=== PATIENT | male | born 1955 | race Caucasian/White ===

== ENCOUNTER 2017-11-17 10:39 | Outpatient (CLI) | payer MEDICAID, SELFPAY ==
[2017-11-17 13:00] LABS: CREATININE 0.79 mg/dL (0.70-1.30); Potassium 5.2 mmol/L (3.5-5.1)
[2017-11-17 13:06] LABS: Hemoglobin A1C 6.6 % (4.5-6.2)
[2017-11-18 09:34] LABS: Hepatitis C Ab w Rflx HCV PCR Negative (NEGAT)
== END 2017-11-17 10:59 ==
PROVIDERS: PCP Family Medicine; Visit Provider Family Medicine
DX: I10 Essential (primary) hypertension (principal); Z11.59 Encounter for screening for other viral diseases; E11.65 Type 2 diabetes mellitus with hyperglycemia
CPT/HCPCS: 36415; 86803; 82565; 83036; 84132

== ENCOUNTER 2018-03-03 11:27 | Outpatient (REF) | payer MEDICAID, SELFPAY | END 2018-03-03 11:47 | LOC: LBN 11:27 | PROVIDERS: PCP Family Medicine; Visit Provider Family Medicine | DX: J06.9 Acute upper respiratory infection, unspecified (principal); R06.02 Shortness of breath | CPT/HCPCS: 87449 ==

== ENCOUNTER 2018-06-05 02:11 | Outpatient (CLI) | payer MEDICAID, SELFPAY ==
[2018-06-05 09:23] LABS: Hemoglobin A1C 6.3 % (4.5-6.2)
[2018-06-05 09:52] LABS: Cholesterol 197 mg/dL (50-200); HDL Cholesterol 52 mg/dL (40-60); LDL CHOLESTEROL 111 mg/dL (<100); Potassium 4.9 mmol/L (3.5-5.1); Triglyceride 148 mg/dL (30-150)
== END 2018-06-05 02:31 ==
PROVIDERS: PCP Family Medicine; Visit Provider Family Medicine
DX: E11.9 Type 2 diabetes mellitus without complications (principal)
CPT/HCPCS: 36415; 80061; 83721; 82565; 83036; 84132

== ENCOUNTER 2018-08-08 15:30 | Outpatient (CLI) | payer MEDICAID, SELFPAY ==
--- NOTE | 2018-08-08 11:15 | DI.RAD_ITS ---
SYMPTOM/DIAGNOSIS: RT ANT RIB PAIN, NO TRAUMA, R07.81, PLEURODYNIA RIGHT RIBS AND PA AND LATERAL CHEST: The heart size is normal. The lungs appear clear. No pneumothorax is seen. A marker was placed over the lower right ribs in the area of the patient's pain. No rib fracture, lytic or blastic lesion is seen. The thoracic spine is unremarkable. IMPRESSION: Negative chest and right ribs.
== END 2018-08-08 15:50 ==
PROVIDERS: PCP Family Medicine; Visit Provider Family Medicine
DX: R07.81 Pleurodynia (principal)
CPT/HCPCS: 71046; 71100

== ENCOUNTER 2018-12-01 10:04 | Outpatient (CLI) | payer MEDICAID, SELFPAY ==
[2018-12-01 13:10] LABS: Hemoglobin A1C 6.3 % (4.5-6.2)
== END 2018-12-01 10:24 ==
PROVIDERS: PCP Family Medicine; Visit Provider Family Medicine
DX: E11.9 Type 2 diabetes mellitus without complications (principal)
CPT/HCPCS: 36415; 83036

== ENCOUNTER → 2019-11-30 08:59 | Outpatient (BNVA) | payer MEDICARE, MEDICAID, SELFPAY | PROVIDERS: PCP Family Medicine; Visit Provider Urology | DX: R31.29 Other microscopic hematuria (principal); E11.65 Type 2 diabetes mellitus with hyperglycemia; E78.5 Hyperlipidemia, unspecified | CPT/HCPCS: 36415; 80061; 81003; 99213; 82565; 84132 ==

== ENCOUNTER 2019-12-11 07:49 | Day surgery (SDC) | payer MEDICARE, MEDICAID, SELFPAY ==
[2019-12-11 08:01] VITALS: BP 184/91; PULSE 60; RESP 22; TEMP 36; O2SAT 96
[2019-12-11] MEDS: Lactated Ringers 1,000 ML 80 ML IV (08:32)
--- NOTE | 2019-12-11 10:25 | W.PM.HP.N ---
Date of service: 12/11/19 Time of Service: 10:26 Assessment and Plan Assessment and plan (1) Screening for colon cancer: Status: Acute Assessment and plan: I offered colonoscopy. The procedure was described including the risks of perforation with need for surgery or bleeding. Patient agrees to proceed. History of Present Illness Narrative: 64 y/o male with history of HTN, Type 2 DM and splenectomy presents for his first colonoscopy screening. He denies a family history of colon cancer. He reports changes in his bowel habits since starting the Janumet, stating that he frequently has diarrhea after taking it in the morning. He denies bloody or black tarry stools, abdominal pain or constipation. He denies constitutional symptoms. Denies use of marijuana or any other recreational or illegal drugs. Review of Systems All systems reviewed & are unremarkable except as noted in HPI and below PFSH Medical History Diabetes mellitus Hypertension Surgical History (Updated 12/11/19 @ 10:27 by Cassandra Wright MD) History of splenectomy Splenomegaly 2010 Family History Mother No problems noted. Father Diabetes Heart disease Neoplasm Stroke Sister Personal history of malignant neoplasm Brother No problems noted. Grandfather Heart disease Grandfather No problems noted. Grandmother No problems noted. Grandmother Diabetes Sister No problems noted. Sister No problems noted. Brother No problems noted. Brother No problems noted. Brother No problems noted. Son Substance abuse Social History (Updated 11/08/19 @ 09:11 by DARCI Florez) Smoking/Tobacco Use Status: Former Tobacco Use Tobacco: How many years used: 12 Smoking risk assessment performed?: Yes Alcohol Intake: current Alcohol Intake frequency: a few times a week Drug use: Never Substance use type: does not use Current gender identity: male Do you feel safe at home: Yes Do you feel safe in your relationship?: Yes Meds Home Medications and Allergies Home Medications Medication Instructions Recorded Confirmed Type aspirin [Aspirin Low-Strength] 81 mg PO DAILY tab-cap 03/22/14 12/11/19 History Fish Oil 1,000 cap PO BID 04/14/16 12/11/19 History blood-glucose meter #1 each 02/13/18 11/30/19 Rx lancets 28 gauge #100 each 02/13/18 11/30/19 Rx albuterol sulfate 90 mcg/actuation 2 puff IH QID PRN #8 gm 03/03/18 12/11/19 Rx aerosol inhaler blood sugar diagnostic #100 strip 04/18/18 11/30/19 Rx atorvastatin 10 mg tablet 10 mg PO .twice/week #30 tab 06/01/19 12/11/19 Rx losartan 100 1 tab PO DAILY #90 tab 06/01/19 12/11/19 Rx mg-hydrochlorothiazide 12.5 mg tablet metoprolol succinate 100 mg 100 mg PO DAILY #90 tab 06/01/19 12/11/19 Rx tablet,extended release 24 hr sitagliptin 50 mg-metformin 1,000 1 tab PO DAILY AM #90 tab 09/24/19 12/11/19 Rx mg tablet amlodipine 5 mg tablet 5 mg PO DAILY #90 tab 11/30/19 12/11/19 Rx Allergies Allergy/AdvReac Type Severity Reaction Status Date / Time No Known Allergies Allergy Verified 12/11/19 08:05 Exam Narrative Exam Narrative: Alert Lungs CTA Heart RRR Abdomen soft, nontender. Results Last Vital Signs Temp 96.8 F L 12/11/19 08:01 Pulse 60 12/11/19 08:01 Resp 22 12/11/19 08:01 BP 184/91 H 12/11/19 08:01 Pulse Ox 96 12/11/19 08:01 COVID-19 Screening Have you,or household,traveled outside [place] in last 14 days?: Yes Had IN PERSON contact w/suspected or confirmed C-19 person: No
--- NOTE | 2019-12-11 11:58 | W.PM.DSUDISC ---
Discharge Plan Disposition Patient Disposition: HOME Condition: Good Discharge Details Reason For Visit: Screening colonoscopy Attending Provider: Cassandra Wright Primary Care Provider: Aston Alicea Home Meds and New Rx's Prescriptions: Continued losartan-hydrochlorothiazide 100-12.5 mg tablet 1 tab PO DAILY Qty: 90 RF: 3 metoprolol succinate 100 mg tablet extended release 24 hr 100 mg PO DAILY Qty: 90 RF: 3 atorvastatin 10 mg tablet 10 mg PO .twice/week Qty: 30 RF: 3 albuterol sulfate [Ventolin HFA] 90 mcg/actuation HFA aerosol inhaler 2 puff IH QID PRN (Reason: shortness of breath or wheezing) Qty: 8 RF: 0 amlodipine 5 mg tablet 5 mg PO DAILY Qty: 90 RF: 3 aspirin [Aspirin Low-Strength] 81 MG tablet,chewable 81 mg PO DAILY RF: 0 fish oil 1,000 cap PO BID RF: 0 (DME) lancets 28 gauge misc 1 ea Miscellaneous DAILY Qty: 100 RF: 3 (DME) blood-glucose meter misc 1 ea Miscellaneous DAILY Qty: 1 RF: 0 (DME) Blood Glucose Test strip 1 ea Miscellaneous DAILY Qty: 100 RF: 3 Janumet 50-1,000 mg tablet 1 tab PO DAILY AM Qty: 90 RF: 3 Discharge Instructions Additional Instructions: Findings: Your colonoscopy was normal. Follow up: Plan for routine screening colonoscopy in 10 years or sooner if symptoms arise. Please call if you develop: fevers >101.5 Nausea or Vomiting Abdominal pain that is not transient DAY SURGERY UNIT POST COLONOSCOPY INSTRUCTIONS 1. Because there will be medication in your system for the next 24 hours, you may feel a little sleepy. Your coordination will be affected. Therefore: a. Do not drive or operate dangerous equipment for 24 hours. b. Do not drink alcohol beverages for 24 hours (not even beer). c. Plan to go home and rest for the day. 2. Generally there are no restrictions on your activity after a day or so has gone by, but you may feel a bit fatigued for a few days. 3 After you arrive home you may have a light meal and return to a normal diet as you can tolerate it without feeling sick to your stomach. 4. After surgery, you may feel pain or discomfort. This should be only transient, but if it persists please contact your doctor. 5. If there are any questions regarding the findings of your procedure, please feel free to contact your doctor. 6. If you are unable to contact your doctor with a problem, contact the hospital at [phone]. 7. Continue all your regular medications unless directed otherwise. I understand the above instructions and have no questions. Signature of Patient or Responsible Adult Escort Date/Time Name of Responsible Adult Escort Signature of Nurse Date/Time Stand Alone Forms: Janey Walden (ANDREIAU) Activity:: Activity as Tolerated Diet:: As Tolerated Discharge Orders Discharge Orders: Discharge Order (Routine); Ordered 12/11/19 Ordered By: Cassandra Wright DS: Diagnosis Discharge Diagnosis (1) Screening for colon cancer: Status: Acute
[2019-12-11 12:00] VITALS: BP 202/86; PULSE 69; RESP 22; TEMP 36.5; O2SAT 97
--- NOTE | 2019-12-12 05:40 | W.COLOREPORT ---
Colonoscopy Report Date of procedure: 12/11/19 Pre-op diagnosis general: Screening Post-op diagnosis procedure note: other (Normal colon) Procedure: Colonoscopy Surgeon: Cassandra Wright Anesthesia proc note operative: MAC Indications: This 64 year old man presents for his first screening colonoscopy. No symptoms or FH colon cancer. Procedure Description: The patient was placed in the left Davison position. Propofol was titrated to sedation. Digital rectal examination revealed no abnormalities. The scope was advanced to the cecum without difficulty. The ileocecal valve and appendiceal orifice were clearly identified. The prep was good. The scope was slowly withdrawn over the course of greater than 6 minutes with no abnormalities seen in the ascending, transverse, descending, sigmoid colon or rectum including on retroflexed view. The patient tolerated the procedure well and was stable to recovery. Plan for routine screening colonoscopy in 10 years or sooner if symptoms indicate.
== END 2019-12-11 12:15 | disposition home or self-care (01) ==
PROVIDERS: PCP Family Medicine; Visit Provider Surgery
PROC: 0DJD8ZZ Inspection of Lower Intestinal Tract, Via Natural or Artificial Opening Endoscopic (ICD-10-PCS; CPT 45378; principal; 2019-12-11 10:15)
DX: Z12.11 Encounter for screening for malignant neoplasm of colon (principal); E11.9 Type 2 diabetes mellitus without complications; I10 Essential (primary) hypertension
CPT/HCPCS: 45378; NC; J2001

== ENCOUNTER 2020-07-08 18:06 | Outpatient (REF) | payer MEDICARE, MEDICAID, SELFPAY ==
[2020-07-08 19:48] LABS: Anion Gap 7.2 mmol/L (3-11); BUN 16 mg/dL (7-18); CO2 23.8 mmol/L (21.0-32.0); CREATININE 1.1 mg/dL (0.70-1.30); Calcium 8.6 mg/dL (8.5-10.1); Chloride 93 mmol/L (98-107); Glucose 105 mg/dL (74-106); Potassium 5.7 mmol/L (3.5-5.1)
[2020-07-08 19:58] LABS: Sodium 124 mmol/L (136-145)
== END 2020-07-08 18:07 | disposition home or self-care (01) ==
LOC: LBN 18:06
PROVIDERS: PCP Family Medicine; Visit Provider Family Medicine
DX: E87.1 Hypo-osmolality and hyponatremia (principal)
CPT/HCPCS: 80048

== ENCOUNTER 2020-07-11 02:17 | Outpatient (CLI) | payer MEDICARE, MEDICAID, SELFPAY ==
[2020-07-11 11:19] LABS: Anion Gap 4.6 mmol/L (3-11); CO2 23.4 mmol/L (21.0-32.0); Chloride 93 mmol/L (98-107)
[2020-07-11 11:24] LABS: Sodium 121 mmol/L (136-145)
== END 2020-07-11 02:18 | disposition home or self-care (01) ==
LOC: LBO 02:18
PROVIDERS: PCP Family Medicine; Visit Provider Family Medicine
DX: E87.1 Hypo-osmolality and hyponatremia (principal)
CPT/HCPCS: 36415; 80051

== ENCOUNTER 2020-07-18 09:04 | Outpatient (CLI) | payer MEDICARE, MEDICAID, SELFPAY ==
[2020-07-18 12:01] LABS: Anion Gap 6.9 mmol/L (3-11); BUN 12 mg/dL (7-18); CO2 23.1 mmol/L (21.0-32.0); CREATININE 0.9 mg/dL (0.70-1.30); Calcium 8.2 mg/dL (8.5-10.1); Chloride 97 mmol/L (98-107); Glucose 133 mg/dL (74-106); Potassium 4.6 mmol/L (3.5-5.1); Sodium 127 mmol/L (136-145)
[2020-07-18 12:11] LABS: Sodium, Urine 24 mmol/L
== END 2020-07-18 09:05 | disposition home or self-care (01) ==
LOC: LBO 09:15
PROVIDERS: PCP Family Medicine; Visit Provider Family Medicine
DX: E87.1 Hypo-osmolality and hyponatremia (principal); R03.0 Elevated blood-pressure reading, without diagnosis of hypertension
CPT/HCPCS: 36415; 80048; 82533; 82436; 84300

== ENCOUNTER 2020-08-06 03:43 | Outpatient (CLI) | payer MEDICARE, MEDICAID, SELFPAY ==
[2020-08-06 12:08] LABS: Anion Gap 8.4 mmol/L (3-11); BUN 13 mg/dL (7-18); CO2 21.6 mmol/L (21.0-32.0); Calcium 8.4 mg/dL (8.5-10.1); Chloride 101 mmol/L (98-107); Glucose 96 mg/dL (74-106); Potassium 5.3 mmol/L (3.5-5.1); Sodium 131 mmol/L (136-145)
== END 2020-08-06 03:44 | disposition home or self-care (01) ==
LOC: LBO 03:46
PROVIDERS: PCP Family Medicine; Visit Provider Family Medicine
DX: E87.1 Hypo-osmolality and hyponatremia (principal)
CPT/HCPCS: 36415; 80048

== ENCOUNTER → 2020-12-02 09:41 | Outpatient (BNVA) | payer MEDICARE, MEDICAID, SELFPAY | PROVIDERS: PCP Family Medicine; Referring Provider Family Medicine; Visit Provider Urology | DX: R31.29 Other microscopic hematuria (principal) | CPT/HCPCS: 81003; 99213 ==

== ENCOUNTER 2020-12-02 21:09 | Outpatient (REF) | payer MEDICARE, MEDICAID, SELFPAY ==
[2020-12-02 20:53] LABS: Anion Gap 9.6 mmol/L (3-11); CO2 22.4 mmol/L (21.0-32.0); CREATININE 0.9 mg/dL (0.70-1.30); Chloride 104 mmol/L (98-107); Potassium 5.1 mmol/L (3.5-5.1); Sodium 136 mmol/L (136-145)
[2020-12-03 17:44] LABS: PSA, Screening 0.4 ng/mL (0.0-4.5)
== END 2020-12-02 21:10 | disposition home or self-care (01) ==
LOC: LBN 21:09
PROVIDERS: PCP Family Medicine; Visit Provider Family Medicine
DX: I10 Essential (primary) hypertension (principal); E87.1 Hypo-osmolality and hyponatremia; R73.9 Hyperglycemia, unspecified; R31.29 Other microscopic hematuria; Z12.5 Encounter for screening for malignant neoplasm of prostate
CPT/HCPCS: 80051; 84153; 82565; 83036

== ENCOUNTER 2021-02-01 09:58 | Emergency (ER) | payer MEDICARE, MEDICAID, SELFPAY ==
[2021-02-01 10:03] VITALS: BP 167/91; PULSE 98; RESP 16; TEMP 36.6; O2SAT 96
--- NOTE | 2021-02-01 10:23 | ED.GENADUL_ITS ---
Discharge Plan Disposition Patient Disposition: HOME Condition: Stable Discharge Details Clinical Impression: Cellulitis Primary Care Provider: Aston Alicea ED Provider: Ezequiel Mckeon Home Meds and New Rx's Prescriptions: New cephalexin 500 mg tablet 500 mg PO QID 7 Days Qty: 28 RF: 0 Continued atorvastatin 10 mg tablet 10 mg PO .twice/week Qty: 30 RF: 3 metoprolol succinate 200 mg tablet extended release 24 hr 200 mg PO DAILY Qty: 90 RF: 3 Janumet 50-1,000 mg tablet 1 tab PO DAILY AM Qty: 90 RF: 3 doxazosin [Cardura] 8 mg tablet 8 mg PO DAILY Qty: 90 RF: 3 aspirin [Aspirin Low-Strength] 81 MG tablet,chewable 81 mg PO DAILY RF: 0 (DME) lancets 28 gauge misc 1 ea Miscellaneous DAILY Qty: 100 RF: 3 (DME) blood-glucose meter misc 1 ea Miscellaneous DAILY Qty: 1 RF: 0 (DME) Blood Glucose Test strip 1 ea Miscellaneous DAILY Qty: 100 RF: 3 losartan 100 mg tablet 50 mg PO DAILY Qty: 90 RF: 3 fish oil 1,000 cap PO .once daily RF: 0 Discharge Instructions Instructions: Cellulitis (ED) Additional Instructions: Please take medication as prescribed and discussed. If you notice any significant worsening of symptoms, persistent or high fevers, abdominal pain, or vomiting please return immediately to the emergency department for reevaluation. Otherwise return tomorrow preferably between 2 and 4:00PM for recheck of your infection. Medical Decision Making Patient presenting to emergency department for abdominal redness and discomfort with surrounding erythema. Patient states he has had an area of dry skin that he has been scratching it for weeks but over the last couple days has noted redness that is increasing along with discomfort. Subjective low-grade fever and chills and malaise otherwise denies all other symptoms. Physical exam consistent with cellulitis of the abdomen with area of excoriation just distal and central to the umbilicus. Plan to check labs including blood cultures and lactate and treat with antibiotics. At presentation patient does not state that he wants to be admitted and would prefer outpatient therapy if possible. Patient is otherwise stable in appearance, no crepitus, and patient significant other does state that in the last 24 hours symptoms may have slightly improved or stayed the same but definitely not worsened. The reason they are presenting to the emergency department is due to contacting the on-call primary care provider who recommended emergency evaluation. Review of labs does show a leukocytosis, elevated lactate, elevated ESR and CRP. No emergent worrisome findings on CMP. I feel that all of his labs are consistent with cellulitis. Did discuss with patient potential admission versus outpatient therapy with close follow-up. Patient continues to state that he does not want to be admitted and would prefer outpatient therapy at this time. Given that patient is otherwise stable, no signs of sepsis, and is blood sugar not severely elevated I am agreeable to this plan of care but patient will return tomorrow afternoon for follow-up with me in the emergency department to reevaluate condition. HPI General Mode of arrival: ambulatory . Date/Time Provider Initiated Documentation: 02/01/21 09:58 . Limitations to Documentation: no limitations . Information obtained by: patient and family . History of Present Illness 65 year old M presents to the emergency department with the chief complaint of Skin(abd) reddness, described as moderate, with intensity rated at 8. Quality is described as aching, and is localized to the abdomen. Patient started experiencing this week(s) (2) and it has been constant. No relieving factors improve symptom(s), No exacerbating factors reported . Patient notes fever/chills; denies nausea/vomiting. Patient did receive the following treatments prior to arrival, none Related Data Home Medications Medication Instructions Recorded Confirmed aspirin [Aspirin Low-Strength] 81 mg PO DAILY tab-cap 03/22/14 02/01/21 blood-glucose meter #1 each 02/13/18 02/01/21 lancets 28 gauge #100 each 02/13/18 02/01/21 blood sugar diagnostic #100 strip 04/18/18 02/01/21 atorvastatin 10 mg tablet 10 mg PO .twice/week #30 tab 06/03/20 02/01/21 sitagliptin 50 mg-metformin 1,000 1 tab PO DAILY AM #90 tab 07/08/20 02/01/21 mg tablet losartan 100 mg tablet 50 mg PO DAILY #90 tab 08/06/20 02/01/21 doxazosin 8 mg tablet 8 mg PO DAILY #90 tab 08/22/20 02/01/21 fish oil 1,000 cap PO .once daily 12/02/20 02/01/21 metoprolol succinate 200 mg 200 mg PO DAILY #90 tab 12/02/20 02/01/21 tablet,extended release 24 hr cephalexin 500 mg PO QID 7 Days #28 tab 02/01/21 Previous Rx's Medication Instructions Recorded blood-glucose meter #1 each 02/13/18 lancets 28 gauge #100 each 02/13/18 blood sugar diagnostic #100 strip 04/18/18 atorvastatin 10 mg tablet 10 mg PO .twice/week #30 tab 06/03/20 sitagliptin 50 mg-metformin 1,000 1 tab PO DAILY AM #90 tab 07/08/20 mg tablet losartan 100 mg tablet 50 mg PO DAILY #90 tab 08/06/20 doxazosin 8 mg tablet 8 mg PO DAILY #90 tab 08/22/20 metoprolol succinate 200 mg 200 mg PO DAILY #90 tab 12/02/20 tablet,extended release 24 hr cephalexin 500 mg PO QID 7 Days #28 tab 02/01/21 Allergies Allergy/AdvReac Type Severity Reaction Status Date / Time No Known Allergies Allergy Verified 02/01/21 10:09 General Stated Complaint: Cellulitis BRANDYN: 2 Review of Systems Constitutional Constitutional: Reports chills, Reports fever(s), Reports malaise and Denies weakness Cardiovascular Cardiovascular: Denies chest pain and Denies dyspnea Respiratory Respiratory: Denies dyspnea Gastrointestinal Gastrointestinal: Reports abdominal pain (skin), Reports bloating, Denies diarrhea, Denies nausea and Denies vomiting Genitourinary Genitourinary: Denies difficulty urinating Integumentary/Breasts Skin/Breast: Reports as per HPI, Reports erythema, Denies rash, Reports skin pain and Denies skin swelling Neurologic Neurologic: Denies confusion and Denies weakness Psychiatric Psychiatric: Denies confusion PFSH All Active Problems (Updated 02/01/21 @ 11:22 by Ezequiel Mckeon NP) Cellulitis (Acute) Hyperkalemia (Acute) Hyponatremia (Acute) Weight gain (Acute) Edema (Acute) History of splenectomy (Acute) Type II diabetes mellitus with complication, uncontrolled (Acute) 01/10/13 A1C 7.3 12/26/13 A1C 11.7 Essential hypertension (Acute) not well controlled will bump up los/hctz Alcoholism (Acute) Calculus of gallbladder without cholecystitis without obstruction (Acute 04/22/16) Former smoker (Acute) 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 muscle tear will check xray Screening for colon cancer (Acute) Well adult (Acute) Medical History Diabetes mellitus Hypertension Family History Mother No problems noted. Father Diabetes Heart disease Neoplasm Stroke Sister Personal history of malignant neoplasm Brother No problems noted. Grandfather Heart disease Grandfather No problems noted. Grandmother No problems noted. Grandmother Diabetes Sister No problems noted. Sister No problems noted. Brother No problems noted. Brother No problems noted. Brother No problems noted. Son Substance abuse Social History Smoking/Tobacco Use Status: Former Tobacco Use Tobacco: How many years used: 12 Smoking risk assessment performed?: Yes Alcohol Intake: current Alcohol Intake frequency: a few times a week Drug use: Never Substance use type: does not use Current gender identity: male Do you feel safe at home: Yes Do you feel safe in your relationship?: Yes Exam Const General: cooperative, no acute distress and not ill appearing Orientation: alert, awake and oriented x3 Resp Effort & Inspection: normal respiratory effort, able to speak in complete sentences and no respiratory distress Auscultation: clear to auscultation bilaterally Cardio Rate: regular rate Rhythm: regular rhythm Heart Sounds: S1 normal and S2 normal GI Inspection: obesity, no visible herniation and other (Lower central abrasion with erythema) Palpation: not rigid and nontender Auscultation: normal bowel sounds Skin General skin exam: dry skin, erythema (lower central to mid central abd) and excoriation Neuro General: patient alert, patient awake, patient oriented x3, moves all extremities and no focal motor deficits Sensory Exam: no sensory deficits noted Course Vital Signs Vital signs: Vital Signs Temperature 36.6 C 02/01/21 10:03 Pulse 98 H 02/01/21 10:03 Respiratory Rate 16 02/01/21 10:03 Blood Pressure 167/91 H 02/01/21 10:03 Pulse Oximetry 96 02/01/21 10:03 Temperature 36.6 C 02/01/21 10:03 Temperature Source Oral 02/01/21 10:03 Pulse 98 H 02/01/21 10:03 Respiratory Rate 16 02/01/21 10:03 Respiratory Effort Non-Labored 02/01/21 10:07 Blood Pressure 167/91 H 02/01/21 10:03 Blood Pressure Position Sitting 02/01/21 10:03 Pulse Oximetry 96 02/01/21 10:03 Oxygen Delivery Method Room Air 02/01/21 10:03 Oxygen Flow Rate 0 02/01/21 10:03 Pain Level 8 02/01/21 10:03 PAWSS Have you Been Recently Intoxicated or Drunk Within the Last 30 days?: No Have you Ever Experienced Previous Episodes of Alcohol Withdrawal?: No Have you ever Experienced Withdrawal Seizures?: No Have you ever Experienced Delirium Tremens(DT)s?: No Have you ever undergone Alcohol Rehabilitation Treatment (i.e, inpt ot outpatient treatment programs)?: No Have you ever Experienced Blackouts?: No Have you ever Combined Alcohol with other Downers within the last 90 days?: No Have you ever Combined Alcohol with any other Substance of Abuse during the last 90 days?: No Positive Blood Alcohol level on Presentation? [PCS.BAL]: No Evidence of Increased Autonomic Activity (i.e. HR>120, tremor, sweating, agitation, nausea)?: No Result: 0
[2021-02-01 10:37] LABS: Lactate 1.5 mmol/L (0.6-1.4)
[2021-02-01 10:40] LABS: HCT 41.9 % (40.0-50.0); HGB 13.9 g/dL (13.5-17.5); MCH 30.7 pg (27.0-33.0); MCHC 33.2 % (32.0-36.0); MCV 92.5 fL (80-95); Nucleated RBC 0 %; Platelet Count 230 10^3/uL (130-400); RBC 4.53 10^6/uL (4.36-5.78); RDW 13.7 % (11.8-14.1); RDW-SD 46.7 fL; WBC 15.17 10^3/uL (4.4-10.8)
[2021-02-01 10:46] LABS: ESR 57 mm/hr (0-20)
[2021-02-01 10:54] LABS: ALT 22 U/L (16-63); AST 33 U/L (15-37); Albumin 2.3 g/dL (3.4-5.0); Alkaline Phosphatase 80 U/L (46-116); Anion Gap 7.6 mmol/L (3-11); BUN 13 mg/dL (7-18); Bilirubin, Total 1.5 mg/dL (0.2-1.0); C-Reactive Protein 4.02 mg/dL (0.0-0.3); CO2 24.4 mmol/L (21.0-32.0); CREATININE 1.3 mg/dL (0.70-1.30); Chloride 99 mmol/L (98-107); Estimated GFR 55.23 (mL/min/1.73m2); Glucose 131 mg/dL (74-106); Potassium 3.9 mmol/L (3.5-5.1); Sodium 131 mmol/L (136-145); Total Protein 7.1 g/dL (6.4-8.2)
[2021-02-01 10:58] LABS: Absolute Lymphocyte Count 3.64 10^3/uL (1.2-3.4); Atypical Lymphocytes % 1
[2021-02-01 10:59] LABS: Absolute Basophil Count 0.76 10^3/uL (0.0-0.2); Absolute Monocyte Count 1.67 10^3/uL (0.1-0.8); Diff Comment Manual Differential
[2021-02-01 11:00] LABS: Howell-Jolly Bodies Present
[2021-02-01 11:01] LABS: Poikilocytes 1+
[2021-02-01] MEDS: Normal Saline Flush 10 ML SYR IVP (11:25)
[2021-02-01 11:39] VITALS: BP 161/93; RESP 18; TEMP 36.9; O2SAT 95
[2021-02-01] MEDS: Cephalexin 500 MG CAP PO (11:40)
--- NOTE | 2021-02-01 11:47 | NUR.NOTE ---
area of cellulitis outlined in pen on abdomen. Nursing Note:
== END 2021-02-01 11:41 | disposition home or self-care (01) ==
PROVIDERS: Emergency Provider Nurse Practitioner Family; PCP Family Medicine
DX: L03.311 Cellulitis of abdominal wall (principal); M89.9 Disorder of bone, unspecified; D72.829 Elevated white blood cell count, unspecified
CPT/HCPCS: 36415; 80053; 85652; 87040; 99283; 83605; 85025; 86140

== ENCOUNTER 2021-02-02 14:38 | Emergency (ER) | payer MEDICARE, MEDICAID, SELFPAY ==
[2021-02-02 14:48] VITALS: BP 183/93; PULSE 82; RESP 18; TEMP 36.8; O2SAT 97
--- NOTE | 2021-02-02 14:50 | ED.GENADUL_ITS ---
Discharge Plan Disposition Patient Disposition: HOME Condition: Improving Discharge Details Clinical Impression: Encounter for wound re-check, Cellulitis Primary Care Provider: Aston Alicea ED Provider: Ezequiel Mckeon Home Meds and New Rx's Prescriptions: Continued atorvastatin 10 mg tablet 10 mg PO .twice/week Qty: 30 RF: 3 metoprolol succinate 200 mg tablet extended release 24 hr 200 mg PO DAILY Qty: 90 RF: 3 Janumet 50-1,000 mg tablet 1 tab PO DAILY AM Qty: 90 RF: 3 doxazosin [Cardura] 8 mg tablet 8 mg PO DAILY Qty: 90 RF: 3 aspirin [Aspirin Low-Strength] 81 MG tablet,chewable 81 mg PO DAILY RF: 0 (DME) lancets 28 gauge misc 1 ea Miscellaneous DAILY Qty: 100 RF: 3 (DME) blood-glucose meter misc 1 ea Miscellaneous DAILY Qty: 1 RF: 0 (DME) Blood Glucose Test strip 1 ea Miscellaneous DAILY Qty: 100 RF: 3 losartan 100 mg tablet 50 mg PO DAILY Qty: 90 RF: 3 fish oil 1,000 cap PO .once daily RF: 0 cephalexin 500 mg tablet 500 mg PO QID 7 Days Qty: 28 RF: 0 Discharge Instructions Additional Instructions: Continue to take antibiotics as prescribed and as long as you are continuing to state improvement of symptoms no need to return to the emergency department. If you do not continue to notice improvement over the next couple days please follow-up with your primary care provider. If you notice any significant worsening of symptoms fever chills nausea vomiting or feeling ill return immediately to the emergency department for reevaluation. Discharge Data Discharge Date/Time-TO BE ENTERED AT DEPARTURE: 02/02/21 14:56 Medical Decision Making Patient presenting to the emergency department for recheck of abdominal wall cellulitis. Patient has significant improvement of symptoms patient denies any systemic symptoms and states overall improvement. Erythema has significantly reduced and is well within skin markings. I feel that patient is able to safely continue outpatient therapy and follow-up with primary care provider if not improving. After discussion of diagnosis and plan of care patient has no further needs, questions, or concerns and states clear understanding to return to the emergency department for any worsening symptoms. HPI General Mode of arrival: ambulatory . Date/Time Provider Initiated Documentation: 02/02/21 14:50 . Limitations to Documentation: no limitations . Information obtained by: patient . History of Present Illness 65 year old M presents to the emergency department with the chief complaint of Recheck of abdominal cellulitis, described as mild, with intensity rated at 4. Quality is described as aching, and is localized to the abdomen. Patient reports no radiation. Patient started experiencing this week(s) Medication improves symptom(s), No exacerbating factors reported . Patient notes no other symptoms.. Patient did receive the following treatments prior to arrival, other (abx) Related Data Home Medications Medication Instructions Recorded Confirmed aspirin [Aspirin Low-Strength] 81 mg PO DAILY tab-cap 03/22/14 02/01/21 blood-glucose meter #1 each 02/13/18 02/01/21 lancets 28 gauge #100 each 02/13/18 02/01/21 blood sugar diagnostic #100 strip 04/18/18 02/01/21 atorvastatin 10 mg tablet 10 mg PO .twice/week #30 tab 06/03/20 02/01/21 sitagliptin 50 mg-metformin 1,000 1 tab PO DAILY AM #90 tab 07/08/20 02/01/21 mg tablet losartan 100 mg tablet 50 mg PO DAILY #90 tab 08/06/20 02/01/21 doxazosin 8 mg tablet 8 mg PO DAILY #90 tab 08/22/20 02/01/21 fish oil 1,000 cap PO .once daily 12/02/20 02/01/21 metoprolol succinate 200 mg 200 mg PO DAILY #90 tab 12/02/20 02/01/21 tablet,extended release 24 hr cephalexin 500 mg PO QID 7 Days #28 tab 02/01/21 Previous Rx's Medication Instructions Recorded blood-glucose meter #1 each 02/13/18 lancets 28 gauge #100 each 02/13/18 blood sugar diagnostic #100 strip 04/18/18 atorvastatin 10 mg tablet 10 mg PO .twice/week #30 tab 06/03/20 sitagliptin 50 mg-metformin 1,000 1 tab PO DAILY AM #90 tab 07/08/20 mg tablet losartan 100 mg tablet 50 mg PO DAILY #90 tab 08/06/20 doxazosin 8 mg tablet 8 mg PO DAILY #90 tab 08/22/20 metoprolol succinate 200 mg 200 mg PO DAILY #90 tab 12/02/20 tablet,extended release 24 hr cephalexin 500 mg PO QID 7 Days #28 tab 02/01/21 Allergies Allergy/AdvReac Type Severity Reaction Status Date / Time No Known Allergies Allergy Verified 02/02/21 14:51 General Stated Complaint: Recheck BRANDYN: 2 Review of Systems All systems reviewed & are unremarkable except as noted in HPI and below Constitutional Constitutional: Denies chills and Denies fever(s) Gastrointestinal Gastrointestinal: Denies abdominal pain, Denies nausea and Denies vomiting Integumentary/Breasts Skin/Breast: Reports as per HPI PFSH All Active Problems (Updated 02/02/21 @ 14:51 by Ezequiel Mckeon NP) Cellulitis (Acute) Encounter for wound re-check (Acute) Hyperkalemia (Acute) Hyponatremia (Acute) Weight gain (Acute) Edema (Acute) History of splenectomy (Acute) Type II diabetes mellitus with complication, uncontrolled (Acute) 01/10/13 A1C 7.3 12/26/13 A1C 11.7 Essential hypertension (Acute) not well controlled will bump up los/hctz Alcoholism (Acute) Calculus of gallbladder without cholecystitis without obstruction (Acute 04/22/16) Former smoker (Acute) 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 muscle tear will check xray Screening for colon cancer (Acute) Well adult (Acute) Medical History Diabetes mellitus Hypertension Family History Mother No problems noted. Father Diabetes Heart disease Neoplasm Stroke Sister Personal history of malignant neoplasm Brother No problems noted. Grandfather Heart disease Grandfather No problems noted. Grandmother No problems noted. Grandmother Diabetes Sister No problems noted. Sister No problems noted. Brother No problems noted. Brother No problems noted. Brother No problems noted. Son Substance abuse Social History Smoking/Tobacco Use Status: Former Tobacco Use Tobacco: How many years used: 12 Smoking risk assessment performed?: Yes Alcohol Intake: current Alcohol Intake frequency: a few times a week Drug use: Never Substance use type: does not use Current gender identity: male Do you feel safe at home: Yes Do you feel safe in your relationship?: Yes Exam Const General: cooperative, no acute distress and not ill appearing Orientation: alert, awake and oriented x3 Resp Effort & Inspection: normal respiratory effort, able to speak in complete sentences and no respiratory distress Skin General skin exam: erythema (Around central abdomen but significantly improved and reducing ) Neuro General: patient alert, patient awake and patient oriented x3
== END 2021-02-02 14:56 | disposition home or self-care (01) ==
PROVIDERS: Emergency Provider Nurse Practitioner Family; PCP Family Medicine
DX: L03.311 Cellulitis of abdominal wall (principal)

== ENCOUNTER 2021-06-09 10:14 | Emergency (ER) | payer OTHER, MEDICARE, MEDICAID, SELFPAY ==
[2021-06-09 10:22] VITALS: BP 192/71; PULSE 57; RESP 17; TEMP 36.7; O2SAT 97
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
--- NOTE | 2021-06-09 11:00 | DI.RAD_ITS ---
Exam(s) XR KNEE RT 3V AP,LAT,LAITH EXAM: XR KNEE RT 3V AP,LAT,LAITH CLINICAL HISTORY: right knee pain. TECHNIQUE: 2D digital imaging was performed. COMPARISON: No exams were available for comparison FINDINGS: 3 views There is some mild swelling anterior to the patella but no fractures. No evidence of obvious joint e ffusion. Minimal if any significant degenerative changes. Bone density normal. No osseous lesions. IMPRESSION: No fractures. Anterior soft tissue swelling-prepatellar. DATA REPOSITORY: RADIATION DOSE DELIVERED:
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
[2021-06-09 11:51] VITALS: BP 197/72; PULSE 56; RESP 14; TEMP 35.7; O2SAT 96
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
== END 2021-06-09 12:29 | disposition home or self-care (01) ==
PROVIDERS: Emergency Provider Physician Assistant; PCP Family Medicine
DX: S09.8XXA Other specified injuries of head, initial encounter (principal); S80.01XA Contusion of right knee, initial encounter; R07.89 Other chest pain; M25.561 Pain in right knee; V43.62XA Car passenger injured in collision with other type car in traffic accident, initial encounter
CPT/HCPCS: 73562; 99284; 70450; 71046; 71100; 72125

== ENCOUNTER 2021-07-21 02:38 | Outpatient (CLI) | payer MEDICARE, MEDICAID, SELFPAY ==
[2021-07-21 13:13] LABS: BUN 15 mg/dL (7-18); CREATININE 1.1 mg/dL (0.70-1.30); Calcium 8.1 mg/dL (8.5-10.1); Calculated LDL 66 mg/dL (<100); Chloride 96 mmol/L (98-107); Cholesterol 137 mg/dL (<200); Glucose 114 mg/dL (74-106); HDL Cholesterol 55 mg/dL (40-60); Potassium 4.7 mmol/L (3.5-5.1); Sodium 127 mmol/L (136-145); Triglyceride 81 mg/dL (<150)
[2021-07-21 13:14] LABS: COMMENT (LAB VIEW ONLY) 60.28 mg/dL
[2021-07-21 13:21] LABS: Microalb ug/mg Crea 1369.3 ug/mg Cr
== END 2021-07-21 02:39 | disposition home or self-care (01) ==
LOC: LOS 02:38
PROVIDERS: PCP Family Medicine; Visit Provider Family Medicine
DX: E11.9 Type 2 diabetes mellitus without complications (principal); E78.5 Hyperlipidemia, unspecified; E87.1 Hypo-osmolality and hyponatremia
CPT/HCPCS: 36415; 80048; 80061; 82043; 82570

== ENCOUNTER 2021-08-31 09:18 | Outpatient (CLI) | payer MEDICARE, MEDICAID, SELFPAY ==
[2021-08-31 12:33] LABS: Anion Gap 6.9 mmol/L (3-11); CO2 23.1 mmol/L (21.0-32.0); Chloride 95 mmol/L (98-107); Potassium 4.7 mmol/L (3.5-5.1)
[2021-08-31 12:34] LABS: Sodium 125 mmol/L (136-145)
== END 2021-08-31 09:19 | disposition home or self-care (01) ==
LOC: LOS 09:18
PROVIDERS: PCP Family Medicine; Referring Provider Family Medicine; Visit Provider Family Medicine
DX: E87.1 Hypo-osmolality and hyponatremia (principal)
CPT/HCPCS: 36415; 80051

== ENCOUNTER 2021-09-01 14:41 | Inpatient (IN) | payer MEDICARE, MEDICAID, SELFPAY ==
[2021-09-01] VITALS (48 sets, daily range): BP systolic 113–175; BP diastolic 44–95; PULSE 74–97; RESP 17–31; TEMP 36.6–38.3; O2SAT 88–97
--- NOTE | 2021-09-01 15:00 | RT.EKG_ITS ---
APPROVED REPORT Exam: Resting ECG Reason for Exam: syncope Patient Location: E HR:88 bpm ECG Measurements Heart Rate 88 AXIS ID 162 P 69 QRSd 80 QRS 76 QT 365 T 69 QTc 441 Conclusion Sinus rhythm...normal P axis, V-rate 60- 99
[2021-09-01 15:02] LABS: Absolute Eosinophil Count 0.07 10^3/uL (0.0-0.7); BE (Venous) -3 mmol/L (-2-3); Eosinophils % 0.4; HCO3 (Venous) 22 mmol/L (23-28); HCT 39.3 % (40.0-50.0); O2 Sat (Venous) 60 %; TCO2 (Venous) 20 mmol/L (24-29); pCO2 (Venous) 37 mmHg (41-51); pH (Venous) 7.39 (7.31-7.41); pO2 (Venous) 30 mmHg
[2021-09-01] MEDS: Normal Saline 1,000 ML 1000 ML IV (15:02)
[2021-09-01 15:12] LABS: Lactate 2.6 mmol/L (0.6-1.4)
--- NOTE | 2021-09-01 15:15 | DI.US_ITS ---
Exam(s) US LOWER EXTREMITY VENOUS RT EXAM: US LOWER EXTREMITY VENOUS RT CLINICAL HISTORY: red and swollen leg TECHNIQUE: Right lower extremity venous ultrasound performed using grayscale, color-flow, and spectr al Doppler analysis. COMPARISON: No exams were available for comparison FINDINGS: The right common femoral, femoral and popliteal veins demonstrate normal compressibility, augmentatio n, and color Doppler. The posterior tibial veins are patent. The saphenofemoral junction is unremark able. There is no evidence of a Fletcher cyst. Mild edema in the soft tissues medial to the knee. IMPRESSION: 1. No evidence of a right lower extremity DVT. 2. Results of this exam have been verbally communicated with provider. DATA REPOSITORY:
--- NOTE | 2021-09-01 15:15 | DI.CT_ITS ---
Exam(s) CT CHEST PE ABD PELVIS W EXAM: CT CHEST PE ABD PELVIS W CLINICAL HISTORY: hypoxia, fever, abdominal pain and diarrhea. TECHNIQUE: Imaging Protocol: Axial CT angiography was performed with multi-slice acquisition and mu lti-planar and/or 3D reconstructions. CONTRAST MATERIAL: Intravenous: Omnipaque 350contrast volume:100 mL COMPARISON: CT ABD PELVIS WO CONTRAST from 04/22/2016 FINDINGS: The examination is limited due to patient motion artifact. CHEST: Tracheobronchial tree: Patent where visualized. Pulmonary parenchyma: No consolidation or dominant measurable mass. Emphysematous changes are present . There is a 6 mm nodule in the right lower lobe. Pulmonary Arteries: No evidence of filling defect to suggest pulmonary emboli. Mediastinum and Monalisa: No dominant adenopathy or fluid collection. The esophagus is unremarkable. Visualized thyroid gland: Unremarkable. Pleura: No effusion or pneumothorax. Heart: The heart is not dilated. Coronary artery calcifications are present. No pericardial effusion . Aorta: Thoracic aorta non-dilated. Atherosclerosis is present. Bones: Within normal limits for the patient's age. Old T1 compression deformity. No acute displaced rib fractures. Soft tissues: Bilateral gynecomastia. ABDOMEN: Liver: Normal density. The liver has a nodular contour consistent with hepatic cirrhosis. Portal, Superior Mesenteric, and Splenic Veins: Unremarkable. Gallbladder and Biliary Tract: Cholelithiasis. No biliary ductal dilatation. Pancreas: Normal density, no abnormal calcifications or inflammatory process. Spleen: Spleen is absent. Adrenals: No masses seen. Kidneys: Normal size, contour and axis. No radiodense stones or obstructive uropathy. No masses seen. Abdominal Aorta: Abdominal portion non-dilated. Atherosclerosis. Bowel: No obstruction or bowel wall thickening. No evidence of appendicitis. Peritoneal Cavity: There is a small amount of perihepatic and pelvic ascites. No free air. Lymph Nodes: Within normal limits. Bones: Within normal limits for the patient's age. There is a stable L3 compression deformity. Soft Tissues: Unremarkable. PELVIS: Bladder: The urinary bladder is not well distended but grossly unremarkable. Reproductive Organs: Unremarkable as visualized. Lymph Nodes: Within normal limits. Bones: Within normal limits. IMPRESSION: 1. No evidence pulmonary embolism, thoracic aortic dissection or aneurysm. 2. No acute pulmonary process. 3. No acute abdominal or pelvic process. 4. Findings of hepatic cirrhosis and abdominal ascites. 5. Cholelithiasis. No biliary ductal dilatation. 6. Results of this exam have been verbally communicated with provider.. RADIATION DOSE DELIVERED: 1,781.71mGy.cm Total DLP DATA REPOSITORY: All CT scans at this facility are submitted to the National Radiology Data Registry (NRDR) Dose Index Registry (DIR) with the [employer] (ACR). RADIATION OPTIMIZATION: All CT scans at this facility use at least one of these dose optimization te chniques: automated exposure control; mA and/or kV adjustment per patient size (includes targeted exa ms where dose is matched to clinical indication); or iterative reconstruction.
[2021-09-01 15:30] LABS: Abs Immature Grans 0.13 10^3/uL (0.0-0.06); Absolute Basophil Count 0.07 10^3/uL (0.0-0.2); Basophils % 0.4; HGB 14.1 g/dL (13.5-17.5); Immature Grans % 0.8; Lymphocytes % 2.6; MCHC 35.9 % (32.0-36.0); MCV 89 fL (80-95); MPV 11.9 fL (8.0-11.0); Monocytes % 5.2; Neutrophils % 90.6; Platelet Count 250 10^3/uL (130-400); RDW-SD 42.7 fL; WBC 16.99 10^3/uL (4.4-10.8)
[2021-09-01 15:31] LABS: Absolute Lymphocyte Count 0.44 10^3/uL (1.2-3.4); Absolute Monocyte Count 0.88 10^3/uL (0.1-0.8); Absolute Neutrophil Count 15.39 10^3/uL (1.2-6.7)
[2021-09-01 15:31] LABS: Source Nasal/Nares
[2021-09-01 15:35] LABS: ALT 26 U/L (16-63); AST 41 U/L (15-37); Albumin 2.3 g/dL (3.4-5.0); Alkaline Phosphatase 104 U/L (46-116); BUN 17 mg/dL (7-18); Bilirubin, Direct 0.5 mg/dL (0.0-0.2); Bilirubin, Total 1.7 mg/dL (0.2-1.0); CREATININE 1.6 mg/dL (0.70-1.30); Calcium 8.4 mg/dL (8.5-10.1); Chloride 95 mmol/L (98-107); Estimated GFR 43.33 (mL/min/1.73m2); Glucose 141 mg/dL (74-106); Potassium 4.4 mmol/L (3.5-5.1); Sodium 126 mmol/L (136-145); TSH (W/Ref FT4) 1.48 uIU/mL (0.36-3.74); Total Protein 6.9 g/dL (6.4-8.2); Troponin I < 50 ng/L (<or=60)
[2021-09-01 15:37] LABS: ETHANOL BLOOD < 3.0 mg/dL (<10)
--- NOTE | 2021-09-01 15:45 | DI.CT_ITS ---
Exam(s) CT HEAD CERV SPINE FACIAL WO EXAM: CT HEAD CERV SPINE FACIAL WO CLINICAL HISTORY: fall, epistaxis, pain. TECHNIQUE: Imaging Protocol: Axial computed tomography images with coronal and sagittal reformatted images were created and reviewed COMPARISON: CT CT HEAD CERVICAL SPINE WO from 06/09/2021 FINDINGS: CT Head: Ventricles and Extra axial spaces: Normal in size and morphology for the patient's age. Hemorrhage: None. Cerebral parenchyma: No acute territorial infarct. Midline shift: None. Brainstem/Cerebellum: Normal. Calvarium: Normal. Visualized Paranasal sinuses/Mastoids: There is opacification of the left sphenoid sinus in several e thmoid air cells bilaterally. There is mild mucosal thickening in the maxillary sinuses bilaterally. The frontal sinuses are clear. The mastoid air cells are clear. Soft Tissues: Unremarkable. CT Face: Facial Bones: No definite fracture is noted in facial bones. There is unchanged leftward deviation o f the nasal septum. Bilateral turbinates emeterio bullosa is seen. Sinuses and Mastoids: Unremarkable. Globes, extraocular muscles, optic nerves and retrobulbar fat: Normal. Upper aerodigestive tract: Normal. Mandible and bilateral temporomandibular joints: Normal. Soft tissues: Normal. CT Cervical Spine: Bones: No acute fracture or subluxation. There is a lucency seen in the anterior and right aspect of the base of the C3 vertebra. It is unchanged compared to the prior examination on 06/09/2021 and may r epresent a nonunited fracture. There is an old compression deformity of the superior endplate of T1. Soft Tissues: Unremarkable. Lung Apices: Clear. IMPRESSION: 1. No acute intracranial process. 2. No skull fracture. 3. No acute fracture or subluxation in the cervical spine. 4. Old compression deformity of the superior endplate of T1. 5. No change in the lucency in the inferior endplate of C3. 6. No acute facial fracture. 7. Results of this exam have been verbally communicated with provider. RADIATION DOSE DELIVERED: 2,304.77mGy.cm Total DLP DATA REPOSITORY: All CT scans at this facility are submitted to the National Radiology Data Registry (NRDR) Dose Index Registry (DIR) with the [employer] ([employer]). RADIATION OPTIMIZATION: All CT scans at this facility use at least one of these dose optimization te chniques: automated exposure control; mA and/or kV adjustment per patient size (includes targeted exa ms where dose is matched to clinical indication); or iterative reconstruction.
--- NOTE | 2021-09-01 15:46 | W.ED.GENAD ---
Discharge Plan Disposition Patient Disposition: [facility] INPATIENT Condition: Stable Discharge Details Chief Complaint: Dizzy/Sync Clinical Impression: Sepsis, Cellulitis of leg, right, LLQ abdominal tenderness, Hypoxia, Facial trauma Primary Care Provider: [facility] ED Provider: Hu Brown Home Meds and New Rx's Prescriptions: No Action chlorthalidone 25 mg tablet 25 mg PO DAILY Qty: 30 2RF atorvastatin 10 mg tablet 10 mg PO .twice/week Qty: 30 3RF Rx Instructions: take 2 days/week Janumet 50-1,000 mg tablet 1 tab PO DAILY AM Qty: 90 3RF losartan 100 mg tablet 50 mg PO DAILY Qty: 90 3RF Rx Instructions: dose Reduced 08/06/20 metoprolol succinate 200 mg tablet extended release 24 hr 200 mg PO DAILY Qty: 90 3RF doxazosin [Cardura] 8 mg tablet 8 mg PO DAILY Qty: 90 3RF aspirin [Aspirin Low-Strength] 81 MG tablet,chewable 81 mg PO DAILY Label Comments: 04/19/17 stopped Sat. si (DME) lancets 28 gauge misc 1 ea Miscellaneous DAILY Qty: 100 3RF Rx Instructions: test once/day (DME) blood-glucose meter misc 1 ea Miscellaneous DAILY Qty: 1 0RF Rx Instructions: METER TYPE ONE TOUCH ULTRA MINI DIAGNOSIS CODE E11.8 (DME) Blood Glucose Test strip 1 ea Miscellaneous DAILY Qty: 100 3RF Rx Instructions: test once daily fish oil 1,000 cap PO .once daily Label Comments: 04/19/17 stopped Sat then restarted last noc. si Medical Decision Making 66 yo male with hx of t2dm, htn, alcoholism, heapatic cirrhosis per chart review, comes in with ems after he had a syncopal episode. He apparently was outside then suddenly started to have diarrhea so went inside and passed out per his history. [facility] was called and they obtained a temperature of 101.5 and brought him here. He does relay that he has had diarrhea today multiple times, denies any vomit, no recent travel and denies recent antibiotic use. He arrives with stable vital signs though his room air saturation is 92%. He is caox4 though his history on recent events today he is not able to clearly state. his speech is clear, no focal motor or sensation deficits. He is noted to have dried blood at the nares likely from the fall. NING EOMI. He does have llq tenderness on exam otherwise no tenderness. He is also noted to have a red and mildly swollen right leg compared to the right and is warm to touch. The redness on the leg is on the anterior leg from just proximal to the ankle to the knee, the knee itself is not diffusely swollen and has full rom of the knee. Unclear etiology for his symptoms of syncope, diarrhea, and somewhat altered mental status with regards to events from earlier. Concern for cellulitis of the leg, will also obtain u/s dvt. Given the fall and syncope, will also obtain ct head, face and c spine, and also cta chest to evaluate for PE and given his llq tenderness and diarrhea will obtain ct abdomen and pelvis to evaluate for diverticulitis vs colitis imaging shows no dvt, negative head/c spine and facial ct and negative ct chest/abd/pelvis. Labs show sodium of 126, wbc of 16, mag of 1.0. He is feeling better, temp is 38.2. No crepitus of the leg so doubt nec fasc. Given the leukoctosis, hyponatremia and lactate of 2.6 with fever will admit to the hospitalist for IV antibiotics and continued monitoring Differential Diagnosis Differential Diagnosis: c diff, colitis, tbi, facial fracture, PE, pneumonia Medical Records Medical records reviewed: Yes I reviewed the patient's medical records. Imaging Data Radiologic Study: Attestation: I personally reviewed and interpreted this imaging study as follows: Imaging: Ultrasound Radiologist's impression: The right common femoral, femoral and popliteal veins demonstrate normal compressibility, augmentation, and color Doppler. The posterior tibial veins are patent.? The saphenofemoral junction is unremarkable.? There is no evidence of a Fletcher cyst.? Mild edema in the soft tissues medial to the knee.? IMPRESSION: 1. No evidence of a right lower extremity DVT. 2. Results of this exam have been verbally communicated with provider. Radiologic Study #2: Attestation: I personally reviewed and interpreted this imaging study as follows: Imaging: CT Scan Radiologist's impression: IMPRESSION: 1. No acute intracranial process. 2. No skull fracture. 3. No acute fracture or subluxation in the cervical spine. 4. Old compression deformity of the superior endplate of T1. 5. No change in the lucency in the inferior endplate of C3. 6. No acute facial fracture. 7. Results of this exam have been verbally communicated with provider. Radiologic Study #3: Attestation: I personally reviewed and interpreted this imaging study as follows: Imaging: CT Scan Radiologist's impression: IMPRESSION: 1. No evidence pulmonary embolism, thoracic aortic dissection or aneurysm. 2. No acute pulmonary process. 3. No acute abdominal or pelvic process. 4. Findings of hepatic cirrhosis and abdominal ascites. 5. Cholelithiasis.? No biliary ductal dilatation. 6. Results of this exam have been verbally communicated with provider.. Lab Data Lab results reviewed: Yes I reviewed the patient's lab results. ECG Data Attestation: I personally reviewed and interpreted this ECG (s) as follows: Prior ECG tracings: available for review Interpretation: sinus rhythm, rate of 88, no stemi HPI General Mode of arrival: EMS. Date/Time Provider Initiated Documentation: 09/01/21 14:44. Limitations to Documentation: no limitations. Information obtained by: patient. History of Present Illness 66 year old M presents to the emergency department with the chief complaint of syncope, described as moderate, and it has been constant. No relieving factors improve symptom(s), No exacerbating factors reported . Patient notes syncope; denies chest pain. Patient did receive the following treatments prior to arrival, none Related Data Home Medications Medication Instructions Recorded Confirmed aspirin 81 mg chewable tablet 81 mg PO DAILY 03/22/14 09/01/21 (Aspirin Low-Strength) blood-glucose meter #1 ea 02/13/18 06/10/21 lancets 28 gauge #100 ea 02/13/18 06/10/21 blood sugar diagnostic (Blood #100 strips 04/18/18 06/10/21 Glucose Test strips) doxazosin 8 mg tablet (Cardura) 8 mg PO DAILY #90 tabs 08/22/20 09/01/21 fish oil 1,000 cap PO .once daily 12/02/20 09/01/21 metoprolol succinate 200 mg 200 mg PO DAILY #90 tabs 12/02/20 09/01/21 tablet,extended release 24 hr atorvastatin 10 mg tablet 10 mg PO .twice/week #30 tabs 06/05/21 09/01/21 chlorthalidone 25 mg tablet 25 mg PO DAILY #30 tabs 06/05/21 09/01/21 losartan 100 mg tablet 50 mg PO DAILY #90 tabs 06/05/21 09/01/21 sitagliptin 50 mg-metformin 1,000 1 tab PO DAILY AM #90 tabs 06/05/21 09/01/21 mg tablet (Febumet) Previous Rx's Medication Instructions Recorded blood-glucose meter #1 ea 02/13/18 lancets 28 gauge #100 ea 02/13/18 blood sugar diagnostic (Blood #100 strips 04/18/18 Glucose Test strips) doxazosin 8 mg tablet (Cardura) 8 mg PO DAILY #90 tabs 08/22/20 metoprolol succinate 200 mg 200 mg PO DAILY #90 tabs 12/02/20 tablet,extended release 24 hr atorvastatin 10 mg tablet 10 mg PO .twice/week #30 tabs 06/05/21 chlorthalidone 25 mg tablet 25 mg PO DAILY #30 tabs 06/05/21 losartan 100 mg tablet 50 mg PO DAILY #90 tabs 06/05/21 sitagliptin 50 mg-metformin 1,000 1 tab PO DAILY AM #90 tabs 06/05/21 mg tablet (Febumet) Allergies Allergy/AdvReac Type Severity Reaction Status Date / Time No Known Allergies Allergy Verified 09/01/21 15:35 General Stated Complaint: Dizzy/Sync BRANDYN: 2 Review of Systems All systems reviewed & are unremarkable except as noted in HPI and below Constitutional Constitutional: Denies chills and Denies fever(s) Eyes Eyes: Denies loss of vision Cardiovascular Cardiovascular: Denies chest pain Respiratory Respiratory: Denies cough Gastrointestinal Gastrointestinal: Denies vomiting Musculoskeletal Musculoskeletal: Denies joint swelling Integumentary/Breasts Skin/Breast: Denies rash Neurologic Neurologic: Denies loss of vision PFSH All Active Problems (Updated 09/01/21 @ 19:03 by Saleem Alva MD) Weakness (Acute) COVID-19 (Acute ~06/13/21) Hyperkalemia (Acute) Hyponatremia (Acute) Weight gain (Acute) Edema (Acute) History of splenectomy (Acute) Type II diabetes mellitus with complication, uncontrolled (Acute) 01/10/13 A1C 7.3 12/26/13 A1C 11.7 Essential hypertension (Acute) not well controlled will bump up los/hctz Alcoholism (Acute) Calculus of gallbladder without cholecystitis without obstruction (Acute 04/22/16) Former smoker (Acute) emphysema on CT 3/17 Hepatic cirrhosis (Acute 04/22/16) per CT 04/2016 Hypertriglyceridemia (Acute) Microscopic hematuria (Acute 08/06/16) Overweight (Acute 05/13/15) Sensorineural hearing loss, bilateral (Acute 03/30/16) 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 muscle tear will check xray Screening for colon cancer (Acute) Well adult (Acute) Medical History Diabetes mellitus Hypertension Family History Mother No problems noted. Father Diabetes Heart disease Neoplasm Stroke Sister Personal history of malignant neoplasm Brother No problems noted. Grandfather Heart disease Grandfather No problems noted. Grandmother No problems noted. Grandmother Diabetes Sister No problems noted. Sister No problems noted. Brother No problems noted. Brother No problems noted. Brother No problems noted. Son Substance abuse Social History Smoking/Tobacco Use Status: Former Tobacco Use tobacco type: cigarettes Quit Date: 02/07/06 Tobacco: How many years used: 12 Smoking risk assessment performed?: Yes Alcohol Intake: current Alcohol Intake frequency: 3 or more drinks per day Alcohol type: beer Drug use: Never Substance use type: does not use Details: drinks 3-4 beers daily, last beer earlier this morning. Current gender identity: male Do you feel safe at home: Yes Do you feel safe in your relationship?: Yes Exam Const General: no acute distress Orientation: alert HENMT Head: normal to inspection Ears: external ears normal General nose exam: external nose normal Mouth: moist mucous membranes Eyes General: appearance normal, both eyes and all related structures Neck Neck: normal visual inspection Resp Effort & Inspection: normal respiratory effort and able to speak in complete sentences Cardio Rate: regular rate GI Palpation: soft and tender Skin General skin exam: elasticity normal Neuro General: patient alert and patient oriented x3 Extrem General: full ROM and capillary refill normal Psych Mental Status: mental status grossly normal Course Vital Signs Vital signs: Vital Signs Temperature 36.6 C 09/01/21 14:41 Pulse 88 09/01/21 14:41 Respiratory Rate 19 09/01/21 14:41 Blood Pressure 130/53 L 09/01/21 14:41 Pulse Oximetry 93 09/01/21 14:41 Temperature 36.6 C 09/01/21 14:41 Temperature Source Skin 09/01/21 14:41 Pulse 88 09/01/21 14:41 Respiratory Rate 19 09/01/21 14:41 Respiratory Effort Non-Labored 09/01/21 14:44 Blood Pressure 130/53 L 09/01/21 14:41 Blood Pressure Position Supine 09/01/21 14:41 Pulse Oximetry 93 09/01/21 14:41 Oxygen Delivery Method Room Air 09/01/21 14:41 Oxygen Flow Rate 0 09/01/21 14:41 Lab/Test Results Lab/Test Results: 09/01/21 15:15 Blood Blood Culture - Pending 09/01/21 14:50 Blood Blood Culture - Pending Laboratory Tests Range/Units 09/01/21 09/01/21 09/01/21 14:45 14:45 14:50 WBC (4.4-10.8) 10^3/uL RBC (4.36-5.78) 10^6/uL Hgb (13.5-17.5) g/dL Hct (40.0-50.0) % MCV (80-95) fL MCH (27.0-33.0) pg MCHC (32.0-36.0) % RDW (11.8-14.1) % Plt Count (130-400) 10^3/uL MPV (8.0-11.0) fL Immature Gran % Neutrophils % Lymphocytes % Monocytes % Eosinophils % Basophils % Nucleated RBC % (0.0-0.3) % Absolute Neutrophils (1.2-6.7) 10^3/uL Absolute Lymphocytes (1.2-3.4) 10^3/uL Absolute Monocytes (0.1-0.8) 10^3/uL Absolute Eosinophils (0.0-0.7) 10^3/uL Absolute Basophils (0.0-0.2) 10^3/uL VBG pH (7.31-7.41) VBG pCO2 (41-51) mmHg VBG pO2 mmHg VBG HCO3 (23-28) mmol/L VBG Total CO2 (24-29) mmol/L VBG O2 Saturation % VBG Base Excess (-2-3) mmol/L VBG Lactate (0.6-1.4) mmol/L Sodium (136-145) mmol/L 126 L Potassium (3.5-5.1) mmol/L 4.4 Chloride (98-107) mmol/L 95 L Carbon Dioxide (21.0-32.0) mmol/L 22.0 Anion Gap (3-11) mmol/L 9.0 BUN (7-18) mg/dL 17 Creatinine (0.70-1.30) mg/dL 1.6 H Estimated GFR/1.73 m2 (mL/min/1.73m2) 43.33 Glucose (74-106) mg/dL 141 H Calcium (8.5-10.1) mg/dL 8.4 L Magnesium (1.8-2.4) mg/dL 1.0 L Total Bilirubin (0.2-1.0) mg/dL 1.7 H Conjugated Bilirubin (0.0-0.2) mg/dL 0.5 H AST (15-37) U/L 41 H ALT (16-63) U/L 26 Alkaline Phosphatase (46-116) U/L 104 Troponin I (<or=60) ng/L < 50 Total Protein (6.4-8.2) g/dL 6.9 Albumin (3.4-5.0) g/dL 2.3 L TSH (0.36-3.74) uIU/mL 1.48 Ethyl Alcohol (<10) mg/dL < 3.0 COVID-19 Source Cancelled Nasal/Nares SARS-CoV-2 (PCR) Cancelled Influenza Type A (PCR) Cancelled Influenza Type B (PCR) Cancelled RSV (PCR) Cancelled Range/Units 09/01/21 09/01/21 09/01/21 14:50 14:50 14:50 WBC (4.4-10.8) 10^3/uL 16.99 H RBC (4.36-5.78) 10^6/uL 4.40 Hgb (13.5-17.5) g/dL 14.1 Hct (40.0-50.0) % 39.3 L MCV (80-95) fL 89 MCH (27.0-33.0) pg 32.0 MCHC (32.0-36.0) % 35.9 RDW (11.8-14.1) % 13.0 Plt Count (130-400) 10^3/uL 250 MPV (8.0-11.0) fL 11.9 H Immature Gran % 0.8 Neutrophils % 90.6 Lymphocytes % 2.6 Monocytes % 5.2 Eosinophils % 0.4 Basophils % 0.4 Nucleated RBC % (0.0-0.3) % 0.0 Absolute Neutrophils (1.2-6.7) 10^3/uL 15.39 H Absolute Lymphocytes (1.2-3.4) 10^3/uL 0.44 L Absolute Monocytes (0.1-0.8) 10^3/uL 0.88 H Absolute Eosinophils (0.0-0.7) 10^3/uL 0.07 Absolute Basophils (0.0-0.2) 10^3/uL 0.07 VBG pH (7.31-7.41) 7.39 VBG pCO2 (41-51) mmHg 37 L VBG pO2 mmHg 30 VBG HCO3 (23-28) mmol/L 22 L VBG Total CO2 (24-29) mmol/L 20 L VBG O2 Saturation % 60 VBG Base Excess (-2-3) mmol/L -3 L VBG Lactate (0.6-1.4) mmol/L 2.6 H* Sodium (136-145) mmol/L Potassium (3.5-5.1) mmol/L Chloride (98-107) mmol/L Carbon Dioxide (21.0-32.0) mmol/L Anion Gap (3-11) mmol/L BUN (7-18) mg/dL Creatinine (0.70-1.30) mg/dL Estimated GFR/1.73 m2 (mL/min/1.73m2) Glucose (74-106) mg/dL Calcium (8.5-10.1) mg/dL Magnesium (1.8-2.4) mg/dL Total Bilirubin (0.2-1.0) mg/dL Conjugated Bilirubin (0.0-0.2) mg/dL AST (15-37) U/L ALT (16-63) U/L Alkaline Phosphatase (46-116) U/L Troponin I (<or=60) ng/L Total Protein (6.4-8.2) g/dL Albumin (3.4-5.0) g/dL TSH (0.36-3.74) uIU/mL Ethyl Alcohol (<10) mg/dL COVID-19 Source SARS-CoV-2 (PCR) Influenza Type A (PCR) Influenza Type B (PCR) RSV (PCR) PAWSS Have you Been Recently Intoxicated or Drunk Within the Last 30 days?: No Have you Ever Experienced Previous Episodes of Alcohol Withdrawal?: No Have you ever Experienced Withdrawal Seizures?: No Have you ever Experienced Delirium Tremens(DT)s?: No Have you ever undergone Alcohol Rehabilitation Treatment (i.e, inpt ot outpatient treatment programs)?: Yes Have you ever Experienced Blackouts?: No Have you ever Combined Alcohol with other Downers within the last 90 days?: No Have you ever Combined Alcohol with any other Substance of Abuse during the last 90 days?: No Positive Blood Alcohol level on Presentation? [PCS.BAL]: No Evidence of Increased Autonomic Activity (i.e. HR>120, tremor, sweating, agitation, nausea)?: No Result: 1
[2021-09-01 16:25] LABS: COVID-19 PCR Negative (Negative)
[2021-09-01] MEDS: Omnipaque 350 MG/ML 100 ML BTL IJ (16:25)
[2021-09-01] MEDS: VANCOMYCIN/WATER (PEG) 1 GM/200 ML BAG IVPB (16:41)
[2021-09-01] MEDS: MAGNESIUM SULFATE 2 GM/50 ML BAG IVPB (16:43)
[2021-09-01 17:14] LABS: Ammonia 28 umol/L (11-32)
[2021-09-01 18:11] LABS: Troponin I < 50 ng/L (<or=60)
--- NOTE | 2021-09-01 18:52 | W.PM.HP.N ---
Date of service: 09/01/21 Time of Service: 18:52 Assessment and Plan Assessment and plan (1) Weakness: Status: Acute Assessment and plan: Spell sounds like either pre-syncope, or perhaps mechanical fall, perhaps both. Does not sound like seizure or lisseth syncope. Most prominent findings here with leukocytosis and erythema RLE suggests we are likely seeing cellulitis, perhaps presenting more non-specifically due to underlying cirrhosis. At any rate no findings to suggest anything else, and no signs arrythmia specifically. Will continue Vanco pending cultures; correct Mg (done); NS for chronic hyponatremia, and trend electrolytes and white count. Will place on [facility], along with [facility]. Reviewed ADs, requests Full Code. History of Present Illness History of Present Illness Chief Complaint: weakness Narrative: 66 male with h/o alcoholism, cirrhosis -- here with vague story of spell this morning. While hurrying to bathroom to move bowels felt wobbly in some uncharacterized way and went to the ground. Recalls falling but cannot describe events thereafter. Girlfriend witnessed fall, states there was no LOC or seizure activity. In ER findings of note for erythema right leg c/w cellulitis; white count 16.9; Na 126 (baseline), Mg 1.0 (has received 2 gm MgSo4), bili 1.7 and Alb 2.3 (both baseline); EKG NSR with Q V1-2 c/w old septal, no priors and no acute STTW changes; neg trop x2; negative imaging head chest, spine and abdomen, and neg US for DVT. Cultures obtained and patient given dose of Vanco. I was asked to evaluate for admission. Patient states he feels basically fine at present, is unable to give a lot of detail, States he drinks 3-4 beers/day, has not had issues with withdrawal. Review of Systems Narrative: per HPI PFSH All Active Problems (Updated 09/01/21 @ 19:03 by Saleem Alva MD) Weakness (Acute) COVID-19 (Acute ~06/13/21) Hyperkalemia (Acute) Hyponatremia (Acute) Weight gain (Acute) Edema (Acute) History of splenectomy (Acute) Type II diabetes mellitus with complication, uncontrolled (Acute) 01/10/13 A1C 7.3 12/26/13 A1C 11.7 Essential hypertension (Acute) not well controlled will bump up los/hctz Alcoholism (Acute) Calculus of gallbladder without cholecystitis without obstruction (Acute 04/22/16) Former smoker (Acute) 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 muscle tear will check xray Screening for colon cancer (Acute) Well adult (Acute) Medical History Diabetes mellitus Hypertension Family History Mother No problems noted. Father Diabetes Heart disease Neoplasm Stroke Sister Personal history of malignant neoplasm Brother No problems noted. Grandfather Heart disease Grandfather No problems noted. Grandmother No problems noted. Grandmother Diabetes Sister No problems noted. Sister No problems noted. Brother No problems noted. Brother No problems noted. Brother No problems noted. Son Substance abuse Social History Smoking/Tobacco Use Status: Former Tobacco Use tobacco type: cigarettes Quit Date: 02/07/06 Tobacco: How many years used: 12 Smoking risk assessment performed?: Yes Alcohol Intake: current Alcohol Intake frequency: 3 or more drinks per day Alcohol type: beer Drug use: Never Substance use type: does not use Details: drinks 3-4 beers daily, last beer earlier this morning. Current gender identity: male Do you feel safe at home: Yes Do you feel safe in your relationship?: Yes Meds Allergies and Home Medications Allergies Allergy/AdvReac Type Severity Reaction Status Date / Time No Known Allergies Allergy Verified 09/01/21 15:35 Home Medications Medication Instructions Recorded Confirmed Type aspirin 81 mg chewable tablet 81 mg PO DAILY 03/22/14 09/01/21 History (Aspirin Low-Strength) blood-glucose meter #1 ea 02/13/18 06/10/21 Rx lancets 28 gauge #100 ea 02/13/18 06/10/21 Rx blood sugar diagnostic (Blood #100 strips 04/18/18 06/10/21 Rx Glucose Test strips) doxazosin 8 mg tablet (Cardura) 8 mg PO DAILY #90 tabs 08/22/20 09/01/21 Rx fish oil 1,000 cap PO .once daily 12/02/20 09/01/21 History metoprolol succinate 200 mg 200 mg PO DAILY #90 tabs 12/02/20 09/01/21 Rx tablet,extended release 24 hr atorvastatin 10 mg tablet 10 mg PO .twice/week #30 tabs 06/05/21 09/01/21 Rx chlorthalidone 25 mg tablet 25 mg PO DAILY #30 tabs 06/05/21 09/01/21 Rx losartan 100 mg tablet 50 mg PO DAILY #90 tabs 06/05/21 09/01/21 Rx sitagliptin 50 mg-metformin 1,000 1 tab PO DAILY AM #90 tabs 06/05/21 09/01/21 Rx mg tablet (Janumet) Exam Narrative Exam Narrative: 134/47, 80, 36.6, 17, 92-94% RA. HEENT atraumatic; neck supple; lungs dimished but clear; heart RRR; abdomen soft and NT; extremities pretibial erythema and tenderness RLE, without crepitus, and somewhat more blotchy erythema towards knee, no lisseth lymphangitis and no inguinal adenopathy Results Labs Result diagrams: 09/01/21 14:50 09/01/21 14:50 Labs: Laboratory Results - last 24 hr 09/01/21 09/01/21 09/01/21 14:45 14:45 14:50 WBC RBC Hgb Hct MCV MCH MCHC RDW Plt Count MPV Immature Gran % Neutrophils % Lymphocytes % Monocytes % Eosinophils % Basophils % Nucleated RBC % Absolute Neutrophils Absolute Lymphocytes Absolute Monocytes Absolute Eosinophils Absolute Basophils VBG pH VBG pCO2 VBG pO2 VBG HCO3 VBG Total CO2 VBG O2 Saturation VBG Base Excess VBG Lactate Sodium 126 L Potassium 4.4 Chloride 95 L Carbon Dioxide 22.0 Anion Gap 9.0 BUN 17 Creatinine 1.6 H Estimated GFR/1.73 m2 43.33 Glucose 141 H Calcium 8.4 L Magnesium 1.0 L Total Bilirubin 1.7 H Conjugated Bilirubin 0.5 H AST 41 H ALT 26 Alkaline Phosphatase 104 Ammonia Troponin I < 50 Total Protein 6.9 Albumin 2.3 L TSH 1.48 Ethyl Alcohol < 3.0 COVID-19 Source Cancelled Nasal/Nares SARS-CoV-2 (PCR) Cancelled Negative Influenza Type A (PCR) Cancelled Influenza Type B (PCR) Cancelled RSV (PCR) Cancelled 09/01/21 09/01/21 09/01/21 14:50 14:50 14:50 WBC 16.99 H RBC 4.40 Hgb 14.1 Hct 39.3 L MCV 89 MCH 32.0 MCHC 35.9 RDW 13.0 Plt Count 250 MPV 11.9 H Immature Gran % 0.8 Neutrophils % 90.6 Lymphocytes % 2.6 Monocytes % 5.2 Eosinophils % 0.4 Basophils % 0.4 Nucleated RBC % 0.0 Absolute Neutrophils 15.39 H Absolute Lymphocytes 0.44 L Absolute Monocytes 0.88 H Absolute Eosinophils 0.07 Absolute Basophils 0.07 VBG pH 7.39 VBG pCO2 37 L VBG pO2 30 VBG HCO3 22 L VBG Total CO2 20 L VBG O2 Saturation 60 VBG Base Excess -3 L VBG Lactate 2.6 H* Sodium Potassium Chloride Carbon Dioxide Anion Gap BUN Creatinine Estimated GFR/1.73 m2 Glucose Calcium Magnesium Total Bilirubin Conjugated Bilirubin AST ALT Alkaline Phosphatase Ammonia Troponin I Total Protein Albumin TSH Ethyl Alcohol COVID-19 Source SARS-CoV-2 (PCR) Influenza Type A (PCR) Influenza Type B (PCR) RSV (PCR) 09/01/21 09/01/21 16:35 17:47 WBC RBC Hgb Hct MCV MCH MCHC RDW Plt Count MPV Immature Gran % Neutrophils % Lymphocytes % Monocytes % Eosinophils % Basophils % Nucleated RBC % Absolute Neutrophils Absolute Lymphocytes Absolute Monocytes Absolute Eosinophils Absolute Basophils VBG pH VBG pCO2 VBG pO2 VBG HCO3 VBG Total CO2 VBG O2 Saturation VBG Base Excess VBG Lactate Sodium Potassium Chloride Carbon Dioxide Anion Gap BUN Creatinine Estimated GFR/1.73 m2 Glucose Calcium Magnesium Total Bilirubin Conjugated Bilirubin AST ALT Alkaline Phosphatase Ammonia 28 Troponin I < 50 Total Protein Albumin TSH Ethyl Alcohol COVID-19 Source SARS-CoV-2 (PCR) Influenza Type A (PCR) Influenza Type B (PCR) RSV (PCR) Last Vital Signs Temp 36.6 C 09/01/21 14:41 Pulse 80 09/01/21 15:31 Resp 17 07/26/22 17:25 BP 134/47 L 09/01/21 15:31 Pulse Ox 92 09/01/21 15:31 PAWSS Have you Been Recently Intoxicated or Drunk Within the Last 30 days?: No Have you Ever Experienced Previous Episodes of Alcohol Withdrawal?: No Have you ever Experienced Withdrawal Seizures?: No Have you ever Experienced Delirium Tremens(DT)s?: No Have you ever undergone Alcohol Rehabilitation Treatment (i.e, inpt ot outpatient treatment programs)?: Yes Have you ever Experienced Blackouts?: No Have you ever Combined Alcohol with other Downers within the last 90 days?: No Have you ever Combined Alcohol with any other Substance of Abuse during the last 90 days?: No Positive Blood Alcohol level on Presentation? [PCS.BAL]: No Evidence of Increased Autonomic Activity (i.e. HR>120, tremor, sweating, agitation, nausea)?: No Result: 1
--- NOTE | 2021-09-01 21:43 | NUR.NOTE ---
Nursing Note: This RN admitted pt from ED. discussed alcohol intake with patient and completed ciwa assessment. pt scoring 0 at this time. pt scheduled to receive librium, pt and this RN had a discussion about medication. this RN answered all questions and provided thorough education regarding alcohol withdrawal. pt does not believe he has a problem with drinking and stated i go to work all day and have a couple beers when i get home thats all. after being provided with extensive education and all questions being answered pt decided to decline librium. informed patient he can discuss medication with tomorrow if he desires. pt had no further questions at this time.
[2021-09-02] VITALS (11 sets, daily range): BP systolic 119–179; BP diastolic 66–80; PULSE 72–94; RESP 16–24; TEMP 36.6–38; O2SAT 89–97
[2021-09-02 00:24] LABS: Bilirubin Negative (Negative); Blood Moderate (Negative); Clarity Sl Cloudy (Clear); Glucose Negative (Negative); Ketones Negative (Negative); Leukocyte Esterase Negative (Negative); Nitrite Negative (Negative); Urobilinogen 0.2 EU/dL (Up TO 0.2); pH 5.5 (5-8)
[2021-09-02 00:33] LABS: Bacteria Few HPF (Negative); C & S Indicated? No; Crystals Negative HPF (Negative); Epithelial Cells Few HPF (Negative); Mucus Negative (Negative); WBC 0-2 HPF (0-5)
[2021-09-02] MEDS: Acetaminophen 325 MG TAB 650 MG PO ×2 (00:50→12:48)
[2021-09-02] MEDS: Lactated Ringers 1,000 ML 80 ML IV (01:42)
[2021-09-02] MEDS: Normal Saline Flush 10 ML SYR IVP ×2 (01:42→10:20)
[2021-09-02 06:54] LABS: HCT 33.3 % (40.0-50.0); HGB 11.9 g/dL (13.5-17.5); MCHC 35.7 % (32.0-36.0); MCV 90 fL (80-95); MPV 11.5 fL (8.0-11.0); Platelet Count 188 10^3/uL (130-400); RBC 3.72 10^6/uL (4.36-5.78); RDW 13.1 % (11.8-14.1)
[2021-09-02 07:07] LABS: Anion Gap 10.1 mmol/L (3-11); BUN 25 mg/dL (7-18); CO2 19.9 mmol/L (21.0-32.0); CREATININE 2.6 mg/dL (0.70-1.30); Calcium 8.1 mg/dL (8.5-10.1); Chloride 94 mmol/L (98-107); Estimated GFR 24.74 (mL/min/1.73m2); Glucose 123 mg/dL (74-106); Potassium 4.7 mmol/L (3.5-5.1)
[2021-09-02 07:13] LABS: Sodium 124 mmol/L (136-145); WBC 33.21 10^3/uL (4.4-10.8)
[2021-09-02] MEDS: Metoprolol CR 100 MG TABCR 200 MG PO (08:34)
[2021-09-02] MEDS: Doxazosin 2 MG TAB 8 MG PO (08:35)
[2021-09-02] MEDS: Aspirin 81 MG CHEW PO (08:35)
[2021-09-02] MEDS: amLODIPine 5 MG TAB PO (08:35)
[2021-09-02] MEDS: CEFEPIME 2 GM in Normal Saline 100 ML IVPB ×2 (10:19→17:21)
--- NOTE | 2021-09-02 10:23 | INITIAL_ITS ---
- If Service Date Differs Date of service: 09/02/21 Time of Service: 10:23 Care Management Initial Assess REASON FOR HOSPITALIZATION:: cellulitis PAST MEDICAL HISTORY/PAST SURGICAL HISTORY:: All Active Problems (Updated 09/01/21 @ 19:03 by Saleem Alva MD). Weakness (Acute). COVID-19 (Acute ~06/13/21). Hyperkalemia (Acute). Hyponatremia (Acute). Weight gain (Acute). Edema (Acute). History of splenectomy (Acute). Type II diabetes mellitus with complication, uncontrolled (Acute). 01/10/13 A1C 7.3. 12/26/13 A1C 11.7. Essential hypertension (Acute). not well controlled. will bump up los/hctz. Alcoholism (Acute). Calculus of gallbladder without cholecystitis without obstruction (Acute 04/22/16). Former smoker (Acute). emphysema on CT 04/23. Hepatic cirrhosis (Acute 04/22/16). per CT 04/2016. Hypertriglyceridemia (Acute). Microscopic hematuria (Acute 08/06/16). Overweight (Acute 05/13/15). Sensorineural hearing loss, bilateral (Acute 03/30/16). Spondylosis of lumbar region without myelopathy or radiculopathy (Acute 04/22/16). w/ spinal stenosis L2/3 and L3/4. Influenza-like illness (Acute). Encounter for annual physical exam (Chronic). Rib pain on right side (Acute). ? muscle tear. will check xray. Screening for colon cancer (Acute). Well adult (Acute). Medical History . Diabetes mellitus. Hypertension PREVIOUS FUNCTIONAL STATUS/SOCIAL/FAMILY SUPPORTS:: Jasvir lives in a single family home in [place], [place] with his partner of 10 years, Tonya, and her youngest daughter. Jasvir had one son who is . He has 3 sisters and 2 brothers but is only in contact with one sister, Natali, who lives in [place]. 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 He is independent at baseline and does not receive any community services. CURRENT FUNCTIONAL STATUS:: Jasvir was sitting up in bed when CM met with him. He was polite but a little guarded in his responses, particularly at the beginning of the conversation. He talked about his family, mainly his siblings, and shared that he doesn't have anyhting to do with most of them. No further explanation was given. He also talked about his son who of an overdose 7 or 8 years ago. His son had 2 daughters, but Jasvir does not see them either. Jasvir did state that he expects to be discharged soon, perhaps tomorrow. ADVANCE DIRECTIVES:: none on file Has patient been provided with info about the portal/API?: Yes Did the patient sign up for the portal?: No CODE STATUS:: Full Code INSURANCE COVERAGE / FINANCIAL ISSUES:: Medicare. Medicaid CURRENT HOME/COMMUNITY SERVICES/EQUIPMENT:: none PRIMARY CARE PHYSICIAN:: Aston Alicea POTENTIAL DISCHARGE NEEDS:: Follow up with PCP and plan of care PATIENT/FAMILY EDUCATION NEEDS:: Review of discharge instructions, medications, limitations, follow up plan, Ask Me Three TRANSPORTATION:: via private vehicle with family PLAN:: Jasvir will likely be discharged home with no new services. He will follow up with his community providers and plan of care and transport with family/friends. CM willl support Jasvir and assess for discharge concerns.
[2021-09-02] MEDS: VANCOMYCIN/WATER (PEG) 1 GM/200 ML BAG IVPB (12:45)
--- NOTE | 2021-09-02 14:18 | W.PM.PROGNOT ---
Date of Service Date of service: 09/02/21 Time of Service: 14:18 Assessment and Plan Assessment and plan (1) Weakness: Status: Acute Assessment and plan: Episode he experienced is likely either pre-syncope, or perhaps mechanical fall, or both. Does not sound like seizure or lisseth syncope. Most prominent findings here with leukocytosis and erythema RLE suggests we are likely seeing cellulitis, perhaps presenting more non-specifically due to underlying cirrhosis. At any rate no findings to suggest anything else, and no signs arrythmia specifically. Telemetry. (2) Essential hypertension: Status: Acute Assessment and plan: On Losartan. Holding d/t GURPREET Monitor. (3) Alcoholism: Status: Acute Assessment and plan: He denies any previous withdrawal but is not clear about how long he has gone w/o drinking. CIWA monitoring. Would implement benzodiazapine dosing if requires. (4) Hepatic cirrhosis: Status: Acute Assessment and plan: Total bilirubin 1.7 Conjugated bili elevated at 0.5 AST 41, ALT 26. No evidence clinically of SBP. Monitor. (5) Diabetes mellitus: Assessment and plan: A1c 5.6 on 06/05/21. On no medications. (6) Cellulitis of right leg: Status: Acute Assessment and plan: WBC increased to 33.21 from 16.99. Cont Vancomycin pharmacy dosing. Cefepime 2 g IV Q8H initiated. Monitor for clinical improvement as well as improvement in WBC count. (7) Hyponatremia: Status: Acute Assessment and plan: 126 on admission Now 124. Change from LR to NS Monitor. (8) Hypomagnesemia: Status: Acute Assessment and plan: Mg level of 1.0 on admission. Give 2g IV bolus. Give another 2g IV and oral 400mg BID. Monitor. (9) GURPREET (acute kidney injury): Status: Acute Assessment and plan: Creatinine elevated at time of admission; 1.6. Baseline of 1.0. Creatinine increased despite IV hydration, to 2.6. No obstructive findings on abd/pelvic CT. Increased IV fluid rate. Encourage oral intake. Monitor. Subjective Subjective Patient reports: fever; denies diarrhea, nausea, vomiting or shortness of breath Interval history since last seen: Denies abd pain. Denies pain at sight of LE cellulitis. Exam Narrative Exam Narrative: HEENT atraumatic; sclera clear. Neck supple. Lungs: diminished. Clear. Heart RRR Abdomen softly distended. NT Extremities pretibial erythema and tenderness RLE, without crepitus, and somewhat more blotchy erythema towards knee, no lisseth lymphangitis and no inguinal adenopathy. No calf tenderness. Objective Last Vital Signs Temp 37.5 C 09/02/21 14:07 Pulse 86 09/02/21 12:35 Resp 22 09/02/21 12:35 BP 165/79 H 09/02/21 12:35 Pulse Ox 96 09/02/21 12:35 Laboratory Results - last 24 hr 09/01/21 09/01/21 09/01/21 14:45 14:45 14:50 WBC RBC Hgb Hct MCV MCH MCHC RDW Plt Count MPV Immature Gran % Neutrophils % Lymphocytes % Monocytes % Eosinophils % Basophils % Nucleated RBC % Absolute Neutrophils Absolute Lymphocytes Absolute Monocytes Absolute Eosinophils Absolute Basophils VBG pH VBG pCO2 VBG pO2 VBG HCO3 VBG Total CO2 VBG O2 Saturation VBG Base Excess VBG Lactate Sodium 126 L Potassium 4.4 Chloride 95 L Carbon Dioxide 22.0 Anion Gap 9.0 BUN 17 Creatinine 1.6 H Estimated GFR/1.73 m2 43.33 Glucose 141 H Calcium 8.4 L Magnesium 1.0 L Total Bilirubin 1.7 H Conjugated Bilirubin 0.5 H AST 41 H ALT 26 Alkaline Phosphatase 104 Ammonia Troponin I < 50 Total Protein 6.9 Albumin 2.3 L TSH 1.48 Urine Color Urine Clarity Urine pH Ur Specific [place] Urine Protein Urine Ketones Urine Blood Urine Nitrite Urine Bilirubin Urine Urobilinogen Ur Leukocyte Esterase Urine RBC Urine WBC Ur Epithelial Cells Urine Crystals Urine Bacteria Urine Mucus Ur Culture Indicated? Urine Glucose Ethyl Alcohol < 3.0 COVID-19 Source Cancelled Nasal/Nares SARS-CoV-2 (PCR) Cancelled Negative Influenza Type A (PCR) Cancelled Influenza Type B (PCR) Cancelled RSV (PCR) Cancelled 09/01/21 09/01/21 09/01/21 14:50 14:50 14:50 WBC 16.99 H RBC 4.40 Hgb 14.1 Hct 39.3 L MCV 89 MCH 32.0 MCHC 35.9 RDW 13.0 Plt Count 250 MPV 11.9 H Immature Gran % 0.8 Neutrophils % 90.6 Lymphocytes % 2.6 Monocytes % 5.2 Eosinophils % 0.4 Basophils % 0.4 Nucleated RBC % 0.0 Absolute Neutrophils 15.39 H Absolute Lymphocytes 0.44 L Absolute Monocytes 0.88 H Absolute Eosinophils 0.07 Absolute Basophils 0.07 VBG pH 7.39 VBG pCO2 37 L VBG pO2 30 VBG HCO3 22 L VBG Total CO2 20 L VBG O2 Saturation 60 VBG Base Excess -3 L VBG Lactate 2.6 H* Sodium Potassium Chloride Carbon Dioxide Anion Gap BUN Creatinine Estimated GFR/1.73 m2 Glucose Calcium Magnesium Total Bilirubin Conjugated Bilirubin AST ALT Alkaline Phosphatase Ammonia Troponin I Total Protein Albumin TSH Urine Color Urine Clarity Urine pH Ur Specific [place] Urine Protein Urine Ketones Urine Blood Urine Nitrite Urine Bilirubin Urine Urobilinogen Ur Leukocyte Esterase Urine RBC Urine WBC Ur Epithelial Cells Urine Crystals Urine Bacteria Urine Mucus Ur Culture Indicated? Urine Glucose Ethyl Alcohol COVID-19 Source SARS-CoV-2 (PCR) Influenza Type A (PCR) Influenza Type B (PCR) RSV (PCR) 09/01/21 09/01/21 09/02/21 16:35 17:47 00:16 WBC RBC Hgb Hct MCV MCH MCHC RDW Plt Count MPV Immature Gran % Neutrophils % Lymphocytes % Monocytes % Eosinophils % Basophils % Nucleated RBC % Absolute Neutrophils Absolute Lymphocytes Absolute Monocytes Absolute Eosinophils Absolute Basophils VBG pH VBG pCO2 VBG pO2 VBG HCO3 VBG Total CO2 VBG O2 Saturation VBG Base Excess VBG Lactate Sodium Potassium Chloride Carbon Dioxide Anion Gap BUN Creatinine Estimated GFR/1.73 m2 Glucose Calcium Magnesium Total Bilirubin Conjugated Bilirubin AST ALT Alkaline Phosphatase Ammonia 28 Troponin I < 50 Total Protein Albumin TSH Urine Color Yellow Urine Clarity Sl Cloudy Urine pH 5.5 Ur Specific [place] 1.010 Urine Protein 100 H Urine Ketones Negative Urine Blood Moderate H Urine Nitrite Negative Urine Bilirubin Negative Urine Urobilinogen 0.2 Ur Leukocyte Esterase Negative Urine RBC 3-5 H Urine WBC 0-2 Ur Epithelial Cells Few Urine Crystals Negative Urine Bacteria Few Urine Mucus Negative Ur Culture Indicated? No Urine Glucose Negative Ethyl Alcohol COVID-19 Source SARS-CoV-2 (PCR) Influenza Type A (PCR) Influenza Type B (PCR) RSV (PCR) 09/02/21 09/02/21 06:22 06:22 WBC 33.21 H* RBC 3.72 L Hgb 11.9 L D Hct 33.3 L MCV 90 MCH 32.0 MCHC 35.7 RDW 13.1 Plt Count 188 MPV 11.5 H Immature Gran % Neutrophils % Lymphocytes % Monocytes % Eosinophils % Basophils % Nucleated RBC % Absolute Neutrophils Absolute Lymphocytes Absolute Monocytes Absolute Eosinophils Absolute Basophils VBG pH VBG pCO2 VBG pO2 VBG HCO3 VBG Total CO2 VBG O2 Saturation VBG Base Excess VBG Lactate Sodium 124 L Potassium 4.7 Chloride 94 L Carbon Dioxide 19.9 L Anion Gap 10.1 BUN 25 H Creatinine 2.6 H D Estimated GFR/1.73 m2 24.74 Glucose 123 H Calcium 8.1 L Magnesium Total Bilirubin Conjugated Bilirubin AST ALT Alkaline Phosphatase Ammonia Troponin I Total Protein Albumin TSH Urine Color Urine Clarity Urine pH Ur Specific [place] Urine Protein Urine Ketones Urine Blood Urine Nitrite Urine Bilirubin Urine Urobilinogen Ur Leukocyte Esterase Urine RBC Urine WBC Ur Epithelial Cells Urine Crystals Urine Bacteria Urine Mucus Ur Culture Indicated? Urine Glucose Ethyl Alcohol COVID-19 Source SARS-CoV-2 (PCR) Influenza Type A (PCR) Influenza Type B (PCR) RSV (PCR) PAWSS Have you Been Recently Intoxicated or Drunk Within the Last 30 days?: No Have you Ever Experienced Previous Episodes of Alcohol Withdrawal?: No Have you ever Experienced Withdrawal Seizures?: No Have you ever Experienced Delirium Tremens(DT)s?: No Have you ever undergone Alcohol Rehabilitation Treatment (i.e, inpt ot outpatient treatment programs)?: Yes Have you ever Experienced Blackouts?: No Have you ever Combined Alcohol with other Downers within the last 90 days?: No Have you ever Combined Alcohol with any other Substance of Abuse during the last 90 days?: No Positive Blood Alcohol level on Presentation? [PCS.BAL]: No Evidence of Increased Autonomic Activity (i.e. HR>120, tremor, sweating, agitation, nausea)?: No Result: 1
[2021-09-02] MEDS: Normal Saline 1,000 ML 125 ML IV (15:18)
[2021-09-02] MEDS: MAGNESIUM SULFATE 2 GM/50 ML BAG IVPB (15:19)
[2021-09-02] MEDS: Magnesium Oxide 400 MG TAB PO (20:17)
[2021-09-03] VITALS (13 sets, daily range): BP systolic 128–181; BP diastolic 73–86; PULSE 80–142; RESP 4–32; TEMP 37–37.8; O2SAT 91–95
--- NOTE | 2021-09-03 | DI.US_ITS ---
Exam(s) US RENAL EXAM: US RENAL CLINICAL HISTORY: GURPREET. TECHNIQUE: Gutierrez scale, color and spectral Doppler were used. COMPARISON: No exams were available for comparison FINDINGS: Renal size in cm: Right: 13.5. Left: 15.2. Echogenicity: Normal. Hydronephrosis: No. Cyst or mass: No. Nephrolithiasis: No. Other findings: None. Bladder:Normal. Ureteral jets: Right: Not visualized on this examination. Left: Not visualized on this examination. Prevoid vol:165 cc Postvoid vol:0 cc Renal color flow: Symmetric and within normal limits. IMPRESSION: Unremarkable renal ultrasound. DATA REPOSITORY:
[2021-09-03] MEDS: LORazepam 1 MG TAB PO/SL (00:18)
[2021-09-03 01:24] LABS: C Diff PCR Negative (Negative)
[2021-09-03] MEDS: Normal Saline 1,000 ML 125 ML IV ×2 (01:28→10:34)
[2021-09-03] MEDS: CEFEPIME 2 GM in Normal Saline 100 ML IVPB ×3 (01:28→17:38)
[2021-09-03 06:51] LABS: HCT 33.7 % (40.0-50.0); HGB 12.2 g/dL (13.5-17.5); MCH 32.4 pg (27.0-33.0); MCHC 36.2 % (32.0-36.0); MCV 89 fL (80-95); MPV 12.4 fL (8.0-11.0); Platelet Count 190 10^3/uL (130-400); RBC 3.77 10^6/uL (4.36-5.78); RDW 13.5 % (11.8-14.1); RDW-SD 44.5 fL
[2021-09-03 07:01] LABS: WBC 29.16 10^3/uL (4.4-10.8)
[2021-09-03 07:06] LABS: ALT 23 U/L (16-63); AST 43 U/L (15-37); Albumin 1.8 g/dL (3.4-5.0); Alkaline Phosphatase 59 U/L (46-116); BUN 39 mg/dL (7-18); Bilirubin, Total 1.1 mg/dL (0.2-1.0); CREATININE 3.2 mg/dL (0.70-1.30); Calcium 7.9 mg/dL (8.5-10.1); Estimated GFR 19.47 (mL/min/1.73m2); Glucose 124 mg/dL (74-106); Magnesium 1.8 mg/dL (1.8-2.4); Total Protein 6.1 g/dL (6.4-8.2)
[2021-09-03 07:13] LABS: Anion Gap 10.6 mmol/L (3-11); CO2 17.4 mmol/L (21.0-32.0); Chloride 97 mmol/L (98-107); Potassium 4.7 mmol/L (3.5-5.1)
[2021-09-03 07:18] LABS: Sodium 125 mmol/L (136-145)
[2021-09-03 07:21] LABS: Absolute Lymphocyte Count 0.29 10^3/uL (1.2-3.4); Absolute Monocyte Count 0.87 10^3/uL (0.1-0.8); Absolute Neutrophil Count 27.99 10^3/uL (1.2-6.7); Bands % 3; Diff Comment Manual Differential; RBC Morphology Normal
[2021-09-03] MEDS: amLODIPine 5 MG TAB PO (08:15)
[2021-09-03] MEDS: Doxazosin 2 MG TAB 8 MG PO (08:15)
[2021-09-03] MEDS: Magnesium Oxide 400 MG TAB PO ×2 (08:15→20:06)
[2021-09-03] MEDS: Metoprolol CR 100 MG TABCR 200 MG PO (08:16)
[2021-09-03] MEDS: Aspirin 81 MG CHEW PO (08:16)
--- NOTE | 2021-09-03 09:14 | W.PM.PROGNOT ---
Date of Service Date of service: 09/03/21 Time of Service: 09:20 Assessment and Plan Assessment and plan (1) Weakness: Status: Acute Assessment and plan: Episode he experienced is likely either pre-syncope, or perhaps mechanical fall, or both. Does not sound like seizure or lisseth syncope. Most prominent findings here with leukocytosis and erythema RLE suggests we are likely seeing cellulitis, perhaps presenting more non-specifically due to underlying cirrhosis. At any rate no findings to suggest anything else, and no signs arrythmia specifically. Telemetry. (2) Essential hypertension: Status: Acute Assessment and plan: On Losartan. Holding d/t GURPREET Added amlodipine 5mg daily but BP still significantly elevated. Start spironolactone 25mg daily. Monitor serum K+ closely. Monitor. (3) Alcoholism: Status: Acute Assessment and plan: He denies any previous withdrawal but is not clear about how long he has gone w/o drinking. CIWA monitoring. On schedule librium and prn for CIWA scoring. (4) Hepatic cirrhosis: Status: Acute Assessment and plan: Total bilirubin 1.7 > 1.1 Conjugated bili elevated at 0.5 AST 43, ALT 23. Creatinine increasing; likely hepatorenal syndrome I. No evidence clinically of SBP. Monitor. (5) Diabetes mellitus: Assessment and plan: A1c 5.6 on 06/05/21. On no medications. (6) Cellulitis of right leg: Status: Acute Assessment and plan: WBC increased to 33.21 from 16.99. WBC count now improving; 29.16 Cont Vancomycin pharmacy dosing. Cont. Cefepime 2 g IV Q8H Noteable improvement in appearance of the affected leg. (7) Hyponatremia: Status: Acute Assessment and plan: 126 on admission Now 125 Change from LR to NS Treating with albumin for hepatorenal syndrome; Na should improve. Monitor. (8) Hypomagnesemia: Status: Acute Assessment and plan: Mg level of 1.0 on admission. Give 2g IV bolus. Give another 2g IV and oral 400mg BID. Normalized to 1.8. (9) GURPREET (acute kidney injury): Status: Acute Assessment and plan: Creatinine elevated at time of admission; 1.6. Baseline of 1.0. Creatinine increased despite IV hydration, to 2.6 > 3.2 No obstructive findings on abd/pelvic CT. Hepatorenal syndrome likely etiology. Monitor. (10) Hepatorenal syndrome: Status: Acute Assessment and plan: Worsening creatinine in background of cirrhosis. Albumin 1g/kg today, then 25g daily. Monitoring creatinine. Refer to [facility] [place]/Hepatology as outpt. Alcohol abstincence stressed. Subjective Subjective Patient reports: tolerating a regular diet and afebrile; denies diarrhea, nausea, vomiting or shortness of breath Interval history since last seen: Asking when he can go home. Exam Narrative Exam Narrative: HEENT atraumatic; sclera clear. Neck supple. Lungs: diminished. Clear. Heart RRR Skin: bronze coloration of skin. Abdomen softly distended. NT Extremities pretibial erythema is now faint. No open areas or drainage. Objective Last Vital Signs Temp 37.8 C H 09/03/21 07:56 Pulse 95 H 09/03/21 07:56 Resp 32 H 09/03/21 07:56 BP 181/86 H 09/03/21 07:56 Pulse Ox 95 09/03/21 07:56 Laboratory Results - last 24 hr 09/03/21 09/03/21 09/03/21 00:15 06:03 06:03 WBC 29.16 H* RBC 3.77 L Hgb 12.2 L Hct 33.7 L MCV 89 MCH 32.4 MCHC 36.2 H RDW 13.5 Plt Count 190 MPV 12.4 H Immature Gran % 0.0 Neutrophils % 93.0 Band Neutrophils % 3 Lymphocytes % 1.0 Monocytes % 3.0 Eosinophils % 0.0 Basophils % 0.0 Nucleated RBC % 0.0 Absolute Neutrophils 27.99 H Absolute Lymphocytes 0.29 L Absolute Monocytes 0.87 H Absolute Eosinophils 0.00 Absolute Basophils 0.00 RBC Morphology Normal Sodium 125 L Potassium 4.7 Chloride 97 L Carbon Dioxide 17.4 L Anion Gap 10.6 BUN 39 H Creatinine 3.2 H Glucose 124 H Calcium 7.9 L Magnesium 1.8 Total Bilirubin 1.1 H AST 43 H ALT 23 Alkaline Phosphatase 59 Total Protein 6.1 L Albumin 1.8 L Stl C.difficile Tox PCR Negative PAWSS Have you Been Recently Intoxicated or Drunk Within the Last 30 days?: No Have you Ever Experienced Previous Episodes of Alcohol Withdrawal?: No Have you ever Experienced Withdrawal Seizures?: No Have you ever Experienced Delirium Tremens(DT)s?: No Have you ever undergone Alcohol Rehabilitation Treatment (i.e, inpt ot outpatient treatment programs)?: Yes Have you ever Experienced Blackouts?: No Have you ever Combined Alcohol with other Downers within the last 90 days?: No Have you ever Combined Alcohol with any other Substance of Abuse during the last 90 days?: No Positive Blood Alcohol level on Presentation? [PCS.BAL]: No Evidence of Increased Autonomic Activity (i.e. HR>120, tremor, sweating, agitation, nausea)?: No Result: 1
[2021-09-03 10:24] LABS: Lab Add On Test DONE
[2021-09-03] MEDS: Spironolactone 25 MG TAB PO (10:34)
[2021-09-03] MEDS: ALBUMIN HUMAN 25 GM/100 ML BTL IV ×3 (10:34→21:42)
[2021-09-03 10:52] LABS: Ferritin 179 ng/mL (26-388)
[2021-09-03 12:10] LABS: Iron 13 ug/dL (65-175); Total Iron Binding Capacity 233 ug/dL (250-450); Transferrin Sat 6 % (20-55)
[2021-09-03] MEDS: VANCOMYCIN/WATER (PEG) 1 GM/200 ML BAG IVPB (12:19)
--- NOTE | 2021-09-03 14:30 | RT.EKG_ITS ---
APPROVED REPORT Exam: Resting ECG Reason for Exam: Charles Cintron Patient Location: I HR:81 bpm ECG Measurements Heart Rate 81 AXIS WV [id number] P [id number] QRSd 101 QRS 69 QT 364 T 77 QTc 423 Conclusion Atrial fibrillation...? atrial activity Anterior infarct, old...Q >40mS, abnormal ST-T, V2-V5
--- NOTE | 2021-09-03 14:37 | NUR.NOTE ---
Called and spoke to Deborah Butterfield RN to advise pt was in A-fib.
--- NOTE | 2021-09-03 15:38 | DI.RAD_ITS ---
Exam(s) XR CHEST 2V PA LATERAL EXAM: XR CHEST 2V PA LATERAL CLINICAL HISTORY: Respiratory distress TECHNIQUE: 2D digital imaging was performed of the chest. Two images were obtained. PA and lateral views were obtained. COMPARISON: CR XR RIBS RT W PA LAT CHEST from 06/09/2021 FINDINGS: MEDIASTINUM: Normal. HEART: Normal. PULMONARY VASCULATURE: Prominence of the pulmonary veins suggesting venous congestion. LUNGS: Bilateral diffuse interstitial infiltrates. No focal consolidating infiltrate. The findings may represent interstitial edema or pneumonia. Please correlate clinically. The lungs are hyperinfl ated with flattened diaphragms suggesting underlying COPD. PLEURAL SPACE: There is a small amount of fluid in the fissures. BONE:Within normal limits for the patient's age. OTHER FINDINGS:Normal. IMPRESSION: 1. Findings suspicious for volume overload with pulmonary venous congestion and interstitial infiltra eulalia suspicious for edema. 2. An interstitial pneumonia cannot be entirely excluded. Please correlate clinically. DATA REPOSITORY: RADIATION DOSE DELIVERED:
--- NOTE | 2021-09-03 15:41 | CMPROGNOTE_ITS ---
- If Service Date Differs Date of service: 09/03/21 Time of Service: 15:41 Care Management Progress Note S/O:Jasvir was lying in bed when CM met with him. He was restless and stated that he couldn't get comfortable in bed. Jasvir denied having any pain. He stated that his leg is better and is healing. Jasvir verbalized that he wants to go home as soon as possible but understands that he is not ready. Jasvir's WBC remains elevated at 29.16 and his BUN and creatinine continue to rise and are 39 and 3 .2, respectively. A: Jasvir is a 66 year old man admitted on 09/02/21 with cellulitis P:Jasvir will likely be discharged home with no new services. He will follow up with his community providers and plan of care and transport with family/friends. CM will support Jasvir and assess for discharge concerns.
[2021-09-03] MEDS: Albuterol/Ipratropium 3 ML UPD VIAL (15:51)
[2021-09-03] MEDS: Furosemide 20 MG/2 ML VIAL IVP (16:32)
[2021-09-03] MEDS: Normal Saline Flush 10 ML SYR IVP ×2 (16:32→21:41)
[2021-09-03] MEDS: Albuterol/Ipratropium 3 ML UPD VIAL UPD (20:06)
[2021-09-03] MEDS: Budesonide/Formoterol 80/4.5 6.9 GM 60 PUFF INH IH (20:19)
[2021-09-03] MEDS: LORazepam 1 MG TAB PO (23:39)
[2021-09-03] MEDS: Acetaminophen 325 MG TAB 650 MG PO (23:43)
[2021-09-04] VITALS (19 sets, daily range): BP systolic 132–177; BP diastolic 70–93; PULSE 83–98; RESP 2–28; TEMP 36.1–37.7; O2SAT 88–95
--- NOTE | 2021-09-04 | DI.RAD_ITS ---
Exam(s) XR PORTABLE CHEST AP EXAM: XR PORTABLE CHEST AP CLINICAL HISTORY: increase O2 demand TECHNIQUE: COMPARISON: CR XR RIBS RT W PA LAT CHEST from 06/09/2021 CR XR CHEST 2V PA LATERAL from 09/03/2021 FINDINGS: The heart is enlarged. There are diffuse bilateral intrapulmonary interstitial infiltrates, slight i nterval worsening noted from examination September 03. The findings are consistent with CHF. Underlying consolidation at the lung bases not excluded, appropriate follow-up films requested. IMPRESSION: RADIATION DOSE DELIVERED: Total DLP
[2021-09-04] MEDS: Normal Saline Flush 10 ML SYR IVP ×4 (01:59→15:15)
[2021-09-04] MEDS: CEFEPIME 2 GM in Normal Saline 100 ML IVPB (01:59)
[2021-09-04] MEDS: Levalbuterol 1.25 MG/3 ML UPD VIAL UPD ×2 (02:03→07:37)
[2021-09-04] MEDS: ALBUMIN HUMAN 25 GM/100 ML BTL IV ×2 (05:24→12:01)
[2021-09-04 07:07] LABS: Prothrombin Time 11.5 sec (9.3-11.0)
[2021-09-04 07:15] LABS: ALT 20 U/L (16-63); AST 30 U/L (15-37); Albumin 2.8 g/dL (3.4-5.0); Alkaline Phosphatase 42 U/L (46-116); Anion Gap 11.6 mmol/L (3-11); BUN 44 mg/dL (7-18); Bilirubin, Total 1.1 mg/dL (0.2-1.0); CO2 17.4 mmol/L (21.0-32.0); CREATININE 3.3 mg/dL (0.70-1.30); Calcium 7.9 mg/dL (8.5-10.1); Chloride 97 mmol/L (98-107); Estimated GFR 18.79 (mL/min/1.73m2); Glucose 121 mg/dL (74-106); Sodium 126 mmol/L (136-145); Total Protein 6.4 g/dL (6.4-8.2)
[2021-09-04 07:16] LABS: INR 1.1 (0.9-1.1)
[2021-09-04] MEDS: Metoprolol CR 100 MG TABCR 200 MG PO (07:37)
[2021-09-04] MEDS: Spironolactone 25 MG TAB PO (07:38)
[2021-09-04 07:54] LABS: Abs Immature Grans 0.32 10^3/uL (0.0-0.06); Absolute Lymphocyte Count 1.45 10^3/uL (1.2-3.4); Absolute Monocyte Count 1.47 10^3/uL (0.1-0.8); Basophils % 0.4; Eosinophils % 0.7; HCT 29.7 % (40.0-50.0); HGB 10.3 g/dL (13.5-17.5); Immature Grans % 1.5; Lymphocytes % 6.6; MCH 31.4 pg (27.0-33.0); MCHC 34.7 % (32.0-36.0); MCV 91 fL (80-95); MPV 12.2 fL (8.0-11.0); Monocytes % 6.7; Neutrophils % 84.1; Nucleated RBC 0.2 % (0.0-0.3); Platelet Count 169 10^3/uL (130-400); RBC 3.28 10^6/uL (4.36-5.78); RDW 13.9 % (11.8-14.1); RDW-SD 45.9 fL; WBC 21.92 10^3/uL (4.4-10.8)
[2021-09-04 07:55] LABS: Absolute Basophil Count 0.09 10^3/uL (0.0-0.2); Absolute Eosinophil Count 0.15 10^3/uL (0.0-0.7); Absolute Neutrophil Count 18.43 10^3/uL (1.2-6.7)
[2021-09-04] MEDS: Albuterol/Ipratropium 3 ML UPD VIAL UPD ×3 (08:19→19:32)
[2021-09-04] MEDS: Budesonide/Formoterol 80/4.5 6.9 GM 60 PUFF INH IH ×2 (08:19→19:33)
--- NOTE | 2021-09-04 09:07 | PDOC.CMPRO ---
- If Service Date Differs Date of service: 09/04/21 Time of Service: 09:07 Care Management Progress Note S/O:Jasvir was lying in bed when CM met with him. He stated that he feels about the same. Jasvir informed CM that the doctor told him that he might be able to go home tomorrow if his vital signs and bloodwork remains the same or improves. He admitted that he was happy to hear that. I've been here long enough. Jasvir's wbc is starting to trend down and his kidney function seems to be stabilizing. A: Jasvir is a 66 year old man admitted on 09/02/21 with cellulitis P:Jasvir will likely be discharged home with no new services. He will follow up with his community providers and plan of care and transport with family/friends. CM will support Jasvir and assess for discharge concerns.
[2021-09-04] MEDS: Magnesium Oxide 400 MG TAB PO ×2 (10:56→19:32)
[2021-09-04] MEDS: Doxazosin 2 MG TAB 8 MG PO (10:56)
[2021-09-04] MEDS: Aspirin 81 MG CHEW PO (10:56)
[2021-09-04] MEDS: amLODIPine 5 MG TAB PO (10:57)
[2021-09-04] MEDS: Furosemide 40 MG/4 ML VIAL IVP (15:15)
--- NOTE | 2021-09-04 19:17 | W.PM.PROGNOT ---
Date of Service Date of service: 09/04/21 Time of Service: 19:17 Assessment and Plan Assessment and plan (1) Weakness: Status: Acute Assessment and plan: Episode he experienced is likely either pre-syncope, or perhaps mechanical fall, or both. Does not sound like seizure or lisseth syncope. Most prominent findings here with leukocytosis and erythema RLE suggests we are likely seeing cellulitis, perhaps presenting more non-specifically due to underlying cirrhosis. At any rate no findings to suggest anything else, and no signs arrythmia specifically. Telemetry. Has been benign. (2) Essential hypertension: Status: Acute Assessment and plan: On Losartan. Holding d/t GURPREET Added amlodipine 5mg daily abd start spironolactone 25mg daily. Monitor serum K+ closely. Monitor. (3) Alcoholism: Status: Acute Assessment and plan: He denies any previous withdrawal but is not clear about how long he has gone w/o drinking. CIWA monitoring. On schedule librium and prn for CIWA scoring. (4) Hepatic cirrhosis: Status: Acute Assessment and plan: Total bilirubin 1.7 > 1.1 Conjugated bili elevated at 0.5 AST and ALT normalized. Creatinine rise has slowed; 1.6>2.6>3.2>3.3 No evidence clinically of SBP. Monitor. (5) Diabetes mellitus: Assessment and plan: A1c 5.6 on 06/05/21. On no medications. (6) Cellulitis of right leg: Status: Acute Assessment and plan: WBC increased to 33.21 from 16.99. WBC count now improving; 29.16 > 21.92. Cont. Cefepime 2 g IV Q8H Noteable improvement in appearance of the affected leg. (7) Hyponatremia: Status: Acute Assessment and plan: 126 on admission Had decreased slightly and now back to 126. Treating with albumin for hepatorenal syndrome. Monitor. (8) Hypomagnesemia: Status: Acute Assessment and plan: Mg level of 1.0 on admission. Give 2g IV bolus. Give another 2g IV and oral 400mg BID. Normalized to 1.8. (9) GURPREET (acute kidney injury): Status: Acute Assessment and plan: Creatinine elevated at time of admission; 1.6. Baseline of 1.0. Creatinine increased despite IV hydration, to 2.6 > 3.2 > 3.3 No obstructive findings on abd/pelvic CT. Renal US unremarkable. Hepatorenal syndrome likely etiology. Monitor. (10) Hepatorenal syndrome: Status: Acute Assessment and plan: Worsening creatinine in background of cirrhosis. Albumin 1g/kg today in divided doses, then 25g daily. Monitoring creatinine. Refer to [facility]/Hepatology as outpt. Alcohol abstincence stressed. Subjective Subjective Patient reports: no new complaints, feels better, tolerating a regular diet and afebrile; denies nausea or vomiting Exam Narrative Exam Narrative: HEENT atraumatic; sclera clear. Neck supple. Lungs: diminished. Clear. Heart RRR Skin: bronze coloration of skin in sun exposed areas. Abdomen softly distended. NT Extremities pretibial erythema is fading. No open areas or drainage. NT. No calf tenderness. Objective Last Vital Signs Temp 37.3 C 09/04/21 14:49 Pulse 92 H 09/04/21 14:49 Resp 24 09/04/21 14:49 BP 137/86 09/04/21 11:13 Pulse Ox 88 L 09/04/21 14:36 Laboratory Results - last 24 hr 09/04/21 09/04/21 09/04/21 06:26 06:30 06:30 WBC 21.92 H RBC 3.28 L Hgb 10.3 L Hct 29.7 L MCV 91 MCH 31.4 MCHC 34.7 RDW 13.9 Plt Count 169 MPV 12.2 H Immature Gran % 1.5 Neutrophils % 84.1 Lymphocytes % 6.6 Monocytes % 6.7 Eosinophils % 0.7 Basophils % 0.4 Nucleated RBC % 0.2 Absolute Neutrophils 18.43 H Absolute Lymphocytes 1.45 Absolute Monocytes 1.47 H Absolute Eosinophils 0.15 Absolute Basophils 0.09 PT 11.5 H INR 1.1 Sodium 126 L Potassium 4.0 Chloride 97 L Carbon Dioxide 17.4 L Anion Gap 11.6 H BUN 44 H Creatinine 3.3 H Estimated GFR/1.73 m2 18.79 Glucose 121 H Calcium 7.9 L Total Bilirubin 1.1 H AST 30 ALT 20 Alkaline Phosphatase 42 L Total Protein 6.4 Albumin 2.8 L PAWSS Have you Been Recently Intoxicated or Drunk Within the Last 30 days?: No Have you Ever Experienced Previous Episodes of Alcohol Withdrawal?: No Have you ever Experienced Withdrawal Seizures?: No Have you ever Experienced Delirium Tremens(DT)s?: No Have you ever undergone Alcohol Rehabilitation Treatment (i.e, inpt ot outpatient treatment programs)?: Yes Have you ever Experienced Blackouts?: No Have you ever Combined Alcohol with other Downers within the last 90 days?: No Have you ever Combined Alcohol with any other Substance of Abuse during the last 90 days?: No Positive Blood Alcohol level on Presentation? [PCS.BAL]: No Evidence of Increased Autonomic Activity (i.e. HR>120, tremor, sweating, agitation, nausea)?: No Result: 1
[2021-09-04] MEDS: Acetaminophen 325 MG TAB 650 MG PO (19:38)
[2021-09-04] MEDS: LORazepam 1 MG TAB PO (21:13)
--- NOTE | 2021-09-04 21:20 | NUR.NOTE ---
Nursing Note: this rn went into patient room and found he had taken off his heart monitor, id band, and oxygen. pt was agitated and stating he wants to go. told this nurse, im sick of this shit all i want to do is sleep pt would not elaborate on how he is feeling. appears he is working to breathe, tachypneic, wheezing, febrile. rn explained seriousness of pts current illness and dangers of leaving ama. able to convince pt to put back on oxygen (93 on 4.5L) and heart monitor (90s in a fib). pt agreeable to taking ativan for sleep and agitation. allowing pt extra time to rest at this moment. bed alarm on.
--- NOTE | 2021-09-04 23:12 | DI.VRAD_ITS ---
PROCEDURE INFORMATION: Exam: XR Chest Exam date and time: 09/04/2021 10:19 PM Age: 66 years old Clinical indication: Other: Increased o2 demand. TECHNIQUE: Imaging protocol: Radiologic exam of the chest. Views: 1 view. COMPARISON: CR XR CHEST 2V PA LATERAL 09/03/2021 3:35 PM FINDINGS: Lungs: Bilateral lung disease. Increased interstitial markings bilaterally may represent chronic interstitial disease or component of interstitial edema. Focal consolidative changes in the right mid to lower lung field concerning for a right lower lobe infiltrate. Overall, stable appearance since 09/03/2021. Pleural spaces: Small right pleural effusion. This appears to have increased slightly in size since chest x-ray performed yesterday. Heart/Mediastinum: Normal heart size. Bones/joints: Degenerative thoracic spine disease. IMPRESSION: 1. Right lower lobe consolidation concerning for a right lower lobe infiltrate. No significant change since 09/03/2021. 2. Small right pleural effusion. Slight increase in size in comparison with previous study. 3. Bilateral increased interstitial lung markings. This may represent a component of chronic lung disease. Cannot exclude a component of acute interstitial edema. Dictated and Authenticated by: Chad Calvin MD. Ordering:SHANITA Tay MD
[2021-09-05] VITALS (150 sets, daily range): BP systolic 133–167; BP diastolic 60–108; PULSE 73–150; RESP 1–33; TEMP 36.6–37.2; O2SAT 83–98
[2021-09-05] MEDS: Normal Saline Flush 10 ML SYR IVP (00:30)
[2021-09-05] MEDS: CEFEPIME 2 GM in Normal Saline 100 ML IVPB (01:33)
[2021-09-05] MEDS: Levalbuterol 1.25 MG/3 ML UPD VIAL UPD (02:05)
[2021-09-05] MEDS: LORazepam 1 MG TAB PO (02:08)
[2021-09-05 06:30] LABS: Abs Immature Grans 0.09 10^3/uL (0.0-0.06); Absolute Basophil Count 0.08 10^3/uL (0.0-0.2); Absolute Neutrophil Count 16.37 10^3/uL (1.2-6.7); Basophils % 0.4; HCT 31.2 % (40.0-50.0); HGB 10.7 g/dL (13.5-17.5); Immature Grans % 0.5; MCH 30.9 pg (27.0-33.0); MCHC 34.3 % (32.0-36.0); MCV 90 fL (80-95); MPV 12.1 fL (8.0-11.0); Monocytes % 8.4; Neutrophils % 83.7; Nucleated RBC 0.2 % (0.0-0.3); RBC 3.46 10^6/uL (4.36-5.78); RDW 13.8 % (11.8-14.1); RDW-SD 45.3 fL; WBC 19.56 10^3/uL (4.4-10.8)
[2021-09-05 06:36] LABS: Absolute Lymphocyte Count 1.17 10^3/uL (1.2-3.4); Absolute Monocyte Count 1.64 10^3/uL (0.1-0.8)
[2021-09-05 06:55] LABS: ALT 20 U/L (16-63); AST 28 U/L (15-37); Albumin 2.7 g/dL (3.4-5.0); Alkaline Phosphatase 59 U/L (46-116); Anion Gap 11.8 mmol/L (3-11); BUN 45 mg/dL (7-18); Bilirubin, Total 1.8 mg/dL (0.2-1.0); CO2 18.2 mmol/L (21.0-32.0); CREATININE 3.1 mg/dL (0.70-1.30); Calcium 8.4 mg/dL (8.5-10.1); Chloride 99 mmol/L (98-107); Glucose 138 mg/dL (74-106); Potassium 4.3 mmol/L (3.5-5.1); Sodium 129 mmol/L (136-145); Total Protein 6.7 g/dL (6.4-8.2)
[2021-09-05] MEDS: Spironolactone 25 MG TAB PO (07:45)
[2021-09-05] MEDS: amLODIPine 5 MG TAB PO (07:45)
[2021-09-05] MEDS: Metoprolol CR 100 MG TABCR 200 MG PO (07:45)
[2021-09-05 07:52] LABS: Diff Comment Agrees w/ Instrument; Platelet Count 183 10^3/uL (130-400); RBC Morphology Normal
[2021-09-05] MEDS: Albuterol/Ipratropium 3 ML UPD VIAL UPD (08:00)
[2021-09-05 08:59] LABS: Ammonia < 10 umol/L (11-32)
--- NOTE | 2021-09-05 09:00 | RT.EKG_ITS ---
APPROVED REPORT Exam: Resting ECG Reason for Exam: ?arrhythmia Patient Location: I HR:134 bpm ECG Measurements Heart Rate 134 AXIS PA [id number] P [id number] QRSd 98 QRS 68 QT 313 T 71 QTc 468 Conclusion Atrial fibrillation...? atrial activity Borderline low voltage, extremity leads...all extremity leads <0.6mV Anteroseptal infarct, old...Q >40mS, V1-V2
[2021-09-05 09:29] LABS: Lab Add On Test DONE
--- NOTE | 2021-09-05 09:30 | W.PM.PROGNOT ---
Date of Service Date of service: 09/05/21 Time of Service: 09:30 Assessment and Plan Assessment and plan (1) Atrial fibrillation with rapid ventricular response: Status: Acute Assessment and plan: Transfer to ICU. Start cardizem infusion. Continue metoprolol XL 200 mg daily. Obtain echo. Anticoagulate with heparin gtt. No evidence of PE on CTA on admission. ?CHF - await pro BNP. Trend troponins. (2) GURPREET (acute kidney injury): Status: Acute Assessment and plan: In setting of IV contrast, Rapid Afib, sepsis, alcoholic cirrhosis. DDx: prerenal due to rapid Afib/cardiorenal and/or sepsis, hepatorenal syndrome, ATN, contrast nephropathy, post-renal. Diabetic nephropathy could be underlying all this. I do not think that bladder scans reliably rule out urinary retention in patients with ascites. No evidence of SBP clinically. No obstructive uropathy on CT or US renal. Place mariscal catheter. Monitor I/Os, Cr. Obtain UA. Obtain urine studies for FeNa (send out). Obtain echo (not available for 72 hrs). Will trial addition of octreotide and midodrine to albumin. Nephrology consult tomorrow for further guidance. Abstain from further diuresis or IVF at this time. (3) Acute respiratory failure with hypoxia: Status: Acute Assessment and plan: Ddx: COPD exacerbation, RLL PNA, ?mild CHF. Monitor in the ICU. Scheduled atrovent nebs + prn levalbuterol. [place] abx to zosyn to cover for an aspiration component. Given today's events, will also start PPI for possible reflux/GERD. VBG with no evidence of CO2 retention. Encourage IS/acapella. Trying to avoid diuretics today given GURPREET. (4) Right lower lobe pneumonia: Status: Acute Assessment and plan: As above Zosyn. PPI for reflux. Consider swallow eval if another event witnessed. (5) Cellulitis of right leg: Status: Acute Assessment and plan: WBC improving. Abx being changed to zosyn. Will monitor for improvement. DVT ruled out. (6) Toxic metabolic encephalopathy: Status: Acute Assessment and plan: Probable effect of benzodiazepines. No obvious hepatic encephalopathy. Monitor mental status. No focal deficits to suggest CVA. (7) Hepatic cirrhosis: Status: Acute Assessment and plan: As above. ?hepatorenal syndrome. LFTs ok. Monitor Bilis. Check hematest. No known varices; none mentioned on CT read. (8) Essential hypertension: Status: Acute Assessment and plan: d/c losartan, amlodipine, and aldactone. Continue metoprolol. Add cardizem for Afib - might have BP effect also. (9) Alcoholism: Status: Acute Assessment and plan: Continue monitoring on CIWA. Consider decreasing librium (10) Weakness: Status: Acute Assessment and plan: C/s PT. (11) Diabetes mellitus: Assessment and plan: A1c 5.6 on 06/05/21. On no medications. (12) Hyponatremia: Status: Acute Assessment and plan: Monitor as we are expecting fluid shifts with initiation of octreotide and midodrine in addition to albumin. (13) Hypomagnesemia: Status: Acute Assessment and plan: Recheck in am (14) DVT prophylaxis: Status: Acute Assessment and plan: Therapeutic heparin gtt. (15) Discharge planning issues: Status: Acute Assessment and plan: Full code Transfer to the ICU. Total Critical Care Time 60 minutes. Subjective Subjective Interval history since last seen: Mr Escalante states he is tired. He had a hard time eating breakfast and swallowing pills this morning while wearing oxygen and had a gagging event, which has resolved. He has difficulty telling me what happened - the story is being obtained through nursing and RT. Patient spent the night in rapid Afib with HR 140s-150s. He was confused/mildly agitated overnight. Requiring 4L of O2. He denies dizziness, chest pain, shortness of breath, nausea, abdominal pain. RLE hurts. Exam Narrative Exam Narrative: General: Mildly dyspneic middle-aged male who has difficulty staying awake, A&Ox3, difficulty with the date. HEENT: EOMI, MMM Heart: tachycardic, irregularly irregular Lungs: Diminished breath sounds at B bases, no rales or wheezes Abdomen: soft, ascites, nontender Extremities: RLE erythematous, edematous, trace edema LLE Objective Last Vital Signs Temp 36.9 C 09/05/21 07:38 Pulse 144 H 09/05/21 07:38 Resp 24 09/05/21 07:38 BP 154/76 H 09/05/21 07:38 Pulse Ox 91 L 09/05/21 07:38 Laboratory Results - last 24 hr 09/05/21 09/05/21 09/05/21 05:52 05:52 07:51 WBC 19.56 H RBC 3.46 L Hgb 10.7 L Hct 31.2 L MCV 90 MCH 30.9 MCHC 34.3 RDW 13.8 Plt Count 183 MPV 12.1 H Immature Gran % 0.5 Neutrophils % 83.7 Lymphocytes % 6.0 Monocytes % 8.4 Eosinophils % 1.0 Basophils % 0.4 Nucleated RBC % 0.2 Absolute Neutrophils 16.37 H Absolute Lymphocytes 1.17 L Absolute Monocytes 1.64 H Absolute Eosinophils 0.20 Absolute Basophils 0.08 RBC Morphology Normal ABG Sample Site Cancelled ABG pH Cancelled ABG pCO2 Cancelled ABG pO2 Cancelled ABG HCO3 Cancelled ABG Total CO2 Cancelled ABG O2 Saturation Cancelled ABG Base Excess Cancelled Oxygen Liter Flow Cancelled FiO2 Cancelled Sodium 129 L Potassium 4.3 Chloride 99 Carbon Dioxide 18.2 L Anion Gap 11.8 H BUN 45 H Creatinine 3.1 H Estimated GFR/1.73 m2 20.20 Glucose 138 H Calcium 8.4 L Total Bilirubin 1.8 H AST 28 ALT 20 Alkaline Phosphatase 59 Ammonia Total Protein 6.7 Albumin 2.7 L Add-On Test Request 09/05/21 09/05/21 08:04 08:04 WBC RBC Hgb Hct MCV MCH MCHC RDW Plt Count MPV Immature Gran % Neutrophils % Lymphocytes % Monocytes % Eosinophils % Basophils % Nucleated RBC % Absolute Neutrophils Absolute Lymphocytes Absolute Monocytes Absolute Eosinophils Absolute Basophils RBC Morphology ABG Sample Site ABG pH ABG pCO2 ABG pO2 ABG HCO3 ABG Total CO2 ABG O2 Saturation ABG Base Excess Oxygen Liter Flow FiO2 Sodium Potassium Chloride Carbon Dioxide Anion Gap BUN Creatinine Estimated GFR/1.73 m2 Glucose Calcium Total Bilirubin AST ALT Alkaline Phosphatase Ammonia < 10 L Total Protein Albumin Add-On Test Request DONE Objective Narrative Objective Narrative: EKG: Rapid Afib/flutter, HR 133, Nonspecific ST-T changes. VBG pH 7.37, pCO2 75 PAWSS Have you Been Recently Intoxicated or Drunk Within the Last 30 days?: No Have you Ever Experienced Previous Episodes of Alcohol Withdrawal?: No Have you ever Experienced Withdrawal Seizures?: No Have you ever Experienced Delirium Tremens(DT)s?: No Have you ever undergone Alcohol Rehabilitation Treatment (i.e, inpt ot outpatient treatment programs)?: Yes Have you ever Experienced Blackouts?: No Have you ever Combined Alcohol with other Downers within the last 90 days?: No Have you ever Combined Alcohol with any other Substance of Abuse during the last 90 days?: No Positive Blood Alcohol level on Presentation? [PCS.BAL]: No Evidence of Increased Autonomic Activity (i.e. HR>120, tremor, sweating, agitation, nausea)?: No Result: 1
[2021-09-05] MEDS: Budesonide/Formoterol 80/4.5 6.9 GM 60 PUFF INH IH ×2 (09:33→20:53)
[2021-09-05] MEDS: Lidocaine 2% Jelly 11 ML SYR UR (09:35)
[2021-09-05 10:06] LABS: NT-proBNP 15673 pg/mL (<300); Troponin I < 50 ng/L (<or=60)
--- NOTE | 2021-09-05 10:07 | NUR.NOTE ---
Nursing Note: HR 140-150s A.fib RVR, has some confusion or AMS noted, Odonnell inserted, ABG,labs drawn, pt transferred to ICU, report gven to PHYLLIS Chavez
[2021-09-05] MEDS: chlordiazePOXIDE 25 MG CAP PO ×3 (10:48→20:16)
[2021-09-05] MEDS: Aspirin 81 MG CHEW PO (10:48)
[2021-09-05] MEDS: Doxazosin 2 MG TAB 8 MG PO (10:48)
[2021-09-05] MEDS: Magnesium Oxide 400 MG TAB PO ×2 (10:49→20:17)
[2021-09-05] MEDS: Midodrine 2.5 MG TAB 7.5 MG PO ×3 (10:49→20:51)
[2021-09-05 11:09] LABS: C-Reactive Protein 11.13 mg/dL (0.0-0.3); Uric Acid 7.2 mg/dL (3.5-7.2)
--- NOTE | 2021-09-05 11:14 | PT.INNT ---
PT Notes Visit Reasons: Cellulitus Orders received on this date by Dr. Elda Rasheed for PT evaluation and secondary to limited ability. Initial evaluation postponed to tomorrow per nursing recommendation.
[2021-09-05 11:25] LABS: Procalcitonin 10.4 ng/mL
[2021-09-05 11:52] LABS: HCO3 (Venous) 19 mmol/L (23-28); TCO2 (Venous) 18 mmol/L (24-29); pCO2 (Venous) 35 mmHg (41-51); pH (Venous) 7.34 (7.31-7.41); pO2 (Venous) 23 mmHg
[2021-09-05 11:53] LABS: BE (Venous) -7 mmol/L (-2-3); O2 Sat (Venous) 39 %
[2021-09-05] MEDS: Ipratropium 0.5 MG/2.5 ML UPD VIAL UPD ×3 (11:55→21:01)
[2021-09-05 12:52] LABS: Troponin I < 50 ng/L (<or=60)
[2021-09-05] MEDS: Pantoprazole 40 MG VIAL IVP (13:32)
[2021-09-05] MEDS: THIAMINE 100 MG in Normal Saline 100 ML 200 MG IVPB (13:48)
[2021-09-05 14:00] LABS: Lab Add On Test done
[2021-09-05] MEDS: ALBUMIN HUMAN 25 GM/100 ML BTL IV (14:12)
[2021-09-05] MEDS: PIPERACILLIN/TAZO 2.25 GM in Normal Saline 50 ML IVPB ×2 (14:27→20:17)
[2021-09-05 14:54] LABS: PTT Activated 32.5 sec (21.0-27.5)
[2021-09-05] MEDS: OCTREOTIDE 250 MCG in Normal Saline 245 ML 50 MCG IV ×2 (14:54→20:43)
[2021-09-05 17:06] LABS: Sodium, Urine 44 mmol/L
[2021-09-05 17:07] LABS: Bilirubin Negative (Negative); Blood Large (Negative); Clarity Clear (Clear); Glucose Negative (Negative); Ketones Trace mg/dL (Negative); Leukocyte Esterase Negative (Negative); Nitrite Negative (Negative); Urobilinogen 0.2 EU/dL (Up TO 0.2); pH 5.5 (5-8)
[2021-09-05 17:40] LABS: RBC 20-50 HPF (0-2)
[2021-09-05 17:41] LABS: Bacteria Negative HPF (Negative); C & S Indicated? Yes; Crystals Few Amorphous HPF (Negative); Epithelial Cells Few HPF (Negative); Mucus Negative (Negative)
[2021-09-05] MEDS: Insulin Aspart 300 UNITS/3 ML PEN SC ×2 (17:59→20:16)
[2021-09-05] MEDS: LORazepam 1 MG TAB PO/SL (20:17)
[2021-09-05] MEDS: Acetaminophen 325 MG TAB 650 MG PO (22:04)
[2021-09-06] VITALS (165 sets, daily range): BP systolic 102–177; BP diastolic 58–96; PULSE 65–144; RESP 1–30; TEMP 36–37.2; O2SAT 85–97
[2021-09-06] MEDS: OCTREOTIDE 250 MCG in Normal Saline 245 ML 50 MCG IV ×2 (00:58→06:08)
[2021-09-06] MEDS: LORazepam 1 MG TAB PO/SL ×3 (02:23→14:50)
[2021-09-06] MEDS: PIPERACILLIN/TAZO 2.25 GM in Normal Saline 50 ML IVPB ×4 (04:05→21:17)
[2021-09-06 04:26] LABS: Abs Immature Grans 0.13 10^3/uL (0.0-0.06); HCT 30.7 % (40.0-50.0); HGB 10.4 g/dL (13.5-17.5); MCH 31.1 pg (27.0-33.0); MCHC 33.9 % (32.0-36.0); MCV 92 fL (80-95); MPV 12.5 fL (8.0-11.0); Nucleated RBC 0.2 % (0.0-0.3); Platelet Count 198 10^3/uL (130-400); RBC 3.34 10^6/uL (4.36-5.78); RDW 14.1 % (11.8-14.1); RDW-SD 47.7 fL; WBC 17.08 10^3/uL (4.4-10.8)
[2021-09-06 04:38] LABS: PTT Activated 76.4 sec (21.0-27.5)
[2021-09-06 04:41] LABS: Anion Gap 9.4 mmol/L (3-11); BUN 46 mg/dL (7-18); CO2 18.6 mmol/L (21.0-32.0); CREATININE 2.8 mg/dL (0.70-1.30); Calcium 8.4 mg/dL (8.5-10.1); Chloride 100 mmol/L (98-107); Estimated GFR 22.72 (mL/min/1.73m2); Glucose 136 mg/dL (74-106); Potassium 4.6 mmol/L (3.5-5.1); Sodium 128 mmol/L (136-145)
[2021-09-06 04:55] LABS: Absolute Eosinophil Count 0.34 10^3/uL (0.0-0.7); Absolute Lymphocyte Count 1.71 10^3/uL (1.2-3.4); Absolute Monocyte Count 1.54 10^3/uL (0.1-0.8); Absolute Neutrophil Count 13.49 10^3/uL (1.2-6.7); Diff Comment Manual Differential
[2021-09-06 07:21] LABS: Lab Add On Test DONE
[2021-09-06 07:30] LABS: C-Reactive Protein 11.24 mg/dL (0.0-0.3)
[2021-09-06] MEDS: Magnesium Oxide 400 MG TAB PO ×2 (07:55→21:17)
[2021-09-06] MEDS: Doxazosin 2 MG TAB 8 MG PO (07:56)
[2021-09-06] MEDS: chlordiazePOXIDE 25 MG CAP PO ×3 (07:56→21:17)
[2021-09-06] MEDS: Midodrine 2.5 MG TAB 7.5 MG PO ×2 (07:56→14:51)
[2021-09-06] MEDS: Aspirin 81 MG CHEW PO (07:56)
[2021-09-06] MEDS: Multivitamin w/Minerals TAB 1 TAB PO (07:56)
[2021-09-06] MEDS: Metoprolol CR 100 MG TABCR 200 MG PO (07:56)
[2021-09-06] MEDS: Thiamine 100 MG TAB PO (07:56)
[2021-09-06] MEDS: Ipratropium 0.5 MG/2.5 ML UPD VIAL UPD ×4 (08:24→21:17)
[2021-09-06] MEDS: Budesonide/Formoterol 80/4.5 6.9 GM 60 PUFF INH IH ×2 (08:44→21:51)
--- NOTE | 2021-09-06 10:17 | PT.INNT ---
PT Notes Visit Reasons: Cellulitus Orders received for therapy evaluation on September 05, 2021. Nursing recommends hold on initial evaluation till tomorrow September 07, 2021.
[2021-09-06 10:18] LABS: PTT Activated 75.8 sec (21.0-27.5)
[2021-09-06] MEDS: Pantoprazole 40 MG VIAL IVP (10:33)
[2021-09-06 11:39] LABS: Ammonia 15 umol/L (11-32)
[2021-09-06] MEDS: ALBUMIN HUMAN 25 GM/100 ML BTL IV (14:50)
[2021-09-06 15:19] LABS: BE (Venous) -8 mmol/L (-2-3); HCO3 (Venous) 17 mmol/L (23-28); O2 Sat (Venous) 99 %; TCO2 (Venous) 16 mmol/L (24-29); pCO2 (Venous) 31 mmHg (41-51); pH (Venous) 7.35 (7.31-7.41); pO2 (Venous) 104 mmHg
[2021-09-06] MEDS: Furosemide 20 MG/2 ML VIAL IVP (16:02)
[2021-09-06 16:47] LABS: PTT Activated 52.8 sec (21.0-27.5)
--- NOTE | 2021-09-06 16:48 | W.PM.PROGNOT ---
Date of Service Date of service: 09/06/21 Time of Service: 10:45 Assessment and Plan Assessment and plan (1) Sepsis: Status: Acute Assessment and plan: Due to cellulitis RLE and RLL pneumonia (possibly aspiration). CRP unchanged - I am concerned about underlying RLE pathology. Await CT RLE. Blood cultures obtained on admission are with NGTD. Continue empiric zosyn. Check mrsa nares. Check urine for legionella and strep. (2) Acute respiratory failure with hypoxia: Status: Acute Assessment and plan: Due to combination of CHF exacerbation and RLL PNA. Has been intermittently on CPAP since yesterday with improvement. I have discussed the case with nephrology who feel that the patient should be safe to receive diuretics. Encourage CPAP. Start diuretics (lasix + aldactone). Continue atrovent nebs + prn levalbuterol. Continue zosyn. Wean o2 as tolerated. Continue to monitor in the ICU. VBG not indicating respiratory acidosis. Encourage IS/acapella. (3) GURPREET (acute kidney injury): Status: Acute Assessment and plan: In setting of IV contrast, Rapid Afib, sepsis, alcoholic cirrhosis. DDx: prerenal due to rapid Afib/cardiorenal and/or sepsis, hepatorenal syndrome, ATN, contrast nephropathy, post-renal. Diabetic nephropathy could be underlying all this. Discussed the case with [facility] nephrology. Urine sodium being 44 is suggestive of good perfusion of the kidneys, and so the hepatorenal syndrome is felt to be less likely. Prerenal/cardiorenal failure is felt to be more likely in addition to contrast nephropathy. Recommendations were to d/c octreotide and midodrine. Continue albumin and add lasix as well as aldactone. Continue CPAP. Obtain US abdomen - if has enough ascites for paracenthesis, would be beneficial as far as pulmonary edema as well. Not retaining urine prior to mariscal catheter placement; now, refuses a mariscal catheter. No obstructive uropathy on CT or US renal. Monitoring I/Os is challenging. Monitor weights, Cr. Await urine studies for FeUrea (send out). Await echo (not available for 48 hrs). (4) Atrial fibrillation with rapid ventricular response: Status: Resolved Assessment and plan: Rates controlled without cardizem. Continue metoprolol XL 200 mg daily. Await echo. Anticoagulate with heparin gtt. No evidence of PE on CTA on admission. ?CHF - await pro BNP. Trend troponins. (5) Right lower lobe pneumonia: Status: Acute Assessment and plan: As above Zosyn. PPI for reflux. Consider swallow eval if another event witnessed. (6) Cellulitis of right leg: Status: Acute Assessment and plan: Await CT to ensure no abscess. Continue zosyn. Will monitor for improvement. DVT ruled out. (7) Toxic metabolic encephalopathy: Status: Acute Assessment and plan: Has asterexis. Ammonia is low, but we can trial lactulose and see if there is any improvement. Benzodiazepines could be contributing Monitor mental status. No focal deficits to suggest CVA. (8) Hepatic cirrhosis: Status: Chronic Assessment and plan: As above. LFTs ok. Monitor Bilis. Current presentation is likely not hepatorenal syndrome, per nephrology. Check hematest. No known varices; none mentioned on CT read. (9) Essential hypertension: Status: Acute Assessment and plan: Resume aldactone. Continue metoprolol. (10) Alcoholism: Status: Acute Assessment and plan: Continue monitoring on CIWA. Consider decreasing librium. (11) Weakness: Status: Acute Assessment and plan: PT consulted. (12) Diabetes mellitus: Assessment and plan: A1c 5.6 on 06/05/21. On no medications. (13) Hyponatremia: Status: Acute Assessment and plan: Monitor as we are expecting fluid shifts with initiation of octreotide and midodrine in addition to albumin. (14) Hypomagnesemia: Status: Resolved Assessment and plan: Recheck in am (15) DVT prophylaxis: Status: Acute Assessment and plan: Therapeutic heparin gtt. (16) Discharge planning issues: Status: Acute Assessment and plan: Full code Transfer to the ICU. Total Critical Care Time 45 minutes. Subjective Subjective Interval history since last seen: Mr Escalante was confused overnight and did receive lorazepam overnight. Today he has been intermittently confused, tore off his CPAP. He requested that the mariscal catheter be removed yesterday. Documented UOP yesterday was 1400, but he has been incontinent in the briefs since, so it is hard to know his true UOP at this time. He denied dizziness, chest pain, shortness of breath, nausea, any kind of other discomfort. Converting back and forth from NSR to Afib, but has been rate controlled. Exam Narrative Exam Narrative: General: middle-aged male who is seen on CPAP, awake, A&Ox1, looking less dyspneic than yesterday, has asterexis HEENT: EOMI, MMM Heart: RRR at the time of my exam Lungs: Diminished breath sounds B Abdomen: soft, ascites, nontender Extremities: RLE erythematous, edematous with small papules filled with purulent fluid, trace edema LLE Objective Last Vital Signs Temp 37.2 C 09/06/21 13:02 Pulse 74 09/06/21 12:01 Resp 27 H 09/06/21 15:30 BP 122/58 L 09/06/21 13:02 Pulse Ox 85 L 09/06/21 13:02 Laboratory Results - last 24 hr 09/05/21 09/05/21 09/05/21 16:30 16:30 21:59 WBC RBC Hgb Hct MCV MCH MCHC RDW Plt Count MPV Immature Gran % Neutrophils % Lymphocytes % Monocytes % Eosinophils % Basophils % Nucleated RBC % Absolute Neutrophils Absolute Lymphocytes Absolute Monocytes Absolute Eosinophils Absolute Basophils APTT > 155.1 H* VBG pH VBG pCO2 VBG pO2 VBG HCO3 VBG Total CO2 VBG O2 Saturation VBG Base Excess VBG Lactate Sodium Potassium Chloride Carbon Dioxide Anion Gap BUN Creatinine Estimated GFR/1.73 m2 Glucose Calcium Magnesium Ammonia C-Reactive Protein Urine Color Yellow Urine Clarity Clear Urine pH 5.5 Ur Specific [place] 1.020 Urine Protein >=300 H Urine Ketones Trace H Urine Blood Large H Urine Nitrite Negative Urine Bilirubin Negative Urine Urobilinogen 0.2 Ur Leukocyte Esterase Negative Urine RBC 20-50 H Urine WBC 5-10 Ur Epithelial Cells Few Urine Crystals Few Amorphous Urine Bacteria Negative Urine Casts 10-20 Fine Granular Urine Mucus Negative Ur Culture Indicated? Yes Ur Random Sodium 44 Urine Glucose Negative Add-On Test Request 09/06/21 09/06/21 09/06/21 03:54 04:00 04:00 WBC 17.08 H RBC 3.34 L Hgb 10.4 L Hct 30.7 L MCV 92 MCH 31.1 MCHC 33.9 RDW 14.1 Plt Count 198 MPV 12.5 H Immature Gran % 0.0 Neutrophils % 79.0 Lymphocytes % 10.0 Monocytes % 9.0 Eosinophils % 2.0 Basophils % 0.0 Nucleated RBC % 0.2 Absolute Neutrophils 13.49 H Absolute Lymphocytes 1.71 Absolute Monocytes 1.54 H Absolute Eosinophils 0.34 Absolute Basophils 0.00 APTT VBG pH VBG pCO2 VBG pO2 VBG HCO3 VBG Total CO2 VBG O2 Saturation VBG Base Excess VBG Lactate Sodium 128 L Potassium 4.6 Chloride 100 Carbon Dioxide 18.6 L Anion Gap 9.4 BUN 46 H Creatinine 2.8 H Estimated GFR/1.73 m2 22.72 Glucose 136 H Calcium 8.4 L Magnesium 2.0 Ammonia C-Reactive Protein 11.24 H Urine Color Urine Clarity Urine pH Ur Specific [place] Urine Protein Urine Ketones Urine Blood Urine Nitrite Urine Bilirubin Urine Urobilinogen Ur Leukocyte Esterase Urine RBC Urine WBC Ur Epithelial Cells Urine Crystals Urine Bacteria Urine Casts Urine Mucus Ur Culture Indicated? Ur Random Sodium Urine Glucose Add-On Test Request DONE 09/06/21 09/06/21 09/06/21 04:00 07:25 09:50 WBC RBC Hgb Hct MCV MCH MCHC RDW Plt Count MPV Immature Gran % Neutrophils % Lymphocytes % Monocytes % Eosinophils % Basophils % Nucleated RBC % Absolute Neutrophils Absolute Lymphocytes Absolute Monocytes Absolute Eosinophils Absolute Basophils APTT 76.4 H 75.8 H VBG pH VBG pCO2 VBG pO2 VBG HCO3 VBG Total CO2 VBG O2 Saturation VBG Base Excess VBG Lactate 1.0 Sodium Potassium Chloride Carbon Dioxide Anion Gap BUN Creatinine Estimated GFR/1.73 m2 Glucose Calcium Magnesium Ammonia C-Reactive Protein Urine Color Urine Clarity Urine pH Ur Specific [place] Urine Protein Urine Ketones Urine Blood Urine Nitrite Urine Bilirubin Urine Urobilinogen Ur Leukocyte Esterase Urine RBC Urine WBC Ur Epithelial Cells Urine Crystals Urine Bacteria Urine Casts Urine Mucus Ur Culture Indicated? Ur Random Sodium Urine Glucose Add-On Test Request 09/06/21 09/06/21 11:20 15:10 WBC RBC Hgb Hct MCV MCH MCHC RDW Plt Count MPV Immature Gran % Neutrophils % Lymphocytes % Monocytes % Eosinophils % Basophils % Nucleated RBC % Absolute Neutrophils Absolute Lymphocytes Absolute Monocytes Absolute Eosinophils Absolute Basophils APTT VBG pH 7.35 VBG pCO2 31 L VBG pO2 104 VBG HCO3 17 L VBG Total CO2 16 L VBG O2 Saturation 99 VBG Base Excess -8 L VBG Lactate Sodium Potassium Chloride Carbon Dioxide Anion Gap BUN Creatinine Estimated GFR/1.73 m2 Glucose Calcium Magnesium Ammonia 15 C-Reactive Protein Urine Color Urine Clarity Urine pH Ur Specific [place] Urine Protein Urine Ketones Urine Blood Urine Nitrite Urine Bilirubin Urine Urobilinogen Ur Leukocyte Esterase Urine RBC Urine WBC Ur Epithelial Cells Urine Crystals Urine Bacteria Urine Casts Urine Mucus Ur Culture Indicated? Ur Random Sodium Urine Glucose Add-On Test Request Objective Narrative Objective Narrative: CT RLE ordered, pending PAWSS Have you Been Recently Intoxicated or Drunk Within the Last 30 days?: No Have you Ever Experienced Previous Episodes of Alcohol Withdrawal?: No Have you ever Experienced Withdrawal Seizures?: No Have you ever Experienced Delirium Tremens(DT)s?: No Have you ever undergone Alcohol Rehabilitation Treatment (i.e, inpt ot outpatient treatment programs)?: Yes Have you ever Experienced Blackouts?: No Have you ever Combined Alcohol with other Downers within the last 90 days?: No Have you ever Combined Alcohol with any other Substance of Abuse during the last 90 days?: No Positive Blood Alcohol level on Presentation? [PCS.BAL]: No Evidence of Increased Autonomic Activity (i.e. HR>120, tremor, sweating, agitation, nausea)?: No Result: 1 Multi-Disciplinary Checklist Lines/Tubes CENTRAL LINE: no ARTERIAL LINE: no MARISCAL: no ENDOTRACHEAL TUBE: no ICU Maintenance GLUCOSE 140-180mg/dL: yes NUTRITION AT GOAL: yes PRESSURE ULCER: no RESTRAINTS: no ANTIBIOTICS(if yes, consider Stewardship): Yes Social Issues FAMILY UPDATED: no, Reason/Intervention: No next of kin listed in the computer PT/OT: yes GOALS/DISPOSITION/DIE CAST ENGINEER: yes CODE STATUS: Full Prophylaxis DVT PROPHYLAXIS: yes GI PROPHYLAXIS: no
[2021-09-06] MEDS: Lactulose 20 GM/30 ML CUP PO (21:18)
--- NOTE | 2021-09-06 22:00 | RT.EKG_ITS ---
APPROVED REPORT Exam: Resting ECG Reason for Exam: new a flutter Patient Location: I HR:75 bpm ECG Measurements Heart Rate 75 AXIS IN [id number] P [id number] QRSd 105 QRS 79 QT 353 T 39 QTc 395 Conclusion Atrial fibrillation...? atrial activity Anterior infarct, old...Q >40mS, abnormal ST-T, V2-V5
[2021-09-06] MEDS: Metoprolol 5 MG/5 ML VIAL 2.5 MG IVP (22:35)
[2021-09-07] VITALS (94 sets, daily range): BP systolic 107–176; BP diastolic 43–129; PULSE 70–144; RESP 2–28; TEMP 36.4–37; O2SAT 81–95
[2021-09-07] MEDS: Metoprolol 5 MG/5 ML VIAL 2.5 MG IVP (00:21)
[2021-09-07] MEDS: PIPERACILLIN/TAZO 2.25 GM in Normal Saline 50 ML IVPB ×2 (03:44→09:22)
[2021-09-07] MEDS: LORazepam 0.5 MG TAB PO (03:44)
[2021-09-07 06:37] LABS: HCT 29.7 % (40.0-50.0); HGB 10.2 g/dL (13.5-17.5); MCH 31.9 pg (27.0-33.0); MCHC 34.3 % (32.0-36.0); MCV 93 fL (80-95); Nucleated RBC 0.2 % (0.0-0.3); Platelet Count 234 10^3/uL (130-400); RDW 14.6 % (11.8-14.1); RDW-SD 50.2 fL; WBC 11.92 10^3/uL (4.4-10.8)
[2021-09-07 06:58] LABS: PTT Activated 46.5 sec (21.0-27.5)
[2021-09-07 07:05] LABS: ALT 14 U/L (16-63); AST 23 U/L (15-37); Albumin 2.7 g/dL (3.4-5.0); Alkaline Phosphatase 56 U/L (46-116); BUN 47 mg/dL (7-18); Bilirubin, Direct 0.8 mg/dL (0.0-0.2); Bilirubin, Total 1.7 mg/dL (0.2-1.0); C-Reactive Protein 7.52 mg/dL (0.0-0.3); CREATININE 2.4 mg/dL (0.70-1.30); Calcium 8.4 mg/dL (8.5-10.1); Chloride 101 mmol/L (98-107); Estimated GFR 27.14 (mL/min/1.73m2); Glucose 132 mg/dL (74-106); Magnesium 1.9 mg/dL (1.8-2.4); Potassium 4.2 mmol/L (3.5-5.1); Sodium 131 mmol/L (136-145); Total Protein 6.7 g/dL (6.4-8.2)
[2021-09-07 07:10] LABS: Absolute Basophil Count 0.48 10^3/uL (0.0-0.2); Absolute Eosinophil Count 0.72 10^3/uL (0.0-0.7); Absolute Lymphocyte Count 0.95 10^3/uL (1.2-3.4); Absolute Monocyte Count 1.19 10^3/uL (0.1-0.8); Absolute Neutrophil Count 8.58 10^3/uL (1.2-6.7); Diff Comment Manual Differential; RBC Morphology Normal
[2021-09-07 07:24] LABS: Procalcitonin 3.7 ng/mL
--- NOTE | 2021-09-07 08:00 | DI.US_ITS ---
Exam(s) US ABDOMEN EXAM: US ABDOMEN CLINICAL HISTORY: ascites TECHNIQUE: Ultrasound performed using standard protocol. COMPARISON: US US RENAL from 09/03/2021 FINDINGS: Abdominal ultrasound performed according to the usual protocol. There is moderate abdominal ascites. This is most prominent in right lower quadrant. The hepatic contour is nodular and there is heterogeneity of hepatic parenchyma, findings are suggest lexi of hepatic cirrhosis. No focal mass identified. Portal venous flow is hepatopetal. There is cholelithiasis with multiple stones and gallbladder sludge. Gallbladder wall is borderline thickened at 4 millimeters. No pericholecystic fluid collection seen. No biliary dilatation seen. Spleen is not identified. Kidneys are unremarkable in appearance with no hydronephrosis or nephrolit hiasis. IMPRESSION: Appearance of the liver is suggestive of cirrhosis, please correlate clinically. Note is made of cholelithiasis with borderline gallbladder wall thickening. There is moderate abdominal ascites. DATA REPOSITORY:
--- NOTE | 2021-09-07 08:12 | PDOC.CMPRO ---
- If Service Date Differs Date of service: 09/07/21 Time of Service: 08:12 Care Management Progress Note S/O: Jasvir will have a nephrology consult and a cat scan of his leg, per MD. He remains inpatient in the ICU for cellulitis and respiratory failure. CM continues to follow. A: Jasvir is a 66 year old man admitted on 09/02/21 with cellulitis P:Jasvir will likely be discharged home with no new services. He will follow up with his community providers and plan of care and transport with family/friends. CM will support Jasvir and assess for discharge concerns.
[2021-09-07 08:39] LABS: Lab Add On Test DONE
[2021-09-07 08:42] LABS: Creatine Kinase 22 U/L (39-308); PHOSPHORUS 3.8 mg/dL (2.6-4.7)
--- NOTE | 2021-09-07 08:58 | PGE_ITS ---
Date of Service Date of service: 09/07/21 Time of Service: 08:30 Assessment and Plan Assessment and plan (1) Sepsis: Status: Acute Assessment and plan: Due to cellulitis RLE and RLL pneumonia (possibly aspiration). CRP, WBC, procalcitonin better. I am very concerned about the appearance of RLE. Await CT RLE. Was unable to be obtained yesterday due to patient's noncooperativ eness. Blood cultures obtained on admission are with NGTD. Continue empiric zosyn. Await mrsa nares, legionella, and strep. Await US abdomen to see if there is enough fluid for a paracenthesis (not a lot per POCUS by Dr Talavera; will await formal US). Consider LP, though no meningismus and encephalopathy is more c/w toxic metabolic. (2) Acute respiratory failure with hypoxia: Status: Acute Assessment and plan: Due to combination of CHF exacerbation and RLL PNA, underlying COPD - not acting as an acute exacerbation. Await echo. Continue diuresis, CPAP. Cr is tolerating diuresis. Continue atrovent nebs + prn levalbuterol. Continue zosyn. Wean o2 as tolerated. Continue to monitor in the ICU. VBG not indicating respiratory acidosis. Encourage IS/acapella. (3) GURPREET (acute kidney injury): Status: Acute Assessment and plan: In setting of IV contrast, Rapid Afib, sepsis, alcoholic cirrhosis. DDx: prerenal due to rapid Afib/cardiorenal and/or sepsis, hepatorenal syndrome, ATN, contrast nephropathy, post-renal. Diabetic nephropathy could be underlying all this. Discussed the case with [facility] nephrology. Urine sodium being 44 is suggestive of good perfusion of the kidneys, and so the hepatorenal syndrome is felt to be less likely. Prerenal/cardiorenal failure is felt to be more likely in addition to contrast nephropathy. Continue albumin + lasix as well as aldactone. Continue CPAP. Await US abdomen - if has enough ascites for paracenthesis, would be beneficial as far as pulmonary edema as well. Not retaining urine prior to mariscal catheter placement; now, refuses a mariscal catheter. Will try to weigh diapers to monitor UOP. No obstructive uropathy on CT or US renal. Monitoring I/Os is challenging. Monitor weights, Cr. Await urine studies for FeUrea (send out, still not back). Await echo (not available until tomorrow). (4) Atrial fibrillation with rapid ventricular response: Status: Resolved Assessment and plan: Rates controlled without cardizem. Suspect contributing to rate dependent pulmonary edema. Continue metoprolol XL 200 mg daily. prn IV lopressor ordered. Await echo. Anticoagulate with heparin gtt. No evidence of PE on CTA on admission. Troponins negative. (5) Right lower lobe pneumonia: Status: Acute Assessment and plan: As above Zosyn. PPI for reflux. Consider swallow eval if another event witnessed. (6) Cellulitis of right leg: Status: Acute Assessment and plan: Await CT to ensure no abscess/osteomyelitis/another surgical issue. Continue zosyn. Will monitor for improvement. DVT ruled out. (7) Toxic metabolic encephalopathy: Status: Acute Assessment and plan: Has asterexis. Ammonia is low. Continue empiric lactulose. Decrease librium. Would use antipsychotics should become agitated. Will give high dose thiamine. Consider LP, but meningitis not c/w physical exam (no meningismus). Monitor mental status. No focal deficits to suggest CVA. (8) Hepatic cirrhosis: Status: Chronic Assessment and plan: As above. LFTs ok. Monitor Bilis. Current presentation is likely not hepatorenal syndrome, per nephrology. Check hematest. No known varices; none mentioned on CT read. (9) Essential hypertension: Status: Acute Assessment and plan: Continue aldactone, metoprolol. (10) Alcoholism: Status: Acute Assessment and plan: Continue monitoring on CIWA. Decrease librium. (11) Weakness: Status: Acute Assessment and plan: PT consulted. (12) Diabetes mellitus: Assessment and plan: A1c 5.6 on 06/05/21. On no medications. (13) Hyponatremia: Status: Acute Assessment and plan: Dilutional. Improving with diuresis. (14) Hypomagnesemia: Status: Resolved Assessment and plan: Recheck in am (15) DVT prophylaxis: Status: Acute Assessment and plan: Therapeutic heparin gtt. (16) Discharge planning issues: Status: Acute Assessment and plan: Full code Keep in ICU. Total Critical Care Time [address] Talavera. Subjective Subjective Interval history since last seen: Slept on CPAP with PEEP of 8 and FiO2 of 35%. This morning, agitated and took it off, on 5L of O2, saturating 93%. Denies pain, shortness of breath, abdominal discomfort, nausea, dizziness. Had rapid Afib again last night - responded to 2.5 mg of IV lopressor. Now in NSR. Required a dose of lorazepam last night. CIWA score of 11 at 04:26. Still no mariscal, incontinent - no good estimate for output, but we will try to monitor weights and weigh diapers. Exam Narrative Exam Narrative: General: middle-aged male who on NC, A&Ox2, but slow to respond, mumbles, somnolent, not dyspneic, has asterexis HEENT: EOMI, MMM Heart: RRR Lungs: Diminished breath sounds B Abdomen: soft, ascites, nontender Extremities: RLE erythematous, edematous, not better, with small papules filled with purulent fluid, trace edema LLE Objective Last Vital Signs Temp 37 C 09/07/21 04:04 Pulse 70 09/07/21 07:01 Resp 18 09/07/21 07:01 BP 131/52 L 09/07/21 07:01 Pulse Ox 93 09/07/21 07:01 Laboratory Results - last 24 hr 09/06/21 09/06/21 09/06/21 09:50 11:20 15:10 WBC RBC Hgb Hct MCV MCH MCHC RDW Plt Count MPV Immature Gran % Neutrophils % Lymphocytes % Monocytes % Eosinophils % Basophils % Nucleated RBC % Absolute Neutrophils Absolute Lymphocytes Absolute Monocytes Absolute Eosinophils Absolute Basophils RBC Morphology APTT 75.8 H VBG pH 7.35 VBG pCO2 31 L VBG pO2 104 VBG HCO3 17 L VBG Total CO2 16 L VBG O2 Saturation 99 VBG Base Excess -8 L Sodium Potassium Chloride Carbon Dioxide Anion Gap BUN Creatinine Estimated GFR/1.73 m2 Glucose Calcium Phosphorus Magnesium Total Bilirubin Conjugated Bilirubin AST ALT Alkaline Phosphatase Ammonia 15 Creatine Kinase C-Reactive Protein Total Protein Albumin Procalcitonin Add-On Test Request 09/06/21 09/07/21 09/07/21 16:05 06:15 06:15 WBC RBC Hgb Hct MCV MCH MCHC RDW Plt Count MPV Immature Gran % Neutrophils % Lymphocytes % Monocytes % Eosinophils % Basophils % Nucleated RBC % Absolute Neutrophils Absolute Lymphocytes Absolute Monocytes Absolute Eosinophils Absolute Basophils RBC Morphology APTT 52.8 H VBG pH VBG pCO2 VBG pO2 VBG HCO3 VBG Total CO2 VBG O2 Saturation VBG Base Excess Sodium 131 L Potassium 4.2 Chloride 101 Carbon Dioxide 21.0 Anion Gap 9.0 BUN 47 H Creatinine 2.4 H Estimated GFR/1.73 m2 27.14 Glucose 132 H Calcium 8.4 L Phosphorus Magnesium 1.9 Total Bilirubin 1.7 H Conjugated Bilirubin 0.8 H AST 23 ALT 14 L Alkaline Phosphatase 56 Ammonia Creatine Kinase C-Reactive Protein 7.52 H Total Protein 6.7 Albumin 2.7 L Procalcitonin 3.7 Add-On Test Request 09/07/21 09/07/21 09/07/21 06:15 06:15 06:15 WBC 11.92 H RBC 3.20 L Hgb 10.2 L Hct 29.7 L MCV 93 MCH 31.9 MCHC 34.3 RDW 14.6 H Plt Count 234 MPV 12.0 H Immature Gran % 0.0 Neutrophils % 72.0 Lymphocytes % 8.0 Monocytes % 10.0 Eosinophils % 6.0 Basophils % 4.0 Nucleated RBC % 0.2 Absolute Neutrophils 8.58 H Absolute Lymphocytes 0.95 L Absolute Monocytes 1.19 H Absolute Eosinophils 0.72 H Absolute Basophils 0.48 H RBC Morphology Normal APTT 46.5 H VBG pH VBG pCO2 VBG pO2 VBG HCO3 VBG Total CO2 VBG O2 Saturation VBG Base Excess Sodium Potassium Chloride Carbon Dioxide Anion Gap BUN Creatinine Estimated GFR/1.73 m2 Glucose Calcium Phosphorus Magnesium Total Bilirubin Conjugated Bilirubin AST ALT Alkaline Phosphatase Ammonia Creatine Kinase C-Reactive Protein Total Protein Albumin Procalcitonin Add-On Test Request DONE 09/07/21 09/07/21 09/07/21 06:15 06:15 06:15 WBC RBC Hgb Hct MCV MCH MCHC RDW Plt Count MPV Immature Gran % Neutrophils % Lymphocytes % Monocytes % Eosinophils % Basophils % Nucleated RBC % Absolute Neutrophils Absolute Lymphocytes Absolute Monocytes Absolute Eosinophils Absolute Basophils RBC Morphology APTT VBG pH VBG pCO2 VBG pO2 VBG HCO3 VBG Total CO2 VBG O2 Saturation VBG Base Excess Sodium Potassium Chloride Carbon Dioxide Anion Gap BUN Creatinine Estimated GFR/1.73 m2 Glucose Calcium Phosphorus Cancelled 3.8 Magnesium Total Bilirubin Conjugated Bilirubin AST ALT Alkaline Phosphatase Ammonia Creatine Kinase 22 L C-Reactive Protein Total Protein Albumin Procalcitonin Add-On Test Request DONE PAWSS Have you Been Recently Intoxicated or Drunk Within the Last 30 days?: No Have you Ever Experienced Previous Episodes of Alcohol Withdrawal?: No Have you ever Experienced Withdrawal Seizures?: No Have you ever Experienced Delirium Tremens(DT)s?: No Have you ever undergone Alcohol Rehabilitation Treatment (i.e, inpt ot outpatient treatment programs)?: Yes Have you ever Experienced Blackouts?: No Have you ever Combined Alcohol with other Downers within the last 90 days?: No Have you ever Combined Alcohol with any other Substance of Abuse during the last 90 days?: No Positive Blood Alcohol level on Presentation? [PCS.BAL]: No Evidence of Increased Autonomic Activity (i.e. HR>120, tremor, sweating, agitation, nausea)?: No Result: 1
[2021-09-07] MEDS: Normal Saline Flush 10 ML SYR IVP ×2 (09:07→16:17)
[2021-09-07] MEDS: Ipratropium 0.5 MG/2.5 ML UPD VIAL UPD ×2 (09:08→12:55)
[2021-09-07] MEDS: Lactulose 20 GM/30 ML CUP PO ×2 (09:08→18:43)
[2021-09-07] MEDS: Furosemide 20 MG/2 ML VIAL IVP ×2 (09:09→16:10)
[2021-09-07] MEDS: Metoprolol CR 100 MG TABCR 200 MG PO (09:09)
[2021-09-07] MEDS: Spironolactone 25 MG TAB PO (09:10)
[2021-09-07] MEDS: Magnesium Oxide 400 MG TAB PO ×2 (09:10→18:43)
[2021-09-07] MEDS: Doxazosin 2 MG TAB 8 MG PO (09:10)
[2021-09-07] MEDS: Aspirin 81 MG CHEW PO (09:10)
[2021-09-07] MEDS: Multivitamin w/Minerals TAB 1 TAB PO (09:10)
[2021-09-07] MEDS: Pantoprazole 40 MG VIAL IVP (09:13)
[2021-09-07] MEDS: Normal Saline 500 ML IV (09:19)
--- NOTE | 2021-09-07 09:23 | W.PULMCC ---
General Date of Service Date of service: 09/07/21 Time of Service: 08:00 Reason for Admission to ICU: Respiratory failure AMS Assessment and Plan Assessment and plan (1) Sepsis: Status: Acute Qualifiers: Sepsis type: sepsis due to unspecified organism Sepsis acute organ dysfunction status: with acute organ dysfunction Severe sepsis acute organ dysfunction type: acute renal failure Acute renal failure type: unspecified Severe sepsis shock status: without septic shock Qualified Code(s): A41.9 - Sepsis, unspecified organism; R65.20 - Severe sepsis without septic shock; N17.9 - Acute kidney failure, unspecified (2) Acute respiratory failure with hypoxia: Status: Acute (3) Aspiration into airway: Status: Acute Qualifiers: Encounter type: initial encounter Qualified Code(s): T17.908A - Unspecified foreign body in respiratory tract, part unspecified causing other injury, initial encounter (4) Toxic metabolic encephalopathy: Status: Acute (5) Atrial fibrillation with rapid ventricular response: Status: Resolved (6) Essential hypertension: Status: Acute (7) Alcoholism: Status: Acute (8) Former smoker: Status: Acute (9) Hepatic cirrhosis: Status: Chronic Qualifiers: Hepatic cirrhosis type: alcoholic cirrhosis Ascites presence: with ascites Qualified Code(s): K70.31 - Alcoholic cirrhosis of liver with ascites (10) Hyponatremia: Status: Acute (11) Cellulitis of right leg: Status: Acute (12) Leukocytosis: Status: Acute Qualifiers: Leukocytosis type: unspecified Qualified Code(s): D72.829 - Elevated white blood cell count, unspecified (13) GURPREET (acute kidney injury): Status: Acute (14) Volume overload: Status: Acute Assessment and plan: This is a 66 yo man with alcoholic cirrhosis, altered mental status, RLE cellulitis with sepsis and GURPREET. He is in the ICU due to A. fib with RVR (now resolved), worsening AMS and hypoxia. He has received a fair amount of fluids to correct what is likely a chronic hyponatremia (cirrhosis) and has developed an GURPREET. Additionally, daily weight have not been checked and so accurate I/O's have not been recorded. Based on my exam (physical and POCUS) he is in a volume overloaded state resulting in both his hypoxia and GURPREET. I recommend stopping the albumin and continuing with diuresis. In order to titrate diuresis appropriately, I would get daily weights to assess I/O's. Based on his imaging I do not think he has a pneumonia. It is likely he had an aspiration event. He is on Zosyn for his cellulitis which would cover any bugs that could have potentially caused a pneumonia. I do worry about the leg as even after several days of antibiotics it does not appear to be better. I agree with further imaging to rule out abscess/osteo. He does not have abdominal pain and has a very small pocket to potentially tap, but again the Zosyn would cover any SBP if her were to have it. His encephalopathy appears to be toxic-metabololic in nature. I do not think he needs an LP or further work up at this time, but would agree high dose thiamine poses no negatives to starting. I would also recommend a conversation with his spouse to assess what his baseline is (could he have baseline Wernicke's that clouds the picture). Qualifiers: Hypervolemia type: other Qualified Code(s): E87.79 - Other fluid overload Recommendations Pulmonary: Likely COPD - continue Symbicort 80 - start Spiriva - Xopenex nebs q4 prn - Atrovent nebs q4 prn - IS Hypoxic respiratory failure - I do not feel strongly about CPAP every night - can use CPAP as needed for rescue (will help with volume overload) - O2 sat goal 88-92% - IS and VibraPEP - out of bed to chair as able Aspiration - supportive care - has been covered by Zosyn Cardiac: Volume overload - recommend diuresis to -1 to -2 L per 24 hours - echo today - I/O's - daily weights A.fib with RVR - resolved - on heparin gtt - will have to consider fall risk and A/C - on metoprolol Renal: GURPREET - likely congestive in nature - recommend diuresis - recommend discontinuing albumin - may need higher Lasix dosing, but will do daily weight to approximate outputs Hyponatremia - chronic - no further interventions needed I&O: Intake & Output 09/04/21 09/05/21 09/06/21 09/07/21 23:59 23:59 23:59 23:59 Intake Total 700 / 700 783.6 / 783.6 1701.434 / 1701.434 314.85 / 314.85 Output Total 550 / 550 1400 / 1400 525 / 525 75 / 75 Balance 150 / 150 -616.4 / -616.4 1176.434 / 1176.434 239.85 / 239.85 Weight 108 kg Daily Fluid Goal:: Negative 1 to 2 L per 24 hour period GI Nutrition: Nutrition - ok for diet - if no intake will have to consider NGT feeds Alcoholic cirrhosis - continue to monitor labs Ascites - small pocket on US today - on Zosyn Date of Last Bowel Movement: 09/04/21 Infectious Disease: RLE cellulitis - continue Zosyn - agree with CT scan on RLE Hematologic: Leukocytosis - reactive and sepsis Neurologic: Encephalopathy - likely toxic-metabolic - ammonia normal -can continue lactulose as prophylaxis - head CT normal - unclear baseline mental status - recommend discussing with next of kin what baseline is - can start high dose thiamine for a potential Wernicke's component - no clear signs of withdrawal that I can see - can try to wean off benzo's to decrease deliriogenic meds - no Utox done on admission - TSH normal - will send for HIV, RPR and B12 Endocrine: Diabetes - SSI Lines: PIV Patient pulls out Rust Prophylaxis: heparin gtt Protonix Code Status: Resuscitation Status Full Code Subjective Critical and life-threatening events over the past 24 hours: This is a 66 yo man with alcoholic cirrhosis who was admitted 09/01/21 for syncope and cellulitis. He was treated for a cellulitis with vancomycin and electrolyte abnormalities were treated. Initially, he was not showing signs of withdrawal, however an accurate last drink history was unobtainable. On 09/03 however it looks like Librium and prn benzo's were started. He also developed a worsening GURPREET (temporally with continued fluid administration for hyponatremia). On 09/05/21 the patient was transfered to the ICU due to A. fib in addition to worsening AMS and hypoxia. He was treated with a Cardizem infusion, heparin. There was thought of a hepatorenal syndrome, however the urine sodium was not consistent with this process, so octreotide and midodrine were stopped. Antobiotics were also broadened to include Zosyn (without vanc). He has been on nocturnal CPAP which has helped. Nephrology was consulted who did recommend diuresis. On my assessment today the patient is encephalopathic but does respond appropriately to questions. He knows his name and that he is in a hospital in [place], but thinks it is 2024. He told me he has family and that he has a spouse. He denies any pain. Exam Narrative Exam Narrative: POCUS 09/07/21: Good views of anterior lungs, parasternal, apical and subxyphoid locations obtained. Diffuse bilateral B-lines present. Likely normal or low-normal EF. Normal appearing cardiac function. Plump IVC with <50% collapibility upon inspiration. Small bilateral pleural effusions. Small ascites present. Gen: NAD, normal respiratory effort, well-nourished HENT: PERRL, nasal turbinates normal without erythema or inflammation, moist oral mucosa, Mallampati 2, No LAD or JVD Chest: No respiratory distress, normal appearance of chest, clear to auscultation bilaterally, no crackles or wheezes, normal inspiratory effort Heart: regular rate and rhythym, no murmurs, rubs or gallops Abdomen: Non-distended, protuberant, non tender Extremities: No clubbing, 3+ edema BL LE, no cyanosis, Right leg erythema Neuro: AAOx2 , non focal, asterixis Psych: cooperative Most Recent VS/Results Last Vital Signs Temp 37 C 09/07/21 04:04 Pulse 70 09/07/21 07:01 Resp 18 09/07/21 07:01 BP 131/52 L 09/07/21 07:01 Pulse Ox 93 09/07/21 07:01 Laboratory Results - last 24 hr 09/06/21 09/06/21 09/06/21 09:50 11:20 15:10 WBC RBC Hgb Hct MCV MCH MCHC RDW Plt Count MPV Immature Gran % Neutrophils % Lymphocytes % Monocytes % Eosinophils % Basophils % Nucleated RBC % Absolute Neutrophils Absolute Lymphocytes Absolute Monocytes Absolute Eosinophils Absolute Basophils RBC Morphology APTT 75.8 H VBG pH 7.35 VBG pCO2 31 L VBG pO2 104 VBG HCO3 17 L VBG Total CO2 16 L VBG O2 Saturation 99 VBG Base Excess -8 L Sodium Potassium Chloride Carbon Dioxide Anion Gap BUN Creatinine Estimated GFR/1.73 m2 Glucose Calcium Phosphorus Magnesium Total Bilirubin Conjugated Bilirubin AST ALT Alkaline Phosphatase Ammonia 15 Creatine Kinase C-Reactive Protein Total Protein Albumin Procalcitonin Add-On Test Request 09/06/21 09/07/21 09/07/21 16:05 06:15 06:15 WBC RBC Hgb Hct MCV MCH MCHC RDW Plt Count MPV Immature Gran % Neutrophils % Lymphocytes % Monocytes % Eosinophils % Basophils % Nucleated RBC % Absolute Neutrophils Absolute Lymphocytes Absolute Monocytes Absolute Eosinophils Absolute Basophils RBC Morphology APTT 52.8 H VBG pH VBG pCO2 VBG pO2 VBG HCO3 VBG Total CO2 VBG O2 Saturation VBG Base Excess Sodium 131 L Potassium 4.2 Chloride 101 Carbon Dioxide 21.0 Anion Gap 9.0 BUN 47 H Creatinine 2.4 H Estimated GFR/1.73 m2 27.14 Glucose 132 H Calcium 8.4 L Phosphorus Magnesium 1.9 Total Bilirubin 1.7 H Conjugated Bilirubin 0.8 H AST 23 ALT 14 L Alkaline Phosphatase 56 Ammonia Creatine Kinase C-Reactive Protein 7.52 H Total Protein 6.7 Albumin 2.7 L Procalcitonin 3.7 Add-On Test Request 09/07/21 09/07/21 09/07/21 06:15 06:15 06:15 WBC 11.92 H RBC 3.20 L Hgb 10.2 L Hct 29.7 L MCV 93 MCH 31.9 MCHC 34.3 RDW 14.6 H Plt Count 234 MPV 12.0 H Immature Gran % 0.0 Neutrophils % 72.0 Lymphocytes % 8.0 Monocytes % 10.0 Eosinophils % 6.0 Basophils % 4.0 Nucleated RBC % 0.2 Absolute Neutrophils 8.58 H Absolute Lymphocytes 0.95 L Absolute Monocytes 1.19 H Absolute Eosinophils 0.72 H Absolute Basophils 0.48 H RBC Morphology Normal APTT 46.5 H VBG pH VBG pCO2 VBG pO2 VBG HCO3 VBG Total CO2 VBG O2 Saturation VBG Base Excess Sodium Potassium Chloride Carbon Dioxide Anion Gap BUN Creatinine Estimated GFR/1.73 m2 Glucose Calcium Phosphorus Magnesium Total Bilirubin Conjugated Bilirubin AST ALT Alkaline Phosphatase Ammonia Creatine Kinase C-Reactive Protein Total Protein Albumin Procalcitonin Add-On Test Request DONE 09/07/21 09/07/21 09/07/21 06:15 06:15 06:15 WBC RBC Hgb Hct MCV MCH MCHC RDW Plt Count MPV Immature Gran % Neutrophils % Lymphocytes % Monocytes % Eosinophils % Basophils % Nucleated RBC % Absolute Neutrophils Absolute Lymphocytes Absolute Monocytes Absolute Eosinophils Absolute Basophils RBC Morphology APTT VBG pH VBG pCO2 VBG pO2 VBG HCO3 VBG Total CO2 VBG O2 Saturation VBG Base Excess Sodium Potassium Chloride Carbon Dioxide Anion Gap BUN Creatinine Estimated GFR/1.73 m2 Glucose Calcium Phosphorus Cancelled 3.8 Magnesium Total Bilirubin Conjugated Bilirubin AST ALT Alkaline Phosphatase Ammonia Creatine Kinase 22 L C-Reactive Protein Total Protein Albumin Procalcitonin Add-On Test Request DONE Review of Systems All systems reviewed & are unremarkable except as noted in HPI and below Time spent with patient Time spent in Critical Care: 45 Time spent in Critical care included: Chart review, Documenting critically ill care, Time at immediate bedside and Discussing critically ill care with other medical staff Multi-Disciplinary Checklist Lines/Tubes CENTRAL LINE: no ARTERIAL LINE: no RUST: no ENDOTRACHEAL TUBE: no ICU Maintenance GLUCOSE 140-180mg/dL: yes NUTRITION AT GOAL: no, Reason/Intervention: AMS - discuss NGT tomorrow if not improved PRESSURE ULCER: no RESTRAINTS: no ANTIBIOTICS(if yes, consider Stewardship): Yes Social Issues FAMILY UPDATED: no, Reason/Intervention: hospitalist to attempt to call spouse today PT/OT: no, Reason/Intervention: patient too confused GOALS/DISPOSITION/UNION CONTRACT REPRESENTATIVE: yes CODE STATUS: Full Prophylaxis DVT PROPHYLAXIS: yes GI PROPHYLAXIS: yes, Indication: unclear - to discuss tomorrow
[2021-09-07] MEDS: THIAMINE 500 MG in Normal Saline 100 ML 200 MG IVPB ×2 (09:52→18:43)
[2021-09-07] MEDS: Budesonide/Formoterol 80/4.5 6.9 GM 60 PUFF INH IH ×2 (10:22→18:43)
[2021-09-07] MEDS: Levalbuterol 1.25 MG/3 ML UPD VIAL UPD ×3 (10:22→21:53)
--- NOTE | 2021-09-07 10:33 | NUR.NOTE ---
Nursing Note: Just noticed some redness/swelling/hot to touch on right upper thigh. Area has been outlined as requested by Dr. Rasheed.
--- NOTE | 2021-09-07 11:10 | DI.CT_ITS ---
Exam(s) CT LOWER EXTREMITY RT WO EXAM: CT LOWER EXTREMITY RT WO CLINICAL HISTORY: cellulitis, concern for abscess, osteo, nec fasc TECHNIQUE: COMPARISON: No exams were available for comparison FINDINGS: CT examination of the right leg was performed from the level of distal femur through toes. No soft t issue gas identified to suggest necrotizing fasciitis. There is no focal fluid collection to suggest abscess. However there is diffuse edema of the subcutaneous and deep tissues. No focal bony erosive or destructive lesion identified. IMPRESSION: No evidence of osteomyelitis by CT criteria. If there is a clinical suspicion of osteomyelitis addit ional evaluation with bone scan should be considered. RADIATION DOSE DELIVERED: 486.83mGy.cm Total DLP !Error CTDIvol RADIATION OPTIMIZATION: All CT scans at this facility use at least one of these dose optimization te chniques: automated exposure control; mA and/or kV adjustment per patient size (includes targeted exa ms where dose is matched to clinical indication); or iterative reconstruction.
[2021-09-07] MEDS: Insulin Aspart 300 UNITS/3 ML PEN SC ×2 (11:53→18:43)
[2021-09-07 13:17] LABS: Vitamin B12 402 pg/mL (193-986)
--- NOTE | 2021-09-07 14:01 | IN_ITS ---
Date of service: 09/07/21 Time of Service: 14:01 PT Notes Visit Reasons: Cellulitus Physical Therapy Inpatient Initial Evaluation Date: 09/07/2021 Referring Doctor: Elda Rasheed MD PT Orders: PT CONSULT: Limited ability Precautions: Fall. Standard. Activity as tolerated. Patient Profile/Admitting Diagnosis: Jasvir is a 66-year-old male patient who presented to The ED on 09/01/2021 due to weakness and fall. Patient is diagnosed with Sepsis, acute respiratory failure with hypoxia, AF with RVR, R LL PNA, cellulitis of R leg, toxic metabollic encephalopathy, hepatic cirrhosis, alcoholism, DM, hyponatremia, and hypomagnesemia. PMHX: All Active Problems?(Updated 09/01/21 @ 19:03 by Saleem Alva MD) Weakness (Acute) COVID-19 (Acute ~06/13/21) Hyperkalemia (Acute) Hyponatremia (Acute) Weight gain (Acute) Edema (Acute) History of splenectomy (Acute) Type II diabetes mellitus with complication, uncontrolled (Acute) 01/10/13 A1C 7.3 12/26/13 A1C 11.7 Essential hypertension (Acute) not well controlled will bump up los/hctz Alcoholism (Acute) Calculus of gallbladder without cholecystitis without obstruction (Acute 04/22/16) Former smoker (Acute) 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 muscle tear will check xray Screening for colon cancer (Acute) Well adult (Acute) Medical History? Diabetes mellitus Hypertension Social History/Home Situation: Lives with in a private home. Independent with all ADLs prior to admission. Does not use any AD. Equipment Owned/DME: None Subjective: Agreeable to PT consult. Annoyed very much at the oxygen mask he is wearing. Has been trying to remove IV and oxygen mask per Nurse Goodwin. Objective: General Observation: On telemetry monitoring in place. IV in the L UE. R leg erythemotous and edematous. On 4 L of oxygen via oxygen mask. Mental Status: Remains encephalopathic, mildy confused. Instructions needed to be repeated and simplified. Not fully able to recognize daughter and initially, daughter and needed to introduce themselves to him several times. Pain: None reported Vital Signs: WNL as monitored via telemetry ROM: Right Upper Extremity: Shoulder Flexion up to 90 degrees only. Shoulder abduction 90 degrees only. Elbow flexion WFL. Wrist flexion WFL. Functional opening and closing of hand WFL. Left Upper Extremity: Shoulder Flexion up to 90 degrees only. Shoulder abduction 90 degrees only. Elbow flexion WFL. Wrist flexion WFL. Functional opening and closing of hand WFL. Right Lower Extremity: Hip flexion unable to bend beyond 90 while seated at edge of bed. Hip abduction allows up to 10 degrees. Knee flexion 3- degrees to 90 degrees with pain at end of range. Knee extension -30 degrees. Ankle dorsiflexion to neutral only. Ankle plantarflexion WFL. Left Lower Extremity: Hip flexion WFL. Hip abduction WFL. Knee flexion WFL. Ankle dorsiflexion WFL. Ankle plantarflexion WFL. Strength: Right Upper Extremity: Shoulder flexors 3-/5. Shoulder abductors 3-/5. Elbow flexors 4-/5. Elbow extensors 4-/5. Health Nurse strong. Left Upper Extremity: Shoulder flexors 3-/5. Shoulder abductors 3-/5. Elbow flexors 4-/5. Elbow extensors 4-/5. Health Nurse strong. Right Lower Extremity: Hip flexors 2-/5. Hip abductors 3-/5. Knee flexors 3-/5. Knee extensors 3-/5. Ankle dorsiflexors 3-/5. Ankle plantarflexors 3+/5. Left Lower Extremity: Hip flexors 4-/5. Hip abductors 4-/5. Knee flexors 4-/5. Knee extensors 4-/5. Ankle dorsiflexors 4-/5. Ankle plantarflexors 4-/5. Bed Mobility/Transfers: (Nurse Goodwin provided stand by assist with transfers from bed to chair) Rolling with moderate assist and max cueing Supine to sit moderate assist and max cueing, HOB at 30 degrees Sit to stand minimal assist with max cueing for safety Stand to sit minimal assist with max cueing for safety Bed to reclining chair minimal assist with max cueing for safety Reclining chair to bed minimal assist with max cueing for safety Gait: Instructed patient with level surface ambulation of 5 small steps requiring minimal assist and maximal cueing for safety. Gait unsteady. reported fatigue with minimal activity. Balance: Static Sitting: Normal Dynamic Sitting: Normal Static Standing: Fair Dynamic Standing: Fair Special Tests: Mobility Limitations Standardized Measure [facility] AM-PAC 6 clicks Basic Mobility Inpatient Short Form: Raw Score: 12 CMS Score: 69% deficit Informed Consent/Education: Patient was instructed in purpose of PT consult and plan of care. Agreeable to proceed with established PT POC to achieve personal goals. Assessment: Patient presents with clinical signs and symptoms consistent with current/admitting diagnoses that have resulted to mobility limitations, gait instability, generalized weakness, and overall ADL decline as demonstrated by the following impairment level findings: 1. Decreased strength to R LE and B UE major muscle groups 2. Impaired sitting/standing balance 3. Impaired activity tolerance 4. Limitation of joint range of motion in R LE joints 5. Shortness of breath 6. Erythema and edema to R leg and foot 7. Fatigue 8. Confusion Impairments are contributing to the following functional limitations: 1. Decline in bed mobility skills 2. Decline in transfer skills 3. Difficulty with ambulation without assistive device and physical assistance 4. Increased completion time for mobility ADL performance 5. Increased risk for falls 6. Difficulty with managing steps alone safely [place] [id number] moderate complexity based on the following: History: 66-year-old male with past medical history as indicated above Examination: Demonstrable impairment in strength, balance, and mobility level with underlying impairments and functional limitations as exhibited above as well as deficit score of 69% utilizing the [facility] Mobility Inpatient Short Form Presentation: Evolving Decision Makin moderate complexity Goals: Goals X1 week 1. Supine-Sit independent 2. Sit-Supine independent 3. Sit-Stand independent 4. Stand-Sit independent with FWW 5. Bed-Chair independent with FWW 6. Chair-Bed independent with FWW 7. Independent gait on level surface with use of FWW for at least 300 feet without report of pain nor dyspnea 8. Independent stair negotiation while holding onto B rails for at least 5 steps without report of pain nor dyspnea 9. Independent with home exercise program 10. Good static and dynamic standing balance/tolerance Plan of Care/Treatment Plan: 1-2x/day, 7 days/week x 1 week. Plan of care has been reviewed with the WIRE FRAME DIPPER providing the service under Physical Therapy direction. Initiate Physical Therapy intervention for pain management as needed, strengthening, bed mobility, transfers, gait, stairs, balance training, and use of assistive device. DISCHARGE RECOMMENDATIONS: [] Home with no services [] [X] Home with services. Patient will benefit from home health PT services in order to progress mobility level using least restrictive assistive ambulatory device, assess home safety, identify additional equipment needs, and establish a functional maintenance program that will increase ability of patient to remain at home. [] Home with outpatient PT [] [] SNF for continued rehabilitation [] [] Legal Collector [facility] [] [] SNF versus LTC based on ability to participate and progress [] TREATMENT CODE/TIME: 03081 x 24 minutes beginning at 14:01 PM. Thank you for the opportunity to participate in the care of this patient. Sharon Abreu PT, DPT, CLT [facility] [place], [place]
--- NOTE | 2021-09-07 15:16 | DI.CT_ITS ---
Exam(s) CT HEAD WO EXAM: CT HEAD WO CLINICAL HISTORY: head injury prior to admission, AMS, ?subdural. TECHNIQUE: Imaging Protocol: Axial computed tomography images with coronal and sagittal reformatted images were created and reviewed COMPARISON: CT CT HEAD CERV SPINE FACIAL WO from 09/01/2021 FINDINGS: There is moderate generalized cerebral atrophy.. No evidence of acute intracranial hemorrhage, mass effect, or midline shift. The orbital structures are unremarkable. The temporal bone structures appear intact. Calvarium: Normal. Visualized Paranasal sinuses/Mastoids: Partial opacification of right mastoid air cells without bony destruction, consistent with serous mastoiditis. Mild mucoperiosteal thickening of ethmoid and sphen oid sinuses.. IMPRESSION: No evidence of acute intracranial process.. RADIATION DOSE DELIVERED: 792.4mGy.cm Total DLP 792.4mGy.cm Total DLP !Error CTDIvol DATA REPOSITORY: All CT scans at this facility are submitted to the National Radiology Data Registry (NRDR) Dose Index Registry (DIR) with the [employer] (A[employer]). RADIATION OPTIMIZATION: All CT scans at this facility use at least one of these dose optimization te chniques: automated exposure control; mA and/or kV adjustment per patient size (includes targeted exa ms where dose is matched to clinical indication); or iterative reconstruction.
[2021-09-07] MEDS: PIPERACILLIN/TAZO 3.375 GM in Normal Saline 50 ML IVPB (15:22)
[2021-09-07] MEDS: Cyanocobalamin 1000 MCG/ML VIAL IM/SC (16:11)
[2021-09-07 17:40] LABS: Urea Nitrogen Random Urine 580 mg/dL (See Note)
[2021-09-07] MEDS: Melatonin 3 MG TAB PO (18:43)
[2021-09-07 19:27] LABS: Legionella Ag Detection Urine Negative (Negative)
[2021-09-08] VITALS (55 sets, daily range): BP systolic 125–186; BP diastolic 50–91; PULSE 59–86; RESP 16–28; TEMP 36.5–37.4; O2SAT 5–97
[2021-09-08] MEDS: PIPERACILLIN/TAZO 3.375 GM in Normal Saline 50 ML IVPB ×4 (00:02→21:14)
[2021-09-08] MEDS: Insulin Aspart 300 UNITS/3 ML PEN SC ×3 (00:07→17:10)
[2021-09-08] MEDS: THIAMINE 500 MG in Normal Saline 100 ML 200 MG IVPB ×3 (01:46→18:48)
[2021-09-08 06:24] LABS: Abs Immature Grans 0.15 10^3/uL (0.0-0.06); HCT 31.6 % (40.0-50.0); HGB 10.8 g/dL (13.5-17.5); MCH 31.6 pg (27.0-33.0); MCHC 34.2 % (32.0-36.0); MCV 92 fL (80-95); MPV 12.6 fL (8.0-11.0); Nucleated RBC 0.2 % (0.0-0.3); Platelet Count 288 10^3/uL (130-400); RBC 3.42 10^6/uL (4.36-5.78); RDW 14.4 % (11.8-14.1); RDW-SD 49.5 fL; WBC 12.16 10^3/uL (4.4-10.8)
[2021-09-08 06:33] LABS: PTT Activated 37.5 sec (21.0-27.5)
[2021-09-08 06:40] LABS: ALT 17 U/L (16-63); AST 25 U/L (15-37); Albumin 2.7 g/dL (3.4-5.0); Alkaline Phosphatase 77 U/L (46-116); BUN 41 mg/dL (7-18); Bilirubin, Direct 0.6 mg/dL (0.0-0.2); Bilirubin, Total 1.5 mg/dL (0.2-1.0); C-Reactive Protein 6.81 mg/dL (0.0-0.3); Calcium 8.7 mg/dL (8.5-10.1); Chloride 103 mmol/L (98-107); Estimated GFR 33.49 (mL/min/1.73m2); Glucose 124 mg/dL (74-106); Magnesium 1.5 mg/dL (1.8-2.4); Potassium 4.1 mmol/L (3.5-5.1); Sodium 134 mmol/L (136-145)
[2021-09-08 07:06] LABS: Diff Comment Manual Differential; Polychromasia Present
[2021-09-08 07:07] LABS: Absolute Basophil Count 0.12 10^3/uL (0.0-0.2); Absolute Eosinophil Count 0.85 10^3/uL (0.0-0.7); Absolute Monocyte Count 1.82 10^3/uL (0.1-0.8); Absolute Neutrophil Count 6.57 10^3/uL (1.2-6.7)
--- NOTE | 2021-09-08 08:00 | DI.US_ITS ---
APPROVED REPORT EXAM: Comprehensive 2D, Doppler, and color-flow Echocardiogram Patient Location: In-Patient Room/Bed: [id number] Chief Warden: Ciera Sims RDCS (AE) Indications: Rapid A Fib, ?CHF Other Information Study Quality: Fair. Technically limited study due to body habitus, inability to position patient exa m done supine bedside icu. Conclusion Technically difficult study Borderline dilated left ventricle. Estimated ejection fraction is 55%. There are no segmental wall motion abnormalities The right ventricle and right atrium are not well visualized Mildly dilated left atrium The aortic valve is trileaflet and mildly sclerotic without stenosis or regurgitation Moderate mitral annular calcification. Trace mitral regurgitation Normal tricuspid valve with trace regurgitation. Estimated right ventricular systolic pressure is 31 mmHg Wall motion Left Ventricle Left ventricle is borderline dilated. The left ventricular systolic function is normal. The left vent ricular ejection fraction is within the normal range. There is normal left ventricular wall thickness . There is normal LV segmental wall motion. There is no ventricular septal defect visualized. LVEF is 55%. Right Ventricle Right ventricle is not well visualized. Right ventricular systolic function is grossly normal. The RV SP is 31.0mmHg. Atria Left atrium is mildly dilated. Right atrium is not well visualized. The interatrial septum is intact with no evidence for an atrial septal defect. Aortic Valve The Aortic valve is mildly sclerotic. Aortic valve is trileaflet. There is no aortic valvular stenosi s. No aortic regurgitation is present. Mitral Valve Moderate mitral annular calcification. No evidence of mitral valve stenosis. Trace mitral regurgitati on. Tricuspid Valve The tricuspid valve is normal in structure. There is no tricuspid valve stenosis. Trace tricuspid reg urgitation. Pulmonic Valve The pulmonary valve is normal in structure. There is no pulmonic valvular stenosis. Trace to mild pul santy regurgitation. Great Vessels The aortic root is normal in size. The ascending aorta is normal in size. The IVC collapses <50% with inspiration. Pericardium There is no pericardial effusion. 2D Dimensions IVSD d PLAX 0.98 cm M: 0.6-1.2 LVPW d PLAX 0.94 cm M: 0.6 - 1.2 LVID d PLAX 5.86 cm M: 4.2 - 5.8 LVDs 4.20 cm M: 2.5 - 4.0 Ao Root d 3.22 cm M: 3.1 - 3.7 Ao Asc Diam d 3.30 cm M: 2.6 - 3.4 [facility] FS 28.05 % LV Diastology MV E' medial 0.063 (>0.07 m/s) E/A Ratio 1.7 LV E/e MED 17.90 (<14) MV E Vmax 1.13 (0.4-1.3 m/s) MV E' lateral 0.093 (>0.1 m/s) MV A Vmax 0.65 (0.4-1.3 m/s) LV E/e LAT 12.10 (<14) MV E/A Ratio 1.69 MV E/E' medial 17.95 MV E/E' lateral 12.12 Aortic Valve LVOT Area 2.98 cm2 AoV Area Vmax 2.30 cm2 LVOT Vmax 1.09 m/s AoV Area/ BSA (Vmax) 1.03 cm2/m2 LVOT Mean Rodrigue. 0.68 m/s KARINA Mean Rodrigue. 2.14 cm2 LVOT Peak Grad 4.7 mmHg KARINA Mean Rodrigue. Index 0.96 cm2/m2 LVOT Mean Grad 2.2 mmHg LVOT VTI 0.268 m LVOT Diam s 1.90 cm AoV Vmax 1.41 m/s Velocity Ratio 0.77 AoV Mean Rodrigue. 0.95 m/s AoV Peak Grad 7.9 mmHg LVOT SV 79.66 mL AoV Mean Grad 4.4 mmHg AoV VTI 0.320 m AoV Area VTI 2.49 cm2 AoV Area/ BSA (VTI) 1.12 cm/m2 Mitral Valve MV DT 177 (160-240 msec) MV PHT 51 msec MV Area PHT 4.29 cm2 MV VTI 0.374 m MV Area VTI 2.13 (4.0-6.0 cm2) Pulmonary Valve PV Vmax 1.02 (0.5-1.5 m/s) RVOT Peak Gr. 3.66 mmHg PV Peak Grad 4.1 mmHg RVOT Mean Gr. 2.05 mmHg PV Mean Grad 2.0 mmHg RVOT VTI 0.199 m PV VTI 0.220 m RVOT Vmax 0.96 m/s Tricuspid Valve TR Peak Grad 22.9 mmHg TR Vmax 2.40 m/s RA Pressure 8.00 mmHg RVSP (TR) 31.0 mmHg
[2021-09-08] MEDS: Budesonide/Formoterol 80/4.5 6.9 GM 60 PUFF INH IH (09:09)
--- NOTE | 2021-09-08 09:10 | W.PULMCC ---
General Date of Service Date of service: 09/08/21 Time of Service: 08:10 Reason for Admission to ICU: Respiratory failure AMS Assessment and Plan Assessment and plan (1) Sepsis: Status: Acute Qualifiers: Sepsis type: sepsis due to unspecified organism Sepsis acute organ dysfunction status: with acute organ dysfunction Severe sepsis acute organ dysfunction type: acute renal failure Acute renal failure type: unspecified Severe sepsis shock status: without septic shock Qualified Code(s): A41.9 - Sepsis, unspecified organism; R65.20 - Severe sepsis without septic shock; N17.9 - Acute kidney failure, unspecified (2) Acute respiratory failure with hypoxia: Status: Acute (3) Aspiration into airway: Status: Acute Qualifiers: Encounter type: initial encounter Qualified Code(s): T17.908A - Unspecified foreign body in respiratory tract, part unspecified causing other injury, initial encounter (4) Toxic metabolic encephalopathy: Status: Acute (5) Atrial fibrillation with rapid ventricular response: Status: Resolved (6) Essential hypertension: Status: Acute (7) Alcoholism: Status: Acute (8) Former smoker: Status: Acute (9) Hepatic cirrhosis: Status: Chronic Qualifiers: Hepatic cirrhosis type: alcoholic cirrhosis Ascites presence: with ascites Qualified Code(s): K70.31 - Alcoholic cirrhosis of liver with ascites (10) Hyponatremia: Status: Acute (11) Cellulitis of right leg: Status: Acute (12) Leukocytosis: Status: Acute Qualifiers: Leukocytosis type: unspecified Qualified Code(s): D72.829 - Elevated white blood cell count, unspecified (13) GURPREET (acute kidney injury): Status: Acute (14) Volume overload: Status: Acute Assessment and plan: This is a 66 yo man with alcoholic cirrhosis, altered mental status, RLE cellulitis with sepsis and GURPREET. He is in the ICU due to A. fib with RVR (now resolved), worsening AMS and hypoxia. He has received a fair amount of fluids to correct what is likely a chronic hyponatremia (cirrhosis) and has developed an GURPREET. He has been diuresed and since weighing diapers and taking weights, he is down a total of 2 kg and is net negative fluid balance. Based on his imaging I do not think he has a pneumonia. It is likely he had an aspiration event. He is on Zosyn for his cellulitis which would cover any bugs that could have potentially caused a pneumonia. His leg is appearing much better than yesterday, has a stable white count, a decreasing procalcitonin and his CT of the leg was negative for osteo or abscess. He does not have abdominal pain and has a very small pocket to potentially tap, but again the Zosyn would cover any SBP if he were to have it. His encephalopathy appears to be toxic-metabololic in nature. I do not think he needs an LP or further work up at this time, but would agree high dose thiamine poses no negatives to starting. I think his picture most closely correlates to delirium and recommend melatonin at night and Seroquel bid to help with this. Qualifiers: Hypervolemia type: other Qualified Code(s): E87.79 - Other fluid overload Recommendations Pulmonary: Likely COPD - continue Symbicort 80 - start Spiriva - Xopenex nebs q4 prn - Atrovent nebs q4 prn - IS Hypoxic respiratory failure - I do not feel strongly about CPAP every night - can use CPAP as needed for rescue (will help with volume overload) - O2 sat goal 88-92% - IS and VibraPEP - out of bed to chair as able Aspiration - supportive care - has been covered by Zosyn Cardiac: Volume overload - recommend diuresis to -1 to -2 L per 24 hours - echo today - I/O's - daily weights A.fib with RVR - resolved - on heparin gtt - will have to consider fall risk and A/C - on metoprolol Renal: GURPREET - likely congestive in nature - recommend diuresis - recommend discontinuing albumin - may need higher Lasix dosing, but will do daily weight to approximate outputs Hyponatremia - chronic - no further interventions needed I&O: Intake & Output 09/05/21 09/06/21 09/07/21 09/08/21 23:59 23:59 23:59 23:59 Intake Total 783.6 / 783.6 1701.434 / 8896.147 0748.375 / 1028.375 568.775 / 568.775 Output Total 1400 / 1400 525 / 525 1615 / 1615 845 / 845 Balance -616.4 / -616.4 1176.434 / 1176.434 -586.625 / -586.625 -276.225 / -276.225 Weight 108 kg Daily Fluid Goal:: Negative 1 to 2 L per 24 hour period GI Nutrition: Nutrition - ok for diet - if no intake will have to consider NGT feeds Alcoholic cirrhosis - continue to monitor labs Ascites - small pocket on US today - on Zosyn Date of Last Bowel Movement: 09/07/21 Infectious Disease: RLE cellulitis - continue Zosyn - agree with CT scan on RLE Hematologic: Leukocytosis - reactive and sepsis Neurologic: Encephalopathy - likely toxic-metabolic - ammonia normal -can continue lactulose as prophylaxis - head CT normal - unclear baseline mental status - recommend discussing with next of kin what baseline is - can start high dose thiamine for a potential Wernicke's component - no clear signs of withdrawal that I can see - can try to wean off benzo's to decrease deliriogenic meds - no Utox done on admission - TSH, B12 normal - pending HIV, RPR Endocrine: Diabetes - SSI Lines: PIV Patient pulls out Odonnell Prophylaxis: heparin gtt Protonix Code Status: Resuscitation Status Full Code Subjective Critical and life-threatening events over the past 24 hours: Jasvir still remains confused. He continually pulls off the CPAP at night. He required placement of mitts overnight as he tried pulling out his IV's. He does not appear to be having signs of withdrawal but is confused. His diapers have been weighed and his fluid balance is net negative. Exam Narrative Exam Narrative: POCUS 09/07/21: Good views of anterior lungs, parasternal, apical and subxyphoid locations obtained. Diffuse bilateral B-lines present. Likely normal or low-normal EF. Normal appearing cardiac function. Plump IVC with <50% collapibility upon inspiration. Small bilateral pleural effusions. Small ascites present. Gen: NAD, normal respiratory effort, well-nourished HENT: PERRL, nasal turbinates normal without erythema or inflammation, moist oral mucosa, Mallampati 2, No LAD or JVD Chest: No respiratory distress, normal appearance of chest, clear to auscultation bilaterally, no crackles or wheezes, normal inspiratory effort Heart: regular rate and rhythym, no murmurs, rubs or gallops Abdomen: Non-distended, protuberant, non tender Extremities: No clubbing, 2+ edema BL LE, no cyanosis, Right leg erythema - improved from yesterday Neuro: AAOx2 , non focal Psych: cooperative Most Recent VS/Results Last Vital Signs Temp 37 C 09/08/21 04:37 Pulse 79 09/08/21 06:01 Resp 21 09/08/21 06:30 BP 158/57 H 09/08/21 06:01 Pulse Ox 92 09/08/21 06:30 Laboratory Results - last 24 hr 09/05/21 09/06/21 09/07/21 16:30 23:35 06:15 WBC RBC Hgb Hct MCV MCH MCHC RDW Plt Count MPV Immature Gran % Neutrophils % Lymphocytes % Monocytes % Eosinophils % Basophils % Nucleated RBC % Absolute Neutrophils Absolute Lymphocytes Absolute Monocytes Absolute Eosinophils Absolute Basophils RBC Morphology Polychromasia APTT Sodium Potassium Chloride Carbon Dioxide Anion Gap BUN Creatinine Estimated GFR/1.73 m2 Glucose Calcium Magnesium Total Bilirubin Conjugated Bilirubin AST ALT Alkaline Phosphatase C-Reactive Protein Total Protein Albumin Vitamin B12 402 Urine Urea Nitrogen 580 Urine Legionella Ag Negative 09/08/21 09/08/21 09/08/21 05:14 05:14 05:14 WBC 12.16 H RBC 3.42 L Hgb 10.8 L Hct 31.6 L MCV 92 MCH 31.6 MCHC 34.2 RDW 14.4 H Plt Count 288 MPV 12.6 H Immature Gran % 0.0 Neutrophils % 54.0 Lymphocytes % 23.0 Monocytes % 15.0 Eosinophils % 7.0 Basophils % 1.0 Nucleated RBC % 0.2 Absolute Neutrophils 6.57 Absolute Lymphocytes 2.80 Absolute Monocytes 1.82 H Absolute Eosinophils 0.85 H Absolute Basophils 0.12 RBC Morphology See Below Polychromasia Present APTT 37.5 H Sodium 134 L Potassium 4.1 Chloride 103 Carbon Dioxide 23.0 Anion Gap 8.0 BUN 41 H Creatinine 2.0 H Estimated GFR/1.73 m2 33.49 Glucose 124 H Calcium 8.7 Magnesium 1.5 L Total Bilirubin 1.5 H Conjugated Bilirubin 0.6 H AST 25 ALT 17 Alkaline Phosphatase 77 C-Reactive Protein 6.81 H Total Protein 7.0 Albumin 2.7 L Vitamin B12 Urine Urea Nitrogen Urine Legionella Ag Review of Systems All systems reviewed & are unremarkable except as noted in HPI and below Time spent with patient Time spent in Critical Care: 35 Time spent in Critical care included: Chart review, Documenting critically ill care, Time at immediate bedside and Discussing critically ill care with other medical staff
[2021-09-08] MEDS: Furosemide 20 MG/2 ML VIAL IVP ×2 (09:17→15:24)
[2021-09-08] MEDS: MAGNESIUM SULFATE 4 GM/100 ML BAG IVPB (09:17)
[2021-09-08] MEDS: Normal Saline Flush 10 ML SYR IVP (09:18)
[2021-09-08] MEDS: Pantoprazole 40 MG VIAL IVP (09:18)
[2021-09-08] MEDS: Cyanocobalamin 500 MCG TAB 1000 MCG PO (09:19)
[2021-09-08] MEDS: Aspirin 81 MG CHEW PO (09:19)
[2021-09-08] MEDS: Metoprolol CR 100 MG TABCR 200 MG PO (09:19)
[2021-09-08] MEDS: Lactulose 20 GM/30 ML CUP PO (09:19)
[2021-09-08] MEDS: Doxazosin 2 MG TAB 8 MG PO (09:19)
[2021-09-08] MEDS: Spironolactone 25 MG TAB PO (09:20)
[2021-09-08] MEDS: Multivitamin w/Minerals TAB 1 TAB PO (09:20)
[2021-09-08] MEDS: Magnesium Oxide 400 MG TAB PO (09:20)
[2021-09-08] MEDS: QUEtiapine 25 MG TAB PO (09:20)
--- NOTE | 2021-09-08 09:28 | PDOC.CMPRO ---
- If Service Date Differs Date of service: 09/08/21 Time of Service: 09:28 Care Management Progress Note S/O: Jasvir remains in the ICU, and he remains encephalopathic per MD. He resumed working with PT again today as well. He remains quite ill, now on day 6 of his inpatient stay; plan undetermined at this time. CM continues to follow. A: Jasvir is a 66 year old man admitted on 09/02/21 with cellulitis P: Anticipate Jasvir will return home when ready, follow up with his community providers and plan of care and transport with family/friends. CM will support Jasvir and assess for discharge concerns.
[2021-09-08 10:12] LABS: C Diff PCR Negative (Negative)
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
--- NOTE | 2021-09-08 10:52 | NUR.NOTE ---
While changing patients brief, I attempted to put terell cream on patient and he said, I've been waiting for you cock suckers to get the fuck off of me. So terell cream was not applied. RN notified. Patient turned on his right side using pillows. Nursing Note:
[2021-09-08 11:03] LABS: HIV-1/2 Ag & Ab Screen Negative (Negative)
--- NOTE | 2021-09-08 11:12 | DI.RAD_ITS ---
Exam(s) XR PORTABLE CHEST AP EXAM: XR PORTABLE CHEST AP CLINICAL HISTORY: aspiration?, hypoxia, CHF TECHNIQUE: 2D digital imaging was performed of the chest. One images were obtained. AP views were obtained. COMPARISON: CR,XR XR PORTABLE CHEST AP from 09/04/2021 FINDINGS: Low lung volumes. MEDIASTINUM: Normal. HEART: Normal. PULMONARY VASCULATURE: Normal. LUNGS: There again seen diffuse interstitial infiltrates. No focal consolidating infiltrates. PLEURAL SPACE: No pneumothorax. Question of a small right pleural effusion. BONE:Within normal limits for the patient's age. OTHER FINDINGS:Normal. IMPRESSION: 1. Persistent bilateral interstitial infiltrates. This may represent edema or pneumonia. Please cor relate clinically. 2. Question of a developing small right pleural effusion. DATA REPOSITORY: RADIATION DOSE DELIVERED:
[2021-09-08 11:16] LABS: Syphilis Serology (RPR) Negative (Negative)
[2021-09-08 13:52] LABS: Creatinine,Urine 31.29 mg/dL
--- NOTE | 2021-09-08 14:14 | PT.INTREAT ---
Date of service: 09/08/21 Time of Service: 12:52 PT Notes Visit Reasons: Cellulitus Inpatient Physical Therapy Treatment Note [facility] Date: 09/08/2021 PRECAUTIONS: Fall, activity as tolerated, encephalopathic SUBJECTIVE: Jasvir is able to answer yes/no questions, and indicates that he is agreeable to participating in PT. OBJECTIVE: PAIN: Patient indicates pain in R lower leg in area of cellulitis BED MOBILITY/TRANSFERS Supine-sit: Mod A Sit-stand: CGA with tactile feedback for movement initiation Stand-sit: CGA GAIT Assistive Device: FWW Weight bearing: Full Assist: Min A Distance: 20' + 5 steps Deviation: Cueing/assist for FWW management, short step height and length, occasional need for reorientation to task. ASSESSMENT: Patient was able to tolerate a progression in gait distance. He requires tactile cueing/assist for appropriate management of FWW with gait training. PLAN: Continue with gait training and general conditioning for improved mobility and progression toward independent baseline level of function. TREATMENT CODE/TIME: 24 minutes; 52710 x2 (12:52)
[2021-09-08 15:19] LABS: PTT Activated 70.2 sec (21.0-27.5)
[2021-09-08 16:04] LABS: Streptococcus Pneumoniae Ag, U Negative (Negative)
--- NOTE | 2021-09-08 17:15 | STREC_ITS ---
Date of service: 09/08/21 Time of Service: 17:39 Speech Therapy Recommendations Report ST Recommendations: SUBJECTIVE: Consult received, chart reviewed. Attempting to contact patient at bedside this evening, received somnolant, unable to adequately rouse patient with assistance from family members, RN, and MD (briefly present this date to provide medical updates to the family) therefore no examination was performed this date. Per MD, suspect PNA secondary to reflux aspiration event. RN also reporting some coughing with thin liquids during this hospitalization. Patient's and daughter are present and report occasional difficulty swallowing pills (they say pills get stuck in his throat) as well as solids. They do not recall noticing a pattern of frequent coughing with liquids at home. They do report he tends to have excess saliva pooling in his throat which causes persistent throat clearing/hacking throughout the day at baseline. The feel that his saliva management is below baseline at this time, and he is not managing secretions as well as usual. Family also states that patient has reflux at baseline. Since hospitalized he has been started on PPI's. They also endorse post-prandial coughing > prandial. They report he has full dentures, but has not been wearing them due to fear of him biting his tongue with altered mental status. In the meantime, provided education to family, RN regarding increasing frequency & thoroughness of oral care, and positional/lifestyle strategies for reducing risk of reflux. RECOMMENDATIONS Patient is somnolant, unrousable and unable to follow instructions and is not appropriate for PO trials at this time. Nursing and family should only provide liquid PO if patient is alert and responsive, able to follow simple instructions. BROKERAGE OFFICE MANAGER to attempt re-evaluation tomorrow at earliest availability to assess swallow function and determine appropriate diet and strategy recommendations. Diet Texture Modification(s): Maintain clear liquids as ordered by MD until further BROKERAGE OFFICE MANAGER evaluation. Medication Intake: Whole, one at a time with 0-Thin Liquids or Jell-O RISK MANAGEMENT: HOB upright as tolerated; upright for all PO intake. Encourage physical mobility as tolerated. Oral hygiene Q4h/every 4 hours when awake, and before/after PO intake, using friction with toothbrush on all oral structures as tolerated, suction PRN Level of Assistance/Supervision: Assistive feeding only by trained staff/family STOP PO INTAKE if coughing with thin liquids consistently, or respiratory status worsens Strategies/Adaptations/Assistive Equipment: Reduce auditory and/or visual distractions when eating Provide verbal and/or visual cues to use recommended strategies Small sips and bites when eating Slow rate of intake Small+frequent meals throughout day, Other Posture/Positioning Needs: Maintain upright position at least 45-60 minutes after meals Avoid meals 2-3 hours prior to sleeping Sleep with head of bed elevated to reduce likelihood of nocturnal reflux Coding
--- NOTE | 2021-09-08 22:34 | NUR.NOTE ---
Addendum entered by Tatianna Nye RN 09/09/21 06:21: Around midnight, pt agreed to take his medicine and breathing tx. Medicine was administered and pt went back to sleep. Original Note: Nursing Note: PT IS ORIENTED TO SELF AND TIME BUT NOT LOCATION. HE IS REFUSING ALL ORAL MEDICINE DESPITE SEVERAL ATTEMPTS, EDUCATION, AND EXPLANATIONS. HE BECOMES MORE AGITATED AND RAISES HIS VOICE. THIS RN WILL ATTEMPT LATER AGAIN, BUT FOR NOW - PT REFUSES BREATHING TX AND NIGHT MEDICINE. WILL NOTIFY PROVIDER AND DAY SHIFT RN. HE IS STABLE ON THE MONITOR.
[2021-09-09] VITALS (56 sets, daily range): BP systolic 132–182; BP diastolic 49–127; PULSE 46–80; RESP 13–27; TEMP 36–37.2; O2SAT 5–100
[2021-09-09 00:36] LABS: PTT Activated 58.8 sec (21.0-27.5)
[2021-09-09] MEDS: Ipratropium 0.5 MG/2.5 ML UPD VIAL UPD (02:12)
[2021-09-09] MEDS: Budesonide/Formoterol 80/4.5 6.9 GM 60 PUFF INH IH ×3 (02:14→19:05)
[2021-09-09] MEDS: THIAMINE 500 MG in Normal Saline 100 ML 200 MG IVPB ×2 (02:16→18:15)
[2021-09-09] MEDS: Lactulose 20 GM/30 ML CUP PO ×3 (02:17→19:05)
[2021-09-09] MEDS: Melatonin 3 MG TAB 6 MG PO ×2 (02:17→19:09)
[2021-09-09] MEDS: PIPERACILLIN/TAZO 3.375 GM in Normal Saline 50 ML IVPB ×3 (06:13→21:16)
[2021-09-09 06:17] LABS: Abs Immature Grans 0.15 10^3/uL (0.0-0.06); Absolute Eosinophil Count 1.23 10^3/uL (0.0-0.7); Absolute Monocyte Count 1.66 10^3/uL (0.1-0.8); Basophils % 0.9; Eosinophils % 8.9; HGB 11.1 g/dL (13.5-17.5); Immature Grans % 1.1; Lymphocytes % 15.9; MCH 31.3 pg (27.0-33.0); MCHC 33.6 % (32.0-36.0); MCV 93 fL (80-95); MPV 12.3 fL (8.0-11.0); Neutrophils % 61.2; Nucleated RBC 0.1 % (0.0-0.3); RBC 3.55 10^6/uL (4.36-5.78); RDW 14.6 % (11.8-14.1); RDW-SD 49.7 fL; WBC 13.82 10^3/uL (4.4-10.8)
[2021-09-09 06:19] LABS: Absolute Basophil Count 0.12 10^3/uL (0.0-0.2); Absolute Neutrophil Count 8.46 10^3/uL (1.2-6.7)
[2021-09-09 06:36] LABS: Anion Gap 6.8 mmol/L (3-11); BUN 34 mg/dL (7-18); C-Reactive Protein 5.14 mg/dL (0.0-0.3); CO2 26.2 mmol/L (21.0-32.0); CREATININE 1.7 mg/dL (0.70-1.30); Chloride 104 mmol/L (98-107); Glucose 118 mg/dL (74-106); Magnesium 1.8 mg/dL (1.8-2.4); Potassium 3.9 mmol/L (3.5-5.1); Sodium 137 mmol/L (136-145)
[2021-09-09 06:50] LABS: Procalcitonin 1.2 ng/mL
[2021-09-09 07:10] LABS: Diff Comment Agrees w/ Instrument; Platelet Count 320 10^3/uL (130-400); Polychromasia Present
[2021-09-09] MEDS: Tiotropium Bromide-Respimat 10 PUFF INH 2 PUFF IH (07:21)
--- NOTE | 2021-09-09 08:30 | PGE_ITS ---
Date of Service Date of service: 09/09/21 Time of Service: 08:31 Assessment and Plan Assessment and plan (1) Sepsis: Status: Acute Assessment and plan: Due to cellulitis RLE and suspected aspiration pneumonia (possibly aspiration). There seem to be discordant radiology reads on this. CRP, procalcitonin better. Repeat CXR not showing a clear PNA. I am rechecking his COVID-19 PCR today since he does have some possible features of COVID-19 - hypoxia, elevated CRP, encephalopathy (he had COVID-19 (06/28), took paxlovid). WBC a little bit worse again though clinically a little better. Does have ascites - consider paracenthesis. CT RLE w/o abscess or osteo. Blood cultures obtained on admission are with NGTD. Continue empiric zosyn. MRSA negative, urine legionella and strep negative. Will not pursue LP - no meningismus and encephalopathy is more c/w toxic metabolic. Qualifiers: Sepsis type: sepsis due to unspecified organism Sepsis acute organ dysfunction status: with acute organ dysfunction Severe sepsis acute organ dysfunction type: acute renal failure Acute renal failure type: unspecified Severe sepsis shock status: without septic shock Qualified Code(s): A41.9 - Sepsis, unspecified organism; R65.20 - Severe sepsis without septic shock; N17.9 - Acute kidney failure, unspecified (2) Acute respiratory failure with hypoxia: Status: Acute Assessment and plan: Due to combination of diastolic CHF, pulmonary hypertension, possible aspiration pneumonia, underlying COPD - not acting as an acute exacerbation. Rechecking COVID-19 PCR. Continue diuresis. Patient is not compliant with CPAP. Cr is tolerating diuresis and continuing to improve. Continue atrovent nebs + prn levalbuterol. Continue zosyn. Wean o2 as tolerated. Continue to monitor in the ICU. VBG not indicating respiratory acidosis. Encourage IS/acapella. (3) Cellulitis of right leg: Status: Acute Assessment and plan: CT RLE without surgical issue. Continue zosyn. Will monitor for improvement. DVT ruled out. (4) GURPREET (acute kidney injury): Status: Acute Assessment and plan: Improving while on diuretics. In setting of IV contrast, Rapid Afib, sepsis, alcoholic cirrhosis. DDx: prerenal due to rapid Afib/cardiorenal and/or sepsis, ATN, contrast nephropathy, post-renal. Intrinsic renal diseaes suggested by FeUrea (could be inaccurate because urine Cr was done on different day). Diabetic nephropathy could be underlying all this. Less likely hepatorenal syndrome. Discussed the case with [facility]. Urine sodium being 44 is suggestive of good perfusion of the kidneys, and so the hepatorenal syndrome is felt to be less likely. Prerenal/cardiorenal failure is felt to be more likely in addition to contrast nephropathy. Continue lasix as well as aldactone. Albumin d/c'ed. Intolerant of CPAP. Consider paracenthesis. Not retaining urine prior to mariscal catheter placement; now, refuses a mariscal catheter. Weighing diapers. No obstructive uropathy on CT or US renal. Monitoring I/Os is challenging. Monitor weights, Cr. (5) Atrial fibrillation with rapid ventricular response: Status: Resolved Assessment and plan: Rates controlled without cardizem. Suspect contributing to rate dependent pulmonary edema. Continue metoprolol XL 200 mg daily. prn IV lopressor ordered. Mild pulmonary hypertension on echo. Suspect underlying sleep apnea is contributing. Anticoagulate with heparin gtt. No evidence of PE on CTA on admission. Troponins negative. (6) Right lower lobe pneumonia: Status: Suspected Assessment and plan: Not clearly seen on repeat CXR, but aspiration highly suspected. It is being covered with Zosyn. PPI for reflux (can switch to PO) Speech therapy on board. (7) Toxic metabolic encephalopathy: Status: Acute Assessment and plan: I think he is doing better. Has asterexis. Hepatic encephalopathy high on differential even though ammonia is low. Continue empiric lactulose. Closed head injury prior to admission - ?post-concussive syndrome. ?COVID-related encephalopathy (recent COVID-19; ruling out COVID-19 now). prn ativan for alcohol withdrawal (not requiring overnight). On scheduled seroquel. Continue high dose thiamine. Not suspecting meningitis/encephalitis. Monitor mental status. No focal deficits to suggest CVA. Continue to monitor mental status. (8) Syncope: Status: Acute Assessment and plan: The day of admission. I suspect that this was in setting of rapid Afib. Resulted in closed head injury. Continue to monitor on tele. (9) Aspiration into airway: Status: Acute Assessment and plan: As above Qualifiers: Encounter type: initial encounter Qualified Code(s): T17.908A - Unspecified foreign body in respiratory tract, part unspecified causing other injury, initial encounter (10) Hepatic cirrhosis: Status: Chronic Assessment and plan: As above. LFTs ok. Monitor Bilis. Current presentation is likely not hepatorenal syndrome, per nephrology. Heme negative. No known varices; none mentioned on CT read. Qualifiers: Hepatic cirrhosis type: alcoholic cirrhosis Ascites presence: with ascites Qualified Code(s): K70.31 - Alcoholic cirrhosis of liver with ascites (11) Essential hypertension: Status: Acute Assessment and plan: Conitnue aldactone (increase dose), metoprolol, doxazosin. Abstain from losartan for now given GURPREET. (12) Alcoholism: Status: Acute Assessment and plan: Continue monitoring on CIWA. Prn ativan (13) Weakness: Status: Acute Assessment and plan: PT consulted. (14) Diabetes mellitus: Assessment and plan: A1c 5.6 on 06/05/21. On no medications. Continue sliding scale here. (15) Hyponatremia: Status: Acute Assessment and plan: Dilutional. Improving with diuresis. Continue to monitor. (16) Hypomagnesemia: Status: Resolved Assessment and plan: Recheck in am (17) DVT prophylaxis: Status: Acute Assessment and plan: Therapeutic heparin gtt. (18) Discharge planning issues: Status: Acute Assessment and plan: Full code Keep in ICU. Total Critical Care Time 40 minutes. Subjective Subjective Interval history since last seen: Mr Escalante did not wear CPAP last night. He did sleep. Overnight and this morning, restless, trying to pull O2 off, etc. No signs of EtOH w/d, but no CIWAs documented since yesterday evening. He is on 5L of O2 by AK. Denies dizziness, chest pain, shortness of breath, nausea. He knows it's 2021 and that he is in [facility]. He states that he had never had a sleep apnea test. Exam Narrative Exam Narrative: General: middle-aged male who is on 5L of O2 by AK, resting, arousab le, but keeping his eyes closed, A&Ox2.5 (knows the year but not the exact date). Appears to be answering faster and more appropriately today. HEENT: EOMI, MMM Heart: RRR, no m/r/g Lungs: CTAB Abdomen: soft, small amount of ascites, nontender Extremities: RLE erythematous - better, edematous, edema blisters - small on tibial surface, trace edema LLE Objective Last Vital Signs Temp 37.1 C 09/09/21 04:00 Pulse 67 09/09/21 06:01 Resp 20 09/09/21 06:01 BP 155/91 H 09/09/21 06:01 Pulse Ox 5 L 09/09/21 06:22 Laboratory Results - last 24 hr 09/06/21 09/06/21 09/06/21 04:00 09:50 23:35 WBC RBC Hgb Hct MCV MCH MCHC RDW Plt Count MPV Immature Gran % Neutrophils % Lymphocytes % Monocytes % Eosinophils % Basophils % Nucleated RBC % Absolute Neutrophils Absolute Lymphocytes Absolute Monocytes Absolute Eosinophils Absolute Basophils RBC Morphology Polychromasia APTT Sodium Potassium Chloride Carbon Dioxide Anion Gap BUN Creatinine Estimated GFR/1.73 m2 Glucose Calcium Magnesium C-Reactive Protein Procalcitonin Ur Random Creatinine Stl C.difficile Tox PCR Syphilis Serology Negative HIV 1&2 Ag/Ab, 4th Gen Negative Ur Strep pneumoniae Ag Negative 09/08/21 09/08/21 09/08/21 08:00 13:05 14:55 WBC RBC Hgb Hct MCV MCH MCHC RDW Plt Count MPV Immature Gran % Neutrophils % Lymphocytes % Monocytes % Eosinophils % Basophils % Nucleated RBC % Absolute Neutrophils Absolute Lymphocytes Absolute Monocytes Absolute Eosinophils Absolute Basophils RBC Morphology Polychromasia APTT 70.2 H Sodium Potassium Chloride Carbon Dioxide Anion Gap BUN Creatinine Estimated GFR/1.73 m2 Glucose Calcium Magnesium C-Reactive Protein Procalcitonin Ur Random Creatinine 31.29 Stl C.difficile Tox PCR Negative Syphilis Serology HIV 1&2 Ag/Ab, 4th Gen Ur Strep pneumoniae Ag 09/09/21 09/09/21 09/09/21 00:15 05:53 05:53 WBC RBC Hgb Hct MCV MCH MCHC RDW Plt Count MPV Immature Gran % Neutrophils % Lymphocytes % Monocytes % Eosinophils % Basophils % Nucleated RBC % Absolute Neutrophils Absolute Lymphocytes Absolute Monocytes Absolute Eosinophils Absolute Basophils RBC Morphology Polychromasia APTT 58.8 H 54.0 H Sodium 137 Potassium 3.9 Chloride 104 Carbon Dioxide 26.2 Anion Gap 6.8 BUN 34 H Creatinine 1.7 H Estimated GFR/1.73 m2 40.40 Glucose 118 H Calcium 9.0 Magnesium 1.8 C-Reactive Protein 5.14 H Procalcitonin Ur Random Creatinine Stl C.difficile Tox PCR Syphilis Serology HIV 1&2 Ag/Ab, 4th Gen Ur Strep pneumoniae Ag 09/09/21 09/09/21 05:53 05:53 WBC 13.82 H RBC 3.55 L Hgb 11.1 L Hct 33.0 L MCV 93 MCH 31.3 MCHC 33.6 RDW 14.6 H Plt Count 320 MPV 12.3 H Immature Gran % 1.1 Neutrophils % 61.2 Lymphocytes % 15.9 Monocytes % 12.0 Eosinophils % 8.9 Basophils % 0.9 Nucleated RBC % 0.1 Absolute Neutrophils 8.46 H Absolute Lymphocytes 2.20 Absolute Monocytes 1.66 H Absolute Eosinophils 1.23 H Absolute Basophils 0.12 RBC Morphology See Below Polychromasia Present APTT Sodium Potassium Chloride Carbon Dioxide Anion Gap BUN Creatinine Estimated GFR/1.73 m2 Glucose Calcium Magnesium C-Reactive Protein Procalcitonin 1.2 Ur Random Creatinine Stl C.difficile Tox PCR Syphilis Serology HIV 1&2 Ag/Ab, 4th Gen Ur Strep pneumoniae Ag PAWSS Have you Been Recently Intoxicated or Drunk Within the Last 30 days?: No Have you Ever Experienced Previous Episodes of Alcohol Withdrawal?: No Have you ever Experienced Withdrawal Seizures?: No Have you ever Experienced Delirium Tremens(DT)s?: No Have you ever undergone Alcohol Rehabilitation Treatment (i.e, inpt ot outpatient treatment programs)?: Yes Have you ever Experienced Blackouts?: No Have you ever Combined Alcohol with other Downers within the last 90 days?: No Have you ever Combined Alcohol with any other Substance of Abuse during the last 90 days?: No Positive Blood Alcohol level on Presentation? [PCS.BAL]: No Evidence of Increased Autonomic Activity (i.e. HR>120, tremor, sweating, agitation, nausea)?: No Result: 1 Multi-Disciplinary Checklist Lines/Tubes CENTRAL LINE: no ARTERIAL LINE: no MARISCAL: no ICU Maintenance GLUCOSE 140-180mg/dL: no, Reason/Intervention: not diabetic NUTRITION AT GOAL: no, Reason/Intervention: on clear liquids; aspiration risk PRESSURE ULCER: no RESTRAINTS: no ANTIBIOTICS(if yes, consider Stewardship): Yes Social Issues FAMILY UPDATED: yes PT/OT: yes GOALS/DISPOSITION/TUNNEL ELASTIC OPERATOR ZIGZAG: yes CODE STATUS: Full Prophylaxis DVT PROPHYLAXIS: yes GI PROPHYLAXIS: no
[2021-09-09 08:38] LABS: Source Nasal/Nares
[2021-09-09 09:39] LABS: COVID-19 PCR Negative (Negative)
[2021-09-09] MEDS: Furosemide 20 MG/2 ML VIAL IVP ×2 (10:00→15:11)
[2021-09-09] MEDS: THIAMINE 500 MG in Normal Saline 100 ML 210 MG IVPB (10:01)
[2021-09-09] MEDS: Aspirin 81 MG CHEW PO (10:01)
[2021-09-09] MEDS: Spironolactone 25 MG TAB 100 MG PO (10:02)
[2021-09-09] MEDS: Multivitamin w/Minerals TAB 1 TAB PO (10:02)
[2021-09-09] MEDS: Metoprolol CR 100 MG TABCR 200 MG PO (10:02)
[2021-09-09] MEDS: Pantoprazole 40 MG TABCR PO (10:02)
[2021-09-09] MEDS: Doxazosin 2 MG TAB 8 MG PO (10:02)
[2021-09-09] MEDS: Cyanocobalamin 500 MCG TAB 1000 MCG PO (10:02)
[2021-09-09] MEDS: QUEtiapine 25 MG TAB 12.5 MG PO (10:03)
[2021-09-09] MEDS: Magnesium Oxide 400 MG TAB PO ×2 (10:03→19:05)
--- NOTE | 2021-09-09 10:27 | CMPROGNOTE_ITS ---
- If Service Date Differs Date of service: 09/09/21 Time of Service: 10:27 Care Management Progress Note S/O: Jasvir remains in the ICU, and per RN is confused and oriented to self only. CM spoke at length to his , Tonya, who reported that at baseline, Jasvir can be forgetful, but he is still far from his baseline. CM discussed discharge plans, which are undetermined at this time as Jasvir is not able to participate at this time. Tonya reported that he will likely not be agreeable to SNF or sobriety support. 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 She reported that he drinks alcohol consistently at home when he is not working. CM will discuss sobriety support with Jasvir once he is no longer acutely encephalopathic. CM will continue to follow. A: Jasvir is a 66 year old man admitted on 09/02/21 with cellulitis P: Anticipate Jasvir will return home when ready, follow up with his community providers and plan of care and transport with family/friends. CM will support Jasvir and assess for discharge concerns.
--- NOTE | 2021-09-09 11:41 | SP_ITS ---
Date of service: 09/09/21 Time of Service: 11:42 Subjective Clinical (Bedside) Swallow Evaluation Speech Language Pathology Patient referred for swallowing consult from Dr Rasheed given suspected aspiration pneumonia and coughing post-prandial > prandial. Precautions: Fall, Standard, Full Code SUBJECTIVE: Patient received lethargic, agreeable to evaluation, demonstrating difficulties with processing verbal directions, able to communicate wants/needs only intermittently; unable to demonstrate comprehension of recommendations for safe p.o. intake upon discharge once deemed medically stable.? Per RN via phone this morning, Pt is more alert than prior visit and is at edge of bed with PT; has medication scheduled for administration with RN. Interval history: RN reports Pt did well with multiple pills at once this am including drinking thin liquids with straw. Per RN Pt demonstrating similar alertness level this am compared to presentation during RESIDENT CARE MANAGER RN evaluation. ? HPI: Pt is a 66 year old male admitted with cellulitis, sepsis, acute kidney failure, acute respirtory failure with hypoxia (Due to combination of diastolic CHF, pulmonary hypertension, possible aspiration pneumonia, underlying COPD). Chart review also indicates head injury prior to admission resulting in post concussive syndrome, toxic metabolic encephalopathy, possible COVID-19 (MD rechecked COVID19 PCR this date, results came back negative). Per pulmonology (Dr. Talavera) Pt does not appear to have pneumonia per imaging but aspiration event is suspected. IMPRESSIONS & PLAN: Pt does demonstrate suspected oropharyngeal dysphagia as characterized by overt clinical s/sx of aspiration (in context of compromised respiratory status, fluctuating EMMA, and reflux symptoms), is at moderate risk for aspiration pneum onia and/or airway compromise without risk management as outlined; improvements in pulmonary status and physical mobility are likely to reduce this risk; recommend continued RESIDENT CARE MANAGER RN treatment and monitoring of overt s/sx aspiration in context of fluctuating mental status/EMMA, with potential for diet texture upgrade pending improvements in overall medical status and O2 requirements. Plan: Continue with clear liquids until RESIDENT CARE MANAGER RN follow up/ per MD. Further RESIDENT CARE MANAGER RN services: warranted at frequency of 4-5x per week while on inpatient unit inpatient / patient to be followed while on unit; either home health or penitentiary upon discharge as appropriate. ? Instrumentation: N/A for now, may reconsider if/when Pt is able to follow verbal directions. Diet Texture Modification(s): IDDSI Level(s) SOLIDS N/A LIQUIDS 0-Thin Liquids Medication Intake: Whole with 0-Thin Liquids one at a time May trial with puree as needed if overt s/sx aspiration are noted. RISK MANAGEMENT: Upright for all PO intake. Encourage physical mobility as tolerated. Oral hygiene q4h/every 4 hours, before/after PO intake, using friction with toothbrush on all oral structures as tolerated, suction PRN Level of Assistance/Supervision: 1:1 close supervision for all PO intake PO intake only when awake/alert? Strategies/Adaptations/Assistive Equipment: Reduce auditory and/or visual distractions when eating, Provide verbal and/or visual cues to use recommended strategies, Small sips and bites when eating, Slow rate of intake, Avoid straws, Small+frequent meals throughout day Ensure Pt's RR returns to baseline prior to additional PO, monitor for changes in O2 saturation. Posture/Positioning Needs: Maintain upright position at least 30 minutes after meals, Avoid meals/snacks 2- 3 hours prior to reclining/sleeping, Sleep with head of bed elevated to reduce likelihood of nocturnal reflux ? PMHX: All Active Problems?(Updated 09/01/21 @ 19:03 by Saleem Alva MD) Weakness (Acute) COVID-19 (Acute ~06/13/21) Hyperkalemia (Acute) Hyponatremia (Acute) Weight gain (Acute) Edema (Acute) History of splenectomy (Acute) Type II diabetes mellitus with complication, uncontrolled (Acute) 01/10/13 A1C 7.3 12/26/13 A1C 11.7 Essential hypertension (Acute) not well controlled will bump up los/hctz Alcoholism (Acute) Calculus of gallbladder without cholecystitis without obstruction (Acute 04/22/16) Former smoker (Acute) 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 muscle tear will check xray Screening for colon cancer (Acute) Well adult (Acute) Medical History? Diabetes mellitus Hypertension Social History/Home Situation: Lives with in a private home.? Independent with all ADLs prior to admiss ion.? Does? not use any AD. Equipment Owned/DME: None OBJECTIVE: Sp02: 93% Respiratory: 5L via NC supplemental oxygen, shows s/sx dyspnea post-prandial Language: Limited auditory comprehension, unable to fully assess expressive language Hearing: N/A Mental Status: Impaired, Oriented to person, place unable to identify correct day of the week Speech: unable to assess Oral Motor Exam: ? Dentition ? Edentulous ? Dentures: Top and Bottom, Pt refuses to wear at this time ? Oral Mucosa: Moist, requires assistance for oral care CN V - WFL ? CN VII ? Labial/Facial ? WFL ? CN IX ? Palate - unable to assess ? CN X ? Laryngeal ? MPT - DNT ? Vocal quality ? Intermittently Wet/Gurgly post- prandial ? Volitional cough ? Sharp & strong ? CN XII ? Lingual ? WFL ? Volitional Swallow ? Suspect delayed onset of swallow ? Anastacia Swallow Protocol Results ? FAIL: Overt signs of aspiration during or immediately after completion. Food items tested: ?? [X ] IDDSI 0: thin via cup for YSP administration (3oz water) positive for overt s/sx of aspiration (post-prandial cough) Thin via straw and cue for small sips positive for overt s/sx of aspiration (prandial cough) Oral phase: [X] Leakage from mouth after intake from straw (unclear if Pt expectorated liquid conciously or had difficulty with AP transit). Pt reported water was too warm [X ] ?Difficulty with a-p transport Pharyngeal phase: [X] suspect Delayed swallow initiation [X ] Cough after swallow [X ] Voice change after swallow? [X ] Throat clearing? Education Provided to: Patient, RN, HEAD HOLDER and MD (Recommendations written on white board, also added to Pt physical chart) Topics Addressed: overt s/sx to monitor for re: potential aspiration of food / liquids, recommendations for improved oral care, relationship between respiratory function changes and deglutition, Rationale for recommendations as outlined below Outcome: Needs review/reinforcement from staff Handouts provided to staff Goals: Patient will tolerate safest/least restrictive diet of IDDSI Level 0 (thins), IDDSI Level 5 (minced/moist) without s/sx aspiration. - Pt currently on clear liquids diet at this time unable to trial solid textures given mental status Patient/caregiver will be independent with aspiration precautions, diet modifications, and safe swallowing strategies. -In Progress Patient/caregiver will verbalize/demonstrate understanding of education r/t anatomy/physiology of normal vs disordered swallowing mechanism, overt s/sx to monitor for re: potential aspiration of food liquids, recommendations for improved oral care, relationship between respiratory function changes and deglutition, rationale for risk management strategies. -In Progress RESIDENT CARE MANAGER RN CPT Code: 62592 Clinical Swallowing Evaluation Coding
[2021-09-09] MEDS: Acetaminophen 325 MG TAB 650 MG PO (12:02)
[2021-09-09] MEDS: Normal Saline Flush 10 ML SYR IVP (15:11)
--- NOTE | 2021-09-09 15:11 | PTTR_ITS ---
Date of service: 09/09/21 Time of Service: 15:11 PT Notes Visit Reasons: Cellulitus Physical Therapy Inpatient Treatment Note Date: 09/09/2021 Precautions: Fall. Standard. Activity as tolerated. Subjective: Agreeable to walking with provider. Reported being fatigued and put of breath after ambulation activity. Quickly went back to sleep right after he was assisted back onto the bedside chair. Objective: General Observation: On telemetry monitoring in place.? IV in the L UE.? R leg less erythematous and edematous. On 4 L of oxygen via NC. Mental Status: Remains somnolent, mildly encephalopathic, mildy confused.? Pain: None reported Vital Signs: WNL as monitored via telemetry Bed Mobility/Transfers:? Sit to stand contact guard assist Stand to sit contact guard assist Gait: Instructed patient with level surface ambulation of 50 steps requiring minimal assist and maximal cueing for safety.? Gait ataxic. Required assistance with stability and walker management especially during directional changes. OPHTHALMOLOGIST Radha provided wheelchair follow for safety. Balance: Static Sitting: Normal Dynamic Sitting: Normal Static Standing: Fair Dynamic Standing: Fair Assessment: Somnolent at the start but was able to fully awaken with constant prodding during mobility performance. Required less frequent redirection compared to time of evaluation. Significantly less encephalopathic. Gait ataxic, required minimal assist and moderate verbal and tactile cueing for improved stability and safety. OPHTHALMOLOGIST Radha assisted for safety. May benefit from short-term rehab vs HH PT depending on progress towards goal. DISCHARGE RECOMMENDATIONS:? [] ? Home with no services [] [X] ? Home with services.? Patient will benefit from home health PT services in order to progress mobility level using least restrictive assistive ambulatory device, assess home safety, identify additional equipment needs, and establish a functional maintenance program that will increase ability of patient to remain at home. [] ? Home with outpatient PT [] [X] ?SNF for continued rehabilitation depending on patient progress toward goals [] ? [facility] [] [] ? SNF versus LTC based on ability to participate and progress [] PLAN: Progress strength, balance, and mobility level as tolerated. May need to be given a FWW for discharge for safety. TREATMENT CODE/TIME: 76204 x 40 minutes beginning at 15:11?PM.
[2021-09-09] MEDS: QUEtiapine 25 MG TAB 50 MG PO ×2 (19:09)
[2021-09-10] VITALS (31 sets, daily range): BP systolic 110–176; BP diastolic 43–92; PULSE 52–74; RESP 15–32; TEMP 36.2–37; O2SAT 88–97
[2021-09-10] MEDS: THIAMINE 500 MG in Normal Saline 100 ML 200 MG IVPB (02:15)
[2021-09-10] MEDS: PIPERACILLIN/TAZO 3.375 GM in Normal Saline 50 ML IVPB (05:56)
[2021-09-10 07:10] LABS: Abs Immature Grans 0.13 10^3/uL (0.0-0.06); Absolute Basophil Count 0.14 10^3/uL (0.0-0.2); Absolute Monocyte Count 1.76 10^3/uL (0.1-0.8); Absolute Neutrophil Count 9.37 10^3/uL (1.2-6.7); Basophils % 0.9; Eosinophils % 8.1; HCT 35.3 % (40.0-50.0); HGB 11.5 g/dL (13.5-17.5); Immature Grans % 0.9; MCH 30.8 pg (27.0-33.0); MCHC 32.6 % (32.0-36.0); MCV 95 fL (80-95); MPV 12.2 fL (8.0-11.0); Monocytes % 11.7; Neutrophils % 62.4; Nucleated RBC 0.1 % (0.0-0.3); RBC 3.73 10^6/uL (4.36-5.78); RDW 14.8 % (11.8-14.1); RDW-SD 51.4 fL; WBC 15.02 10^3/uL (4.4-10.8)
[2021-09-10 07:13] LABS: Absolute Eosinophil Count 1.22 10^3/uL (0.0-0.7)
[2021-09-10 07:39] LABS: ALT 27 U/L (16-63); AST 34 U/L (15-37); Albumin 2.5 g/dL (3.4-5.0); Alkaline Phosphatase 82 U/L (46-116); Anion Gap 6.7 mmol/L (3-11); BUN 29 mg/dL (7-18); Bilirubin, Direct 0.5 mg/dL (0.0-0.2); Bilirubin, Total 1.1 mg/dL (0.2-1.0); C-Reactive Protein 4.08 mg/dL (0.0-0.3); CO2 28.3 mmol/L (21.0-32.0); CREATININE 1.6 mg/dL (0.70-1.30); Calcium 8.7 mg/dL (8.5-10.1); Chloride 104 mmol/L (98-107); Estimated GFR 43.33 (mL/min/1.73m2); Glucose 99 mg/dL (74-106); Magnesium 1.5 mg/dL (1.8-2.4); Potassium 3.4 mmol/L (3.5-5.1); Sodium 139 mmol/L (136-145); Total Protein 7.2 g/dL (6.4-8.2)
[2021-09-10 07:57] LABS: Diff Comment Agrees w/ Instrument; Platelet Count 380 10^3/uL (130-400); Polychromasia Present
[2021-09-10 07:58] LABS: Poikilocytes 2+
[2021-09-10] MEDS: Normal Saline Flush 10 ML SYR IVP (08:29)
[2021-09-10] MEDS: Furosemide 20 MG/2 ML VIAL IVP (08:29)
[2021-09-10] MEDS: Spironolactone 25 MG TAB 100 MG PO (08:30)
[2021-09-10] MEDS: Budesonide/Formoterol 80/4.5 6.9 GM 60 PUFF INH IH ×2 (08:31→21:36)
[2021-09-10] MEDS: Tiotropium Bromide-Respimat 10 PUFF INH 2 PUFF IH (08:31)
[2021-09-10] MEDS: Doxazosin 2 MG TAB 8 MG PO (08:32)
[2021-09-10] MEDS: Cyanocobalamin 500 MCG TAB 1000 MCG PO (08:32)
[2021-09-10] MEDS: Pantoprazole 40 MG TABCR PO (08:33)
[2021-09-10] MEDS: Multivitamin w/Minerals TAB 1 TAB PO (08:33)
[2021-09-10] MEDS: Metoprolol CR 100 MG TABCR 200 MG PO (08:33)
[2021-09-10] MEDS: Aspirin 81 MG CHEW PO (08:33)
[2021-09-10] MEDS: Magnesium Oxide 400 MG TAB PO ×3 (08:34→21:25)
[2021-09-10] MEDS: QUEtiapine 25 MG TAB 12.5 MG PO (08:36)
[2021-09-10] MEDS: Potassium Chloride 20 MEQ TABCR PO ×2 (08:38→14:53)
[2021-09-10] MEDS: MAGNESIUM SULFATE 2 GM/50 ML BAG IVPB (08:38)
--- NOTE | 2021-09-10 09:36 | PT.INTREAT ---
Date of service: 09/10/21 Time of Service: 09:08 PT Notes Visit Reasons: Cellulitus Inpatient Physical Therapy Treatment Note [facility] Date: 09/10/2021 PRECAUTIONS: Fall, activity as tolerated SUBJECTIVE: Jasvir's speech is not clear and difficult to understand, however, he is able to indicate that he is agreeable to participating in PT. OBJECTIVE: PAIN: Patient indicates that he continues to have pain in R LE. BED MOBILITY/TRANSFERS Sit-supine: SBA Sit-stand: CGA Stand-sit: CGA Chair-bed: CGA without AD support GAIT Assistive Device: FWW Weight bearing: Full Assist: CGA in a.m.; SBA in p.m. Distance: 300' in a.m.; 150' in p.m. Deviation: Slow pacing, short step height/length, standing rest x1 for sips of water (a.m. only) VITALS: Continuously monitored by nursing throughout. On 3L supplemental O2 throughout session in a.m.; on RA in p.m. THEREX: Patient was instructed in a LE strengthening and stabilization program, completed in a seated position in a.m. and in a supine position in p.m., to include: A.M. session: Ankle pumps x5 LAQ x5 Seated marches x5 P.M. session: Hip flexion x5 Bridging x10 Hip abduction x5 SKTC x5 Static standing x30 seconds with CGA without AD support ASSESSMENT: Patient continues to demonstrate global weakness and limited activity tolerance, although was able to tolerate a significant progression in gait distance with use of FWW support and with CGA - SBA and wheelchair follow. He appears more appropriate with his responses and communication today, and has progressed to ambulating without supplemental oxygen. PLAN: Continue with global strengthening and general conditioning for continued advancement toward patient's independent baseline level of function. TREATMENT CODE/TIME: Session 1: 24 minutes; 83649, [id number] (09:08) Session 2: 32 minutes; [id number], [id number] (13:18)
[2021-09-10 10:28] LABS: PTT Activated 75.9 sec (21.0-27.5)
--- NOTE | 2021-09-10 11:28 | STREC_ITS ---
Date of service: 09/10/21 Speech Therapy Recommendations Report ST Recommendations: SPORTS ADMINISTRATOR consult via phone with nursing (Christa). She reports pt is down to 1L supplemental 02 with cognitive status significantly improved from yesterday and requesting to eat. Discussed status from yesterday's SPORTS ADMINISTRATOR eval given pt with poor respiratory status and alertness at that time. If pt is improved today and MD in agreement, recommend trial minced/moist diet and continue with thin liquids. SPORTS ADMINISTRATOR will be available for in person consult/re-assessment tomorrow. Please contact refrigeration service technician customer experience professional SPORTS ADMINISTRATOR with any concerns. Coding
--- NOTE | 2021-09-10 11:28 | PDOC.STREC ---
Date of service: 09/10/21 Speech Therapy Recommendations Report ST Recommendations: SUBSYSTEMS ENGINEER consult via phone with nursing (Christa). She reports pt is down to 1L supplemental 02 with cognitive status significantly improved from yesterday and requesting to eat. Discussed status from yesterday's SUBSYSTEMS ENGINEER eval given pt with poor respiratory status and alertness at that time. If pt is improved today and MD in agreement, recommend trial minced/moist diet and continue with thin liquids. SUBSYSTEMS ENGINEER will be available for in person consult/re-assessment tomorrow. Please contact front desk monitor mirror fabrication supervisor SUBSYSTEMS ENGINEER with any concerns. Coding
--- NOTE | 2021-09-10 12:00 | CMPROGNOTE_ITS ---
- If Service Date Differs Date of service: 09/10/21 Time of Service: 12:00 Care Management Progress Note S/O: Jasvir continues to improve, per RN, who stated that his mental status was better today than yesterday. He is oriented to person only at this time. Per report, his MRSA screen was negative, and his blood cultures were negative. His antibiotic was changed to Ancef today for his cellulitis. Once he is able to participate in a conversation, CM will offer support for sobriety. CM will cont inue to follow. A: Jasvir is a 66 year old man admitted on 09/02/21 with cellulitis P: Anticipate Jasvir will return home when ready, follow up with his community providers and plan of care and transport with family/friends. CM will support Jasvir and assess for discharge concerns.
--- NOTE | 2021-09-10 12:02 | PGE_ITS ---
Date of Service Date of service: 09/10/21 Time of Service: 12:02 Assessment and Plan Assessment and plan (1) Sepsis: Status: Acute Assessment and plan: Secondary to cellulitis. MRSA screen was negative. Blood cultures from 09/01/2021 were no growth. Urine culture from 09/02/2021 had less than 10,000 colonies gram-positive chad repeat urine culture from 09/05/[address] scan of his chest on admission showed emphysema and a 6 mm nodule right lower lobe but no parenchymal consolidations. Subsequent chest x-ray from 09/03/2021 and 09/08/2021 were consistent with pulmonary edema. Also most recent chest x-ray from 09/08/2021 showed questionable development of a right pleural effusion. [place] the city treated with vancomycin and cefepime and then on September 05, 2021 was switched to Zosyn for possible aspiration pneumonitis in addition to his cellulitis. There is no convincing evidence that he had a pneumonitis on his chest x-ray but rather had fluid overload. At this point I will discontinue Zosyn and switch him to Ancef for his cellulitis. Professional time spent interviewing and examining patient, discussion of goals of care with hospital team (care management, nursing and consulting professionals) was 45 minutes. Qualifiers: Sepsis type: sepsis due to unspecified organism Sepsis acute organ dysfunction status: with acute organ dysfunction Severe sepsis acute organ dysfunction type: acute renal failure Acute renal failure type: unspecified Severe sepsis shock status: without septic shock Qualified Code(s): A41.9 - Sepsis, unspecified organism; R65.20 - Severe sepsis without septic shock; N17.9 - Acute kidney failure, unspecified (2) Acute respiratory failure with hypoxia: Status: Acute Assessment and plan: Emphysematous findings on CT scan consistent with COPD. Does not appear to be in COPD exacerbation at this point no sputum production no cough. His acute respiratory failure appears to be secondary to volume overload and CHF superimposed on probable underlying COPD and possible BRISEIDA. Patient has been noncompliant with wearing BiPAP. Fortunately with diuresis his oxygen requirements been weaned down to 1 L/min per nasal cannula. At this point he is stable enough to be moved to medical/surgical floor. Nebulized bronchodilators are written on a as needed basis but does not need scheduled treatments as he is not bronchospastic. Echocardiogram was performed yesterday was technically difficult study but showed borderline dilated LV with an EF of 55% with no wall motion abnormalities. Right ventricle and right atrium not well visualized. He has mildly dilated left atrium. Aortic valve is trileaflet with mild sclerosis but no stenosis or regurgitation he has moderate MAC with trace MR he has mild pulmonary hypertension with RVSP of 31 mm with normal tricuspid valve and only a trace of regurgitation. We will continue diuresis but increase his Lasix to 80 mg twice daily for the next 24 hours to try to get more adequate diuresis. He has dropped his weight down to 103 kg from a peak of 110.5 kg. However his intake and output yesterday was positive by 190 mL. His cumulative balance is +3800. (3) Cellulitis of right leg: Status: Acute Assessment and plan: CT RLE without surgical issue. DVT ruled out by negative ultrasound. Discontinue Zosyn in favor Ancef (4) GURPREET (acute kidney injury): Status: Acute Assessment and plan: Improving while on diuretics. In setting of IV contrast, Rapid Afib, sepsis, alcoholic cirrhosis. DDx: prerenal due to rapid Afib/cardiorenal and/or sepsis, ATN, contrast nephropathy, post-renal. Intrinsic renal diseaes suggested by FeUrea (could be inaccurate because urine Cr was done on different day). Diabetic nephropathy could be underlying all this. Less likely hepatorenal syndrome. Dr. Rasheed discussed his case with [facility] nephrology who did not feel that the patient has hepatorenal syndrome. Patient seems to be responding to diuretics. We will continue to diurese and monitor his urine output and daily electrolytes and BUN/creatinine. (5) Atrial fibrillation with rapid ventricular response: Status: Resolved Assessment and plan: Rates controlled without cardizem. Suspect contributing to rate dependent pulmonary edema. Continue metoprolol XL 200 mg daily. prn IV lopressor ordered. Mild pulmonary hypertension on echo. Suspect underlying sleep apnea is contributing. Anticoagulate with heparin gtt. No evidence of PE on CTA on admission. Troponins negative. Discontinue heparin in favor of Eliquis. His [id number] score is 4 which is high risk with a 4% risk of thromboembolic events per year. Begin Eliquis 5 mg p.o. twice daily D beginning tonight. (6) Right lower lobe pneumonia: Status: Ruled-out Assessment and plan: Aspiration was suspected however chest x-ray consistent with pulmonary edema rather than pneumonia. He has had no fever no purulent sputum production and no bronchospasm. Speech therapy has cleared him to minced and moist and solids with thin liquids. (7) Toxic metabolic encephalopathy: Status: Acute Assessment and plan: Multiple etiologies possibly secondary to alcoholism, hepatic encephalopathy, infection however his mental status seems to be clearing as his infection is improving and he is receiving treatment for hepatic encephalopathy with lac tulose. However if switched his lactulose to rifaximin in light of his diarrhea. (8) Syncope: Status: Acute Assessment and plan: The day of admission. I suspect that this was in setting of rapid Afib. Resulted in closed head injury. Continue to monitor on tele. (9) Aspiration into airway: Status: Suspected Assessment and plan: As above Qualifiers: Encounter type: initial encounter Qualified Code(s): T17.908A - Unspecified foreign body in respiratory tract, part unspecified causing other injury, initial encounter (10) Hepatic cirrhosis: Status: Chronic Assessment and plan: As above. LFTs ok. Monitor Bilis. Current presentation is likely not hepatorenal syndrome, per nephrology. Heme negative. No known varices; none mentioned on CT read. Qualifiers: Hepatic cirrhosis type: alcoholic cirrhosis Ascites presence: with ascites Qualified Code(s): K70.31 - Alcoholic cirrhosis of liver with ascites (11) Essential hypertension: Status: Acute Assessment and plan: Conitnue aldactone (increase dose), metoprolol, doxazosin. Abstain from losartan for now given GURPREET. Once his renal function has recovered will consider resumption of losartan given his chronic liver disease and his HFpEF (12) Alcoholism: Status: Acute Assessment and plan: No need for further CIWA monitoring as the patient has been hospitalized since 09/01/2021 and is not showing signs of acute withdrawal. We will discontinue CIWA monitoring as well as as needed Ativan (13) Weakness: Status: Acute Assessment and plan: PT consulted. (14) Diabetes mellitus: Assessment and plan: A1c 5.6 on 06/05/21. On no medications. Continue sliding scale here. Add Jardiance 10 mg daily for his HFpEF (15) Hyponatremia: Status: Acute Assessment and plan: Dilutional. Improving with diuresis. Continue to monitor. (16) Hypomagnesemia: Status: Acute Assessment and plan: Magnesium potassium again are low today. Magnesium is down to 1.5 and potassium is down to 3.4. We will supplement both and monitor levels. (17) DVT prophylaxis: Status: Acute Assessment and plan: Therapeutic heparin gtt. DC heparin drip in favor of Eliquis as above (18) Discharge planning issues: Status: Acute Assessment and plan: Full code Hemodynamically stable encephalopathy improving renal function improving. Patient's medically stable for transfer to medical/surgical floor on continuous telemetry Subjective Subjective Interval history since last seen: Patient denies any chest pain, dyspnea, nausea, abdominal pain. Per nursing they feel that his mental status is improved today. He is alert he is oriented to person but not to place or circumstance or time. Patient had a lot of diarrhea yesterday with at least 7 watery bowel movements. His lactulose was held this morning. I will discontinue the lactulose in favor rifaximin. Exam Narrative Exam Narrative: Morbidly obese male who has a very bronze appearance to his skin consistent with liver failure. Slight scleral icterus. Lungs with diffuse rales no rhonchi or wheezes Heart is regular with frequent ectopic beats. (Telemetry reveals he is in sinus rhythm with PACs Abdomen obese with significant ascites positive fluid wave nontender no guarding Lower extremities 2+ edema Right leg with cellulitic erythema that has receded from its furthest lin which is started just below the patella is now just erythematous over the pretibial/mid tibial there are some asymmetric edema in the right leg. Objective Last Vital Signs Temp 36.6 C 09/10/21 09:10 Pulse 52 L 09/10/21 10:02 Resp 19 09/10/21 10:02 BP 110/43 L 09/10/21 10:02 Pulse Ox 88 L 09/10/21 11:20 Laboratory Results - last 24 hr 09/10/21 09/10/21 09/10/21 06:15 06:15 09:49 WBC 15.02 H RBC 3.73 L Hgb 11.5 L Hct 35.3 L MCV 95 MCH 30.8 MCHC 32.6 RDW 14.8 H Plt Count 380 MPV 12.2 H Immature Gran % 0.9 Neutrophils % 62.4 Lymphocytes % 16.0 Monocytes % 11.7 Eosinophils % 8.1 Basophils % 0.9 Nucleated RBC % 0.1 Absolute Neutrophils 9.37 H Absolute Lymphocytes 2.40 Absolute Monocytes 1.76 H Absolute Eosinophils 1.22 H Absolute Basophils 0.14 RBC Morphology See Below Polychromasia Present Poikilocytosis 2+ APTT 75.9 H Sodium 139 Potassium 3.4 L Chloride 104 Carbon Dioxide 28.3 Anion Gap 6.7 BUN 29 H Creatinine 1.6 H Estimated GFR/1.73 m2 43.33 Glucose 99 Calcium 8.7 Magnesium 1.5 L Total Bilirubin 1.1 H Conjugated Bilirubin 0.5 H AST 34 ALT 27 Alkaline Phosphatase 82 C-Reactive Protein 4.08 H Total Protein 7.2 Albumin 2.5 L PAWSS Have you Been Recently Intoxicated or Drunk Within the Last 30 days?: No Have you Ever Experienced Previous Episodes of Alcohol Withdrawal?: No Have you ever Experienced Withdrawal Seizures?: No Have you ever Experienced Delirium Tremens(DT)s?: No Have you ever undergone Alcohol Rehabilitation Treatment (i.e, inpt ot outpatient treatment programs)?: Yes Have you ever Experienced Blackouts?: No Have you ever Combined Alcohol with other Downers within the last 90 days?: No Have you ever Combined Alcohol with any other Substance of Abuse during the last 90 days?: No Positive Blood Alcohol level on Presentation? [PCS.BAL]: No Evidence of Increased Autonomic Activity (i.e. HR>120, tremor, sweating, agitation, nausea)?: No Result: 1
[2021-09-10] MEDS: Empaglifozin 10 MG TAB PO (12:46)
[2021-09-10] MEDS: Insulin Aspart 300 UNITS/3 ML PEN SC (12:47)
--- NOTE | 2021-09-10 12:48 | PTTR_ITS ---
Date of service: 09/09/21 Time of Service: 09:50 PT Notes Visit Reasons: Cellulitus Subjective: Pt in bed when approached for therapy this morning, Pt in and out of sleep but agreed to participate with therapy, nurse informed this HUMAN RESOURCES TRAINEE that pt is negative for Covid since 8:35am. Objective: General Observation: On telemetry monitoring in place.? IV in the L UE.? R leg less erythematous and edematous.? On 4 L of oxygen via NC.? Pain: on area of cellulitis Vital Signs: WNL as monitored via telemetry Bed Mobility/Transfers:? Sit to stand contact guard assist Stand to sit contact guard assist Side stepping: L/R CGA Gait: FWW, CGA, CLINICAL HAEMATOLOGIST providing assistance for monitor attachment, IV lines and NC tube management. Ambulated within the perimeter of pt room 20' initially and 10'x2 to go back and forth commode. Assessment: Pt requiring verbal and tactile cues for pt to engage with activity since pt was going in and out of sleep. pt cued to open his eyes while gait training for safety. pt able to provide verbal request to go to the commode in between transfer activity. PLAN: will work on progressing strength, balance, and mobility level as tolerated.? TREATMENT CODE/TIME: [id number] x40 minutes (9:50am).
[2021-09-10] MEDS: Normal Saline 500 ML IV (14:52)
[2021-09-10] MEDS: ceFAZolin 2 GM/50 ML BAG IVPB ×2 (14:53→21:25)
[2021-09-10] MEDS: Furosemide 20 MG/2 ML VIAL 80 MG IVP (18:48)
[2021-09-10] MEDS: Apixaban 5 MG TAB PO (21:24)
[2021-09-10] MEDS: Melatonin 3 MG TAB 6 MG PO (21:24)
[2021-09-10] MEDS: Rifaximin 550 MG TAB PO (21:24)
[2021-09-10] MEDS: QUEtiapine 25 MG TAB 50 MG PO (21:25)
[2021-09-11] VITALS: BP 172/63; PULSE 61; PULSE 68; PULSE 77; RESP 20; TEMP 36.9; O2SAT 95
[2021-09-11] MEDS: ceFAZolin 2 GM/50 ML BAG IVPB ×3 (05:50→21:41)
[2021-09-11 07:12] LABS: Abs Immature Grans 0.19 10^3/uL (0.0-0.06); Absolute Eosinophil Count 0.87 10^3/uL (0.0-0.7); Absolute Lymphocyte Count 2.99 10^3/uL (1.2-3.4); Absolute Monocyte Count 2.06 10^3/uL (0.1-0.8); Basophils % 0.6; Eosinophils % 5.2; HCT 31.2 % (40.0-50.0); HGB 10.5 g/dL (13.5-17.5); Immature Grans % 1.1; Lymphocytes % 17.9; MCH 31.1 pg (27.0-33.0); MCHC 33.7 % (32.0-36.0); MCV 92 fL (80-95); MPV 12.4 fL (8.0-11.0); Monocytes % 12.3; Neutrophils % 62.9; Nucleated RBC 0.1 % (0.0-0.3); Platelet Count 392 10^3/uL (130-400); RBC 3.38 10^6/uL (4.36-5.78); RDW 14.6 % (11.8-14.1); RDW-SD 49.1 fL; WBC 16.71 10^3/uL (4.4-10.8)
[2021-09-11 07:19] LABS: Absolute Neutrophil Count 10.51 10^3/uL (1.2-6.7)
[2021-09-11 07:31] LABS: ALT 24 U/L (16-63); AST 35 U/L (15-37); Albumin 2.3 g/dL (3.4-5.0); Alkaline Phosphatase 86 U/L (46-116); Anion Gap 6.7 mmol/L (3-11); BUN 27 mg/dL (7-18); Bilirubin, Total 0.7 mg/dL (0.2-1.0); CO2 28.3 mmol/L (21.0-32.0); CREATININE 1.8 mg/dL (0.70-1.30); Calcium 8.6 mg/dL (8.5-10.1); Chloride 102 mmol/L (98-107); Estimated GFR 37.82 (mL/min/1.73m2); Glucose 100 mg/dL (74-106); Magnesium 1.7 mg/dL (1.8-2.4); NT-proBNP 2108 pg/mL (<300); Potassium 3.3 mmol/L (3.5-5.1); Sodium 137 mmol/L (136-145); Total Protein 6.8 g/dL (6.4-8.2)
[2021-09-11] MEDS: Budesonide/Formoterol 80/4.5 6.9 GM 60 PUFF INH IH ×2 (07:49→20:39)
[2021-09-11] MEDS: Tiotropium Bromide-Respimat 10 PUFF INH 2 PUFF IH (07:49)
[2021-09-11 07:56] VITALS: BP 176/65; PULSE 60; RESP 20; TEMP 36.3; O2SAT 95
--- NOTE | 2021-09-11 07:56 | NUR.NOTE ---
Report taken from Jagruti Barrera Note:
[2021-09-11 08:27] LABS: C Diff PCR Negative (Negative)
[2021-09-11] MEDS: Apixaban 5 MG TAB PO ×2 (08:31→20:38)
[2021-09-11] MEDS: Aspirin 81 MG CHEW PO (08:31)
[2021-09-11] MEDS: Cyanocobalamin 500 MCG TAB 1000 MCG PO (08:32)
[2021-09-11] MEDS: Doxazosin 2 MG TAB 8 MG PO (08:32)
[2021-09-11] MEDS: Empaglifozin 10 MG TAB PO (08:33)
[2021-09-11] MEDS: Magnesium Oxide 400 MG TAB PO ×3 (08:34→20:38)
[2021-09-11] MEDS: Metoprolol CR 100 MG TABCR 200 MG PO (08:34)
[2021-09-11] MEDS: Multivitamin w/Minerals TAB 1 TAB PO (08:35)
[2021-09-11] MEDS: Pantoprazole 40 MG TABCR PO (08:35)
[2021-09-11] MEDS: Spironolactone 25 MG TAB 100 MG PO (08:36)
[2021-09-11] MEDS: QUEtiapine 25 MG TAB 12.5 MG PO (08:36)
[2021-09-11] MEDS: Rifaximin 550 MG TAB PO ×2 (08:36→20:38)
[2021-09-11] MEDS: Losartan 50 MG TAB PO (08:55)
[2021-09-11] MEDS: Furosemide 40 MG TAB PO ×2 (08:55→15:31)
[2021-09-11] MEDS: Potassium Chloride 10 MEQ CAPCR 40 MEQ PO (08:56)
--- NOTE | 2021-09-11 09:05 | CMPROGNOTE_ITS ---
- If Service Date Differs Date of service: 09/11/21 Time of Service: 09:05 Care Management Progress Note S/O: Jasvir was sitting up in his chair when CM met with him today. He reported that he is feeling better today. He engaged well with CM today, which is the first time during this admission that CM was able to have a full, meaningful conversation with him. CM discussed resources for sobriety, which he declined. He stated that he is unsure if he will return to work after this hospitalization . He reported that he plans to return home once he is medically cleared. Per RN, he walked well with PT today. MD sent prescriptions to his pharmacy today for Eliquis ($3copay), Jardiance ($3copay), and Rifaximin, which has a PA pending. If this is not approved, CM will inquire with MD to determine if there is an alternative that will be approved by his insurance. CM will continue to follow. A: Jasvir is a 66 year old man admitted on 09/02/21 with cellulitis P: Anticipate Jasvir will return home when ready, follow up with his community providers and plan of care and transport with family/friends. CM will support Jasvir and assess for discharge concerns.
--- NOTE | 2021-09-11 09:12 | NUR.NOTE ---
Patient boosted in bed. Patient feeds himself.Nursing Note:
--- NOTE | 2021-09-11 09:59 | PT.INTREAT ---
Date of service: 09/11/21 Time of Service: 09:32 PT Notes Visit Reasons: Cellulitus Inpatient Physical Therapy Treatment Note [facility] Date: 09/11/2021 PRECAUTIONS: Fall, activity as tolerated SUBJECTIVE: Jasvir's speech and pronunciation has improved today compared to yesterday. He is pleasant and agreeable to participating in PT. He, however, is not oriented to place, stating that he believes he is in the hospital in [place], [place]. OBJECTIVE: PAIN: Patient indicates that he continues to have pain in R LE. BED MOBILITY/TRANSFERS Sit-supine: SBA Sit-stand: CGA Stand-sit: CGA GAIT Assistive Device: No AD, COOK APPRENTICE PASTRY x1 in a.m.; SPC in p.m. Weight bearing: Full Assist: CGA in a.m.; CGA in p.m. Distance: 150' in a.m.; 300' in p.m. Deviation: Slow pacing, cueing to increase step height/length for safety; increased steadiness with use of SPC in p.m. VITALS: SaO2: 88-91% with gait training on RA STAIRS: Up/down 3x4 and 2x6 using B rails and a step-to pattern with SBA ASSESSMENT: Patient continues to demonstrate global weakness, although was able to tolerate gait training without assistive device support, requiring COOK APPRENTICE PASTRY x1 and CGA in a.m., although demonstrates improved gait stability with use of SPC and with CGA in p.m.. He appears more appropriate with his responses and communication today, and has progressed to ambulating without supplemental oxygen. PLAN: Continue with global strengthening and general conditioning for continued advancement toward patient's independent baseline level of function. TREATMENT CODE/TIME: Session 1: 24 minutes; 91823 x2 (09:32) Session 2: 16 minutes; [id number] (14:32)
--- NOTE | 2021-09-11 11:19 | W.SPSTP ---
Date of service: 09/11/21 Time of Service: 10:50 Subjective Pt was sitting up in his chair upon arrival. He greeted [employer] and was agreeable to treatment. Pt significantly more awake and alert than prior. Pt oriented to person and place. Objective/Assessment/Plan Objective Treatment Techniques & Outcomes: Skilled dysphagia treatment provided targeting diet modification analysis with regular and soft textures, instruction in safe swallow strategies including safe size bites, pacing rate of intake, thorough mastication, complete swallows between bites, and alternating sips of liquid every few bites of solids. Pt required moderate verbal and tactile cues as he was slightly impulsive. Pt was noted to fatigue as session progressed though coordination between respiration and swallowing was adequate. Patient/Caregiver/Staff Education: Pt education provided regarding current swallowing status, plan of care and goals. Staff education provided regarding diet upgrade and continued aspiration precautions while pt recovers from this acute episode. Assessment Pts overall mental status and swallowing status improving. He was able to manage all consistencies however he did fatigue easily with then slowed mastication and reduced bolus manipulation formation, and this could increase his risk of aspiration particularly with regular texture solids. Recommend upgrade to soft and bite sized/IDDSI Level 6, continue with aspiration precautions at this time including out of bed to chair for all meals. Plan to re-assess for Level 7/Regular solids on Tuesday. Plan Plan: Continue swallow treatment on Tuesday. Recommendations Diet: 6-Soft & Bite Size(advanced/chopped) Strategies/Adaptions: Upright and out of bed in a chair for all meals/snacks, Use supports to ensure upright/midline posture, Pace rate of intake, Small bites, Alternate liquids and solids, No straws, Ensure complete mastication & swallow before next bite and Upright for at least 30 minutes after meal Total Time Spent: 25 minutes Coding
[2021-09-11] MEDS: Insulin Aspart 300 UNITS/3 ML PEN SC ×3 (11:35→21:41)
--- NOTE | 2021-09-11 12:27 | W.PM.PROGNOT ---
Date of Service Date of service: 09/11/21 Time of Service: 12:27 Assessment and Plan Assessment and plan (1) Cellulitis of right leg: Status: Acute Assessment and plan: Right leg cellulitis improving currently still has a elevated leukocytosis but no fever and the erythema in the leg is improving. Patient previously on Zosyn now on Ancef. Continue to monitor inflammatory markers and clinical exam. Patient is medically stable was written to go to medical/surgical floor yesterday. He remains in ICU on overflow status secondary to staffing. Continue physical therapy. Consider switching oral antibiotics in the next 24 to 48 hours. Once he is on oral antibiotics patient can be discharged home. Professional time spent interviewing and examining patient, discussion of goals of care with hospital team (care management, nursing and consulting professionals) was 30 minutes. (2) Acute respiratory failure with hypoxia: Status: Acute Assessment and plan: Multifactorial but primarily secondary to CHF however he probably has some underlying COPD and BRISEIDA as well. Currently on 1/2 L of oxygen per nasal cannula. Will wean oxygen as tolerated. Perform amatory pulse oximetry prior to discharge. (3) GURPREET (acute kidney injury): Status: Acute Assessment and plan: Acute renal failure is improved creatinine is down to 1.8 BUN is down 27 from a peak of 47 and 2.4 still has electrolyte abnormalities including hypokalemia and hypomagnesemia secondary to continued diuretic use. I switch his IV diuretics to oral diuretics. Patient's been placed on spironolactone and potassium and magnesium supplementation. Continue to monitor electrolytes and renal function. (4) Atrial fibrillation with rapid ventricular response: Status: Resolved Assessment and plan: Continue Toprol XL 10 mg daily along with as needed Lopressor, continue apixaban. (5) Toxic metabolic encephalopathy: Status: Resolved Assessment and plan: Multifactorial including hepatic encephalopathy from his cirrhosis as well as sepsis that he initially presented with. Now resolving. Continue rifaximin. (6) Aspiration into airway: Status: Suspected Assessment and plan: There are some questionable aspiration earlier in his hospital course which has been evaluated by speech therapy. Has been cleared for minced and moist solids along with thin liquids. No further evidence of aspiration. Radiologic studies were not convincing for pneumonia. He has no cough no sputum production. Qualifiers: Encounter type: initial encounter Qualified Code(s): T17.908A - Unspecified foreign body in respiratory tract, part unspecified causing other injury, initial encounter (7) Hepatic cirrhosis: Status: Chronic Assessment and plan: Continue rifaximin. Continue spironolactone and Lasix to control his ascites. Qualifiers: Hepatic cirrhosis type: alcoholic cirrhosis Ascites presence: with ascites Qualified Code(s): K70.31 - Alcoholic cirrhosis of liver with ascites (8) Essential hypertension: Status: Acute Assessment and plan: BP well controlled on current regimen for his CHF and ascites and A. fib (9) Alcoholism: Status: Acute Assessment and plan: Per case management patient is declined referral to an alcoholism rehab field hockey coach. (10) Weakness: Status: Acute Assessment and plan: Continue physical therapy. For physical therapy patient continues to demonstrate global weakness but is able to tolerate gait training without assistive device or support. Did require home health aide x1 with CGA. He did not require supplemental oxygen during ambulation. Once his independently perform ADLs and ambulate independently he could be discharged home on oral antibiotics for his cellulitis. (11) Diabetes mellitus: Assessment and plan: A1c 5.6 on 06/05/21. On no medications. Continue sliding scale here. Add Jardiance 10 mg daily for his HFpEF (12) Hyponatremia: Status: Acute Assessment and plan: Dilutional. Improving with diuresis. Continue to monitor. (13) Hypomagnesemia: Status: Acute Assessment and plan: Magnesium slowly improving up to 1.7 today continue oral supplementation. (14) DVT prophylaxis: Status: Acute Assessment and plan: Now on Eliquis for his A. fib (15) Discharge planning issues: Status: Acute Assessment and plan: Full code Hemodynamically stable encephalopathy improving renal function improving. Patient's medically stable for transfer to medical/surgical floor on continuous telemetry; still needs hospitalization mildly optimize his medications and continue inpatient physical therapy. Subjective Subjective Interval history since last seen: Patient offers no new complaints. He is feeling better eating better. Patient is alert he is oriented person, place ([facility]), time (including month and year) HEENT is unremarkable Neck is supple no overt JVD Lungs are clear Heart regular with occasional ectopic beats Abdomen obese soft nontender with some ascites Lower extremities left leg with 1+ edema right leg with 2+ edema right leg with some faint erythema over the pretibial surfaces nontender and no increased warmth of the leg Objective Last Vital Signs Temp 36.3 C L 09/11/21 07:56 Pulse 60 09/11/21 07:56 Resp 20 09/11/21 07:56 BP 176/65 H 09/11/21 07:56 Pulse Ox 95 09/11/21 07:56 Laboratory Results - last 24 hr 09/10/21 09/11/21 09/11/21 15:30 04:40 06:00 WBC RBC Hgb Hct MCV MCH MCHC RDW Plt Count MPV Immature Gran % Neutrophils % Lymphocytes % Monocytes % Eosinophils % Basophils % Nucleated RBC % Absolute Neutrophils Absolute Lymphocytes Absolute Monocytes Absolute Eosinophils Absolute Basophils APTT Cancelled Sodium 137 Potassium 3.3 L Chloride 102 Carbon Dioxide 28.3 Anion Gap 6.7 BUN 27 H Creatinine 1.8 H Estimated GFR/1.73 m2 37.82 Glucose 100 Calcium 8.6 Magnesium 1.7 L Total Bilirubin 0.7 AST 35 ALT 24 Alkaline Phosphatase 86 NT-Pro-B Natriuret Pep 2108 H Total Protein 6.8 Albumin 2.3 L Stl C.difficile Tox PCR Negative 09/11/21 09/11/21 06:00 06:00 WBC 16.71 H RBC 3.38 L Hgb 10.5 L Hct 31.2 L MCV 92 MCH 31.1 MCHC 33.7 RDW 14.6 H Plt Count 392 MPV 12.4 H Immature Gran % 1.1 Neutrophils % 62.9 Lymphocytes % 17.9 Monocytes % 12.3 Eosinophils % 5.2 Basophils % 0.6 Nucleated RBC % 0.1 Absolute Neutrophils 10.51 H Absolute Lymphocytes 2.99 Absolute Monocytes 2.06 H Absolute Eosinophils 0.87 H Absolute Basophils 0.10 APTT Sodium Cancelled Potassium Cancelled Chloride Cancelled Carbon Dioxide Cancelled Anion Gap Cancelled BUN Cancelled Creatinine Cancelled Estimated GFR/1.73 m2 Cancelled Glucose Cancelled Calcium Cancelled Magnesium Total Bilirubin Cancelled AST Cancelled ALT Cancelled Alkaline Phosphatase Cancelled NT-Pro-B Natriuret Pep Total Protein Cancelled Albumin Cancelled Stl C.difficile Tox PCR PAWSS Have you Been Recently Intoxicated or Drunk Within the Last 30 days?: No Have you Ever Experienced Previous Episodes of Alcohol Withdrawal?: No Have you ever Experienced Withdrawal Seizures?: No Have you ever Experienced Delirium Tremens(DT)s?: No Have you ever undergone Alcohol Rehabilitation Treatment (i.e, inpt ot outpatient treatment programs)?: Yes Have you ever Experienced Blackouts?: No Have you ever Combined Alcohol with other Downers within the last 90 days?: No Have you ever Combined Alcohol with any other Substance of Abuse during the last 90 days?: No Positive Blood Alcohol level on Presentation? [PCS.BAL]: No Evidence of Increased Autonomic Activity (i.e. HR>120, tremor, sweating, agitation, nausea)?: No Result: 1
--- NOTE | 2021-09-11 12:54 | NUR.NOTE ---
Dr. King assesses patient in patient room.Nursing Note:
[2021-09-11] MEDS: Potassium Chloride 10 MEQ CAPCR 20 MEQ PO ×2 (13:44→20:37)
--- NOTE | 2021-09-11 14:06 | NUR.NOTE ---
Hardy wrap applied to right lower extremity.Nursing Note:
--- NOTE | 2021-09-11 14:09 | NUR.NOTE ---
Patient remains up in chair watching television in no distress.Nursing Note:
--- NOTE | 2021-09-11 14:43 | NUR.NOTE ---
BEACH PATROL LIEUTENANT gives report to Med/vice president residential solar salesMarti and patient ambulates to new room on Med/Surg which is room 225.Nursing Note:
[2021-09-11 15:01] VITALS: BP 187/77; PULSE 68; RESP 16; TEMP 35.7; O2SAT 97
--- NOTE | 2021-09-11 15:02 | NUR.NOTE ---
Nursing Note: [id number] Patient ambulated from ICU to room 225 with assistance from physical therapy. Patient alert and oriented x 3, denies chest pain or pressure, vital signs- see vital sign interventions. Heart sounds s1 and s2 present and regular, lung sounds clear on auscultation. Bowel sounds present in all 4 quadrants, no flatulent heard. Cap refill less than 3 seconds and skin in cool and dry. RLE kamilla wrapped at this time (not assessed by this ASSISTANT PLANT CONTROLLER). Patient is sitting in the chair with call raman and personal items within reach at this time.
[2021-09-11 15:39] VITALS: BP 166/91
[2021-09-11 19:05] VITALS: BP 178/72; PULSE 119; RESP 16; TEMP 36.8; O2SAT 94
[2021-09-11 21:00] VITALS: O2SAT 96
[2021-09-11] MEDS: QUEtiapine 25 MG TAB 50 MG PO (21:40)
[2021-09-11] MEDS: Melatonin 3 MG TAB 6 MG PO (21:40)
[2021-09-12] VITALS (9 sets, daily range): BP systolic 154–186; BP diastolic 82–96; PULSE 56–68; RESP 16–22; TEMP 36.1–36.6; O2SAT 91–97
[2021-09-12] MEDS: ceFAZolin 2 GM/50 ML BAG IVPB ×3 (05:33→22:31)
[2021-09-12] MEDS: Normal Saline Flush 10 ML SYR IVP ×4 (05:33→22:31)
[2021-09-12 07:44] LABS: Anion Gap 6.4 mmol/L (3-11); BUN 25 mg/dL (7-18); CO2 26.6 mmol/L (21.0-32.0); CREATININE 1.8 mg/dL (0.70-1.30); Calcium 8.7 mg/dL (8.5-10.1); Chloride 101 mmol/L (98-107); Estimated GFR 37.82 (mL/min/1.73m2); Glucose 100 mg/dL (74-106); Magnesium 1.6 mg/dL (1.8-2.4); Potassium 3.9 mmol/L (3.5-5.1); Sodium 134 mmol/L (136-145)
[2021-09-12] MEDS: Aspirin 81 MG CHEW PO (08:03)
[2021-09-12] MEDS: Spironolactone 25 MG TAB 100 MG PO (08:03)
[2021-09-12] MEDS: Doxazosin 2 MG TAB 8 MG PO (08:03)
[2021-09-12] MEDS: Pantoprazole 40 MG TABCR PO (08:04)
[2021-09-12] MEDS: Rifaximin 550 MG TAB PO ×2 (08:04→20:01)
[2021-09-12] MEDS: Magnesium Oxide 400 MG TAB PO (08:04)
[2021-09-12] MEDS: Apixaban 5 MG TAB PO ×2 (08:05→20:01)
[2021-09-12] MEDS: QUEtiapine 25 MG TAB 12.5 MG PO (08:05)
[2021-09-12] MEDS: Empaglifozin 10 MG TAB PO (08:05)
[2021-09-12] MEDS: Potassium Chloride 10 MEQ CAPCR 20 MEQ PO ×3 (08:06→20:01)
[2021-09-12] MEDS: Furosemide 40 MG TAB PO ×2 (08:07→16:51)
[2021-09-12] MEDS: Losartan 50 MG TAB PO (08:07)
[2021-09-12] MEDS: Metoprolol CR 100 MG TABCR 200 MG PO (08:07)
[2021-09-12] MEDS: Tiotropium Bromide-Respimat 10 PUFF INH 2 PUFF IH (08:08)
[2021-09-12] MEDS: Budesonide/Formoterol 80/4.5 6.9 GM 60 PUFF INH IH ×2 (08:08→20:01)
[2021-09-12] MEDS: Multivitamin w/Minerals TAB 1 TAB PO (08:08)
[2021-09-12] MEDS: Cyanocobalamin 500 MCG TAB 1000 MCG PO (08:08)
--- NOTE | 2021-09-12 08:08 | PT.INTREAT ---
Date of service: 09/12/21 Time of Service: 07:42 PT Notes Visit Reasons: Cellulitus Inpatient Physical Therapy Treatment Note [facility] Date: 09/12/2021 PRECAUTIONS: Fall, activity as tolerated SUBJECTIVE: Jasvir's speech and pronunciation has improved today compared to yesterday. He is pleasant and agreeable to participating in PT. He is AOx3 today. OBJECTIVE: PAIN: No c/o pain BED MOBILITY/TRANSFERS Supine-sit: S with HOB at 30 degrees Sit-stand: CGA Stand-sit: CGA GAIT Assistive Device: SPC Weight bearing: Full Assist: CGA Distance: 200' Deviation: Slow pacing, cueing to increase step height/length for safety, mild unsteadiness ASSESSMENT: Patient demonstrates imporved ability to perform transfers with decreased assist. Although he continues to require CGA with sit<>stand transfers due to mild unsteadiness. He continues to appear more appropriate with his responses and communication, and has progressed to ambulating without supplemental oxygen. PLAN: Continue with global strengthening and general conditioning for continued advancement toward patient's independent baseline level of function. TREATMENT CODE/TIME: 21 minutes; 29965 (07:42)
[2021-09-12] MEDS: MAGNESIUM SULFATE 4 GM/100 ML BAG IVPB (12:23)
[2021-09-12 13:12] LABS: MCH 31.3 pg (27.0-33.0); MCHC 33.3 % (32.0-36.0); MCV 94 fL (80-95); MPV 12.4 fL (8.0-11.0); Platelet Count 409 10^3/uL (130-400); RBC 3.84 10^6/uL (4.36-5.78); RDW 14.7 % (11.8-14.1); RDW-SD 50.4 fL; WBC 15.29 10^3/uL (4.4-10.8)
[2021-09-12 13:30] LABS: Absolute Basophil Count 0.15 10^3/uL (0.0-0.2); Absolute Eosinophil Count 0.46 10^3/uL (0.0-0.7); Absolute Lymphocyte Count 2.29 10^3/uL (1.2-3.4); Absolute Monocyte Count 0.46 10^3/uL (0.1-0.8); Absolute Neutrophil Count 11.93 10^3/uL (1.2-6.7); Diff Comment Manual Differential; RBC Morphology Normal
[2021-09-12] MEDS: Magnesium Chloride 64 MG TABCR 128 MG PO ×2 (14:09→20:00)
--- NOTE | 2021-09-12 14:16 | W.PM.PROGNOT ---
Date of Service Date of service: 09/12/21 Time of Service: 14:16 Assessment and Plan Assessment and plan (1) Cellulitis of right leg: Status: Acute Assessment and plan: Continue Ancef 2 g IV every 8 hours. We will plan to switch to oral antibiotics over the next 24 hours to Keflex 500 mg 4 times daily. Professional time spent interviewing and examining patient, discussion of goals of care with hospital team (care management, nursing and consulting professionals) was 30 minutes. (2) Acute respiratory failure with hypoxia: Status: Resolved Assessment and plan: Initial acute respiratory failure was multifactorial including probable underlying COPD, possible underlying BRISEIDA and initially he presented with acute congestive heart failure and also had an aspiration event. Patient continues to improve he is down to 1 L/min per nasal cannula. We will get an ambulatory pulse oximetry study to see if he qualifies for home oxygen. He will need to follow-up PFTs. Continue Spiriva along with as needed use of Xopenex. Continue Symbicort. We will arrange outpatient PSG. (3) GURPREET (acute kidney injury): Status: Acute Assessment and plan: Overall his renal function has improved over his hospital course from a peak creatinine of 2.4 down his current level 1.8. BUN is down to 25 from a peak of 47. We will continue to monitor his renal function. Continue current goal-directed therapy for his heart failure. Correct any electrolyte abnormalities. Magnesium is low at 1.6. Currently on oral supplementation we will give an additional IV bolus today and recheck his labs in the morning. (4) Atrial fibrillation with rapid ventricular response: Status: Resolved Assessment and plan: Patient currently is in sinus rhythm. Continue current treatment with metoprolol XL 200 mg daily. Continue anticoagulation with apixaban. (5) Hepatic cirrhosis: Status: Chronic Assessment and plan: Continue rifaximin. Continue spironolactone and Lasix to control his ascites. I sent a new prior authorization for his rifaximin. Qualifiers: Hepatic cirrhosis type: alcoholic cirrhosis Ascites presence: with ascites Qualified Code(s): K70.31 - Alcoholic cirrhosis of liver with ascites (6) Essential hypertension: Status: Acute Assessment and plan: BP well controlled on current regimen for his CHF and ascites and A. fib (7) Alcoholism: Status: Acute Assessment and plan: Per case management patient is declined referral to an alcoholism rehab assistant baseball coach. (8) Weakness: Status: Acute Assessment and plan: Continue physical therapy. For physical therapy patient continues to demonstrate global weakness but is able to tolerate gait training without assistive device or support. Did require home health aide x1 with CGA. He did not require supplemental oxygen during ambulation. Once his independently perform ADLs and ambulate independently he could be discharged home on oral antibiotics for his cellulitis. (9) Diabetes mellitus: Assessment and plan: A1c 5.6 on 06/05/21. On no medications. Continue sliding scale here. Add Jardiance 10 mg daily for his HFpEF (10) Hypomagnesemia: Status: Acute Assessment and plan: Magnesium slowly improving up to 1.6 today continue oral supplementation along with IV supplementation. (11) DVT prophylaxis: Status: Acute Assessment and plan: Now on Eliquis for his A. fib (12) Discharge planning issues: Status: Acute Assessment and plan: Full code Hemodynamically stable encephalopathy improving renal function improving. Patient's medically stable for transfer to medical/surgical floor on continuous telemetry; still needs hospitalization mildly optimize his medications and continue inpatient physical therapy. Subjective Subjective Interval history since last seen: Patient is continuing to improve he denies any dyspnea. He has no sputum production or cough. No chest tightness. Leg edema has improved he continues to show improvement in his cellulitis of his right leg. He is on Ancef 2 g every 8 hours for this. We are continue to titrate his goal-directed therapy for his heart failure. I am going to switch him from losartan to Entresto today. We will continue with the Lasix and the spironolactone and the Toprol-XL. Although he is now off of telemetry as of this morning, last night his rhythm was sinus rhythm in the 60s these remained sinus rhythm now for a few days therefore I am going to stop his telemetry. I think he is nearing ready for discharge home however he will need to be evaluated for an ambulatory pulse oximetry to see if he qualifies for home oxygen. Nursing reports that his oxygen saturation dropped down to 87% on room air when he was up to the bathroom this morning. Exam Narrative Exam Narrative: Mr. Sparks is alert and oriented person place time circumstance he is sitting up in his chair wearing his oxygen at 1 L/min in no respiratory discomfort denies any chest pain or dyspnea. Lungs are clear to auscultation Heart is regular in rate and rhythm with no audible murmur rub Abdomen is obese soft nontender Leg edema has improved right leg still has some faint erythema over the distal tibia but this is also improving. Buttocks area shows some rash for which nursing speculated may have been poison sarbjit. It is over both buttocks cheeks there is already some scabbing in the skin where there had been some lesions. There is no purulent drainage. It is nontender. Objective Last Vital Signs Temp 36.5 C 09/12/21 07:48 Pulse 68 09/12/21 08:01 Resp 16 09/12/21 07:48 BP 154/96 H 09/12/21 11:40 Pulse Ox 97 09/12/21 10:36 Laboratory Results - last 24 hr 09/12/21 09/12/21 06:20 06:39 WBC 15.29 H RBC 3.84 L Hgb 12.0 L Hct 36.0 L MCV 94 MCH 31.3 MCHC 33.3 RDW 14.7 H Plt Count 409 H MPV 12.4 H Immature Gran % 0.0 Neutrophils % 78.0 Lymphocytes % 15.0 Monocytes % 3.0 Eosinophils % 3.0 Basophils % 1.0 Nucleated RBC % 0.0 Absolute Neutrophils 11.93 H Absolute Lymphocytes 2.29 Absolute Monocytes 0.46 Absolute Eosinophils 0.46 Absolute Basophils 0.15 RBC Morphology Normal Sodium 134 L Potassium 3.9 Chloride 101 Carbon Dioxide 26.6 Anion Gap 6.4 BUN 25 H Creatinine 1.8 H Estimated GFR/1.73 m2 37.82 Glucose 100 Calcium 8.7 Magnesium 1.6 L PAWSS Have you Been Recently Intoxicated or Drunk Within the Last 30 days?: No Have you Ever Experienced Previous Episodes of Alcohol Withdrawal?: No Have you ever Experienced Withdrawal Seizures?: No Have you ever Experienced Delirium Tremens(DT)s?: No Have you ever undergone Alcohol Rehabilitation Treatment (i.e, inpt ot outpatient treatment programs)?: Yes Have you ever Experienced Blackouts?: No Have you ever Combined Alcohol with other Downers within the last 90 days?: No Have you ever Combined Alcohol with any other Substance of Abuse during the last 90 days?: No Positive Blood Alcohol level on Presentation? [PCS.BAL]: No Evidence of Increased Autonomic Activity (i.e. HR>120, tremor, sweating, agitation, nausea)?: No Result: 1
--- NOTE | 2021-09-12 18:37 | NUR.NOTE ---
Nursing Note: I have reviewed the documentation of Mignon Sepulveda LPN. I find it to be complete and accurate.
[2021-09-12] MEDS: Sacubitril/Valsartan 49 mg/51 mg TAB 1 EACH PO (20:01)
[2021-09-12] MEDS: QUEtiapine 25 MG TAB 50 MG PO (22:30)
[2021-09-12] MEDS: Melatonin 3 MG TAB 6 MG PO (22:30)
[2021-09-12] MEDS: Normal Saline 500 ML 20 ML IV (22:31)
[2021-09-13 06:13] LABS: Anion Gap 7.8 mmol/L (3-11); BUN 26 mg/dL (7-18); CO2 25.2 mmol/L (21.0-32.0); CREATININE 1.9 mg/dL (0.70-1.30); Calcium 8.3 mg/dL (8.5-10.1); Chloride 102 mmol/L (98-107); Estimated GFR 35.54 (mL/min/1.73m2); Glucose 111 mg/dL (74-106); Magnesium 2.3 mg/dL (1.8-2.4); Potassium 4.2 mmol/L (3.5-5.1); Sodium 135 mmol/L (136-145)
[2021-09-13] MEDS: ceFAZolin 2 GM/50 ML BAG IVPB ×2 (06:13→14:19)
[2021-09-13 07:39] VITALS: BP 161/77; PULSE 82; RESP 18; TEMP 37.5; O2SAT 96
[2021-09-13] MEDS: Magnesium Chloride 64 MG TABCR 128 MG PO ×3 (07:46→19:59)
[2021-09-13] MEDS: Aspirin 81 MG CHEW PO (07:46)
[2021-09-13] MEDS: Potassium Chloride 10 MEQ CAPCR 20 MEQ PO ×3 (07:46→19:59)
[2021-09-13] MEDS: Spironolactone 25 MG TAB 100 MG PO (07:47)
[2021-09-13] MEDS: Pantoprazole 40 MG TABCR PO (07:47)
[2021-09-13] MEDS: Empaglifozin 10 MG TAB PO (07:47)
[2021-09-13] MEDS: Multivitamin w/Minerals TAB 1 TAB PO (07:47)
[2021-09-13] MEDS: Cyanocobalamin 500 MCG TAB 1000 MCG PO (07:47)
[2021-09-13] MEDS: Doxazosin 2 MG TAB 8 MG PO (07:47)
[2021-09-13] MEDS: Sacubitril/Valsartan 49 mg/51 mg TAB 1 EACH PO ×2 (07:47→19:59)
[2021-09-13] MEDS: Rifaximin 550 MG TAB PO ×2 (07:48→19:59)
[2021-09-13] MEDS: Apixaban 5 MG TAB PO ×2 (07:48→19:59)
[2021-09-13] MEDS: Furosemide 40 MG TAB PO ×2 (07:48→16:57)
[2021-09-13] MEDS: QUEtiapine 25 MG TAB 12.5 MG PO (07:48)
[2021-09-13] MEDS: Budesonide/Formoterol 80/4.5 6.9 GM 60 PUFF INH IH ×2 (07:48→20:06)
[2021-09-13] MEDS: Tiotropium Bromide-Respimat 10 PUFF INH 2 PUFF IH (07:49)
[2021-09-13] MEDS: Metoprolol CR 100 MG TABCR 200 MG PO (07:50)
--- NOTE | 2021-09-13 10:17 | PT.INTREAT ---
Date of service: 09/13/21 Time of Service: 09:48 PT Notes Visit Reasons: Cellulitus Inpatient Physical Therapy Treatment Note [facility] Date: 09/13/2021 PRECAUTIONS: Fall, activity as tolerated SUBJECTIVE: Jasvir continues to feel better. He is pleasant and agreeable to participating in PT. He reports that he has a cane at home that he will use upon discharge. He also reports that he plans to take some time off from work to get adjusted once he is back home. He is agreeable to PT referral for continued strengthening once home. OBJECTIVE: PAIN: No c/o pain BED MOBILITY/TRANSFERS Sit-supine: I with HOB at 30 degrees Sit-stand: SBA Stand-sit: SBA GAIT Assistive Device: SPC Weight bearing: Full Assist: SBA Distance: 300' Deviation: Slow pacing, cueing to increase step height/length for safety ASSESSMENT: Patient demonstrates improved ability to perform transfers with decreased assist. He tolerates gait training with SBA with SPC support, demonstrating increased steadiness. PLAN: Continue with global strengthening and general conditioning for continued advancement toward patient's independent baseline level of function. TREATMENT CODE/TIME: 15 minutes; [id number] (09:48)
[2021-09-13] MEDS: Insulin Aspart 300 UNITS/3 ML PEN SC ×2 (11:46→16:58)
[2021-09-13] MEDS: Phenylephrine SPRAY 1% 15 ML BTL NS (14:20)
[2021-09-13] MEDS: Thrombin 5,000 UNITS VIAL 5000 UNITS TP ×2 (14:23)
--- NOTE | 2021-09-13 14:38 | PGE_ITS ---
Date of Service Date of service: 09/13/21 Time of Service: 14:38 Assessment and Plan Assessment and plan (1) Anterior epistaxis: Status: Acute Assessment and plan: bleeding controlled w/ neosynephrine and thrombin soaked nasal tamponade. Will leave tamponade in overnight and hold up discharge overnight until sure that he has no further bleeding particularly since he is on apixaban for PAF. Professional time spent examining and treating patient and discussion of his care w/ nursing was 30 minutes. (2) Cellulitis of right leg: Status: Acute Assessment and plan: dc ancef. Begin Keflex 500 mg qid (3) Acute respiratory failure with hypoxia: Status: Resolved Assessment and plan: Initial acute respiratory failure was multifactorial including probable un derlying COPD, possible underlying BRISEIDA and initially he presented with acute congestive heart failure and also had an aspiration event. He is now on room air w/ SPO2 of 96%. He will need to follow-up PFTs. Continue Spiriva along with as needed use of Xopenex. Continue Symbicort. We will arrange outpatient PSG. (4) GURPREET (acute kidney injury): Status: Acute Assessment and plan: Overall his renal function has improved over his hospital course from a peak creatinine of 2.4 down his current level 1.9. BUN is down to 26 from a peak of 47. We will continue to monitor his renal function. Continue current goal- directed therapy for his heart failure. Correct any electrolyte abnormalities. Magnesium level has corrected to 2.3. Currently on oral supplementation (5) Atrial fibrillation with rapid ventricular response: Status: Resolved Assessment and plan: Patient currently is in a regular rhythm. He is no longer on telemetry. Continue current treatment with metoprolol XL 200 mg daily. Continue anticoagulation with apixaban. (6) Hepatic cirrhosis: Status: Chronic Assessment and plan: Continue rifaximin. Continue spironolactone and Lasix to control his ascites. I sent a new prior authorization for his rifaximin. Qualifiers: Hepatic cirrhosis type: alcoholic cirrhosis Ascites presence: with ascites Qualified Code(s): K70.31 - Alcoholic cirrhosis of liver with ascites (7) Essential hypertension: Status: Acute Assessment and plan: BP well controlled on current regimen for his CHF and ascites and A. fib (8) Alcoholism: Status: Acute Assessment and plan: Per case management patient is declined referral to an alcoholism rehab retail performance coach. (9) Weakness: Status: Acute Assessment and plan: Continue physical therapy. For physical therapy patient continues to demonstrate global weakness but is able to tolerate gait training without assistive device or support. Did require home health aide x1 with CGA. He did not require supplemental oxygen during ambulation. Once his independently perform ADLs and ambulate independently he could be discharged home on oral antibiotics for his cellulitis. (10) Diabetes mellitus: Assessment and plan: A1c 5.6 on 06/05/21. On no medications. Continue sliding scale here. Add Jardiance 10 mg daily for his HFpEF (11) Hypomagnesemia: Status: Acute Assessment and plan: repleted. cont. oral supplementation (12) DVT prophylaxis: Status: Acute Assessment and plan: Now on Eliquis for his A. fib (13) Discharge planning issues: Status: Acute Assessment and plan: Full code patient will be dc home w/ follow up home health services including home nursing and home P.T. Discharge was anticipated today but d/t his epistaxis, this will be delayed until the morning. Subjective Subjective Interval history since last seen: Patient was seen earlier prior to team meeting at 11 AM. Patient seemed to be ready for discharge no chest pain pressure palpitations no dyspnea. However after lunch patient had been picking at his nose and pulled a scab from the right nares causing significant nosebleeding. This was controlled with use of Gen-Synephrine, thrombin soaked Rhino Rocket. Patient be monitored overnight to ensure the is no rebleeding since the patient is on Apixaban Exam Narrative Exam Narrative: Jasvir is alert and oriented he is having bleeding from his right anterior nares. I was able to control the bleeding with use of Gen-Synephrine spray along with nasal tamponade soaked with thrombin. Bleeding was coming from the nasal septum anteriorly just inside his right nostril Oropharynx no bleeding; left nostril no bleeding Lungs: clear Heart: regular rate and rhythm Abdomen: soft, nontender Legs: right leg w/ markedly improved cellulitis; just some faint pinkness to the anterior tibia; no drainage Objective Last Vital Signs Temp 37.5 C 09/13/21 07:39 Pulse 82 09/13/21 07:39 Resp 18 09/13/21 07:39 BP 161/77 H 09/13/21 07:39 Pulse Ox 96 09/13/21 07:39 Laboratory Results - last 24 hr 09/13/21 05:26 Sodium 135 L Potassium 4.2 Chloride 102 Carbon Dioxide 25.2 Anion Gap 7.8 BUN 26 H Creatinine 1.9 H Estimated GFR/1.73 m2 35.54 Glucose 111 H Calcium 8.3 L Magnesium 2.3 PAWSS Have you Been Recently Intoxicated or Drunk Within the Last 30 days?: No Have you Ever Experienced Previous Episodes of Alcohol Withdrawal?: No Have you ever Experienced Withdrawal Seizures?: No Have you ever Experienced Delirium Tremens(DT)s?: No Have you ever undergone Alcohol Rehabilitation Treatment (i.e, inpt ot outpatient treatment programs)?: Yes Have you ever Experienced Blackouts?: No Have you ever Combined Alcohol with other Downers within the last 90 days?: No Have you ever Combined Alcohol with any other Substance of Abuse during the last 90 days?: No Positive Blood Alcohol level on Presentation? [PCS.BAL]: No Evidence of Increased Autonomic Activity (i.e. HR>120, tremor, sweating, agitation, nausea)?: No Result: 1
[2021-09-13 15:42] VITALS: BP 121/70; PULSE 66; RESP 18; TEMP 36.9; O2SAT 92
--- NOTE | 2021-09-13 17:48 | WOUNDCARE ---
Wound Care Report Hardy wrap was removed this afternoon to assess leg. Overall swelling reduced, still warm mid fore leg and red at that point. Edema has reduced significantly, except for foot , which is still a 3 +
[2021-09-13 19:55] VITALS: BP 177/77; PULSE 70
[2021-09-13] MEDS: Cephalexin 500 MG CAP PO (19:59)
[2021-09-13 21:20] VITALS: BP 168/77; PULSE 71
[2021-09-13] MEDS: Normal Saline Flush 10 ML SYR IVP (21:43)
[2021-09-14 00:15] VITALS: BP 147/74; PULSE 77; RESP 18; TEMP 37.1; O2SAT 93
[2021-09-14] MEDS: Furosemide 40 MG TAB PO (07:39)
[2021-09-14] MEDS: Apixaban 5 MG TAB PO (07:39)
[2021-09-14] MEDS: Rifaximin 550 MG TAB PO (07:39)
[2021-09-14] MEDS: Pantoprazole 40 MG TABCR PO (07:40)
[2021-09-14] MEDS: Doxazosin 2 MG TAB 8 MG PO (07:40)
[2021-09-14] MEDS: Empaglifozin 10 MG TAB PO (07:40)
[2021-09-14] MEDS: Cyanocobalamin 500 MCG TAB 1000 MCG PO (07:40)
[2021-09-14] MEDS: Spironolactone 25 MG TAB 100 MG PO (07:41)
[2021-09-14] MEDS: Sacubitril/Valsartan 49 mg/51 mg TAB 1 EACH PO (07:41)
[2021-09-14] MEDS: Potassium Chloride 10 MEQ CAPCR 20 MEQ PO (07:41)
[2021-09-14] MEDS: Multivitamin w/Minerals TAB 1 TAB PO (07:41)
[2021-09-14] MEDS: Metoprolol CR 100 MG TABCR 200 MG PO (07:41)
[2021-09-14] MEDS: Aspirin 81 MG CHEW PO (07:41)
[2021-09-14] MEDS: Magnesium Chloride 64 MG TABCR 128 MG PO (07:42)
[2021-09-14] MEDS: QUEtiapine 25 MG TAB 12.5 MG PO (07:42)
[2021-09-14] MEDS: Budesonide/Formoterol 80/4.5 6.9 GM 60 PUFF INH IH (07:43)
[2021-09-14] MEDS: Tiotropium Bromide-Respimat 10 PUFF INH 2 PUFF IH (07:43)
[2021-09-14 07:44] VITALS: BP 167/79; PULSE 70; RESP 16; TEMP 36.7; O2SAT 94
--- NOTE | 2021-09-14 08:05 | DSE_ITS ---
Date of service: 09/14/21 Time of Service: 11:00 DS: Diagnosis Discharge Diagnosis (1) Acute respiratory failure with hypoxia: Status: Resolved Asessment and Plan: Acute respiratory failure from hypervolemia/CHF with preserved ejection fraction. Also possible aspiration event. Patient initially was treated for cellulitis of his right leg with vancomycin and subsequently cefepime was added but after he was transferred to the intensive care unit with rapid atrial fibrillation and CHF on 09/05/2021 he was switched to Zosyn. He was made n.p.o. until he was cleared by speech-language pathologist. Eventually he was put on minced and moist and foods and thin liquids and tolerated diet. His hypoxemia improved with aggressive IV diuresis and patient was placed on goal-directed therapy for CHF. Zosyn was eventually downgraded to Ancef for his cellulitis. He was eventually weaned off of supplemental oxygen although initially when he went into the intensive care unit he did require BiPAP. It suspected that he probably has some underlying obstructive sleep apnea and COPD although he has not had a formal work-up for this yet. Upon discharge patient was ambulating on room air with no desaturation and no dyspnea. Patient be continued on 5 more days of Keflex for his cellulitis. (2) Aspiration into airway: Status: Resolved Asessment and Plan: As mentioned above MAKING MACHINE CATCHER was consulted and dietary recommendations were made and patient was given instructions from the speech-language pathologist regarding minced and moist and solids along with thin liquids and proper positioning for meals including being upright for 30 minutes after meals. (3) Cellulitis of right leg: Status: Acute Asessment and Plan: Cellulitis was treated initially with vancomycin and then cefepime was added to his regimen and finally on 09/05/2021 antibiotics were changed to Zosyn out of concern for possible aspiration pneumonitis in addition to his cellulitis. Zosyn was discontinued on 09/10/2021 and he was switched to Ancef for completion of treatment of his cellulitis. Eventually he was switched from Ancef to Keflex. He will be discharged on 5 more days of Keflex 500 mg 4 times daily. (4) GURPREET (acute kidney injury): Status: Acute Asessment and Plan: Patient presented with acute renal insufficiency with a creatinine 1.6 felt to be due to dehydration but despite aggressive IV fluids his creatinine went up to 2.6. It peaked at 3.3 and his BUN peaked at 44. Initially this was thought to be hepatorenal syndrome and he was treated briefly with midodrine and octreotide. But after telephone consultation with nephrology it was decided that this was not hepatorenal syndrome but prior combination of prerenal azotemia with superimposed ATN from contrast nephropathy. Patient had been volume resuscitated and actually was hypervolemic and required diuresis. His creatinine eventually recovered to level 1.8-1.9 and this was the level that he was discharged at. He had problems with hypomagnesemia which was corrected with oral and IV supplementation at the time of discharge his magnesium level was 2.3. Echocardiogram was performed on 09/08/2021 and showed borderline dilated left ventricle with a preserved ejection fraction of 55% no wall motion abnormalities. RV and RA were not well visualized. Left atrium is mildly dilated. Aortic valve is trileaflet with mild sclerosis but no stenosis or regurgitation. He has moderate MAC with trace mitral regurgitation. Estimated RVSP is 31 mm. These findings are consistent with heart failure with preserved ejection fraction. (5) Atrial fibrillation with rapid ventricular response: Status: Resolved Asessment and Plan: Patient felt atrial fibrillation with rapid ventricular response on 09/05/2021 and ended up being transferred to intensive care unit with acute respiratory failure and CHF and questionable aspiration pneumonia. Atrial fibrillation was treated with IV Lopressor and then he was transitioned over to oral Lopressor and titrated up and switch over to Toprol-XL 200 mg daily. He was initially anticoagulated w/heparin drip but was transitioned to oral apixaban. an outpatient referral to cardiology has been made. Orders have been placed for follow up 14 day cardiac event recorder. (6) Hepatic cirrhosis: Status: Chronic Asessment and Plan: Patient developed encephalopathy felt to be hepatic in origin. He was put on lactulose but developed severe diarrhea from this and was changed to Rifaximin. Patient has been referred to GI at [facility] for outpatient follow up. He did require Seroquel for his behviorial issues but at the time of discharge was doing well and his encephalopathy had cleared. (7) Essential hypertension: Status: Chronic Asessment and Plan: his home dose of losartan was changed to Entresto and he was kept on Metoprolol XL. He was also put on oral lasix and spironolactone for his CHF. If further BP meds need to be added then consider adding amlodipine. (8) Alcoholism: Status: Chronic Asessment and Plan: CM met w/ the patient and offered referral to alcohol rehab curriculum coach/counselor but patient declined this offer. (9) Weakness: Status: Acute Asessment and Plan: patient was evaluated and treated by P.T. during his hospital course and he improved to the point that he was performing his ADL's and walking w/ single point cane. They recommend continued home health w/ home P.T. and O.T. to follow up in the home and to transition to outpatient P.T. (10) Diabetes mellitus: Asessment and Plan: DM was managed w/ sliding scale Novolog. He should resume his Janumet upon discharge and follow up w/ his PCP for outpatient adjustment. Patient was put on Jardiance for his CHF which may also help w/ his DM management. (11) Hypomagnesemia: Status: Resolved (12) Anterior epistaxis: Status: Resolved Asessment and Plan: on the day prior to dc home, he had an right anterior epistaxis from picking a scab from his nose. This necessitated application of neosynephrine, thrombin and a nasal packing w/ a Rhino-rocket and delayed his discharge overnight by one day. (13) Discharge planning issues: Status: Resolved Asessment and Plan: patient declined any referral to SNF and in fact did well eough for P.T. that he was deemed to be safe to return home w/ home health services including nursing, P.T., O.T. and MAKING MACHINE CATCHER. Discharge Plan Disposition Patient Disposition: HOME W/HOME HEALTH SERVICE Condition: Good Discharge Details Reason For Visit: Cellulitus Admit Date/Time: 09/02/21 11:22 Admit Provider: Saleem Alva Attending Provider: Saleem Alva Primary Care Provider: Aston Alicea Hospital Course Hospital Course: 66 yr old type 2 DM w/ alcoholism and HTN, probable underlying COPD and BRISEIDA (not formal workup) who presented w/ generalized weakness, dehydration, falls at home w/ questionable syncope or near syncope, found to have cellulitis of right lower leg and was found to be in acute renal insufficiency and developed worsening renal failure d/t ATN from contrast nephropathy (had multiple CT scans of chest/abdomen/pelvis and RLE, went into rapid afib and acute CHF (found to have HFPEF), azotemia eventually improved, afib was controlled w/ iv then oral lopressor and he was anticoagaulated initially w/ heparin then switched to apixaban. Anticoagulation was complicated by epistaxis which was controlled w/ nasal packing and thrombin. Patient was treated initially w/ vancomycin and cefepime then switched to Zosyn and finally completed Ancef and was switchted to keflex. he was diuresed out of acute CHF and put on goal directed therapy w/ Toprol XL, spironolactone, lasix and Entresto and Jardiance. Hepatic encephalopathy has been treated w/ Rifaximin after failure w/ lactulose and he was put on Seroquel. Patient had epistaxis of right nares which was treated w/ nasal tamponade and thrombin. MAKING MACHINE CATCHER was consulted out of concern for aspiration and he was cleared for moist/minced foods w/ thin liquids. Referral has been made to GI at [facility] to follow up on his cirrhosis. patient declined to have an alcohol rehab monomer recovery supervisor. Home Meds and New Rx's Prescriptions: New Eliquis 5 mg Tablet 5 mg PO BID Qty: 60 0RF budesonide-formoterol [Symbicort] 80-4.5 mcg/actuation Hfa Aerosol Inhaler 2 puff inhalation BID Qty: 10.2 0RF cephalexin 500 mg Capsule 500 mg PO QID Qty: 20 0RF cyanocobalamin (vitamin B-12) [Vitamin B-12] 500 mcg Tablet 1,000 mcg PO DAILY Qty: 30 0RF Jardiance 10 mg Tablet 10 mg PO QAM Qty: 30 0RF furosemide 40 mg Tablet 40 mg PO BID@0830,1600 Qty: 60 0RF Mag 64 64 mg Tablet,Delayed Release (Dr/Ec) 128 mg PO BID Qty: 60 0RF Inhaler, Assist Devices [Pocket Chamber] 1 ea miscellaneous DIRECTED Qty: 0 0RF One Daily Multi-Vit w-Mineral 4.5 mg iron Tablet 1 tab PO DAILY Qty: 30 0RF quetiapine 25 mg Tablet 50 mg PO HS Qty: 30 0RF Xifaxan 550 mg Tablet 550 mg PO BID Qty: 60 0RF Entresto 49-51 mg Tablet 1 tab PO BID Qty: 60 0RF Spiriva Respimat 2.5 mcg/actuation Mist 2 puff inhalation DAILY Qty: 4 0RF spironolactone [Aldactone] 100 mg tablet 100 mg PO QAM Qty: 30 0RF potassium chloride 20 mEq tablet extended release 20 meq PO DAILY Qty: 30 0RF Proair Digihaler 90 mcg/actuation aero powdr breath act w/sensor 90 mcg inhalation Q6H PRNQty: 1 0RF Continued atorvastatin 10 mg tablet 10 mg PO .twice/week Qty: 30 3RF Rx Instructions: take 2 days/week Janumet 50-1,000 mg tablet 1 tab PO DAILY AM Qty: 90 3RF metoprolol succinate 200 mg tablet extended release 24 hr 200 mg PO DAILY Qty: 90 3RF doxazosin [Cardura] 8 mg tablet 8 mg PO DAILY Qty: 90 3RF (DME) lancets 28 gauge misc 1 ea Miscellaneous DAILY Qty: 100 3RF Rx Instructions: test once/day (DME) blood-glucose meter misc 1 ea Miscellaneous DAILY Qty: 1 0RF Rx Instructions: METER TYPE ONE TOUCH ULTRA MINI DIAGNOSIS CODE E11.8 (DME) Blood Glucose Test strip 1 ea Miscellaneous DAILY Qty: 100 3RF Rx Instructions: test once daily fish oil 1,000 cap PO .once daily Label Comments: 04/19/17 stopped Sat then restarted last noc. si Discontinued chlorthalidone 25 mg tablet 25 mg PO DAILY Qty: 30 2RF losartan 100 mg tablet 50 mg PO DAILY Qty: 90 3RF Rx Instructions: dose Reduced 08/06/20 aspirin [Aspirin Low-Strength] 81 MG tablet,chewable 81 mg PO DAILY Label Comments: 04/19/17 stopped Sat. si Discharge Instructions Instructions: A-fib (Atrial Fibrillation) (DC), Cirrhosis (DC), Acute Kidney Injury (DC), Cellulitis (DC), Alcohol Dependence (DC), Aspiration Precautions (DC) Additional Instructions: Follow speech therapy's recommendations regarding meals which is as follows:Diet: Soft & Bite Size(advanced/chopped) Strategies/Adaptions: Upright and out of bed in a chair for all meals/snacks, Use supports to ensure upright/midline posture, Pace rate of intake, Small bites, Alternate liquids and solids, No straws, Ensure complete mastication & swallow before next bite and Upright for at least 30 minutes after meal Avoid any alcohol intake. You have cirrhosis of your liver and any alcohol consumption further compromises your liver function, is toxic to your bone marrow and can worsen heart failure in addition to leading to mental slowing and nerve abnormalities. You have been treated w/ nearly 2 weeks of antibiotics for cellulitis of your right leg and were also treated for aspiration pneumonia. Your leg is improving and you are being prescribed 5 more days of an oral antibiotic (cephalexin). You should have routine follow up lab work done in one week. You were also treated for acute congesitve heart failure and have been put on medications directed towards controlling the heart failure and to control an irregular heart rhythm, called atrial fibrillation. You will be referred to see a studio director, Dr. Meredith Funez at [facility]. You were put on a blood thinner, apixaban, to prevent strokes which may occur when a patient has atrial fibrillation. You need to be cautious about any activities that could lead to any falls or head injuries or any cuts. If you have a cut you may need to hold pressure longer than normal to get the bleeding to stop. If you have any serious trauma or head injury then you need to seek immediate medical attention due to the risk for internal bleeding. Stop your aspirin as it will increase the risk of bleeding while taking a blood thinner such as apixaban. Stand Alone Forms: Nursing Discharge Form Referrals: GASTROENTEROLOGY,[facility] [OTHER] - (Referral sent. They will be reaching out with an appt.) Meredith Funez MD [ [facility] STAFF PHYSICIAN] - (CARDIOLOGY WILL CALL YOU WITH A APPOINTMENT) Aston Alicea MD [Primary Care Provider] - 09/18/21 3:00 pm Activity:: Activity as Tolerated Equipment/Supplies:: No Equipment Needed Diet:: Low Sodium Discharge Orders Discharge Orders: Discharge Order (Routine); Ordered 09/14/21 Ordered By: Jaycob Jones Ambulatory Orders: 14 Day Furniture Refinisher (Routine) Timeframe: 1 Week Facility: [facility] - Location: Respiratory Therapy Ordered By: Jaycob King Basic Metabolic Panel (Routine) Timeframe: 1 Week Location: None Selected Ordered By: Jaycob King Complete Blood Count w/Diff (Routine) Facility: [facility] - Location: Laboratory Outpatient - [facility] Ordered By: Jaycob King Discharge Data Discharge Date/Time-TO BE ENTERED AT DEPARTURE: 09/14/21 10:25 DS: Summary Time Spent with Patient providing and/or coordinating discharge services: Greater than 30 minutes Specific discharge activities: Interview/exam of patient; review of discharge instructions, completion of prescriptions/discharge instructions; discussion w/ nursing and CM; documentation of hospital visit Status at Discharge Functional status at discharge: uses cane/walker Overall status at discharge: patient is progressing back to baseline Mental Status: mental status grossly normal Speech and Movement: speech and movement normal Mood: congruent mood Affect: normal affect Exam Narrative Exam Narrative: Jasvir is doing markedly well he denies any further nosebleeds. I removed his nasal packing from the right nares there is no bleeding whatsoever. His lungs are clear to auscultation His heart is regular no appreciable murmur rub Abdomen is obese soft nontender nondistended normal bowel sounds Right leg shows some faint pinkness over the pretibial area but the swelling and redness have improved remarkably and is nearly resolved. Psych Mental Status: mental status grossly normal Speech and Movement: speech and movement normal Mood: congruent mood Affect: normal affect DS: Data Vitals/I&O Vitals and I&O: Vital Signs Temperature 36.7 C 09/14/21 07:44 Temperature Source Tympanic 09/14/21 07:44 Pulse 70 09/14/21 07:44 Pulse Rhythm Regular 09/14/21 03:45 Pulse 77 09/11/21 00:00 Respiratory Rate 16 09/14/21 07:44 Respiratory Effort Non-Labored 09/14/21 03:45 Respiratory Depth Normal 09/14/21 03:45 Respiratory Pattern Normal 09/14/21 03:45 Blood Pressure 167/79 H 09/14/21 07:44 Blood Pressure Mean 91 09/11/21 00:00 Blood Pressure Position Sitting 09/10/21 09:10 Pulse Oximetry 94 09/14/21 07:44 Oxygen Delivery Method Room Air 09/14/21 07:44 Oxygen Flow Rate 0 09/14/21 07:44 Fraction of Inspired Oxygen (FIO2) 35 09/11/21 21:00 Pain Level 0 09/14/21 07:44 Comment 09/12/21 11:40 Intake & Output 09/13/21 09/13/21 09/14/21 11:59 23:59 11:59 Intake Total 290 / 910 620 / 910 250 / 250 Output Total 300 / 300 775 / 775 Balance -10 / 610 620 / 610 -525 / -525 Intake: IV 50 / 50 Oral 240 / 860 620 / 860 250 / 250 Output: Urine 300 / 300 775 / 775 Other: Urine Color Yellow Pale Yellow Urine Appearance Clear Clear Urine Odor Normal Normal Comment Voided in toilet, unmeasured Stool Size Moderate Small Stool Characteristics Soft Soft Voiding Methods Toilet Toilet Urinal PFSH All Active Problems (Updated 09/14/21 @ 12:19 by Jaycob King MD) Medication monitoring encounter (Acute) Syncope (Acute) Volume overload (Acute) Leukocytosis (Acute) DVT prophylaxis (Acute) GURPREET (acute kidney injury) (Acute) Hyponatremia (Acute) Cellulitis of right leg (Acute) Weakness (Acute) COVID-19 (Acute ~06/13/21) Hyperkalemia (Acute) Hyponatremia (Acute) Weight gain (Acute) Edema (Acute) History of splenectomy (Acute) Type II diabetes mellitus with complication, uncontrolled (Acute) 01/10/13 A1C 7.3 12/26/13 A1C 11.7 Essential hypertension (Chronic) not well controlled will bump up los/hctz Alcoholism (Chronic) Calculus of gallbladder without cholecystitis without obstruction (Acute 04/22/16) Former smoker (Acute) emphysema on CT 04/23 Hepatic cirrhosis (Chronic 04/22/16) per CT 04/2016 Hypertriglyceridemia (Acute) Microscopic hematuria (Acute 08/06/16) Overweight (Acute 05/13/15) Sensorineural hearing loss, bilateral (Acute 03/30/16) 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 muscle tear will check xray Screening for colon cancer (Acute) Well adult (Acute) Medical History Diabetes mellitus Hypertension Family History Mother No problems noted. Father Diabetes Heart disease Neoplasm Stroke Sister Personal history of malignant neoplasm Brother No problems noted. Grandfather Heart disease Grandfather No problems noted. Grandmother No problems noted. Grandmother Diabetes Sister No problems noted. Sister No problems noted. Brother No problems noted. Brother No problems noted. Brother No problems noted. Son Substance abuse Social History Smoking/Tobacco Use Status: Former Tobacco Use tobacco type: cigarettes Quit Date: 02/07/06 Tobacco: How many years used: 12 Smoking risk assessment performed?: Yes Alcohol Intake: current Alcohol Intake frequency: 3 or more drinks per day Alcohol type: beer Drug use: Never Substance use type: does not use Details: drinks 3-4 beers daily, last beer earlier this morning. Current gender identity: male Do you feel safe at home: Yes Do you feel safe in your relationship?: Yes
--- NOTE | 2021-09-14 09:53 | PDOC.HHF2F ---
Home Health Certification Home Health Certification: 1. Encounter Date and Reason I certify that Jasvir Escalante was seen by Jaycob King on 09/14/21 and that I had a [id number] encounter with this patient that meets the physician face to face encounter requirements. 2. Clinical Findings Supporting Skilled Need and Homebound Status I certify that home health services are medically necessary, include either intermittent penitentiary and/or physical/speech therapy, and that this patient is homebound in that absences from the home require considerable and taxing effort and are infrequent or of short duration, or are attributable to the need to receive medical care. [X] (a) Attached documentation from encounter provides clinical findings supporting skilled need and homebound status (including what assistance patient requires to leave the home). The encounter with the patient was in whole, or in part, for the following medical condition, which is the primary reason for home health care: Cellulitus [facility]: nursing to evaluate and treat for COPD, CHF, and PAF as well as RLE cellulitis, aspiration pneumonia; educate patient/family on medications and coordinate medication and labs w/ PCP Physical Therapy: evaluate and treat for gait instability and generalized weakness d/t recent hospitalization for cellulitis of RLE and for CHF and aspiration pneumonia Speech Therapy: follow up inpatient ART HISTORY INSTRUCTOR recommendations; ensure that patient is practicing best swallowing and dietary recommendations Homebound: recent hospitalization has led to deconditioning to such a degree that seeking health care outside of his home puts his health at risk 3. Certification and Authentication I certify that I composed the above information based on my clinical judgement relating to this patient's medical condition and, if applicable, clinical findings communicated to me by the NPP or inpatient physician who performed the Home Health Referral. All further orders will be obtained through Dr. Aston Alicea (Community Based Physician - PCP)
--- NOTE | 2021-09-14 10:11 | PDOC.STREC ---
Date of service: 09/14/21 Time of Service: 10:11 Speech Therapy Recommendations Report ST Recommendations: E TAILER Communication / Non-Treatment Note E TAILER spoke with patient's RN, re: current patient status i.e. tolerating soft/bite sized solids and thin liquids. Able to tolerate oral medications with thin liquids one at a time without issue or concern for aspiration. Pt to be discharged on current diet (soft/bite sized solids, thin liquids) with continuation of recommendations as outlined in home environment. Plan: Patient discharged from E TAILER services at this time. If symptoms continue or become worse, recommend outpatient E TAILER follow up, otherwise agree with GI consult per MD discharge summary. Current Recommendations: Diet: 6-Soft & Bite Size(advanced/chopped), patient likely appropriate for upgrade to regular solid textures if maintaining SPO2 levels on room air WNL. Strategies/Adaptions: Upright and out of bed in a chair for all meals/snacks, Use supports to ensure upright/midline posture, Pace rate of intake, Small bites, Alternate liquids and solids, No straws, Ensure complete mastication & swallow before next bite and Upright for at least 30 minutes after meal. Nitza Hensley MA [facility]-E TAILER Speech-Language Pathologist [phone] DAVID Sidhu Internet Site Designer Clinician Coding
--- NOTE | 2021-09-14 12:15 | PDOC.CMDIS ---
- If Service Date Differs Date of service: 09/14/21 Time of Service: 12:15 LACE Index Scoring Tool - Questions: Length of Stay (in days): 7 - 13 Acuity (Admit via E.D.?): Yes Comorbidities: Diabetes w/o Complication, Congestive Heart Failure, Chronic Pulmonary Disease E.D. Visits: 4 - Answers: Total Score: 17 Risk of Readmission: High Risk Care Management Discharge Reason for Hospitalization: cellulitis Discharge Plan: Jasvir will return home with new orders for [facility] RN, PT, ST. His will drive him home via private vehicle. He will follow up with his PCP and discharge plan of care. Patient/Family Education Needs: Review discharge instructions and limitations, discussion of self care needs including ask me three. Services Needed at Discharge: Home Health Care Services ([facility] RN, PT, ST)
--- NOTE | 2021-09-14 18:40 | PT.INDS ---
Date of service: 09/14/21 PT Notes Visit Reasons: Cellulitus Physical Therapy Inpatient Discharge Summary Date: 09/12/2021 Dates of Service: 09/07/2021 through 09/12/2021 This is a clinical summary of care provided for the duration of dates listed above. No charge was made in the completion of this documentation. Referring Doctor:? Elda Rasheed MD PT Orders: PT CONSULT: Limited ability Precautions: Fall. Standard. Activity as tolerated. Patient Profile/Admitting Diagnosis:? Jasvir is a 66-year-old male patient who presented to The ED on 09/01/2021 due to weakness and fall.? Patient is diagnosed with Sepsis, acute respiratory failure with hypoxia, AF with RVR,? R LL PNA, cellulitis of R leg, toxic metabollic encephalopathy,? hepatic cirrhosis,? alcoholism, DM, hyponatremia, and hypomagnesemia. PMHX: All Active Problems?(Updated 09/01/21 @ 19:03 by Saleem Alva MD) Weakness (Acute) COVID-19 (Acute ~06/13/21) Hyperkalemia (Acute) Hyponatremia (Acute) Weight gain (Acute) Edema (Acute) History of splenectomy (Acute) Type II diabetes mellitus with complication, uncontrolled (Acute) 01/10/13 A1C 7.3 12/26/13 A1C 11.7 Essential hypertension (Acute) not well controlled will bump up los/hctz Alcoholism (Acute) Calculus of gallbladder without cholecystitis without obstruction (Acute 04/22/16) Former smoker (Acute) 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 muscle tear will check xray Screening for colon cancer (Acute) Well adult (Acute) Medical History? Diabetes mellitus Hypertension Social History/Home Situation: Lives with in a private home.? Independent with all ADLs prior to admission.? Does? not use any AD. Equipment Owned/DME: None Subjective: NT. See most recent INDUSTRIAL EDUCATION INSTRUCTOR notes. Objective: General Observation: NT. See most recent INDUSTRIAL EDUCATION INSTRUCTOR notes. Mental Status: NT. See most recent INDUSTRIAL EDUCATION INSTRUCTOR notes. Pain: NT. See most recent INDUSTRIAL EDUCATION INSTRUCTOR notes. Vital Signs: NT. See most recent INDUSTRIAL EDUCATION INSTRUCTOR notes. ROM: Right Upper Extremity: ? Shoulder Flexion up to 90 degrees only. Shoulder abduction 90 degrees only. Elbow flexion WFL. Wrist flexion WFL. Functional opening and closing of hand WFL. Left Upper Extremity:? Shoulder Flexion up to 90 degrees only. Shoulder abduction 90 degrees only. Elbow flexion WFL. Wrist flexion WFL. Functional opening and closing of hand WFL. Right Lower Extremity: Hip flexion unable to bend beyond 90 while seated at edge of bed. Hip abduction allows up to 10 degrees. Knee flexion 3- degrees to 90 degrees with pain at end of range. Knee extension -30 degrees.? Ankle dorsiflexion to neutral only. Ankle plantarflexion WFL. Left Lower Extremity: Hip flexion WFL. Hip abduction WFL. Knee flexion WFL. Ankle dorsiflexion WFL. Ankle plantarflexion WFL. Strength: Right Upper Extremity: Shoulder flexors 3-/5. Shoulder abductors 3-/5. Elbow flexors 4-/5. Elbow extensors 4-/5. Wastewater Analyst strong. Left Upper Extremity: Shoulder flexors 3-/5. Shoulder abductors 3-/5. Elbow flexors 4-/5. Elbow extensors 4-/5. Wastewater Analyst strong. Right Lower Extremity: Hip flexors 2-/5. Hip abductors 3-/5. Knee flexors 3-/5. Knee extensors 3-/5. Ankle dorsiflexors 3-/5. Ankle plantarflexors 3+/5. Left Lower Extremity: Hip flexors 4-/5. Hip abductors 4-/5. Knee flexors 4-/5. Knee extensors 4-/5. Ankle dorsiflexors 4-/5. Ankle plantarflexors 4-/5. ? BED MOBILITY/TRANSFERS? Sit-supine: I with HOB at 30 degrees ? Sit-stand: SBA ? Stand-sit: SBA? GAIT? Assistive Device: SPC ? Weight bearing: Full Assist: SBA ? Distance: 300'? Deviation: Slow pacing, cueing to increase step height/length for safety Balance: Static Sitting: Normal Dynamic Sitting: Normal Static Standing: Fair Dynamic Standing: Fair Assessment: Patient presents with clinical signs and symptoms consistent with current/admitting diagnoses that have resulted to mobility limitations, gait instability, generalized weakness, and overall ADL decline as demonstrated by the following impairment level findings: 1.? Decreased strength to R LE and B UE major muscle groups 2.? Impaired sitting/standing balance 3.? Impaired activity tolerance 4.? Limitation of joint range of motion in R LE joints 5.? Shortness of breath 6.? Erythema and edema to R leg and foot 7.? Fatigue 8.? Confusion Impairments are contributing to the following functional limitations: 1.? Decline in bed mobility skills 2.? Decline in transfer skills 3.? Difficulty with ambulation without assistive device and physical assistance 4.? Increased completion time for mobility ADL performance 5.? Increased risk for falls 6.? Difficulty with managing steps alone safely Goals: Goals X1 week 1. Supine-Sit independent NOT MET 2. Sit-Supine independent NOT MET 3. Sit-Stand independent NOT MET 4. Stand-Sit independent with FWW NOT MET 5. Bed-Chair independent with FWW NOT MET 6. Chair-Bed independent with FWW NOT MET 7. Independent gait on level surface with use of FWW for at least 300 feet without report of pain nor dyspnea NOT MET 8. Independent stair negotiation while holding onto B rails for at least 5 steps without report of pain nor dyspnea NOT MET 9. Independent with home exercise program NOT MET 10. Good static and dynamic standing balance/tolerance NOT MET DISCHARGE RECOMMENDATIONS:? [] ? Home with no services [] [X] ? Home with services.? Patient will benefit from home health PT services in order to progress mobility level using least restrictive assistive ambulatory device, assess home safety, identify additional equipment needs, and establish a functional maintenance program that will increase ability of patient to remain at home. [] ? Home with outpatient PT [] [] ? SNF for continued rehabilitation [] [] ? [facility] [] [] ? SNF versus LTC based on ability to participate and progress [] TREATMENT CODE/TIME: ME Thank you for the opportunity to participate in the care of this patient. Sharon Abreu PT, DPT, CLT [facility] [place], [place]
== END 2021-09-14 10:25 | disposition home health service (06) | DRG 871 ==
LOC: ER 19:06 → MS 20:05 → ICU 09-05 09:56 → MS 09-12 07:58
PROVIDERS: Family Medicine; Internal Medicine; Student in an Organized Health Care Education/Training Program; Admitting Provider General Practice; Emergency Provider Emergency Medicine; PCP Family Medicine; Visit Provider General Practice
DX: A41.9 Sepsis, unspecified organism (principal); G92.8 Other toxic encephalopathy; J96.01 Acute respiratory failure with hypoxia; N17.0 Acute kidney failure with tubular necrosis; L03.115 Cellulitis of right lower limb; E87.1 Hypo-osmolality and hyponatremia; I50.30 Unspecified diastolic (congestive) heart failure; K70.31 Alcoholic cirrhosis of liver with ascites; R53.1 Weakness; R55 Syncope and collapse; F10.20 Alcohol dependence, uncomplicated; R19.7 Diarrhea, unspecified; Z79.82 Long term (current) use of aspirin; E87.6 Hypokalemia; Z86.16 Personal history of COVID-19; E11.65 Type 2 diabetes mellitus with hyperglycemia; Z90.81 Acquired absence of spleen; W19.XXXA Unspecified fall, initial encounter; E78.1 Pure hyperglyceridemia; M47.816 Spondylosis without myelopathy or radiculopathy, lumbar region; M48.061 Spinal stenosis, lumbar region without neurogenic claudication; Z68.33 Body mass index [BMI] 33.0-33.9, adult; Z87.891 Personal history of nicotine dependence; E83.42 Hypomagnesemia; I48.91 Unspecified atrial fibrillation; R65.20 Severe sepsis without septic shock; T17.908A Unspecified foreign body in respiratory tract, part unspecified causing other injury, initial encounter; J44.9 Chronic obstructive pulmonary disease, unspecified; I11.0 Hypertensive heart disease with heart failure; G47.33 Obstructive sleep apnea (adult) (pediatric); E11.21 Type 2 diabetes mellitus with diabetic nephropathy; E66.01 Morbid (severe) obesity due to excess calories; R04.0 Epistaxis; T50.8X5A Adverse effect of diagnostic agents, initial encounter; K80.20 Calculus of gallbladder without cholecystitis without obstruction
CPT/HCPCS: 30901; 36415; 71275; 74177; 76770; 80048; 80053; 80076; 82550; 82805; 84145; 85027; 87040; 87081; 87389; 87449; 87493; 87635; 87637; 92526; 92610; 93005; 93306; 94618; 94640; 96361; 96365; 96366; 96368; 97110; 97162; 97530; 99285; 70450; 70486; 71045; 71046; 72125; 73700; 76700; 80320; 81003; 81015; 82140; 82248; 82565; 82607; 82728; 83540; 83550; 83605; 83735; 83880; 84100; 84300; 84443; 84466; 84484; 84540; 84550; 85025; 85610; 85730; 86140; 86592; 87086; 87899; 93010; 93971; 94660; 94664; 94667; 94760; 99219; 99232; 99233; 99239; 99291; J0690; J1940; J1941; J2354; J2543; J3420; J3475; J3490; J7614; J7620; J7644

== ENCOUNTER 2021-09-21 11:40 | Outpatient (CLI) | payer MEDICARE, MEDICAID, SELFPAY ==
[2021-09-21 11:49] LABS: Abs Immature Grans 0.06 10^3/uL (0.0-0.06); HCT 32.9 % (40.0-50.0); MCH 31.7 pg (27.0-33.0); MCHC 33.4 % (32.0-36.0); MCV 95 fL (80-95); MPV 12.2 fL (8.0-11.0); Platelet Count 424 10^3/uL (130-400); RBC 3.47 10^6/uL (4.36-5.78); RDW 14.5 % (11.8-14.1); RDW-SD 50.7 fL; WBC 13.21 10^3/uL (4.4-10.8)
[2021-09-21 12:01] LABS: Absolute Monocyte Count 1.45 10^3/uL (0.1-0.8); Absolute Neutrophil Count 8.19 10^3/uL (1.2-6.7)
[2021-09-21 12:02] LABS: Absolute Eosinophil Count 0.53 10^3/uL (0.0-0.7); Absolute Lymphocyte Count 3.04 10^3/uL (1.2-3.4); Atypical Lymphocytes % 5; Diff Comment Manual Differential; RBC Morphology Normal
[2021-09-21 12:41] LABS: Anion Gap 9.1 mmol/L (3-11); BUN 28 mg/dL (7-18); CO2 24.9 mmol/L (21.0-32.0); CREATININE 2.4 mg/dL (0.70-1.30); Chloride 99 mmol/L (98-107); Estimated GFR 27.14 (mL/min/1.73m2); Glucose 160 mg/dL (74-106); Potassium 5.3 mmol/L (3.5-5.1); Sodium 133 mmol/L (136-145)
== END 2021-09-21 11:41 | disposition home or self-care (01) ==
LOC: LBO 11:40
PROVIDERS: PCP Family Medicine; Visit Provider Internal Medicine
DX: I50.9 Heart failure, unspecified (principal); Z51.81 Encounter for therapeutic drug level monitoring; L03.115 Cellulitis of right lower limb
CPT/HCPCS: 36415; 80048; 85025

== ENCOUNTER 2021-09-22 02:01 | Outpatient (CLI) | payer MEDICARE, MEDICAID, SELFPAY ==
--- NOTE | 2021-10-15 11:25 | W.CARDEVENT ---
Date of service: 10/15/21 Time of Service: 11:25 Cardiac Event Recorder Referring Provider:: Jaycob King Indications:: Paroxysmal atrial fibrillation Cardiac Event Note: This is a 14-day event monitor ordered for paroxysmal atrial fibrillation Rhythm throughout was sinus with an average heart rate of 69. Minimum was 56, maximum 145 There was no atrial fibrillation, no high-grade AV block, no pauses greater than 3 seconds There were rare ventricular ectopic beats, couplets and 1 triplet There were occasional atrial premature beats. Several self-limited atrial runs occurred. The majority of these were 3-5 beats in duration. One lasted a total of 20 beats A total of 2 patient symptoms were reported. These corresponded to sinus rhythm
== END 2021-09-22 02:02 | disposition home or self-care (01) ==
LOC: RT 02:01
PROVIDERS: PCP Family Medicine; Visit Provider Internal Medicine
DX: I48.91 Unspecified atrial fibrillation (principal)
CPT/HCPCS: 93246

== ENCOUNTER 2021-10-08 05:20 | Outpatient (CLI) | payer MEDICARE, MEDICAID, SELFPAY ==
[2021-10-08 13:21] LABS: Anion Gap 9.1 mmol/L (3-11); BUN 19 mg/dL (7-18); CO2 26.9 mmol/L (21.0-32.0); CREATININE 1.6 mg/dL (0.70-1.30); Calcium 8.6 mg/dL (8.5-10.1); Chloride 102 mmol/L (98-107); Estimated GFR 46.93 (mL/min/1.73m2); Glucose 120 mg/dL (74-106); Potassium 3.8 mmol/L (3.5-5.1); Sodium 138 mmol/L (136-145)
== END 2021-10-08 05:21 | disposition home or self-care (01) ==
LOC: LOS 05:20
PROVIDERS: PCP Family Medicine; Visit Provider Family Medicine
DX: E87.1 Hypo-osmolality and hyponatremia (principal)
CPT/HCPCS: 36415; 80048

== ENCOUNTER 2021-10-15 08:29 | Outpatient (CLI) | payer MEDICARE, MEDICAID, SELFPAY | END 2021-10-15 08:30 | disposition home or self-care (01) | LOC: DI.CARD 08:31 | PROVIDERS: PCP Family Medicine; Visit Provider Internal Medicine Cardiovascular Disease | DX: R69 Illness, unspecified (principal) | CPT/HCPCS: 93010 ==

== ENCOUNTER 2021-10-15 11:25 | Outpatient (CLI) | payer MEDICARE, MEDICAID, SELFPAY | END 2021-10-15 11:26 | LOC: CARDO 10-19 07:58 | PROVIDERS: PCP Family Medicine; Referring Provider Internal Medicine; Visit Provider Internal Medicine Cardiovascular Disease | DX: I48.91 Unspecified atrial fibrillation (principal); I49.1 Atrial premature depolarization; I49.3 Ventricular premature depolarization | CPT/HCPCS: 93248 ==

== ENCOUNTER → 2021-12-01 09:50 | Outpatient (BNVA) | payer MEDICARE, MEDICAID, SELFPAY | PROVIDERS: PCP Family Medicine; Referring Provider Family Medicine; Visit Provider Urology | DX: R31.29 Other microscopic hematuria (principal) | CPT/HCPCS: 81003; 99214 ==

== ENCOUNTER 2021-12-01 11:29 | Outpatient (REF) | payer MEDICARE, MEDICAID, SELFPAY ==
--- NOTE | 2021-12-01 10:30 | PAPNONF_PTH ---
PATIENT: Jasvir Escalante LOC: [facility] U#:[id number] AGE/SX: 66/M ROOM: RE12/01/[address]: Nikolai Reynolds MD : [id number] BED: DIS: 12/01/2021 SPEC #: [id number] RECD: 12/01/21 12:59 STATUS: [facility] REQ #: [id number] SUKI: 12/01/21 10:[address]: Nikolai Reynolds DEPT: [facility] Cytology RECD BY: Angela Licea ENTERED: 12/01/21 12:59 SP TYPE: ROSALBA ROA DR: Aston Alicea MD Tissues: 1 - BODY FLUID CYTO(SPUTUM/URINE)[facility] Procedures: BODY FLUID CYTO(URINE/SPUTUM) Comments: [id number] (TOTAL VOLUME = 45 ml) (45 ml URINE & 45 ml CYTOLYT ADDED)
== END 2021-12-01 11:30 | disposition home or self-care (01) ==
LOC: LBN 11:29
PROVIDERS: PCP Family Medicine; Visit Provider Urology
DX: R31.29 Other microscopic hematuria (principal)
CPT/HCPCS: 88104

== ENCOUNTER 2021-12-16 03:14 | Outpatient (CLI) | payer MEDICARE, MEDICAID, SELFPAY ==
[2021-12-16 12:44] LABS: CREATININE 1.5 mg/dL (0.70-1.30); Chloride 101 mmol/L (98-107); Estimated GFR 50.71 (mL/min/1.73m2); Sodium 138 mmol/L (136-145)
[2021-12-16 13:09] LABS: Potassium 2.8 mmol/L (3.5-5.1)
[2021-12-16 17:34] LABS: PSA, Diagnostic 0.3 ng/mL (<=4.5)
== END 2021-12-16 03:15 | disposition home or self-care (01) ==
LOC: LOS 03:14
PROVIDERS: Urology; PCP Family Medicine; Visit Provider Family Medicine
DX: I10 Essential (primary) hypertension (principal); E87.1 Hypo-osmolality and hyponatremia; R31.29 Other microscopic hematuria
CPT/HCPCS: 36415; 80051; 82565; 84153

== ENCOUNTER 2021-12-22 04:04 | Outpatient (CLI) | payer MEDICARE, MEDICAID, SELFPAY ==
[2021-12-22 12:52] LABS: Potassium 3.5 mmol/L (3.5-5.1)
== END 2021-12-22 04:05 | disposition home or self-care (01) ==
LOC: LOS 04:04
PROVIDERS: PCP Family Medicine; Visit Provider Family Medicine
DX: I10 Essential (primary) hypertension (principal)
CPT/HCPCS: 36415; 84132

== ENCOUNTER 2022-05-28 02:53 | Outpatient (CLI) | payer OTHER, MEDICAID, SELFPAY ==
[2022-05-28] MEDS: Inhaler, Assist Device 1 EACH MC (11:12)
[2022-05-28] MEDS: Albuterol HFA 18 GM 200 PUFF INH IH (11:12)
--- NOTE | 2022-05-28 15:00 | W.PFT ---
Date of service: 05/28/22 Time of Service: 10:20 Pulmonary Function Test Result Indications: Pre-chemo and radiation Interpretation Spirometry: Although the FEV1/FVC ratio is technically normal, the volume time curve and flow volume loop suggest mild airflow limitation. No significant bronchodilator response. Lung Volumes: There is air trapping Diffusion Capacity: Decreased diffusion. Airway Pressure: Normal airways resistance Impression Likely mild airflow obstruction with air trapping and a decreased diffusion (47%). Clinical Correlation therefore is recommended.
== END 2022-05-28 02:54 | disposition home or self-care (01) ==
LOC: RT 02:53
PROVIDERS: PCP Family Medicine; Visit Provider Preventive Medicine Undersea and Hyperbaric Medicine
DX: C34.90 Malignant neoplasm of unspecified part of unspecified bronchus or lung (principal); R06.09 Other forms of dyspnea; Z87.891 Personal history of nicotine dependence
CPT/HCPCS: 94060; 94726; 94729

== ENCOUNTER 2022-06-04 09:11 | Outpatient (CLI) | payer OTHER, MEDICAID, SELFPAY ==
[2022-06-04 09:37] LABS: HCT 35.5 % (40.0-50.0); MCH 25.9 pg (27.0-33.0); MCV 84 fL (80-95); MPV 12.5 fL (8.0-11.0); Platelet Count 234 10^3/uL (130-400); RBC 4.25 10^6/uL (4.36-5.78); RDW 17.2 % (11.8-14.1); RDW-SD 52.7 fL
[2022-06-04 10:09] LABS: ALT 21 U/L (16-63); AST 24 U/L (15-37); Albumin 2.9 g/dL (3.4-5.0); Alkaline Phosphatase 203 U/L (46-116); Anion Gap 5.9 mmol/L (3-11); BUN 14 mg/dL (7-18); Bilirubin, Total 0.8 mg/dL (0.2-1.0); CO2 27.1 mmol/L (21.0-32.0); CREATININE 1.7 mg/dL (0.70-1.30); Calcium 8.7 mg/dL (8.5-10.1); Chloride 106 mmol/L (98-107); Estimated GFR 43.64 (mL/min/1.73m2); Glucose 125 mg/dL (74-106); Potassium 4.2 mmol/L (3.5-5.1); Sodium 139 mmol/L (136-145); Total Protein 7.6 g/dL (6.4-8.2)
[2022-06-04 10:12] LABS: Absolute Eosinophil Count 0.86 10^3/uL (0.0-0.7); Absolute Lymphocyte Count 5.41 10^3/uL (1.2-3.4); Absolute Monocyte Count 0.98 10^3/uL (0.1-0.8); Atypical Lymphocytes % 12
[2022-06-04 10:13] LABS: Absolute Basophil Count 0.25 10^3/uL (0.0-0.2); Diff Comment Manual Differential; RBC Morphology Normal
[2022-06-05 11:43] LABS: HIV-1/2 Ag & Ab Screen Negative (Negative)
[2022-06-07 10:29] LABS: Hepatitis B Surface Ag Negative (Negative)
[2022-06-07 11:27] LABS: Hepatitis C Ab w Rflx HCV PCR Negative (Negative)
== END 2022-06-04 09:12 | disposition home or self-care (01) ==
LOC: LBO 09:16
PROVIDERS: PCP Family Medicine; Visit Provider Internal Medicine Medical Oncology
DX: C34.90 Malignant neoplasm of unspecified part of unspecified bronchus or lung (principal)
CPT/HCPCS: 36415; 80053; 86803; 87340; 87389; 84132; 84295; 85025

== ENCOUNTER 2022-06-14 09:58 | Outpatient (CLI) | payer OTHER, MEDICAID, SELFPAY ==
[2022-06-14 09:11] LABS: Abs Immature Grans 0.03 10^3/uL (0.0-0.06); Absolute Basophil Count 0.13 10^3/uL (0.0-0.2); Absolute Eosinophil Count 0.71 10^3/uL (0.0-0.7); Absolute Lymphocyte Count 3.04 10^3/uL (1.2-3.4); Absolute Monocyte Count 1.45 10^3/uL (0.1-0.8); Absolute Neutrophil Count 4.46 10^3/uL (1.2-6.7); Basophils % 1.3; Eosinophils % 7.2; HCT 33.6 % (40.0-50.0); HGB 10.7 g/dL (13.5-17.5); Immature Grans % 0.3; MCHC 31.8 % (32.0-36.0); MCV 82 fL (80-95); MPV 12.7 fL (8.0-11.0); Monocytes % 14.8; Neutrophils % 45.4; Platelet Count 253 10^3/uL (130-400); RBC 4.11 10^6/uL (4.36-5.78); RDW 17.1 % (11.8-14.1); RDW-SD 50.4 fL; WBC 9.82 10^3/uL (4.4-10.8)
[2022-06-14 10:12] LABS: ALT 18 U/L (16-63); AST 21 U/L (15-37); Albumin 2.9 g/dL (3.4-5.0); Alkaline Phosphatase 179 U/L (46-116); Anion Gap 7.9 mmol/L (3-11); BUN 20 mg/dL (7-18); Bilirubin, Total 0.8 mg/dL (0.2-1.0); CO2 25.1 mmol/L (21.0-32.0); CREATININE 1.9 mg/dL (0.70-1.30); Calcium 9.1 mg/dL (8.5-10.1); Chloride 107 mmol/L (98-107); Estimated GFR 38.19 (mL/min/1.73m2); FREE T4 1.01 ng/dL (0.76-1.46); Glucose 121 mg/dL (74-106); Magnesium 2.1 mg/dL (1.8-2.4); Potassium 4.9 mmol/L (3.5-5.1); Sodium 140 mmol/L (136-145); TSH 2.49 uIU/mL (0.36-3.74); Total Protein 7.3 g/dL (6.4-8.2)
== END 2022-06-14 09:59 | disposition home or self-care (01) ==
LOC: LBO 09:59
PROVIDERS: PCP Family Medicine; Visit Provider Internal Medicine Medical Oncology
DX: C34.90 Malignant neoplasm of unspecified part of unspecified bronchus or lung (principal); Z79.899 Other long term (current) drug therapy
CPT/HCPCS: 36415; 80053; 83735; 84132; 84295; 84439; 84443; 85025

== ENCOUNTER 2022-06-16 02:22 | Outpatient (CLI) | payer OTHER, MEDICAID, SELFPAY ==
[2022-06-16 07:46] LABS: Abs Immature Grans 0.07 10^3/uL (0.0-0.06); Absolute Monocyte Count 1.21 10^3/uL (0.1-0.8); Absolute Neutrophil Count 12.49 10^3/uL (1.2-6.7); Basophils % 0.4; Eosinophils % 0.6; HCT 33.5 % (40.0-50.0); HGB 10.5 g/dL (13.5-17.5); Immature Grans % 0.4; Lymphocytes % 16.1; MCH 25.9 pg (27.0-33.0); MCHC 31.3 % (32.0-36.0); MCV 83 fL (80-95); MPV 12.8 fL (8.0-11.0); Monocytes % 7.3; Neutrophils % 75.2; Platelet Count 212 10^3/uL (130-400); RBC 4.06 10^6/uL (4.36-5.78); RDW 17.2 % (11.8-14.1); RDW-SD 51.6 fL
[2022-06-16 07:53] LABS: Absolute Basophil Count 0.07 10^3/uL (0.0-0.2); Absolute Lymphocyte Count 2.67 10^3/uL (1.2-3.4); WBC 16.61 10^3/uL (4.4-10.8)
[2022-06-16 08:02] LABS: Diff Comment Agrees w/ Instrument; RBC Morphology Normal
[2022-06-16 08:10] LABS: ALT 23 U/L (16-63); AST 31 U/L (15-37); Albumin 2.8 g/dL (3.4-5.0); Alkaline Phosphatase 150 U/L (46-116); Anion Gap 5.3 mmol/L (3-11); BUN 19 mg/dL (7-18); Bilirubin, Total 0.8 mg/dL (0.2-1.0); CO2 26.7 mmol/L (21.0-32.0); CREATININE 1.7 mg/dL (0.70-1.30); Calcium 8.4 mg/dL (8.5-10.1); Chloride 107 mmol/L (98-107); Estimated GFR 43.64 (mL/min/1.73m2); FREE T4 0.93 ng/dL (0.76-1.46); Glucose 126 mg/dL (74-106); Magnesium 1.8 mg/dL (1.8-2.4); Potassium 4.6 mmol/L (3.5-5.1); Sodium 139 mmol/L (136-145); TSH 1.22 uIU/mL (0.36-3.74); Total Protein 7.1 g/dL (6.4-8.2)
== END 2022-06-16 02:23 | disposition home or self-care (01) ==
PROVIDERS: PCP Family Medicine; Visit Provider Internal Medicine Medical Oncology
DX: C34.90 Malignant neoplasm of unspecified part of unspecified bronchus or lung (principal); Z79.899 Other long term (current) drug therapy; R18.8 Other ascites; K74.60 Unspecified cirrhosis of liver
CPT/HCPCS: 36415; 80053; 83735; 84439; 84443; 85025

== ENCOUNTER 2022-06-21 15:44 | Outpatient (CLI) | payer OTHER, MEDICAID, SELFPAY ==
[2022-06-21 09:05] LABS: Abs Immature Grans 0.15 10^3/uL (0.0-0.06); Absolute Basophil Count 0.08 10^3/uL (0.0-0.2); Absolute Eosinophil Count 0.34 10^3/uL (0.0-0.7); Absolute Lymphocyte Count 1.04 10^3/uL (1.2-3.4); Absolute Neutrophil Count 6.27 10^3/uL (1.2-6.7); Eosinophils % 4.2; HCT 33.2 % (40.0-50.0); HGB 10.4 g/dL (13.5-17.5); Immature Grans % 1.8; Lymphocytes % 12.7; MCH 25.6 pg (27.0-33.0); MCHC 31.3 % (32.0-36.0); MCV 82 fL (80-95); MPV 12.2 fL (8.0-11.0); Monocytes % 3.7; Neutrophils % 76.6; Platelet Count 182 10^3/uL (130-400); RBC 4.06 10^6/uL (4.36-5.78); RDW 16.6 % (11.8-14.1); RDW-SD 49.7 fL; WBC 8.18 10^3/uL (4.4-10.8)
[2022-06-21 09:31] LABS: ALT 21 U/L (16-63); AST 24 U/L (15-37); Albumin 2.7 g/dL (3.4-5.0); Alkaline Phosphatase 131 U/L (46-116); Anion Gap 3.7 mmol/L (3-11); BUN 20 mg/dL (7-18); Bilirubin, Total 1.2 mg/dL (0.2-1.0); CO2 26.3 mmol/L (21.0-32.0); CREATININE 1.7 mg/dL (0.70-1.30); Calcium 8.6 mg/dL (8.5-10.1); Chloride 108 mmol/L (98-107); Estimated GFR 43.64 (mL/min/1.73m2); FREE T4 1.02 ng/dL (0.76-1.46); Glucose 170 mg/dL (74-106); Magnesium 1.7 mg/dL (1.8-2.4); Potassium 4.9 mmol/L (3.5-5.1); Sodium 138 mmol/L (136-145); TSH 1.31 uIU/mL (0.36-3.74); Total Protein 6.9 g/dL (6.4-8.2)
== END 2022-06-21 15:45 | disposition home or self-care (01) ==
LOC: LBO 15:47
PROVIDERS: PCP Family Medicine; Visit Provider Internal Medicine Medical Oncology
DX: C34.90 Malignant neoplasm of unspecified part of unspecified bronchus or lung (principal); Z79.899 Other long term (current) drug therapy
CPT/HCPCS: 36415; 80053; 83735; 84439; 84443; 85025

== ENCOUNTER 2022-06-28 02:05 | Outpatient (CLI) | payer OTHER, MEDICAID, SELFPAY ==
[2022-06-28 08:11] LABS: Abs Immature Grans 0.01 10^3/uL (0.0-0.06); Absolute Basophil Count 0.02 10^3/uL (0.0-0.2); Absolute Eosinophil Count 0.03 10^3/uL (0.0-0.7); Absolute Lymphocyte Count 0.95 10^3/uL (1.2-3.4); Basophils % 1.1; Eosinophils % 1.7; HCT 29.8 % (40.0-50.0); HGB 9.5 g/dL (13.5-17.5); Immature Grans % 0.6; Lymphocytes % 54.3; MCH 25.8 pg (27.0-33.0); MCHC 31.9 % (32.0-36.0); MCV 81 fL (80-95); MPV 12.9 fL (8.0-11.0); Monocytes % 17.1; Neutrophils % 25.2; Platelet Count 163 10^3/uL (130-400); RBC 3.68 10^6/uL (4.36-5.78); RDW 16.2 % (11.8-14.1); RDW-SD 47.3 fL
[2022-06-28 08:37] LABS: Diff Comment Diff Reviewed; RBC Morphology Normal
[2022-06-28 08:41] LABS: ALT 19 U/L (16-63); AST 22 U/L (15-37); Albumin 2.6 g/dL (3.4-5.0); Alkaline Phosphatase 96 U/L (46-116); Anion Gap 7.7 mmol/L (3-11); BUN 17 mg/dL (7-18); Bilirubin, Total 1.4 mg/dL (0.2-1.0); CO2 22.3 mmol/L (21.0-32.0); CREATININE 1.5 mg/dL (0.70-1.30); Calcium 8.4 mg/dL (8.5-10.1); Chloride 105 mmol/L (98-107); FREE T4 1.33 ng/dL (0.76-1.46); Glucose 161 mg/dL (74-106); Magnesium 1.4 mg/dL (1.8-2.4); Potassium 4.3 mmol/L (3.5-5.1); Sodium 135 mmol/L (136-145); Total Protein 6.6 g/dL (6.4-8.2)
[2022-06-28 08:42] LABS: Absolute Neutrophil Count 0.44 10^3/uL (1.2-6.7); WBC 1.75 10^3/uL (4.4-10.8)
== END 2022-06-28 02:06 | disposition home or self-care (01) ==
LOC: LBO 02:05
PROVIDERS: PCP Family Medicine; Visit Provider Internal Medicine Medical Oncology
DX: C34.90 Malignant neoplasm of unspecified part of unspecified bronchus or lung (principal); Z79.899 Other long term (current) drug therapy
CPT/HCPCS: 36415; 80053; 83735; 84439; 84443; 85025

== ENCOUNTER 2022-07-06 11:24 | Outpatient (CLI) | payer OTHER, MEDICAID, SELFPAY ==
[2022-07-06 10:58] LABS: HCT 34.2 % (40.0-50.0); HGB 10.5 g/dL (13.5-17.5); MCH 25.7 pg (27.0-33.0); MCHC 30.7 % (32.0-36.0); MCV 84 fL (80-95); MPV 12.1 fL (8.0-11.0); Platelet Count 316 10^3/uL (130-400); RBC 4.08 10^6/uL (4.36-5.78); RDW 18.6 % (11.8-14.1); RDW-SD 53.1 fL
[2022-07-06 11:17] LABS: Absolute Eosinophil Count 0.39 10^3/uL (0.0-0.7); Absolute Lymphocyte Count 2.23 10^3/uL (1.2-3.4); Absolute Monocyte Count 0.52 10^3/uL (0.1-0.8); Absolute Neutrophil Count 3.28 10^3/uL (1.2-6.7); Atypical Lymphocytes % 1; WBC 6.56 10^3/uL (4.4-10.8)
[2022-07-06 11:18] LABS: Absolute Basophil Count 0.13 10^3/uL (0.0-0.2); Diff Comment Manual Differential; RBC Morphology Normal
[2022-07-06 11:22] LABS: ALT 17 U/L (16-63); AST 20 U/L (15-37); Albumin 2.6 g/dL (3.4-5.0); Alkaline Phosphatase 105 U/L (46-116); Anion Gap 6.3 mmol/L (3-11); BUN 9 mg/dL (7-18); CO2 26.7 mmol/L (21.0-32.0); CREATININE 1.3 mg/dL (0.70-1.30); Calcium 8.3 mg/dL (8.5-10.1); Chloride 107 mmol/L (98-107); Estimated GFR 59.84 (mL/min/1.73m2); FREE T4 1.29 ng/dL (0.76-1.46); Glucose 135 mg/dL (74-106); Magnesium 1.5 mg/dL (1.8-2.4); Potassium 4.5 mmol/L (3.5-5.1); Sodium 140 mmol/L (136-145); TSH 0.35 uIU/mL (0.36-3.74); Total Protein 6.6 g/dL (6.4-8.2)
== END 2022-07-06 11:25 | disposition home or self-care (01) ==
LOC: LBO 11:25
PROVIDERS: PCP Family Medicine; Visit Provider Internal Medicine Medical Oncology
DX: C34.90 Malignant neoplasm of unspecified part of unspecified bronchus or lung (principal); Z79.899 Other long term (current) drug therapy
CPT/HCPCS: 36415; 80053; 83735; 84439; 84443; 85025

== ENCOUNTER 2022-07-12 03:36 | Outpatient (CLI) | payer OTHER, MEDICAID, SELFPAY ==
[2022-07-12 08:46] LABS: Abs Immature Grans 0.05 10^3/uL (0.0-0.06); Absolute Basophil Count 0.06 10^3/uL (0.0-0.2); Absolute Eosinophil Count 0.01 10^3/uL (0.0-0.7); Absolute Lymphocyte Count 0.68 10^3/uL (1.2-3.4); Absolute Monocyte Count 0.32 10^3/uL (0.1-0.8); Absolute Neutrophil Count 3.71 10^3/uL (1.2-6.7); Basophils % 1.2; Eosinophils % 0.2; HCT 31.5 % (40.0-50.0); Lymphocytes % 14.1; MCH 26.7 pg (27.0-33.0); MCHC 31.7 % (32.0-36.0); MCV 84 fL (80-95); Monocytes % 6.6; Neutrophils % 76.9; Nucleated RBC 0.4 % (0.0-0.3); RBC 3.74 10^6/uL (4.36-5.78); RDW 18.6 % (11.8-14.1); RDW-SD 54.8 fL; WBC 4.83 10^3/uL (4.4-10.8)
[2022-07-12 08:52] LABS: Diff Comment Diff Reviewed; Platelet Count 173 10^3/uL (130-400); RBC Morphology Normal
[2022-07-12 09:09] LABS: ALT 18 U/L (16-63); AST 22 U/L (15-37); Albumin 2.3 g/dL (3.4-5.0); Alkaline Phosphatase 87 U/L (46-116); Anion Gap 6.4 mmol/L (3-11); BUN 15 mg/dL (7-18); CO2 25.6 mmol/L (21.0-32.0); CREATININE 1.5 mg/dL (0.70-1.30); Calcium 7.9 mg/dL (8.5-10.1); Chloride 103 mmol/L (98-107); FREE T4 1.31 ng/dL (0.76-1.46); Glucose 180 mg/dL (74-106); Magnesium 1.5 mg/dL (1.8-2.4); Potassium 4.7 mmol/L (3.5-5.1); Sodium 135 mmol/L (136-145); TSH 0.38 uIU/mL (0.36-3.74); Total Protein 6.1 g/dL (6.4-8.2)
== END 2022-07-12 03:37 | disposition home or self-care (01) ==
LOC: LBO 03:36
PROVIDERS: PCP Family Medicine; Visit Provider Internal Medicine Medical Oncology
DX: C34.90 Malignant neoplasm of unspecified part of unspecified bronchus or lung (principal); Z79.899 Other long term (current) drug therapy
CPT/HCPCS: 36415; 80053; 83735; 84439; 84443; 85025

== ENCOUNTER 2022-07-19 09:23 | Emergency (ER) | payer OTHER, MEDICAID, SELFPAY ==
[2022-07-19] VITALS (50 sets, daily range): BP systolic 108–163; BP diastolic 46–106; PULSE 84–164; RESP 14–33; TEMP 36.9; O2SAT 92–98
--- NOTE | 2022-07-19 09:30 | RT.EKG_ITS ---
APPROVED REPORT Exam: Resting ECG Reason for Exam: Chest pain Patient Location: E HR:118 bpm ECG Measurements Heart Rate 118 AXIS NV [id number] P [id number] QRSd 93 QRS 49 QT 331 T 80 QTc 465 Conclusion Atrial fibrillation...V-rate 67-181, irreg A-activity Anterior infarct, old...Q >40mS, abnormal ST-T, V2-V5 Narrow complex atrial fibrillation with rapid ventricular response at a rate of 118. Normal axis. I ntervals within normal limits. Mild ST segment flattening V5 and V6. Slightly more pronounced chase red to prior. Mild inferior ST segment elevation in lead III appears slightly more pronounced compar ed to prior. No acute injury pattern. Compared to prior dated last year atrial fib with RVR has rep laced atrial fibrillation.
--- NOTE | 2022-07-19 10:01 | ED.GENADUL_ITS ---
Discharge Plan Disposition Patient Disposition: Home Condition: Poor Discharge Details Clinical Impression: Acute dehydration, Nausea vomiting and diarrhea, Leukopenia, Neutropenia Primary Care Provider: Aston Alicea ED Provider: Nona Corbin Home Meds and New Rx's Prescriptions: New potassium chloride 20 mEq packet 20 meq PO DAILY Qty: 50 0RF Continued atorvastatin 10 mg tablet 10 mg PO .twice/week Qty: 30 3RF Rx Instructions: take 2 days/week Janumet 50-1,000 mg tablet 1 tab PO DAILY AM Qty: 90 3RF spironolactone [Aldactone] 100 mg tablet 100 mg PO QAM Qty: 90 3RF fish oil 1,000 cap PO .once daily Patient Comments: 04/19/17 stopped Sat then restarted last noc. si albuterol sulfate [Ventolin HFA] 90 mcg/actuation HFA aerosol inhaler 2 puff inhalation QID PRN (Reason: shortness of breath or wheezing) Qty: 8.5 3RF (DME) lancets 28 gauge misc 1 ea Miscellaneous DAILY Qty: 100 3RF Rx Instructions: test once/day (DME) Blood Glucose Test Strip 1 ea Miscellaneous DAILY Qty: 100 3RF Rx Instructions: test once daily (DME) blood-glucose meter Misc 1 ea Miscellaneous DAILY Qty: 1 0RF Rx Instructions: METER TYPE ONE TOUCH ULTRA MINI DIAGNOSIS CODE E11.8 doxazosin [Cardura] 8 mg tablet 8 mg PO DAILY Qty: 90 3RF cyanocobalamin (vitamin B-12) [Vitamin B-12] 500 mcg tablet 1,000 mcg PO DAILY Qty: 180 3RF Eliquis 5 mg tablet 5 mg PO BID Qty: 180 3RF Jardiance 10 mg tablet 10 mg PO QAM Qty: 90 3RF furosemide 40 mg tablet 40 mg PO BID@0830,1600 Qty: 180 3RF magnesium oxide [MagOx] 400 mg (241.3 mg magnesium) tablet 400 mg PO DAILY Qty: 90 3RF Inhaler, Assist Devices [Pocket Chamber] 1 ea miscellaneous DIRECTED Qty: 0 0RF One Daily Multi-Vit w-Mineral 4.5 mg iron Tablet 1 tab PO DAILY Qty: 30 0RF Discontinued metoprolol succinate 200 mg tablet extended release 24 hr 200 mg PO DAILY Qty: 90 3RF potassium chloride [Klor-Con M10] 10 mEq tablet,ER particles/crystals 20 meq PO DAILY Qty: 90 3RF No Action metoprolol succinate 200 mg capsule,sprinkle,ER 24hr 200 mg PO DAILY Qty: 90 3RF Discharge Instructions Instructions: Dehydration (ED), Acute Nausea and Vomiting (ED) Additional Instructions: As we discussed, I am concerned that you became dehydrated prompting you to feel worse today. Please continue to encourage frequent sips of fluids. It does seem like carbonated beverages seem to increase her nausea so I would abstain from these. If you would like to try vani byron, open it and allow the bottles to come out prior to trying to drink this. May find this allowed to be more tolerated. In regard to having difficulty swallowing her medications, I have changed to of your meds. Please stop trying to papilliform of your metoprolol and begin the sprinkle form. This can be opened and poured into liquid or on top of pudding, applesauce, Jell-O or something soft. Your apixaban may be crushed and mixed with fluids or soft foods. The potassium has been change performed to a pack for which can also be dissolved. All of the other medications may be crushed. Pill feed crusher operator is available at local pharmacy. Please keep your appointment tomorrow for radiation. Please seek care immediately if you develop any fevers or chills. Please keep other upcoming appointments. referral to palliative care has also been sent. Referrals: Aston Alicea MD [Primary Care Provider] - Discharge Data Discharge Date/Time-TO BE ENTERED AT DEPARTURE: 07/19/22 15:36 Medical Decision Making Patient is a pleasant 67-year-old male with past medical history significant for lung cancer, atrial fibrillation, diabetes, CHF, splenectomy, hypertension, alcoholism, hepatic cirrhosis, hypertriglyceridemia, presenting today with chief complaint of nausea, vomiting and diarrhea. He states that he underwent chemo last last Tuesday. Receives radiation Tuesday through Tuesday. Today is his first missed dose of chemo or radiation. Has been having difficulty keeping anything down for the past 4 days. Denies any melena, bright red blood per rectum, hematemesis. Denies any fevers or chills. States that his abdomen has felt bloated but no focal area of pain. No recent medication changes. Patient is anticoagulated on apixaban. States that he has chronic chest discomfort associated with the area of radiation but otherwise no acute change and no exertional components. No acute change in shortness of breath although again, he reports chronically fatigued and chronically unwell. Patient reports that urinary output is lower than typical. On exam, patient appears acute on chronically ill. He appears very fatigued and dehydrated. Patient is currently in A-fib but his heart rate is oscillating significantly from the 90s to 160s. I believe the tachycardia is likely in response to his dehydration and will work on rehydrating the patient prior to addressing the tachycardia any further. His blood pressure is stable though with 1 pressure of 120/72. He is breathing comfortably nonlabored, speaking in full sentences. States that he is able to swallow but does have difficulty doing so secondary to the area of radiation as it is focused behind the esophagus. Abdomen is benign with no focal area of tenderness although he does have some diffuse mild discomfort. Concern primarily for dehydration. We will give Zofran to help with his nausea. His QTc is 465. We will hydrate the patient with LR. ECG was reviewed by Dr. Swanson. Patient is in A-fib with a heart rate of 118 at that time. There is a slight elevation of AST and lead III that does not meet criteria. However, low voltage noted in this area. Will obtain troponins and continue to trend this as well. Labs reviewed. Patient is a critical white count of 0.79. Has been low in the past but not to this degree. His ANC is 0.08. Hemoglobin 9.9, patient appears to be having a slow downtrend in this although not much change in the past week. Platelet count 93 which appears to be narrow. Lactate elevated at 2.2. I feel this is more likely associated with dehydration, patient is getting hydrated. His heart rate has been more steadily within normal range and is not significantly bumping up, his blood pressure continues to be stable. Sodium slightly low at 131. Potassium within normal limits. His creatinine is elevated at 1.5 which appears to be his baseline. GFR within normal limits. Magnesium low 1.3, replenish this year. His T. bili is elevated 2.2. Urine still pending. Reevaluated the patient and his nausea seems to be subsided but he continues to have some abdominal bloating and chest discomfort which again he associates with the radiation has been receiving. He is not having any shortness of breath or exertional symptoms or pleuritic pain. I do not have indication at this time for PE particularly as the patient is already anticoagulated has not had any missed doses. However, I am concerned for potential intra-abdominal pathology given the patient's current GI complaints, bloating and discomfort and will obtain CT. FINDINGS: CHEST: Bilateral gynecomastia again noted.? This is further increased from prior study of August 2021. LUNGS: Small solitary 5 millimeter nodular infiltrate in the lateral aspect of the right lower lobe is again noted, unchanged from the CT scan performed 09/01/2021..? There are no additional lung nodules evident and there are no infiltrates nor pleural effusions.? No significant focal findings in trachea and mainstem bronchi. MEDIASTINUM: z There is subcarinal adenopathy evident.? This blends with the esophagus wall.? Esophagus is somewhat thickened circumferentially below this level.? There is no hiatal hernia. CARDIAC: Heart size is normal.? There is no pericardial effusion.Caliber of the thoracic aorta is within normal limits. OSSEOUS: No significant osseous lesions.. ABDOMEN: There is a significant amount of ascites evident abdomen pelvis, somewhat more so than previous LIVER: Cirrhotic appearing liver again noted.? In the posterior aspect of the right hepatic lobe subjacent to diaphragm there is a 1.5 x 1.6 cm focal nodule which is unchanged in size from the prior study.? This either represents regenerating nodule but cannot exclude neoplasm.? GALLBLADDER/BILIARY: Cholelithiasis again noted.? Gallbladder is somewhat distended and there is fluid around the gallbladder although this may be related to the ascites.? The CBD is not dilated.? There are no radiopaque calculi evident within the CBD. PANCREAS: No evidence of pancreatic mass nor dilatation of the pancreatic duct.? SPLEEN: Spleen is again noted to be absent.? There are no clips in this region.? A thin splenic vein is opacified.? Portal venous confluence and portal vein are patent. ADRENALS: There are no significant adrenal masses. KIDNEYS: There is symmetrical streaking around both kidneys.? There are no renal masses nor cysts nor calculi nor hydronephrosis.? No hydroureter.? No calculi nor obvious masses in the urinary bladder. ABDOMINAL AORTA: Heavily calcified but not a cyst.? Bilateral iliac arteries are also heavily calcified but not enlarged. LYMPH NODES: There is no retroperitoneal nor paraaortic adenopathy. ABDOMINAL WALL: No evidence of significant anterior abdominal wall nor inguinal hernia.? GI: Long redundant sigmoid extends up out of the pelvis.No obvious evidence of acute diverticulitis of the sigmoid. PELVIS:? LYMPH NODES: There is no intrapelvic nor inguinal adenopathy. GI: Appendix is surgically absent.No evidence of sigmoid diverticulitis. URINARY BLADDER: No calculi nor masses evident REPRODUCTIVE: Prostate size normal. OSSEOUS: Compression fracture of L3 is unchanged from August 2021.? No new fractures evident.? No lytic osseous lesions.? No obvious blastic osseous lesions IMPRESSION: 1. Compared to the prior CT scan of August 2021 there is again noted cirrhotic appearing liver and significant ascites in the abdomen and pelvis (no pleural effusions). 2. In the posterior aspect of the right hepatic lobe there is an enhancing 1.5 by 1.6 cm nodule again noted which is probably a regenerating nodule but cannot exclude neoplasm such as hepatoma. 3. Cholelithiasis again noted.? Gallbladder is also somewhat distended.? There is fluid around the gallbladder, either related to cholecystitis or just related to the amount of ascites here. 4. Spleen again noted to be absent (there are no surgical clips evident). 5.? Stable 5 millimeter nodular infiltrate in the right lower lobe.? No new additional lung findings but there is abnormal subcarinal density evident which appears to blend into the wall of the esophagus.? This may represent subcarinal adenopathy or be related to esophageal issues.? Cannot exclude esophageal malignancy.? There are no obvious esophageal varices. 6.? Previous appendectomy. 7.? Long length sigmoid.? No bowel obstruction.? No evidence of diverticulitis. 8.? Stable appearance of L3 compression fracture.? No new fractures.? No s ignificant osseous lesions identified. Please see images to [facility] and will consult. I feel the patient likely needs admission as he is not able to stay well-hydrated at home. I do not have any beds, I will be seeking transfer. Spoke with patient's who is concerned that the patient has not been able to take pills as easily as typical. She is not sure how much he is getting. Continues to try but has difficulty swallowing so sometimes they do not go down. She is also reports that when he vomits it is minimal, appears more like sputum than large amounts of emesis. She does not believe that there is as significant of loses as had been previously reported. She is more concerned with decreased PO intake and difficulty with medications. Consulted with Dr. Ruvalcaba with oncology, they advised that the marrow suppression we are seeing is what they are expected. They will likely change dosing. If no fevers, able to be d/c to home. Advised that they have compazine at home, can augment with zofran. Strict return precations, especially if fevers. Otherwise, he can be d/c'ed to home. He has rad/onc appointment in one week. He may continue with radiation tomorrow. Repeat troponin and lactate pending. raises concerns that the patient is having difficulty swallowing his pills secondary to the discomfort from radiation. I spoke with pharmacy. They advi sed that the medications that need to be changed in order to be crushed or any special in for obstruction are as follows: Apixaban can be taken as prescribed and crushed. When taking this, mix with f ood or fluids. Change the metoprolol to immediate release which the patient will need to take twice daily to allow her to be crushed. We will change the potassium to packets so that these can the then be dissolved. All other meds on his currently medication list can be crushed. Patient reports feeling improved. Lactate downtrending. Troponin remains within normal limits. Discussed with patient and his family. He would like to go home. We will follow recommendations from pharmacist and oncology team. He has f/u tomorrow and Tuesday. Encouraged frequent sips of fluid and addition of calories in liquid form with nutritional drinks. Strict return precautions discussed. All of their questions and concerns were addressed, they are in agreement with this plan. Discussed need to return immediately if he develops fever. HPI General Date/Time Provider Initiated Documentation: 07/19/22 09:29 . Limitations to Documentation: no limitations . Information obtained by: patient, family (), RN notes reviewed and old records reviewed . History of Present Illness 67 year old M presents to the emergency department with the chief complaint of nausea, vomiting, dehydration, described as moderate, Quality is described as other (denies pain at this time), Patient started experiencing this day(s) and it has been constant. No relieving factors improve symptom(s), Other factors that worsen symptoms (associates with recent round of chemo) . Patient notes chest pain (focal pain that is associated with site of radiation, chronic issue with no acute change), loss of appetite, malaise and nausea/vomiting; denies cough, diaphoresis, fever/chills, headaches, rash and shortness of breath. Patient did receive the following treatments prior to arrival, none Related Data Home Medications Medication Instructions Recorded Confirmed fish oil 1,000 cap PO .once daily 12/02/20 07/19/22 atorvastatin 10 mg tablet 10 mg PO .twice/week #30 tabs 06/05/21 07/19/22 sitagliptin phosphate 50 1 tab PO DAILY AM #90 tabs 06/05/21 07/19/22 mg-metformin 1,000 mg tablet (Janumet) Inhaler, Assist Devices [Pocket 1 ea miscellaneous DIRECTED ##0 09/14/21 07/19/22 Chamber] multivitamin with minerals-ferrous 1 tab PO DAILY #30 tabs 09/14/21 07/19/22 sulfate 4.5 mg iron tablet (One Daily Multivitamins with Minerals) albuterol sulfate 90 mcg/actuation 2 puff inhalation QID PRN 10/20/21 07/19/22 aerosol inhaler (Ventolin HFA) shortness of breath or wheezing #8.5 grams spironolactone 100 mg tablet 100 mg PO QAM #90 tabs 10/20/21 07/19/22 (Aldactone) blood sugar diagnostic (Blood #100 strips 10/22/21 07/19/22 Glucose Test strips) blood-glucose meter #1 ea 10/22/21 07/19/22 doxazosin 8 mg tablet (Cardura) 8 mg PO DAILY #90 tabs 10/22/21 07/19/22 lancets 28 gauge #100 ea 10/22/21 07/19/22 cyanocobalamin (vitamin B-12) 500 1,000 mcg PO DAILY #180 tabs 10/24/21 07/19/22 mcg tablet (Vitamin B-12) apixaban 5 mg tablet (Eliquis) 5 mg PO BID #180 tabs 11/17/21 07/19/22 empagliflozin 10 mg tablet 10 mg PO QAM #90 tabs 11/17/21 07/19/22 (Jardiance) furosemide 40 mg tablet 40 mg PO BID@0830,1600 #180 tabs 11/23/21 07/19/22 magnesium oxide 400 mg (241.3 mg 400 mg PO DAILY #90 tabs 11/28/21 07/19/22 magnesium) tablet (MagOx) potassium chloride 20 mEq oral 20 meq PO DAILY #50 ea 07/19/22 packet metoprolol succinate 200 mg 200 mg PO DAILY #90 caps 07/20/22 capsule sprinkle, ext. release 24 hr Previous Rx's Medication Instructions Recorded atorvastatin 10 mg tablet 10 mg PO .twice/week #30 tabs 06/05/21 sitagliptin phosphate 50 1 tab PO DAILY AM #90 tabs 06/05/21 mg-metformin 1,000 mg tablet (Janumet) Inhaler, Assist Devices [Pocket 1 ea miscellaneous DIRECTED ##0 09/14/21 Chamber] multivitamin with minerals-ferrous 1 tab PO DAILY #30 tabs 09/14/21 sulfate 4.5 mg iron tablet (One Daily Multivitamins with Minerals) albuterol sulfate 90 mcg/actuation 2 puff inhalation QID PRN 10/20/21 aerosol inhaler (Ventolin HFA) shortness of breath or wheezing #8.5 grams spironolactone 100 mg tablet 100 mg PO QAM #90 tabs 10/20/21 (Aldactone) blood sugar diagnostic (Blood #100 strips 10/22/21 Glucose Test strips) blood-glucose meter #1 ea 10/22/21 doxazosin 8 mg tablet (Cardura) 8 mg PO DAILY #90 tabs 10/22/21 lancets 28 gauge #100 ea 10/22/21 cyanocobalamin (vitamin B-12) 500 1,000 mcg PO DAILY #180 tabs 10/24/21 mcg tablet (Vitamin B-12) apixaban 5 mg tablet (Eliquis) 5 mg PO BID #180 tabs 11/17/21 empagliflozin 10 mg tablet 10 mg PO QAM #90 tabs 11/17/21 (Jardiance) furosemide 40 mg tablet 40 mg PO BID@0830,1600 #180 tabs 11/23/21 magnesium oxide 400 mg (241.3 mg 400 mg PO DAILY #90 tabs 11/28/21 magnesium) tablet (MagOx) potassium chloride 20 mEq oral 20 meq PO DAILY #50 ea 07/19/22 packet metoprolol succinate 200 mg 200 mg PO DAILY #90 caps 07/20/22 capsule sprinkle, ext. release 24 hr Allergies Allergy/AdvReac Type Severity Reaction Status Date / Time No Known Allergies Allergy Verified 07/19/22 09:36 General Stated Complaint: Nausea/Vomit/Diar BRANDYN: 3 Review of Systems Constitutional Constitutional: Reports as per HPI, Denies chills, Denies fever(s) and Denies headache(s) ENT Ears, Nose, Mouth, and Throat: Denies headache(s) Cardiovascular Cardiovascular: Reports as per HPI and Denies dyspnea Respiratory Respiratory: Reports as per HPI, Denies cough and Denies dyspnea Gastrointestinal Gastrointestinal: Reports as per HPI Genitourinary Genitourinary: Denies system reviewed and no additional complaints, except as documented (patient denies any change in urinary habits) Musculoskeletal Musculoskeletal: Reports as per HPI and Denies back pain Integumentary/Breasts Skin/Breast: Reports as per HPI and Denies rash Neurologic Neurologic: Reports as per HPI and Denies headache(s) PFSH All Active Problems (Updated 07/19/22 @ 14:51 by DARCI Jarrett) Acute dehydration (Acute) Nausea vomiting and diarrhea (Acute) Leukopenia (Acute) Neutropenia (Acute) Lung cancer (Chronic) Perforation of right tympanic membrane (Acute) Thrush (Acute) Afib (Chronic) Renal insufficiency (Chronic) CHF (congestive heart failure) (Chronic) Medication monitoring encounter (Acute) Leukocytosis (Acute) Cellulitis of right leg (Acute) Weakness (Acute) COVID-19 (Acute ~06/13/21) Hyperkalemia (Acute) Hyponatremia (Acute) Weight gain (Acute) Edema (Acute) History of splenectomy (Acute) Type II diabetes mellitus with complication, uncontrolled (Acute) 01/10/13 A1C 7.3 12/26/13 A1C 11.7 Essential hypertension (Chronic) not well controlled will bump up los/hctz Alcoholism (Chronic) Calculus of gallbladder without cholecystitis without obstruction (Acute 04/22/16) Hepatic cirrhosis (Chronic 04/22/16) per CT 04/2016 Hypertriglyceridemia (Acute) Microscopic hematuria (Acute 08/06/16) Overweight (Acute 05/13/15) Sensorineural hearing loss, bilateral (Acute 03/30/16) 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 muscle tear will check xray Screening for colon cancer (Acute) Well adult (Acute) Medical History Diabetes mellitus Hypertension Family History Mother No problems noted. Father Diabetes Heart disease Neoplasm Stroke Sister Personal history of malignant neoplasm Brother No problems noted. Grandfather Heart disease Grandfather No problems noted. Grandmother No problems noted. Grandmother Diabetes Sister No problems noted. Sister No problems noted. Brother No problems noted. Brother No problems noted. Brother No problems noted. Son Substance abuse Social History (Updated 06/08/22 @ 18:09 by Lu Higginbotham) Smoking/Tobacco Use Status: Former Tobacco Use tobacco type: cigarettes Quit Date: 02/07/06 Tobacco: How many years used: 12 Second Hand Exposure: Yes Smoking risk assessment performed?: Yes Alcohol Intake: former Drug use: Never Substance use type: does not use Details: drinks 3-4 beers daily, last beer earlier this morning. Caregiver/Support person: No Household members: significant other Housing: house Communication Needs: Hard of Hearing Do you need help understanding health information?: Never Pets and animals: Yes Pets and animals: dog(s) Sexually active: No Do you think of yourself as: straight/heterosexual Current gender identity: male How often do you talk on the phone with friends or family?: decline to answer How often do you get together with friends or relatives?: decline to answer How often do you attend orthodox or alevism services?: decline to answer Do you belong to any clubs or organized social groups?: decline to answer What type of physical activity do you participate in: none Frequency: does not exercise Seatbelt use: sometimes Drive intox or ride w/intox pedicab driver: No Do you feel safe at home: Yes Do you feel safe in your relationship?: Yes Exam Const General: cooperative, comfortable, no acute distress, well developed and ill appearing chronically Nutritional Appearance: average body habitus and well nourished Orientation: alert and awake HENMT Head: normal to inspection Mouth: mucous membranes dry (appears dry) Chest Chest: normal inspection of the chest (small embedded systems software engineer for radiation noted, pain elicited with palpation ), no crepitus and no masses Resp Effort & Inspection: normal respiratory effort, able to speak in complete sentences and no respiratory distress Auscultation: clear to auscultation bilaterally, no rales, no rhonchi and no wheezes Cardio Rate: tachycardic Rhythm: abnormal rhythm irregularly irregular Heart Sounds: S1 normal and S2 normal GI Inspection: distended and obesity Palpation: soft, no guarding, no hernias, no masses, no pulsatile masses, not rigid, nontender and ascites Percussion: dullness to percussion and fluid wave Back/Spine/Pelvis Back: no CVA tenderness Skin General skin exam: no rashes or lesions noted Trauma: no lacerations or abrasions Neuro General: patient alert and patient awake Cognition: normal cognition Speech: speech normal Psych Appearance: grossly normal and well kempt Mental Status: mental status grossly normal Speech and Movement: speech and movement normal Course Vital Signs Vital signs: Vital Signs Temperature 36.9 C 07/19/22 09:31 Pulse 84 07/19/22 09:31 Respiratory Rate 19 07/19/22 09:31 Blood Pressure 121/72 07/19/22 09:31 Pulse Oximetry 95 07/19/22 09:31 Temperature 36.9 C 07/19/22 09:31 Temperature Source Oral 07/19/22 09:31 Pulse 84 07/19/22 09:31 Respiratory Rate 19 07/19/22 09:31 Respiratory Effort Normal 07/19/22 09:33 Blood Pressure 121/72 07/19/22 09:31 Blood Pressure Position Sitting 07/19/22 09:31 Pulse Oximetry 95 07/19/22 09:31 Oxygen Delivery Method Room Air 07/19/22 09:31 Oxygen Flow Rate 0 07/19/22 09:31 Pain Level 8 07/19/22 09:31
[2022-07-19] MEDS: Ondansetron 4 MG/2 ML VIAL IVP (10:15)
[2022-07-19] MEDS: Lactated Ringers 1,000 ML 1000 ML IV (10:15)
[2022-07-19 10:23] LABS: HCT 29.7 % (40.0-50.0); HGB 9.9 g/dL (13.5-17.5); MCH 26.7 pg (27.0-33.0); MCHC 33.3 % (32.0-36.0); MCV 80 fL (80-95); RBC 3.71 10^6/uL (4.36-5.78); RDW 17.9 % (11.8-14.1); RDW-SD 50.3 fL
[2022-07-19 10:26] LABS: WBC 0.79 10^3/uL (4.4-10.8)
[2022-07-19 10:40] LABS: Lactate 2.2 mmol/L (0.6-1.4)
[2022-07-19 10:40] LABS: Absolute Lymphocyte Count 0.38 10^3/uL (1.2-3.4); Absolute Monocyte Count 0.33 10^3/uL (0.1-0.8); Bands % 2; Platelet Count 93 10^3/uL (130-400)
[2022-07-19 10:42] LABS: Absolute Neutrophil Count 0.08 10^3/uL (1.2-6.7); Diff Comment Manual Differential; RBC Morphology Normal
[2022-07-19 10:57] LABS: ALT 17 U/L (16-63); AST 20 U/L (15-37); Albumin 2.2 g/dL (3.4-5.0); Alkaline Phosphatase 71 U/L (46-116); Anion Gap 5.2 mmol/L (3-11); BUN 14 mg/dL (7-18); Bilirubin, Total 2.2 mg/dL (0.2-1.0); CO2 25.8 mmol/L (21.0-32.0); CREATININE 1.5 mg/dL (0.70-1.30); Calcium 8.1 mg/dL (8.5-10.1); Chloride 100 mmol/L (98-107); Glucose 156 mg/dL (74-106); Magnesium 1.3 mg/dL (1.8-2.4); Potassium 3.6 mmol/L (3.5-5.1); Sodium 131 mmol/L (136-145); Total Protein 5.8 g/dL (6.4-8.2)
--- NOTE | 2022-07-19 11:00 | DI.CT_ITS ---
Exam(s) CT CHEST/ABD/PEL W EXAM: CT CHEST/ABD/PEL W CLINICAL HISTORY: bloating, chest discomfort, known CA. TECHNIQUE: Imaging Protocol: Axial computed tomography images with coronal and sagittal reformatted images were created and reviewed CONTRAST MATERIAL: Intravenous: Omnipaque 350 Contrast volume:100 ml Oral: None COMPARISON: CT CT CHEST PE ABD PELVIS W from 09/01/2021 CR XR PORTABLE CHEST AP from 09/08/2021 FINDINGS: CHEST: Bilateral gynecomastia again noted. This is further increased from prior study of August 2021. LUNGS: Small solitary 5 millimeter nodular infiltrate in the lateral aspect of the right lower lobe i s again noted, unchanged from the CT scan performed 09/01/2021.. There are no additional lung nodule s evident and there are no infiltrates nor pleural effusions. No significant focal findings in trach ea and mainstem bronchi. MEDIASTINUM: z There is subcarinal adenopathy evident. This blends with the esophagus wall. Esophag us is somewhat thickened circumferentially below this level. There is no hiatal hernia. CARDIAC: Heart size is normal. There is no pericardial effusion.Caliber of the thoracic aorta is wit hin normal limits. OSSEOUS: No significant osseous lesions.. ABDOMEN: There is a significant amount of ascites evident abdomen pelvis, somewhat more so than previous LIVER: Cirrhotic appearing liver again noted. In the posterior aspect of the right hepatic lobe subj acent to diaphragm there is a 1.5 x 1.6 cm focal nodule which is unchanged in size from the prior shon dy. This either represents regenerating nodule but cannot exclude neoplasm. GALLBLADDER/BILIARY: Cholelithiasis again noted. Gallbladder is somewhat distended and there is flui d around the gallbladder although this may be related to the ascites. The CBD is not dilated. There are no radiopaque calculi evident within the CBD. PANCREAS: No evidence of pancreatic mass nor dilatation of the pancreatic duct. 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 There are no clips in this region. A thin splenic vein is opacified. Portal venous confluence and portal vein are patent. ADRENALS: There are no significant adrenal masses. KIDNEYS: There is symmetrical streaking around both kidneys. There are no renal masses nor cysts nor calculi nor hydronephrosis. No hydroureter. No calculi nor obvious masses in the urinary bladder. ABDOMINAL AORTA: Heavily calcified but not a cyst. Bilateral iliac arteries are also heavily calcifi ed but not enlarged. LYMPH NODES: There is no retroperitoneal nor paraaortic adenopathy. ABDOMINAL WALL: No evidence of significant anterior abdominal wall nor inguinal hernia. GI: Long redundant sigmoid extends up out of the pelvis.No obvious evidence of acute diverticulitis o f the sigmoid. PELVIS: LYMPH NODES: There is no intrapelvic nor inguinal adenopathy. GI: Appendix is surgically absent.No evidence of sigmoid diverticulitis. URINARY BLADDER: No calculi nor masses evident REPRODUCTIVE: Prostate size normal. OSSEOUS: Compression fracture of L3 is unchanged from August 2021. No new fractures evident. No lytic osseous lesions. No obvious blastic osseous lesions IMPRESSION: 1. Compared to the prior CT scan of August 2021 there is again noted cirrhotic appearing liver and sign ificant ascites in the abdomen and pelvis (no pleural effusions). 2. In the posterior aspect of the right hepatic lobe there is an enhancing 1.5 by 1.6 cm nodule again noted which is probably a regenerating nodule but cannot exclude neoplasm such as hepatoma. 3. Cholelithiasis again noted. Gallbladder is also somewhat distended. There is fluid around the ga llbladder, either related to cholecystitis or just related to the amount of ascites here. 4. Spleen again noted to be absent (there are no surgical clips evident). 5. Stable 5 millimeter nodular infiltrate in the right lower lobe. No new additional lung findings but there is abnormal subcarinal density evident which appears to blend into the wall of the esophagu s. This may represent subcarinal adenopathy or be related to esophageal issues. Cannot exclude esop hageal malignancy. There are no obvious esophageal varices. 6. Previous appendectomy. 7. Long length sigmoid. No bowel obstruction. No evidence of diverticulitis. 8. Stable appearance of L3 compression fracture. No new fractures. No significant osseous lesions identified. Increasing bilateral gynecomastia RADIATION DOSE DELIVERED: 1,860.24mGy.cm Total DLP DATA REPOSITORY: All CT scans at this facility are submitted to the National Radiology Data Registry (NRDR) Dose Index Registry (DIR) with the [employer] (ACR). RADIATION OPTIMIZATION: All CT scans at this facility use at least one of these dose optimization te chniques: automated exposure control; mA and/or kV adjustment per patient size (includes targeted exa ms where dose is matched to clinical indication); or iterative reconstruction.
[2022-07-19] MEDS: MAGNESIUM SULFATE 1 GM/100 ML BAG IVPB (11:21)
[2022-07-19] MEDS: Normal Saline - Diluent 50 ML VIAL IJ (11:55)
[2022-07-19] MEDS: Omnipaque 350 MG/ML 500 ML BTL-Imaging package IJ (11:56)
[2022-07-19 14:02] LABS: Troponin I < 50 ng/L (<or=60)
[2022-07-19 14:25] LABS: Troponin I < 50 ng/L (<or=60)
[2022-07-19 14:56] LABS: Bilirubin Negative (Negative); Blood Trace-lysed (Negative); Clarity Clear (Clear); Glucose 100 mg/dL (Negative); Ketones Negative (Negative); Leukocyte Esterase Negative (Negative); Nitrite Negative (Negative); Specific Gravity 1.015 (1.005-1.025); Urobilinogen 0.2 mg/dL (Up to 0.2)
[2022-07-19 15:06] LABS: Epithelial Cells Moderate HPF (Negative); RBC 0-2 HPF (0-2); WBC Negative HPF (0-5)
[2022-07-19 15:07] LABS: Bacteria Negative HPF (Negative); C & S Indicated? No; Casts 3-5 Hyaline LPF (Negative); Crystals Negative HPF (Negative); Mucus Negative (Negative)
== END 2022-07-19 15:36 | disposition home or self-care (01) ==
PROVIDERS: Emergency Provider Physician Assistant; PCP Family Medicine
DX: E86.0 Dehydration (principal); R11.2 Nausea with vomiting, unspecified; R19.7 Diarrhea, unspecified; D72.819 Decreased white blood cell count, unspecified; D70.9 Neutropenia, unspecified
CPT/HCPCS: 36410; 36415; 74177; 80053; 93005; 96361; 96365; 96366; 96375; 99285; 71260; 81003; 81015; 83605; 83735; 84484; 85025; 93010; 99284; J2405; J3475

== ENCOUNTER 2022-07-28 01:50 | Outpatient (CLI) | payer OTHER, MEDICAID, SELFPAY ==
--- NOTE | 2022-07-28 | DI.CT_ITS ---
Exam(s) CT CHEST W EXAM: CT CHEST W CLINICAL HISTORY: PRIMARY ADENOCARCINOMA OF LUNG, C34.90 TECHNIQUE: Imaging Protocol: Axial computed tomography images with coronal and sagittal reformatted images were created and reviewed CONTRAST MATERIAL: Intravenous: Omnipaque 350Contrast volume:70 mL. COMPARISON: CT CT CHEST PE ABD PELVIS W from 09/01/[address] CHEST/ABD/PEL W from 07/19/2022 FINDINGS: Tracheobronchial tree: Patent where visualized. Pulmonary parenchyma: Moderate centrilobular emphysematous changes are present. There is no change i n the previously identified nodular area in the lateral aspect of the right lower lobe. No new pulmo nary nodules are identified. There is a small area of increased attenuation in the central left uppe r lobe. A small developing infiltrate, nodule or atelectasis cannot be excluded. Mediastinum and Monalisa: Stable right paratracheal and subcarinal adenopathy is present. The esophagus is unremarkable. Thyroid gland: Unremarkable. Pleura: No effusion or pneumothorax. Heart: The heart is not dilated. Coronary artery calcifications and/or stents are present. There is a small pericardial effusion. Aorta: Thoracic aorta non-dilated. Atherosclerosis. No evidence of dissection. Pulmonary arteries: The pulmonary arteries are inadequately opacified for evaluation of pulmonary emb brett. Upper abdomen: There is moderate abdominal ascites. Cholelithiasis. There is nodular appearance of the liver consistent with hepatic cirrhosis. There is a stable enhancing nodule at the posterior as pect of the right lobe of the liver. Lymph nodes: Within normal limits. Bones: Within normal limits for the patient's age. Soft tissues: Bilateral gynecomastia. IMPRESSION: 1. Stable right lower lobe nodular area. 2. Small area of increased attenuation in the central left upper lobe. A small developing infiltrate , nodule or atelectasis cannot be excluded. 3. Stable mediastinal adenopathy. 4. Stable findings in the abdomen consistent with hepatic cirrhosis with ascites. Cholelithiasis. RADIATION DOSE DELIVERED: 512.38mGy.cm Total DLP DATA REPOSITORY: All CT scans at this facility are submitted to the National Radiology Data Registry (NRDR) Dose Index Registry (DIR) with the [employer] (ACR). RADIATION OPTIMIZATION: All CT scans at this facility use at least one of these dose optimization te chniques: automated exposure control; mA and/or kV adjustment per patient size (includes targeted exa ms where dose is matched to clinical indication); or iterative reconstruction.
[2022-07-28] MEDS: Omnipaque 350 MG/ML 100 ML BTL IJ (13:28)
[2022-07-28] MEDS: Normal Saline - Diluent 50 ML VIAL IJ (13:29)
== END 2022-07-28 02:10 ==
LOC: DI 01:51
PROVIDERS: PCP Family Medicine; Visit Provider Internal Medicine Medical Oncology
DX: C34.90 Malignant neoplasm of unspecified part of unspecified bronchus or lung (principal); K70.31 Alcoholic cirrhosis of liver with ascites; K80.00 Calculus of gallbladder with acute cholecystitis without obstruction
CPT/HCPCS: 71260; J3490

== ENCOUNTER 2022-08-02 03:02 | Outpatient (CLI) | payer OTHER, MEDICAID, SELFPAY ==
[2022-08-02 14:14] LABS: Absolute Eosinophil Count 0.01 10^3/uL (0.0-0.7); Absolute Lymphocyte Count 0.98 10^3/uL (1.2-3.4); Absolute Monocyte Count 1.76 10^3/uL (0.1-0.8); Basophils % 0.5; Eosinophils % 0.1; HCT 33.8 % (40.0-50.0); HGB 10.8 g/dL (13.5-17.5); Immature Grans % 0.7; Lymphocytes % 6.6; MCH 27.3 pg (27.0-33.0); MCV 85 fL (80-95); MPV 11.3 fL (8.0-11.0); Monocytes % 11.8; Neutrophils % 80.3; Platelet Count 217 10^3/uL (130-400); RBC 3.96 10^6/uL (4.36-5.78); RDW 23.9 % (11.8-14.1); RDW-SD 72.9 fL; WBC 14.92 10^3/uL (4.4-10.8)
[2022-08-02 14:43] LABS: ALT 21 U/L (16-63); AST 28 U/L (15-37); Albumin 2.3 g/dL (3.4-5.0); Alkaline Phosphatase 100 U/L (46-116); Anion Gap 9.4 mmol/L (3-11); BUN 11 mg/dL (7-18); Bilirubin, Total 1.4 mg/dL (0.2-1.0); CO2 23.6 mmol/L (21.0-32.0); CREATININE 1.8 mg/dL (0.70-1.30); Chloride 99 mmol/L (98-107); Estimated GFR 40.49 (mL/min/1.73m2); FREE T4 1.43 ng/dL (0.76-1.46); Glucose 152 mg/dL (74-106); Magnesium 1.2 mg/dL (1.8-2.4); Potassium 4.5 mmol/L (3.5-5.1); Sodium 132 mmol/L (136-145); TSH 1.42 uIU/mL (0.36-3.74); Total Protein 6.4 g/dL (6.4-8.2)
[2022-08-02 15:12] LABS: Absolute Basophil Count 0.07 10^3/uL (0.0-0.2); Absolute Neutrophil Count 11.98 10^3/uL (1.2-6.7); Diff Comment Diff Reviewed
[2022-08-02 15:13] LABS: Anisocytosis 2+
== END 2022-08-02 03:03 | disposition home or self-care (01) ==
LOC: LBO 03:02
PROVIDERS: PCP Family Medicine; Visit Provider Internal Medicine Medical Oncology
DX: C34.90 Malignant neoplasm of unspecified part of unspecified bronchus or lung (principal); Z79.899 Other long term (current) drug therapy
CPT/HCPCS: 36415; 80053; 83735; 84439; 84443; 85025

== ENCOUNTER 2022-08-09 03:02 | Outpatient (CLI) | payer OTHER, MEDICAID, SELFPAY ==
[2022-08-09 12:53] LABS: Abs Immature Grans 0.03 10^3/uL (0.0-0.06); Absolute Basophil Count 0.05 10^3/uL (0.0-0.2); Absolute Eosinophil Count 0.17 10^3/uL (0.0-0.7); Absolute Lymphocyte Count 1.44 10^3/uL (1.2-3.4); Absolute Monocyte Count 1.38 10^3/uL (0.1-0.8); Basophils % 0.7; Eosinophils % 2.2; HCT 32.2 % (40.0-50.0); HGB 10.6 g/dL (13.5-17.5); Immature Grans % 0.4; Lymphocytes % 18.8; MCH 27.9 pg (27.0-33.0); MCHC 32.9 % (32.0-36.0); MCV 85 fL (80-95); MPV 12.5 fL (8.0-11.0); Neutrophils % 59.9; Platelet Count 228 10^3/uL (130-400); RDW 24.2 % (11.8-14.1); RDW-SD 71.7 fL; WBC 7.67 10^3/uL (4.4-10.8)
[2022-08-09 13:22] LABS: Anisocytosis 2+; Basophilic Stippling 1+; Diff Comment RBC Morph Reviewed
[2022-08-09 13:25] LABS: ALT 18 U/L (16-63); AST 33 U/L (15-37); Albumin 2.2 g/dL (3.4-5.0); Alkaline Phosphatase 106 U/L (46-116); Anion Gap 8.6 mmol/L (3-11); BUN 10 mg/dL (7-18); Bilirubin, Total 1.2 mg/dL (0.2-1.0); CO2 24.4 mmol/L (21.0-32.0); CREATININE 1.6 mg/dL (0.70-1.30); Calcium 8.2 mg/dL (8.5-10.1); Chloride 100 mmol/L (98-107); Estimated GFR 46.64 (mL/min/1.73m2); FREE T4 1.43 ng/dL (0.76-1.46); Glucose 119 mg/dL (74-106); Magnesium 1.3 mg/dL (1.8-2.4); Potassium 4.1 mmol/L (3.5-5.1); Sodium 133 mmol/L (136-145); TSH 0.97 uIU/mL (0.36-3.74); Total Protein 6.2 g/dL (6.4-8.2)
== END 2022-08-09 03:03 | disposition home or self-care (01) ==
LOC: LBO 03:02
PROVIDERS: PCP Family Medicine; Visit Provider Internal Medicine Medical Oncology
DX: C34.90 Malignant neoplasm of unspecified part of unspecified bronchus or lung (principal); Z79.899 Other long term (current) drug therapy
CPT/HCPCS: 36415; 80053; 83735; 84439; 84443; 85025

== ENCOUNTER 2022-09-06 02:37 | Outpatient (CLI) | payer OTHER, MEDICAID, SELFPAY ==
[2022-09-06 08:59] LABS: Abs Immature Grans 0.03 10^3/uL (0.0-0.06); Absolute Basophil Count 0.09 10^3/uL (0.0-0.2); Absolute Eosinophil Count 0.89 10^3/uL (0.0-0.7); Absolute Lymphocyte Count 2.68 10^3/uL (1.2-3.4); Absolute Monocyte Count 1.31 10^3/uL (0.1-0.8); Basophils % 0.9; HCT 35.9 % (40.0-50.0); HGB 11.7 g/dL (13.5-17.5); Immature Grans % 0.3; Lymphocytes % 27.2; MCHC 32.6 % (32.0-36.0); MCV 89 fL (80-95); Monocytes % 13.3; RBC 4.03 10^6/uL (4.36-5.78); RDW 22.9 % (11.8-14.1); RDW-SD 73.6 fL; WBC 9.84 10^3/uL (4.4-10.8)
[2022-09-06 09:23] LABS: ALT 19 U/L (16-63); AST 32 U/L (15-37); Albumin 2.3 g/dL (3.4-5.0); Alkaline Phosphatase 139 U/L (46-116); Anion Gap 5.7 mmol/L (3-11); BUN 12 mg/dL (7-18); Bilirubin, Total 1.4 mg/dL (0.2-1.0); CO2 26.3 mmol/L (21.0-32.0); CREATININE 1.4 mg/dL (0.70-1.30); Calcium 8.5 mg/dL (8.5-10.1); Chloride 105 mmol/L (98-107); Estimated GFR 54.75 (mL/min/1.73m2); FREE T4 1.41 ng/dL (0.76-1.46); Glucose 123 mg/dL (74-106); Magnesium 1.3 mg/dL (1.8-2.4); Potassium 3.9 mmol/L (3.5-5.1); Sodium 137 mmol/L (136-145); TSH 0.35 uIU/mL (0.36-3.74); Total Protein 6.5 g/dL (6.4-8.2)
[2022-09-06 09:36] LABS: Absolute Neutrophil Count 4.85 10^3/uL (1.2-6.7); Neutrophils % 49.3
[2022-09-06 09:37] LABS: Acanthocytes 1+; Diff Comment Diff Reviewed
[2022-09-06 09:38] LABS: Anisocytosis 1+
[2022-09-06 09:39] LABS: Platelet Count 187 10^3/uL (130-400); Poikilocytes 1+
[2022-09-08 10:17] LABS: AFP Tumor Marker 2.9 ng/mL (<8.1)
== END 2022-09-06 02:38 | disposition home or self-care (01) ==
LOC: LBO 02:37
PROVIDERS: PCP Family Medicine; Visit Provider Internal Medicine Medical Oncology
DX: Z79.899 Other long term (current) drug therapy (principal); C34.90 Malignant neoplasm of unspecified part of unspecified bronchus or lung; K74.60 Unspecified cirrhosis of liver
CPT/HCPCS: 36415; 80053; 82105; 83735; 84439; 84443; 85025

== ENCOUNTER 2022-10-06 02:08 | Outpatient (CLI) | payer OTHER, MEDICAID, SELFPAY ==
[2022-10-06 12:39] LABS: HCT 34.8 % (40.0-50.0); HGB 11.5 g/dL (13.5-17.5); MCH 29.6 pg (27.0-33.0); MCV 90 fL (80-95); MPV 12.3 fL (8.0-11.0); Platelet Count 200 10^3/uL (130-400); RBC 3.88 10^6/uL (4.36-5.78); RDW 16.1 % (11.8-14.1); RDW-SD 52.8 fL; WBC 14.54 10^3/uL (4.4-10.8)
[2022-10-06 12:47] LABS: ALT 6 U/L (16-63); AST 17 U/L (15-37); Albumin 2.2 g/dL (3.4-5.0); Alkaline Phosphatase 100 U/L (46-116); Anion Gap 9.5 mmol/L (3-11); BUN 15 mg/dL (7-18); Bilirubin, Total 2.4 mg/dL (0.2-1.0); CO2 23.5 mmol/L (21.0-32.0); CREATININE 1.4 mg/dL (0.70-1.30); Calcium 8.7 mg/dL (8.5-10.1); Chloride 102 mmol/L (98-107); Estimated GFR 54.75 (mL/min/1.73m2); FREE T4 1.55 ng/dL (0.76-1.46); Glucose 125 mg/dL (74-106); Magnesium 1.5 mg/dL (1.8-2.4); Sodium 135 mmol/L (136-145); TSH 0.06 uIU/mL (0.36-3.74); Total Protein 6.9 g/dL (6.4-8.2)
[2022-10-06 13:05] LABS: Absolute Eosinophil Count 0.15 10^3/uL (0.0-0.7); Absolute Lymphocyte Count 2.33 10^3/uL (1.2-3.4); Absolute Neutrophil Count 10.32 10^3/uL (1.2-6.7)
[2022-10-06 13:06] LABS: Absolute Monocyte Count 1.74 10^3/uL (0.1-0.8); Diff Comment Manual Differential; RBC Morphology Normal
== END 2022-10-06 02:09 | disposition home or self-care (01) ==
LOC: LBO 02:08
PROVIDERS: PCP Family Medicine; Visit Provider Internal Medicine Medical Oncology
DX: C34.91 Malignant neoplasm of unspecified part of right bronchus or lung (principal); Z79.899 Other long term (current) drug therapy
CPT/HCPCS: 36415; 80053; 83735; 84439; 84443; 85025

== ENCOUNTER 2022-10-07 20:52 | Outpatient (REF) | payer OTHER, MEDICAID, SELFPAY ==
[2022-10-07 21:37] LABS: COMMENT (LAB VIEW ONLY) 113.09 mg/dL
[2022-10-07 21:40] LABS: Microalb ug/mg Crea 192.1 ug/mg Cr
== END 2022-10-07 20:53 | disposition home or self-care (01) ==
LOC: LBN 20:52
PROVIDERS: PCP Family Medicine; Visit Provider Family Medicine
DX: E11.9 Type 2 diabetes mellitus without complications (principal)
CPT/HCPCS: 82043; 82570

== ENCOUNTER 2022-10-13 04:06 | Outpatient (CLI) | payer OTHER, SELFPAY ==
[2022-10-13 07:47] LABS: Abs Immature Grans 0.11 10^3/uL (0.0-0.06); Absolute Basophil Count 0.06 10^3/uL (0.0-0.2); Absolute Eosinophil Count 0.63 10^3/uL (0.0-0.7); Absolute Lymphocyte Count 1.18 10^3/uL (1.2-3.4); Absolute Monocyte Count 1.24 10^3/uL (0.1-0.8); Absolute Neutrophil Count 10.72 10^3/uL (1.2-6.7); Basophils % 0.4; Eosinophils % 4.5; HCT 33.8 % (40.0-50.0); HGB 11.5 g/dL (13.5-17.5); Immature Grans % 0.8; Lymphocytes % 8.5; MCH 30.1 pg (27.0-33.0); MCV 89 fL (80-95); MPV 12.1 fL (8.0-11.0); Monocytes % 8.9; Neutrophils % 76.9; Platelet Count 223 10^3/uL (130-400); RBC 3.82 10^6/uL (4.36-5.78); RDW 15.9 % (11.8-14.1); RDW-SD 51.3 fL; WBC 13.94 10^3/uL (4.4-10.8)
[2022-10-13 08:15] LABS: AST 17 U/L (15-37); Albumin 1.9 g/dL (3.4-5.0); Alkaline Phosphatase 113 U/L (46-116); Anion Gap 9.8 mmol/L (3-11); BUN 18 mg/dL (7-18); Bilirubin, Total 1.2 mg/dL (0.2-1.0); CO2 23.2 mmol/L (21.0-32.0); CREATININE 1.4 mg/dL (0.70-1.30); Calcium 8.5 mg/dL (8.5-10.1); Chloride 101 mmol/L (98-107); Estimated GFR 54.75 (mL/min/1.73m2); FREE T4 1.66 ng/dL (0.76-1.46); Glucose 160 mg/dL (74-106); Magnesium 1.6 mg/dL (1.8-2.4); Sodium 134 mmol/L (136-145); TSH 0.18 uIU/mL (0.36-3.74); Total Protein 6.4 g/dL (6.4-8.2)
[2022-10-13 08:16] LABS: ALT < 6 U/L (16-63)
[2022-10-13 08:21] LABS: Potassium 2.8 mmol/L (3.5-5.1)
== END 2022-10-13 04:07 | disposition home or self-care (01) ==
LOC: LBO 04:06
PROVIDERS: PCP Family Medicine; Visit Provider Internal Medicine Medical Oncology
DX: C34.91 Malignant neoplasm of unspecified part of right bronchus or lung (principal); Z79.899 Other long term (current) drug therapy
CPT/HCPCS: 36415; 80053; 83735; 84439; 84443; 85025

== ENCOUNTER 2022-10-15 07:32 | Outpatient (CLI) | payer OTHER, SELFPAY ==
[2022-10-15 11:14] LABS: Abs Immature Grans 0.06 10^3/uL (0.0-0.06); Absolute Basophil Count 0.06 10^3/uL (0.0-0.2); Absolute Eosinophil Count 0.78 10^3/uL (0.0-0.7); Absolute Monocyte Count 1.32 10^3/uL (0.1-0.8); Absolute Neutrophil Count 8.16 10^3/uL (1.2-6.7); Basophils % 0.5; Eosinophils % 6.6; HCT 33.8 % (40.0-50.0); HGB 11.3 g/dL (13.5-17.5); Immature Grans % 0.5; Lymphocytes % 12.6; MCH 29.7 pg (27.0-33.0); MCHC 33.4 % (32.0-36.0); MCV 89 fL (80-95); MPV 12.3 fL (8.0-11.0); Monocytes % 11.1; Neutrophils % 68.7; Platelet Count 273 10^3/uL (130-400); RBC 3.81 10^6/uL (4.36-5.78); WBC 11.88 10^3/uL (4.4-10.8)
[2022-10-15 11:39] LABS: ALT 7 U/L (16-63); AST 17 U/L (15-37); Albumin 1.8 g/dL (3.4-5.0); Alkaline Phosphatase 103 U/L (46-116); BUN 12 mg/dL (7-18); Bilirubin, Total 1.2 mg/dL (0.2-1.0); CREATININE 1.3 mg/dL (0.70-1.30); Calcium 7.9 mg/dL (8.5-10.1); Chloride 103 mmol/L (98-107); Estimated GFR 59.84 (mL/min/1.73m2); Glucose 146 mg/dL (74-106); Magnesium 1.3 mg/dL (1.8-2.4); Potassium 3.4 mmol/L (3.5-5.1); Sodium 135 mmol/L (136-145); TSH 0.21 uIU/mL (0.36-3.74); Total Protein 6.4 g/dL (6.4-8.2)
== END 2022-10-15 07:33 | disposition home or self-care (01) ==
LOC: LBO 07:33
PROVIDERS: PCP Family Medicine; Visit Provider Internal Medicine Medical Oncology
DX: Z79.899 Other long term (current) drug therapy (principal); C34.90 Malignant neoplasm of unspecified part of unspecified bronchus or lung
CPT/HCPCS: 36415; 80053; 83735; 84439; 84443; 85025

== ENCOUNTER → 2022-10-27 02:32 | Outpatient (CLI) | payer OTHER, SELFPAY ==
--- NOTE | 2022-10-27 | DI.CT_ITS ---
Exam(s) CT CHEST W EXAM: CT CHEST W CLINICAL HISTORY: NSCLC, ASSESS TREATMENT RESPONSE, MONTLY DURVALUMAB TECHNIQUE: Imaging Protocol: Axial computed tomography images with coronal and sagittal reformatted images were created and reviewed CONTRAST MATERIAL: Intravenous: Omnipaque 350 Contrast volume:70 ml. COMPARISON: CT CT CHEST/ABD/PEL W from 07/19/[address] CHEST W from 07/28/2022 FINDINGS: Pulmonary arteries: No evidence of emboli. Pulmonary parenchyma: Underlying emphysematous changes. Previously noted small infiltrate in the lef t upper lobe no longer seen. Minimal tree-in-bud opacities peripherally in the lateral right upper l obe. Atelectasis versus infiltrates at both lung bases. Atelectasis versus infiltrate medial right middle lobe. Tracheobronchial tree: No bronchiectasis or mucous plugging. Mediastinum and Monalisa: No dominant adenopathy or fluid collection. Decreased size of right hilar and s ubcarinal lymph nodes. Pleura: Trace right pleural effusion, new from prior. No pneumothorax. Heart: The heart is not dilated. [id number] coronary artery calcifications are seen. Trace p ericardial effusion, stable. Aorta: Thoracic aorta non-dilated. Mild atherosclerotic changes. Upper abdomen: Cirrhotic liver and ascites, roughly stable. Cholelithiasis. Stable enhancing les ion posterior right lobe. Bones: Degenerative changes in the spine. No definite lytic or blastic lesions. Soft tissues: Significant bilateral gynecomastia. IMPRESSION: Decreased adenopathy. Multifocal areas of atelectasis versus infiltrate, both lung bases and right middle lobe, new from pr ior.. RADIATION DOSE DELIVERED: 536.22mGy.cm Total DLP DATA REPOSITORY: All CT scans at this facility are submitted to the National Radiology Data Registry (NRDR) Dose Index Registry (DIR) with the [employer] (ACR). RADIATION OPTIMIZATION: All CT scans at this facility use at least one of these dose optimization te chniques: automated exposure control; mA and/or kV adjustment per patient size (includes targeted exa ms where dose is matched to clinical indication); or iterative reconstruction.
[2022-10-27] MEDS: Normal Saline - Diluent 50 ML VIAL IJ (09:24)
[2022-10-27] MEDS: Omnipaque 350 MG/ML 500 ML BTL-Imaging package IJ (09:25)
[2022-10-27] MEDS: Normal Saline Flush 10 ML SYR IVP (09:25)
== END ==
PROVIDERS: PCP Family Medicine; Visit Provider Nurse Practitioner Family
DX: R91.8 Other nonspecific abnormal finding of lung field (principal)
CPT/HCPCS: 71260

== ENCOUNTER 2022-11-08 03:58 | Outpatient (CLI) | payer OTHER, SELFPAY ==
[2022-11-08 08:43] LABS: Abs Immature Grans 0.03 10^3/uL (0.0-0.06); Absolute Basophil Count 0.08 10^3/uL (0.0-0.2); Absolute Eosinophil Count 1.29 10^3/uL (0.0-0.7); Absolute Lymphocyte Count 2.48 10^3/uL (1.2-3.4); Absolute Monocyte Count 1.28 10^3/uL (0.1-0.8); Absolute Neutrophil Count 5.02 10^3/uL (1.2-6.7); Basophils % 0.8; Eosinophils % 12.7; HCT 34.3 % (40.0-50.0); HGB 11.3 g/dL (13.5-17.5); Immature Grans % 0.3; Lymphocytes % 24.4; MCH 29.3 pg (27.0-33.0); MCHC 32.9 % (32.0-36.0); MCV 89 fL (80-95); MPV 12.7 fL (8.0-11.0); Monocytes % 12.6; Neutrophils % 49.2; Platelet Count 208 10^3/uL (130-400); RBC 3.86 10^6/uL (4.36-5.78); RDW 17.5 % (11.8-14.1); RDW-SD 57.1 fL; WBC 10.18 10^3/uL (4.4-10.8)
[2022-11-08 09:08] LABS: ALT 11 U/L (16-63); AST 22 U/L (15-37); Alkaline Phosphatase 129 U/L (46-116); Anion Gap 6.7 mmol/L (3-11); BUN 12 mg/dL (7-18); Bilirubin, Total 0.9 mg/dL (0.2-1.0); CO2 24.3 mmol/L (21.0-32.0); CREATININE 1.5 mg/dL (0.70-1.30); Calcium 8.7 mg/dL (8.5-10.1); Chloride 107 mmol/L (98-107); FREE T4 1.39 ng/dL (0.76-1.46); Glucose 129 mg/dL (74-106); Magnesium 1.6 mg/dL (1.8-2.4); Potassium 4.4 mmol/L (3.5-5.1); Sodium 138 mmol/L (136-145); TSH 0.14 uIU/mL (0.36-3.74)
== END 2022-11-08 03:59 | disposition home or self-care (01) ==
LOC: LBO 03:58
PROVIDERS: PCP Family Medicine; Visit Provider Internal Medicine Medical Oncology
DX: Z79.899 Other long term (current) drug therapy (principal); C34.90 Malignant neoplasm of unspecified part of unspecified bronchus or lung
CPT/HCPCS: 36415; 80053; 83735; 84439; 84443; 85025

== ENCOUNTER 2022-12-06 03:08 | Outpatient (CLI) | payer OTHER, SELFPAY ==
[2022-12-06 08:25] LABS: Abs Immature Grans 0.02 10^3/uL (0.0-0.06); Absolute Basophil Count 0.09 10^3/uL (0.0-0.2); Absolute Lymphocyte Count 2.38 10^3/uL (1.2-3.4); Absolute Monocyte Count 0.89 10^3/uL (0.1-0.8); Absolute Neutrophil Count 3.43 10^3/uL (1.2-6.7); Basophils % 1.1; HCT 35.8 % (40.0-50.0); HGB 11.7 g/dL (13.5-17.5); Immature Grans % 0.2; Lymphocytes % 29.7; MCH 28.9 pg (27.0-33.0); MCHC 32.7 % (32.0-36.0); MCV 88 fL (80-95); MPV 12.1 fL (8.0-11.0); Monocytes % 11.1; Neutrophils % 42.9; Platelet Count 191 10^3/uL (130-400); RBC 4.05 10^6/uL (4.36-5.78); RDW 18.4 % (11.8-14.1); RDW-SD 59.8 fL; WBC 8.01 10^3/uL (4.4-10.8)
[2022-12-06 08:52] LABS: ALT 12 U/L (16-63); AST 26 U/L (15-37); Albumin 2.2 g/dL (3.4-5.0); Alkaline Phosphatase 152 U/L (46-116); BUN 10 mg/dL (7-18); Bilirubin, Total 0.9 mg/dL (0.2-1.0); CREATININE 1.5 mg/dL (0.70-1.30); Calcium 8.5 mg/dL (8.5-10.1); Chloride 107 mmol/L (98-107); FREE T4 1.41 ng/dL (0.76-1.46); Glucose 150 mg/dL (74-106); Magnesium 1.6 mg/dL (1.8-2.4); Potassium 3.8 mmol/L (3.5-5.1); Sodium 141 mmol/L (136-145); TSH 0.09 uIU/mL (0.36-3.74); Total Protein 6.8 g/dL (6.4-8.2)
== END 2022-12-06 03:09 | disposition home or self-care (01) ==
PROVIDERS: PCP Family Medicine; Visit Provider Internal Medicine Medical Oncology
DX: Z79.899 Other long term (current) drug therapy (principal); C34.90 Malignant neoplasm of unspecified part of unspecified bronchus or lung
CPT/HCPCS: 36415; 80053; 83735; 84439; 84443; 85025

== ENCOUNTER 2023-01-03 10:12 | Outpatient (CLI) | payer OTHER, SELFPAY ==
[2023-01-03 08:01] LABS: Abs Immature Grans 0.02 10^3/uL (0.0-0.06); Absolute Basophil Count 0.11 10^3/uL (0.0-0.2); Absolute Eosinophil Count 1.07 10^3/uL (0.0-0.7); Absolute Lymphocyte Count 2.33 10^3/uL (1.2-3.4); Absolute Monocyte Count 0.97 10^3/uL (0.1-0.8); Absolute Neutrophil Count 3.92 10^3/uL (1.2-6.7); Basophils % 1.3; Eosinophils % 12.7; HCT 35.3 % (40.0-50.0); HGB 11.7 g/dL (13.5-17.5); Immature Grans % 0.2; Lymphocytes % 27.7; MCH 28.8 pg (27.0-33.0); MCHC 33.1 % (32.0-36.0); MCV 87 fL (80-95); Monocytes % 11.5; Neutrophils % 46.6; Platelet Count 234 10^3/uL (130-400); RBC 4.06 10^6/uL (4.36-5.78); RDW 18.3 % (11.8-14.1); RDW-SD 57.8 fL; WBC 8.42 10^3/uL (4.4-10.8)
[2023-01-03 08:25] LABS: ALT 12 U/L (16-63); AST 23 U/L (15-37); Albumin 2.1 g/dL (3.4-5.0); Alkaline Phosphatase 152 U/L (46-116); Anion Gap 6.3 mmol/L (3-11); BUN 10 mg/dL (7-18); Bilirubin, Total 1.1 mg/dL (0.2-1.0); CO2 26.7 mmol/L (21.0-32.0); CREATININE 1.5 mg/dL (0.70-1.30); Calcium 8.5 mg/dL (8.5-10.1); Chloride 109 mmol/L (98-107); FREE T4 1.22 ng/dL (0.76-1.46); Glucose 131 mg/dL (74-106); Magnesium 1.7 mg/dL (1.8-2.4); Potassium 4.1 mmol/L (3.5-5.1); Sodium 142 mmol/L (136-145); Total Protein 7.2 g/dL (6.4-8.2)
== END 2023-01-03 10:13 | disposition home or self-care (01) ==
LOC: LBO 10:12
PROVIDERS: PCP Family Medicine; Visit Provider Internal Medicine Medical Oncology
DX: Z79.899 Other long term (current) drug therapy (principal); C34.90 Malignant neoplasm of unspecified part of unspecified bronchus or lung
CPT/HCPCS: 36415; 80053; 83735; 84439; 84443; 85025

== ENCOUNTER → 2023-01-26 02:36 | Outpatient (CLI) | payer OTHER, SELFPAY ==
--- NOTE | 2023-01-26 | DI.CT_ITS ---
Exam(s) CT CHEST W EXAM: CT CHEST W CLINICAL HISTORY: ADENOCARCINOMA OF LUNG C34.90ASSESS TREATMENT RESPONSE TECHNIQUE: Imaging Protocol: Axial computed tomography images with coronal and sagittal reformatted images were created and reviewed CONTRAST MATERIAL: Intravenous: Omnipaque 350Contrast volume:70 mL. COMPARISON: CT CT CHEST W from 07/28/[address] CHEST W from 10/27/2022 FINDINGS: Tracheobronchial tree: Patent where visualized. Pulmonary parenchyma: Moderate centrilobular emphysematous changes are present. The infiltrates in t he right middle lobe and left lower lobe have resolved. The right infrahilar soft tissue thickening has also resolved. The nodule in the lateral aspect of the right lower lobe is stable. No new pulmo nary infiltrates are seen. Mediastinum and Monalisa: No dominant adenopathy or fluid collection. The esophagus is unremarkable. The lymph nodes in the right thoracic inlet region have shown slight decrease in size. (Series 3, image 33 through 55). Thyroid gland: Unremarkable. Pleura: No effusion or pneumothorax. Heart: Cardiomegaly. Coronary artery calcifications and/or stents are present. No pericardial effus ion. Aorta: Thoracic aorta non-dilated. Atherosclerosis. No evidence of dissection. Pulmonary arteries: No pulmonary emboli are identified. Upper abdomen: There is hepatic cirrhosis and abdominal ascites. Cholelithiasis is present. There is a stable mass in the posterior aspect of the right lobe of the liver. The spleen is absent. Lymph nodes: No significant axillary adenopathy. Bones: Within normal limits for the patient's age. No aggressive osseous lesions are present. Soft tissues: Gynecomastia. IMPRESSION: 1. Significant improvement in the appearance of the lung since 10/27/2022. Resolution of the right mi ddle lobe, right lower lobe and left lower lobe opacities. No new pulmonary infiltrates or masses. 2. Slight decrease in size of the lymph nodes in the thoracic inlet. 3. Stable nodule in the lateral aspect of the right lower lobe. 4. Stable findings in the upper abdomen. RADIATION DOSE DELIVERED: Total DLP DATA REPOSITORY: All CT scans at this facility are submitted to the National Radiology Data Registry (NRDR) Dose Index Registry (DIR) with the [employer] (ACR). RADIATION OPTIMIZATION: All CT scans at this facility use at least one of these dose optimization te chniques: automated exposure control; mA and/or kV adjustment per patient size (includes targeted exa ms where dose is matched to clinical indication); or iterative reconstruction.
[2023-01-26 14:08] LABS: Abs Immature Grans 0.03 10^3/uL (0.0-0.06); HCT 34.9 % (40.0-50.0); HGB 11.7 g/dL (13.5-17.5); MCH 28.7 pg (27.0-33.0); MCHC 33.5 % (32.0-36.0); MCV 86 fL (80-95); MPV 11.9 fL (8.0-11.0); Platelet Count 179 10^3/uL (130-400); RBC 4.08 10^6/uL (4.36-5.78); RDW 17.3 % (11.8-14.1); RDW-SD 54.4 fL; WBC 8.86 10^3/uL (4.4-10.8)
[2023-01-26 14:30] LABS: Absolute Basophil Count 0.18 10^3/uL (0.0-0.2); Absolute Eosinophil Count 0.97 10^3/uL (0.0-0.7); Absolute Lymphocyte Count 3.99 10^3/uL (1.2-3.4); Absolute Monocyte Count 0.89 10^3/uL (0.1-0.8); Absolute Neutrophil Count 2.84 10^3/uL (1.2-6.7); Atypical Lymphocytes % 13; Bands % 0
[2023-01-26 14:31] LABS: Diff Comment Manual Differential; RBC Morphology Normal
[2023-01-26 14:34] LABS: ALT 11 U/L (16-63); AST 25 U/L (15-37); Albumin 2.6 g/dL (3.4-5.0); Alkaline Phosphatase 124 U/L (46-116); Anion Gap 8.1 mmol/L (3-11); BUN 16 mg/dL (7-18); Bilirubin, Total 1.4 mg/dL (0.2-1.0); CO2 26.9 mmol/L (21.0-32.0); CREATININE 1.7 mg/dL (0.70-1.30); Calcium 8.9 mg/dL (8.5-10.1); Chloride 105 mmol/L (98-107); Estimated GFR 43.37 (mL/min/1.73m2); FREE T4 1.32 ng/dL (0.76-1.46); Glucose 96 mg/dL (74-106); Magnesium 1.4 mg/dL (1.8-2.4); Potassium 4.2 mmol/L (3.5-5.1); Sodium 140 mmol/L (136-145); TSH 0.91 uIU/mL (0.36-3.74); Total Protein 7.6 g/dL (6.4-8.2)
[2023-01-26] MEDS: Omnipaque 350 MG/ML 100 ML BTL IJ (14:51)
[2023-01-26] MEDS: Normal Saline - Diluent 50 ML VIAL IJ (14:53)
== END ==
PROVIDERS: Internal Medicine Medical Oncology; PCP Family Medicine; Visit Provider Nurse Practitioner Family
DX: Z79.899 Other long term (current) drug therapy (principal); C34.31 Malignant neoplasm of lower lobe, right bronchus or lung
CPT/HCPCS: 80053; 71260; 83735; 84439; 84443; 85025; J3490

== ENCOUNTER 2023-02-02 11:58 | Outpatient (CLI) | payer OTHER, SELFPAY ==
[2023-02-02 12:07] LABS: HCT 36.9 % (40.0-50.0); HGB 12.3 g/dL (13.5-17.5); MCH 28.8 pg (27.0-33.0); MCHC 33.3 % (32.0-36.0); MCV 86 fL (80-95); MPV 12.4 fL (8.0-11.0); Platelet Count 190 10^3/uL (130-400); RBC 4.27 10^6/uL (4.36-5.78); RDW 17.5 % (11.8-14.1); RDW-SD 54.6 fL
[2023-02-02 12:26] LABS: ALT 13 U/L (16-63); AST 25 U/L (15-37); Albumin 2.5 g/dL (3.4-5.0); Alkaline Phosphatase 164 U/L (46-116); BUN 13 mg/dL (7-18); Bilirubin, Total 1.2 mg/dL (0.2-1.0); CREATININE 1.7 mg/dL (0.70-1.30); Calcium 8.7 mg/dL (8.5-10.1); Chloride 105 mmol/L (98-107); Estimated GFR 43.37 (mL/min/1.73m2); FREE T4 1.16 ng/dL (0.76-1.46); Glucose 203 mg/dL (74-106); Magnesium 1.5 mg/dL (1.8-2.4); Potassium 4.3 mmol/L (3.5-5.1); Sodium 138 mmol/L (136-145); TSH 0.56 uIU/mL (0.36-3.74); Total Protein 7.6 g/dL (6.4-8.2)
[2023-02-02 12:31] LABS: Absolute Eosinophil Count 0.61 10^3/uL (0.0-0.7); Absolute Monocyte Count 0.46 10^3/uL (0.1-0.8); Absolute Neutrophil Count 4.67 10^3/uL (1.2-6.7); WBC 7.66 10^3/uL (4.4-10.8)
[2023-02-02 12:32] LABS: Absolute Basophil Count 0.15 10^3/uL (0.0-0.2); Absolute Lymphocyte Count 1.76 10^3/uL (1.2-3.4); Atypical Lymphocytes % 4; Diff Comment Manual Differential; RBC Morphology Normal
== END 2023-02-02 11:59 | disposition home or self-care (01) ==
LOC: LBO 11:58
PROVIDERS: PCP Family Medicine; Visit Provider Internal Medicine Medical Oncology
DX: C34.91 Malignant neoplasm of unspecified part of right bronchus or lung (principal); Z79.899 Other long term (current) drug therapy
CPT/HCPCS: 36415; 80053; 83735; 84439; 84443; 85025

== ENCOUNTER 2023-03-02 08:49 | Outpatient (CLI) | payer MEDICARE, SELFPAY ==
[2023-03-02 08:38] LABS: Abs Immature Grans 0.02 10^3/uL (0.0-0.06); Absolute Basophil Count 0.11 10^3/uL (0.0-0.2); Absolute Eosinophil Count 0.99 10^3/uL (0.0-0.7); Absolute Lymphocyte Count 2.03 10^3/uL (1.2-3.4); Absolute Monocyte Count 0.99 10^3/uL (0.1-0.8); Absolute Neutrophil Count 3.76 10^3/uL (1.2-6.7); Basophils % 1.4; Eosinophils % 12.5; HGB 11.5 g/dL (13.5-17.5); Immature Grans % 0.3; Lymphocytes % 25.7; MCH 28.3 pg (27.0-33.0); MCHC 32.9 % (32.0-36.0); MCV 86 fL (80-95); MPV 10.9 fL (8.0-11.0); Monocytes % 12.5; Neutrophils % 47.6; Platelet Count 178 10^3/uL (130-400); RBC 4.06 10^6/uL (4.36-5.78); RDW 18.8 % (11.8-14.1); RDW-SD 58.8 fL
[2023-03-02 09:02] LABS: ALT 12 U/L (16-63); AST 22 U/L (15-37); Albumin 2.3 g/dL (3.4-5.0); Alkaline Phosphatase 126 U/L (46-116); Anion Gap 8.7 mmol/L (3-11); BUN 16 mg/dL (7-18); Bilirubin, Total 0.9 mg/dL (0.2-1.0); CO2 26.3 mmol/L (21.0-32.0); CREATININE 1.9 mg/dL (0.70-1.30); Calcium 8.8 mg/dL (8.5-10.1); Chloride 106 mmol/L (98-107); Estimated GFR 37.95 (mL/min/1.73m2); FREE T4 1.17 ng/dL (0.76-1.46); Glucose 104 mg/dL (74-106); Magnesium 1.1 mg/dL (1.8-2.4); Potassium 4.2 mmol/L (3.5-5.1); Sodium 141 mmol/L (136-145); TSH 2.37 uIU/mL (0.36-3.74); Total Protein 7.1 g/dL (6.4-8.2)
== END 2023-03-02 08:50 | disposition home or self-care (01) ==
LOC: LBO 08:50
PROVIDERS: PCP Family Medicine; Visit Provider Internal Medicine Medical Oncology
DX: Z79.899 Other long term (current) drug therapy (principal); C34.91 Malignant neoplasm of unspecified part of right bronchus or lung
CPT/HCPCS: 36415; 80053; 83735; 84439; 84443; 85025

== ENCOUNTER 2023-03-28 13:51 | Outpatient (CLI) | payer MEDICARE, SELFPAY ==
[2023-03-28 08:25] LABS: Abs Immature Grans 0.01 10^3/uL (0.0-0.06); Absolute Basophil Count 0.11 10^3/uL (0.0-0.2); Absolute Eosinophil Count 1.34 10^3/uL (0.0-0.7); Absolute Lymphocyte Count 2.31 10^3/uL (1.2-3.4); Absolute Monocyte Count 1.14 10^3/uL (0.1-0.8); Absolute Neutrophil Count 3.13 10^3/uL (1.2-6.7); Basophils % 1.4; Eosinophils % 16.7; HGB 11.8 g/dL (13.5-17.5); Immature Grans % 0.1; Lymphocytes % 28.7; MCH 28.4 pg (27.0-33.0); MCHC 32.8 % (32.0-36.0); MCV 87 fL (80-95); Monocytes % 14.2; Neutrophils % 38.9; Platelet Count 187 10^3/uL (130-400); RBC 4.15 10^6/uL (4.36-5.78); RDW 19.8 % (11.8-14.1); RDW-SD 62.7 fL; WBC 8.04 10^3/uL (4.4-10.8)
[2023-03-28 08:49] LABS: ALT 18 U/L (16-63); AST 31 U/L (15-37); Albumin 2.4 g/dL (3.4-5.0); Alkaline Phosphatase 169 U/L (46-116); BUN 16 mg/dL (7-18); Bilirubin, Total 1.1 mg/dL (0.2-1.0); CREATININE 1.7 mg/dL (0.70-1.30); Calcium 8.6 mg/dL (8.5-10.1); Chloride 107 mmol/L (98-107); Estimated GFR 43.37 (mL/min/1.73m2); FREE T4 1.02 ng/dL (0.76-1.46); Glucose 140 mg/dL (74-106); Magnesium 1.7 mg/dL (1.8-2.4); Potassium 4.2 mmol/L (3.5-5.1); Sodium 140 mmol/L (136-145); TSH 2.26 uIU/mL (0.36-3.74); Total Protein 7.4 g/dL (6.4-8.2)
== END 2023-03-28 13:52 | disposition home or self-care (01) ==
LOC: LBO 13:51
PROVIDERS: PCP Family Medicine; Visit Provider Internal Medicine Medical Oncology
DX: Z79.899 Other long term (current) drug therapy (principal); C34.91 Malignant neoplasm of unspecified part of right bronchus or lung
CPT/HCPCS: 36415; 80053; 83735; 84439; 84443; 85025

== ENCOUNTER → 2023-04-18 02:04 | Outpatient (CLI) | payer MEDICARE, SELFPAY ==
[2023-04-18] MEDS: Normal Saline - Diluent 50 ML VIAL IJ (09:31)
[2023-04-18] MEDS: Omnipaque 350 MG/ML 100 ML BTL 70 ML IJ (09:33)
--- NOTE | 2023-04-18 09:40 | DI.CT_ITS ---
Exam(s) CT CHEST W EXAM: CT CHEST W CLINICAL HISTORY: ADENOCARCINOMA OF LUNG C34.90 ASSESS TREATMENT RESPONSE TECHNIQUE: Imaging Protocol: Axial computed tomography images with coronal and sagittal reformatted images were created and reviewed CONTRAST MATERIAL: Intravenous: Omnipaque 350Contrast volume:70 mL. COMPARISON: CT CT CHEST/ABD/PEL W from 07/19/[address] CHEST W from 07/28/[address] CHEST W from 10/27/[address] CHEST W from 01/26/2023 FINDINGS: Tracheobronchial tree: Patent where visualized. Pulmonary parenchyma: Moderate centrilobular emphysematous changes are present. There is a new modera te-sized right pleural effusion. There is a small amount of fluid in the right major fissure. New are a of consolidation involving the anterior aspect of the right lower lobe with associated bronchiectas is. There is a subjacent infiltrate in the right lower lobe. Mediastinum and Monalisa: Stable right paratracheal lymph nodes. The esophagus is unremarkable. Thyroid gland: Unremarkable. Pleura: No left pleural effusion. No pneumothorax. Heart: The heart is not dilated. Coronary artery calcifications and/or stents. There is a small persi stent pericardial effusion. Aorta: Thoracic aorta non-dilated. Atherosclerotic calcification is present. Pulmonary arteries: Due to the timing of the bolus, peripheral pulmonary artery evaluation is subopti mal. No large central pulmonary embolism is present. Upper abdomen: The liver has a cirrhotic appearance. The nodule along the posterior aspect of the ri ght lobe of the liver is again seen. There is a area decreased attenuation now seen in the posterior aspect of the right lobe of the liver. There is abdominal ascites present. The spleen is absent. Lymph nodes: Within normal limits. Bones: Within normal limits for the patient's age. No aggressive osseous lesions are identified. Soft tissues: Marked gynecomastia. There is infiltration of the soft tissues along the right lateral upper abdominal wall which is incompletely imaged. There is edema seen within the leaves of the right lateral abdominal wall musculature. IMPRESSION: 1. Interval development of a moderate right pleural effusion a new area of consolidation involving th e anterior aspect of the right lower lobe with associated bronchiectasis. While an infectious process should be considered, metastatic disease can not be excluded. 2. New area of decreased attenuation in the posterior aspect of the right lobe of the liver. Dedicate d abdominal CT or MRI is recommended for further evaluation. 3. Edema seen in the right lateral upper abdominal wall. Please correlate with physical exam and clin ical history. No focal fluid collection is seen to suggest an abscess. 4. Chronic findings in the chest and upper abdomen as described above. Unexpected findings RADIATION DOSE DELIVERED: Total DLP DATA REPOSITORY: All CT scans at this facility are submitted to the National Radiology Data Registry (NRDR) Dose Index Registry (DIR) with the [employer] ([employer]). RADIATION OPTIMIZATION: All CT scans at this facility use at least one of these dose optimization te chniques: automated exposure control; mA and/or kV adjustment per patient size (includes targeted exa ms where dose is matched to clinical indication); or iterative reconstruction.
== END ==
PROVIDERS: PCP Family Medicine; Visit Provider Nurse Practitioner Family
DX: C34.91 Malignant neoplasm of unspecified part of right bronchus or lung (principal)
CPT/HCPCS: 71260; J3490

== ENCOUNTER 2023-04-25 10:08 | Outpatient (CLI) | payer MEDICARE, SELFPAY ==
[2023-04-25 08:28] LABS: Abs Immature Grans 0.03 10^3/uL (0.0-0.06); Absolute Basophil Count 0.08 10^3/uL (0.0-0.2); Absolute Eosinophil Count 0.93 10^3/uL (0.0-0.7); Absolute Lymphocyte Count 1.62 10^3/uL (1.2-3.4); Absolute Monocyte Count 0.96 10^3/uL (0.1-0.8); Absolute Neutrophil Count 4.24 10^3/uL (1.2-6.7); Eosinophils % 11.8; HCT 34.4 % (40.0-50.0); HGB 11.3 g/dL (13.5-17.5); Immature Grans % 0.4; Lymphocytes % 20.6; MCH 30.2 pg (27.0-33.0); MCHC 32.8 % (32.0-36.0); MCV 92 fL (80-95); MPV 12.3 fL (8.0-11.0); Monocytes % 12.2; Platelet Count 206 10^3/uL (130-400); RBC 3.74 10^6/uL (4.36-5.78); RDW 19.7 % (11.8-14.1); RDW-SD 66.3 fL; WBC 7.86 10^3/uL (4.4-10.8)
[2023-04-25 08:44] LABS: ALT 17 U/L (16-63); AST 25 U/L (15-37); Albumin 2.2 g/dL (3.4-5.0); Alkaline Phosphatase 188 U/L (46-116); Anion Gap 6.5 mmol/L (3-11); BUN 12 mg/dL (7-18); Bilirubin, Total 0.8 mg/dL (0.2-1.0); CO2 26.5 mmol/L (21.0-32.0); CREATININE 1.6 mg/dL (0.70-1.30); Calcium 8.1 mg/dL (8.5-10.1); Chloride 106 mmol/L (98-107); Estimated GFR 46.64 (mL/min/1.73m2); Glucose 125 mg/dL (74-106); Potassium 4.2 mmol/L (3.5-5.1); Sodium 139 mmol/L (136-145); Total Protein 6.7 g/dL (6.4-8.2)
[2023-04-25 08:46] LABS: INR 1.2 (0.9-1.1); Prothrombin Time 12.1 sec (9.1-11.1)
[2023-04-25 08:52] LABS: FREE T4 1.08 ng/dL (0.76-1.46); Magnesium 1.6 mg/dL (1.8-2.4); TSH 2.73 uIU/Ml (0.36-3.74)
== END 2023-04-25 10:09 | disposition home or self-care (01) ==
LOC: LBO 10:21
PROVIDERS: PCP Family Medicine; Visit Provider Internal Medicine Medical Oncology
DX: I48.91 Unspecified atrial fibrillation (principal); Z79.899 Other long term (current) drug therapy
CPT/HCPCS: 36415; 80053; 83735; 84439; 84443; 85025; 85610

== ENCOUNTER 2023-05-23 05:50 | Outpatient (CLI) | payer MEDICARE, SELFPAY ==
[2023-05-23 08:22] LABS: Abs Immature Grans 0.02 10^3/uL (0.0-0.06); Absolute Basophil Count 0.11 10^3/uL (0.0-0.2); Absolute Lymphocyte Count 1.91 10^3/uL (1.2-3.4); Absolute Monocyte Count 1.11 10^3/uL (0.1-0.8); Absolute Neutrophil Count 3.64 10^3/uL (1.2-6.7); Basophils % 1.4; HGB 11.7 g/dL (13.5-17.5); Immature Grans % 0.3; Lymphocytes % 23.9; MCH 29.2 pg (27.0-33.0); MCHC 32.5 % (32.0-36.0); MCV 90 fL (80-95); MPV 11.6 fL (8.0-11.0); Monocytes % 13.9; Neutrophils % 45.5; Platelet Count 177 10^3/uL (130-400); RBC 4.01 10^6/uL (4.36-5.78); RDW 17.3 % (11.8-14.1); RDW-SD 57.4 fL; WBC 7.99 10^3/uL (4.4-10.8)
[2023-05-23 08:46] LABS: ALT 16 U/L (16-63); AST 22 U/L (15-37); Albumin 2.6 g/dL (3.4-5.0); Alkaline Phosphatase 184 U/L (46-116); Anion Gap 4.4 mmol/L (3-11); BUN 24 mg/dL (7-18); Bilirubin, Total 0.8 mg/dL (0.2-1.0); CO2 30.6 mmol/L (21.0-32.0); CREATININE 1.7 mg/dL (0.70-1.30); Calcium 8.7 mg/dL (8.5-10.1); Chloride 108 mmol/L (98-107); Estimated GFR 43.37 (mL/min/1.73m2); FREE T4 1.03 ng/dL (0.76-1.46); Glucose 86 mg/dL (74-106); Potassium 4.3 mmol/L (3.5-5.1); Sodium 143 mmol/L (136-145); Total Protein 7.3 g/dL (6.4-8.2)
== END 2023-05-23 05:51 | disposition home or self-care (01) ==
LOC: LBO 05:50
PROVIDERS: PCP Family Medicine; Visit Provider Internal Medicine Medical Oncology
DX: Z79.899 Other long term (current) drug therapy (principal)
CPT/HCPCS: 36415; 80053; 83735; 84439; 84443; 85025

== ENCOUNTER 2023-06-20 04:53 | Outpatient (CLI) | payer OTHER, SELFPAY ==
[2023-06-20 10:07] LABS: Abs Immature Grans 0.01 10^3/uL (0.0-0.06); Absolute Basophil Count 0.12 10^3/uL (0.0-0.2); Absolute Eosinophil Count 1.67 10^3/uL (0.0-0.7); Absolute Lymphocyte Count 2.31 10^3/uL (1.2-3.4); Absolute Monocyte Count 1.13 10^3/uL (0.1-0.8); Absolute Neutrophil Count 3.96 10^3/uL (1.2-6.7); Basophils % 1.3 %; Eosinophils % 18.2 %; HCT 36.4 % (40.0-50.0); HGB 11.9 g/dL (13.5-17.5); Immature Grans % 0.1 %; Lymphocytes % 25.1 %; MCH 28.8 pg (27.0-33.0); MCHC 32.7 % (32.0-36.0); MCV 88 fL (80-95); Monocytes % 12.3 %; Platelet Count 189 10^3/uL (130-400); RBC 4.13 10^6/uL (4.36-5.78); RDW 16.3 % (11.8-14.1); RDW-SD 53.1 fL
[2023-06-20 10:17] LABS: Prothrombin Time 27.3 sec (9.1-11.1)
[2023-06-20 10:35] LABS: ALT 20 U/L (16-63); AST 24 U/L (15-37); Albumin 2.6 g/dL (3.4-5.0); Alkaline Phosphatase 192 U/L (46-116); Anion Gap 6.8 mmol/L (3-11); BUN 22 mg/dL (7-18); Bilirubin, Total 0.9 mg/dL (0.2-1.0); CO2 27.2 mmol/L (21.0-32.0); CREATININE 1.5 mg/dL (0.70-1.30); Calcium 8.4 mg/dL (8.5-10.1); Chloride 108 mmol/L (98-107); FREE T4 1.07 ng/dL (0.76-1.46); Glucose 116 mg/dL (74-106); Magnesium 1.9 mg/dL (1.8-2.4); Potassium 4.3 mmol/L (3.5-5.1); Sodium 142 mmol/L (136-145); TSH 1.38 uIU/Ml (0.36-3.74); Total Protein 7.2 g/dL (6.4-8.2)
== END 2023-06-20 04:54 | disposition home or self-care (01) ==
LOC: LBO 04:54
PROVIDERS: Family Medicine; PCP Family Medicine; Visit Provider Internal Medicine Medical Oncology
DX: Z79.01 Long term (current) use of anticoagulants (principal); I81 Portal vein thrombosis; Z79.899 Other long term (current) drug therapy; C34.91 Malignant neoplasm of unspecified part of right bronchus or lung
CPT/HCPCS: 36415; 80053; 83735; 84439; 84443; 85025; 85610

== ENCOUNTER 2023-10-21 00:10 | Outpatient (CLI) | payer OTHER, SELFPAY ==
--- NOTE | 2023-10-21 | DI.CT_ITS ---
Exam(s) CT CHEST W EXAM: CT CHEST W CLINICAL HISTORY: ASSESS RESPONSE TO TREATMENT LUNG CANCER, C34.90 TECHNIQUE: Imaging Protocol: Axial computed tomography images with coronal and sagittal reformatted images were created and reviewed CONTRAST MATERIAL: Intravenous: Omnipaque 350 Contrast volume:70 ml. COMPARISON: 18 April 2023 FINDINGS: Pulmonary parenchyma: Resolution of previously noted right lower lobe infiltrates. No new areas of c onsolidation. No dominant measurable mass. Moderate centrilobular emphysematous changes. Tracheobronchial tree: No bronchiectasis or mucous plugging. Mediastinum and Monalisa: No dominant adenopathy or fluid collection. Pleura: No effusion. No pneumothorax. Heart: The heart is mildly dilated. Stents and/or coronary artery calcifications are seen. Mitral a nnular calcifications. Aorta: Thoracic aorta non-dilated. Mild atherosclerotic changes. Pulmonary arteries: No gross evidence of emboli. Upper abdomen: Cirrhotic appearing liver. Lesion lateral right lobe of liver is more easily seen on today's exam appears enlarged from prior. Lesion and posterior right lobe appears unchanged. Ascit es seen around liver and stomach, unchanged. Spleen is absent. Bones: New moderate compression fracture of T5. No lytic or blastic lesions identified.Degenerativ e changes in the spine. Soft tissues: Gynecomastia. IMPRESSION: Resolution of previously noted right lower lobe infiltrate. No new infiltrate or pulmonary nodules. No evidence of adenopathy. Resolution of previously noted right pleural effusion. New T5 compression fracture. Interval increase in size of liver metastasis. RADIATION DOSE DELIVERED: 142.43mGy.cm Total DLP DATA REPOSITORY: All CT scans at this facility are submitted to the National Radiology Data Registry (NRDR) Dose Index Registry (DIR) with the [employer] (ACR). RADIATION OPTIMIZATION: All CT scans at this facility use at least one of these dose optimization te chniques: automated exposure control; mA and/or kV adjustment per patient size (includes targeted exa ms where dose is matched to clinical indication); or iterative reconstruction.
[2023-10-21 10:26] LABS: Abs Immature Grans 0.02 10^3/uL (0.0-0.06); Absolute Basophil Count 0.08 10^3/uL (0.0-0.2); Absolute Eosinophil Count 0.83 10^3/uL (0.0-0.7); Absolute Lymphocyte Count 1.61 10^3/uL (1.2-3.4); Absolute Monocyte Count 0.81 10^3/uL (0.1-0.8); Absolute Neutrophil Count 4.54 10^3/uL (1.2-6.7); Eosinophils % 10.5 %; HCT 34.8 % (40.0-50.0); HGB 11.1 g/dL (13.5-17.5); Immature Grans % 0.3 %; Lymphocytes % 20.4 %; MCH 26.4 pg (27.0-33.0); MCHC 31.9 % (32.0-36.0); MCV 83 fL (80-95); MPV 10.6 fL (8.0-11.0); Monocytes % 10.3 %; Neutrophils % 57.5 %; Platelet Count 292 10^3/uL (130-400); RBC 4.21 10^6/uL (4.36-5.78); RDW 18.3 % (11.8-14.1); RDW-SD 54.4 fL; WBC 7.89 10^3/uL (4.4-10.8)
[2023-10-21 10:37] LABS: INR 3.8 (0.9-1.1); Prothrombin Time 34.2 sec (9.1-11.1)
[2023-10-21] MEDS: Normal Saline - Diluent 50 ML VIAL IJ (10:49)
[2023-10-21] MEDS: Omnipaque 350 MG/ML 100 ML BTL IJ (10:50)
[2023-10-21 10:53] LABS: ALT 17 U/L (16-63); AST 27 U/L (15-37); Albumin 2.5 g/dL (3.4-5.0); Alkaline Phosphatase 141 U/L (46-116); Anion Gap 3.5 mmol/L (3-11); BUN 15 mg/dL (7-18); Bilirubin, Total 0.86 mg/dL (0.2-1.0); CO2 27.5 mmol/L (21.0-32.0); CREATININE 1.4 mg/dL (0.70-1.30); Calcium 8.7 mg/dL (8.5-10.1); Chloride 106 mmol/L (98-107); Estimated GFR 54.41 (mL/min/1.73m2); FREE T4 1.09 ng/dL (0.76-1.46); Glucose 112 mg/dL (74-106); Magnesium 1.7 mg/dL (1.8-2.4); Potassium 4.5 mmol/L (3.5-5.1); Sodium 137 mmol/L (136-145); TSH 1.06 uIU/Ml (0.36-3.74); Total Protein 7.8 g/dL (6.4-8.2)
== END 2023-10-21 00:30 ==
LOC: DI 00:10
PROVIDERS: Family Medicine; PCP Family Medicine; Visit Provider Nurse Practitioner Family
DX: Z79.01 Long term (current) use of anticoagulants (principal); I81 Portal vein thrombosis; Z79.899 Other long term (current) drug therapy
CPT/HCPCS: 36415; 80053; 71260; 83735; 84439; 84443; 85025; 85610; J3490

== ENCOUNTER 2023-10-24 04:22 | Outpatient (CLI) | payer OTHER, SELFPAY ==
[2023-10-24 10:35] LABS: Abs Immature Grans 0.03 10^3/uL (0.0-0.06); Absolute Basophil Count 0.09 10^3/uL (0.0-0.2); Absolute Lymphocyte Count 1.29 10^3/uL (1.2-3.4); Absolute Monocyte Count 0.71 10^3/uL (0.1-0.8); Absolute Neutrophil Count 4.45 10^3/uL (1.2-6.7); Basophils % 1.2 %; Eosinophils % 10.9 %; HCT 35.4 % (40.0-50.0); HGB 11.3 g/dL (13.5-17.5); Immature Grans % 0.4 %; Lymphocytes % 17.5 %; MCH 26.4 pg (27.0-33.0); MCHC 31.9 % (32.0-36.0); MCV 83 fL (80-95); MPV 10.9 fL (8.0-11.0); Monocytes % 9.6 %; Neutrophils % 60.4 %; Platelet Count 261 10^3/uL (130-400); RBC 4.28 10^6/uL (4.36-5.78); WBC 7.37 10^3/uL (4.4-10.8)
[2023-10-24 10:50] LABS: Prothrombin Time 31.9 sec (9.1-11.1)
[2023-10-24 10:55] LABS: INR 3.5 (0.9-1.1)
[2023-10-24 11:06] LABS: ALT 16 U/L (16-63); AST 23 U/L (15-37); Albumin 2.5 g/dL (3.4-5.0); Alkaline Phosphatase 142 U/L (46-116); Anion Gap 6.2 mmol/L (3-11); BUN 22 mg/dL (7-18); Bilirubin, Total 0.58 mg/dL (0.2-1.0); CO2 24.8 mmol/L (21.0-32.0); CREATININE 1.7 mg/dL (0.70-1.30); Calcium 8.8 mg/dL (8.5-10.1); Chloride 105 mmol/L (98-107); Glucose 156 mg/dL (74-106); Potassium 4.5 mmol/L (3.5-5.1); Sodium 136 mmol/L (136-145); Total Protein 7.9 g/dL (6.4-8.2)
== END 2023-10-24 04:23 | disposition home or self-care (01) ==
PROVIDERS: Family Medicine; PCP Family Medicine; Visit Provider Nurse Practitioner Family
DX: Z79.01 Long term (current) use of anticoagulants (principal); I81 Portal vein thrombosis; Z79.899 Other long term (current) drug therapy; C34.90 Malignant neoplasm of unspecified part of unspecified bronchus or lung
CPT/HCPCS: 36415; 80053; 84443; 85025; 85610